=== PATIENT | female | born 1955 | race Caucasian/White ===

== ENCOUNTER 2018-03-22 11:42 | Emergency (ER) | payer MEDICAID ==
[2018-03-22] MEDS ORDERED: AMPICILLIN SOD/SULBACTAM 3 GM VIAL IV ONE (11:57)
--- NOTE | 2018-03-22 12:00 | ER Document Report ---
ED General - General Chief Complaint: Leg Pain Stated Complaint: BILATERAL LEG PAIN Time Seen by Provider: 03/22/18 11:52 Notes: 63-year-old female presents to the ER complaining of bilateral lower extremity redness. She has had a history of chronic cellulitis of the lower extremity she states she has had on and off for 2 years. She feels as if her legs are getting a little bit red and starting to have some weeping and drainage. She denies any chest pain denies shortness of breath she states when this usually happens she needs some antibiotics. The patient denies fever or chills. Complains of some burning pain in the leg she describes as mild which is worse with walking. She denies any calf pain no. Denies abdominal pain. Denies nausea vomiting diarrhea. TRAVEL OUTSIDE OF THE [place] IN LAST 30 DAYS: No - Related Data Allergies/Adverse Reactions: codeine [Codeine] Allergy (Verified 02/13/15 12:25) Past Medical History - Social History Smoking Status: Unknown if Ever Smoked Family History: Reviewed & Not Pertinent - Past Medical History Cardiac Medical History: Reports: Hx Congestive Heart Failure, Hx Coronary Artery Disease - hyperlipedemia, Hx Hypercholesterolemia, Hx Hypertension Denies: Hx Heart Attack Pulmonary Medical History: Reports: Hx Asthma, Hx COPD, Hx Pneumonia - 2006 Denies: Hx Bronchitis Neurological Medical History: Reports: Hx Cerebrovascular Accident - 2008 (mild and without residual) Musculoskeltal Medical History: Denies Hx Arthritis - Immunizations Hx Diphtheria, Pertussis, Tetanus Vaccination: No Review of Systems - Review of Systems Constitutional: denies: Chills, Fever Cardiovascular: Edema. denies: Orthopnea, Dyspnea Respiratory: denies: Cough, Short of breath Skin: Change in color -: Yes All other systems reviewed and negative Physical Exam - Vital signs Vitals: Temp Pulse Resp BP Pulse Ox 98.4 F 75 16 125/66 96 03/22/18 11:45 03/22/18 11:45 03/22/18 11:45 03/22/18 11:45 03/22/18 11:45 - Notes Notes: GENERAL_APPEARANCE: well_nourished, alert, cooperative, no_acute_distress, no_ obvious_discomfort. VITALS: reviewed, see vital signs table. HEAD: no_swelling\tenderness on the head. EYES: conjunctiva_clear. NOSE: no_nasal_discharge. MOUTH: (-)decreased moisture. THROAT: no_airway_obstruction. no_lymphadenopathy NECK: supple, no_neck_tenderness, (-)thyromegaly. BACK: no_back_tenderness. CHEST_WALL: no_chest_tenderness. LUNGS: no_wheezing, no_rales, no_rhonchi, (-)accessory muscle use, good air exchange bilateral. HEART: normal_rate, normal_rhythm, normal_S1, normal_S2, (-)S3, (-)S4, no_ murmur, no_rub. ABDOMEN: normal_BS, soft, no_abd_tenderness, (-)guarding, (-)rebound, no_ organomegaly, no_abd_masses. EXTREMITIES: 3+ pitting edema to the knee, there is redness and cellulitis to lower extremities there is some ulcerations small less than the size of a dime multiple on bilateral legs. There is no fluctuance noted. There are strong dorsalis pedis pulses. SKIN: warm, dry, good_color, no_rash. MENTAL_STATUS: speech_clear, oriented_X_3, normal_affect, responds_ appropriately to questions. Course - Re-evaluation Re-evalutation: 03/22/18 11:59 The patient presents with bilateral lower extremity cellulitis. Will check some generalized blood work and give a dose of Unasyn. The patient does not appear septic at this time will check some generalized blood. 03/22/18 14:11 Laboratory 03/22/18 03/22/18 12:26 12:26 WBC 8.3 RBC 4.85 Hgb 14.1 Hct 42.1 MCV 87 MCH 29.1 MCHC 33.5 RDW 15.0 H Plt Count 236 Seg Neutrophils % 73.9 Lymphocytes % 18.4 Monocytes % 5.8 Eosinophils % 1.3 Basophils % 0.6 Absolute Neutrophils 6.1 Absolute Lymphocytes 1.5 Absolute Monocytes 0.5 Absolute Eosinophils 0.1 Absolute Basophils 0.0 Sodium 147.0 H Potassium 4.2 Chloride 107 Carbon Dioxide 27 Anion Gap 13 BUN 19 Creatinine 1.49 H Est GFR ( Amer) 43 L Est GFR (Non-Af Amer) 35 L Glucose 95 Calcium 10.1 Patient has no signs of any leukocytosis or fever. Patient was given a dose of Unasyn here in the ER will be discharged home on Bactrim and Keflex. The patient follow-up with her family doctor. If she develops a fever or worsening redness she is to return to the ER. She verbalized understanding. - Vital Signs Vital signs: Temp Pulse Resp BP Pulse Ox 98.4 F 75 16 125/66 96 03/22/18 11:45 03/22/18 11:45 03/22/18 11:45 03/22/18 11:45 03/22/18 11:45 - Laboratory Result Diagrams: 03/22/18 12:26 03/22/18 12:26 Laboratory results interpreted by me: 03/22/18 03/22/18 12:26 12:26 RDW 15.0 H Sodium 147.0 H Creatinine 1.49 H Est GFR ( Amer) 43 L Est GFR (Non-Af Amer) 35 L Discharge - Discharge Clinical Impression: Cellulitis Qualifiers: Site of cellulitis: extremity Site of cellulitis of extremity: lower extremity Laterality: unspecified laterality Qualified Code(s): L03.119 - Cellulitis of unspecified part of limb Condition: Good Disposition: HOME, SELF-CARE Instructions: Cellulitis ([facility]) Additional Instructions: Please follow-up with your primary care doctor in 3-5 days. If you develop a fever 101 or above return to the ER. Prescriptions: Cephalexin [Cephalexin 500 MG Tablet] 500 mg PO QID #40 tablet Sulfamethoxazole/Trimethoprim [Bactrim Ds Tablet] 1 each PO BID #20 tablet
[2018-03-22 12:38] LABS: ABSOLUTE EOSINOPHILS # (AUTO) 0.1 10^3/uL (0.0-0.6); ABSOLUTE LYMPHOCYTES (AUTO) 1.5 10^3/uL (0.5-4.7); ABSOLUTE MONOCYTES (AUTO) 0.5 10^3/uL (0.1-1.4); ABSOLUTE NEUT (AUTO) 6.1 10^3/uL (1.7-8.2); BASOPHILS % (AUTO) 0.6 % (0-2); EOSINOPHILS % (AUTO) 1.3 % (0-6); HEMATOCRIT 42.1 % (36.0-47.0); HEMOGLOBIN 14.1 g/dL (12.0-15.5); LYMPHOCYTES % (AUTO) 18.4 % (13-45); MEAN CORPUSCULAR HEMOGLOBIN 29.1 pg (27.0-33.4); MEAN CORPUSCULAR HGB CONC 33.5 g/dL (32.0-36.0); MEAN CORPUSCULAR VOLUME 87 fl (80-97); MONOCYTES % (AUTO) 5.8 % (3-13); PLATELET COUNT 236 10^3/uL (150-450); RED BLOOD COUNT 4.85 10^6/uL (3.72-5.28); SEGMENTED NEUTROPHILS % (AUTO) 73.9 % (42-78); TOTAL CELLS COUNTED % (AUTO) 100 %; WHITE BLOOD COUNT 8.3 10^3/uL (4.0-10.5)
[2018-03-22 12:59] LABS: ANION GAP 13 (5-19); BLOOD UREA NITROGEN 19 mg/dL (7-20); CALCIUM 10.1 mg/dL (8.4-10.2); CARBON DIOXIDE 27 mmol/L (22-30); CHLORIDE 107 mmol/L (98-107); GLUCOSE 95 mg/dL (75-110); POTASSIUM 4.2 mmol/L (3.6-5.0)
[2018-03-22 15:17] VITALS: BP 130/82
== END 2018-03-22 15:17 | disposition home or self-care (01) ==
LOC: ER 11:42
DX: L03.116 Cellulitis of left lower limb (principal); L03.115 Cellulitis of right lower limb; I25.10 Atherosclerotic heart disease of native coronary artery without angina pectoris; I10 Essential (primary) hypertension; J44.9 Chronic obstructive pulmonary disease, unspecified; Z88.5 Allergy status to narcotic agent
CPT/HCPCS: 99283; 96365; 36415; 87040; 85025; 80048; J0295

== ENCOUNTER 2018-09-26 18:35 | Emergency (ER) | payer MEDICAID ==
[2018-09-26] MEDS ORDERED: IPRATROPIUM/ALBUTEROL 0.5-2.5 MG/3 ML AMPUL NEB ONE (19:42)
[2018-09-26] MEDS ORDERED: NORMAL SALINE 500 ML IV ONE (19:42)
[2018-09-26] MEDS ORDERED: MAGNESIUM SULFATE/D5W 1 GM/100 ML RTUPB IV ONE (19:42)
[2018-09-26] MEDS ORDERED: METHYLPREDNISOLONE INJ 125 MG/2 ML SDV IV ONE (19:42)
[2018-09-26 20:07] LABS: ABSOLUTE EOSINOPHILS # (AUTO) 0.2 10^3/uL (0.0-0.6); ABSOLUTE NEUT (AUTO) 10.5 10^3/uL (1.7-8.2); BASOPHILS % (AUTO) 0.3 % (0-2); EOSINOPHILS % (AUTO) 1.5 % (0-6); HEMATOCRIT 39.1 % (36.0-47.0); HEMOGLOBIN 12.9 g/dL (12.0-15.5); LYMPHOCYTES % (AUTO) 7.8 % (13-45); MEAN CORPUSCULAR HEMOGLOBIN 29.5 pg (27.0-33.4); MEAN CORPUSCULAR VOLUME 90 fl (80-97); MONOCYTES % (AUTO) 7.6 % (3-13); PLATELET COUNT 224 10^3/uL (150-450); RED BLOOD COUNT 4.37 10^6/uL (3.72-5.28); RED CELL DISTRIBUTION WIDTH 16.2 % (11.5-14.0); SEGMENTED NEUTROPHILS % (AUTO) 82.8 % (42-78); TOTAL CELLS COUNTED % (AUTO) 100 %; WHITE BLOOD COUNT 12.7 10^3/uL (4.0-10.5)
[2018-09-26 20:12] LABS: INTERNATIONAL RATION (INR) 0.94
--- NOTE | 2018-09-26 20:15 | RADIOLOGY REPORT (SQ) ---
EXAM DESCRIPTION: CHEST SINGLE VIEW COMPLETED DATE/TIME: 09/26/2018 7:58 pm REASON FOR STUDY: sob COMPARISON: None. EXAM PARAMETERS: NUMBER OF VIEWS: One view. TECHNIQUE: Single frontal radiographic view of the chest acquired. RADIATION DOSE: NA LIMITATIONS: None. FINDINGS: LUNGS AND PLEURA: No opacities, masses or pneumothorax. No pleural effusion. MEDIASTINUM AND HILAR STRUCTURES: There is a double density in the lower mediastinum. Cannot exclude hiatal hernia. HEART AND VASCULAR STRUCTURES: Heart normal in size. Normal vasculature. BONES: No acute findings. HARDWARE: None in the chest. OTHER: No other significant finding. IMPRESSION: Possible hiatal hernia. No acute pulmonary disease. TECHNICAL DOCUMENTATION: JOB ID: [id number] [employer]- All Rights Reserved Reading location - IP/workstation name: [email or web address]
[2018-09-26 20:18] LABS: VENOUS BLOOD BASE EXCESS -7.2 mmol/L; VENOUS BLOOD HCO3 19.1 mmol/L (20-32); VENOUS BLOOD PCO2 41.9 mmHg (35-63); VENOUS BLOOD PH 7.28 (7.30-7.42)
[2018-09-26 20:21] LABS: ALANINE AMINOTRANSFERASE 14 U/L (9-52); ALBUMIN 4.1 g/dL (3.5-5.0); ALKALINE PHOSPHATASE 86 U/L (38-126); ANION GAP 14 (5-19); ASPARTATE AMINO TRANSFERASE 17 U/L (14-36); BILIRUBIN,DIRECT 0.4 mg/dL (0.0-0.4); BILIRUBIN,TOTAL 0.7 mg/dL (0.2-1.3); BLOOD UREA NITROGEN 30 mg/dL (7-20); CALCIUM 9.9 mg/dL (8.4-10.2); CARBON DIOXIDE 21 mmol/L (22-30); CHLORIDE 107 mmol/L (98-107); GLUCOSE 124 mg/dL (75-110); POTASSIUM 3.5 mmol/L (3.6-5.0); SODIUM 142.1 mmol/L (137-145); TOTAL PROTEIN 7.3 g/dL (6.3-8.2)
[2018-09-26 21:48] LABS: APPEARANCE,URINE CLEAR; BILIRUBIN,URINE NEGATIVE (NEGATIVE); COLOR,URINE STRAW; GLUCOSE, URINE NEGATIVE (NEGATIVE); KETONES,URINE NEGATIVE (NEGATIVE); LEUKOCYTE ESTERASE,URINE NEGATIVE (NEGATIVE); NITRITE,URINE NEGATIVE (NEGATIVE); PROTEIN,URINE NEGATIVE (NEGATIVE); UROBILINOGEN,URINE NEGATIVE mg/dL (<2.0)
[2018-09-26] MEDS ORDERED: ALBUTEROL SULFATE HFA (90 MCG/PUFF) 8 GM MDI (1 MDI/ER DISP) IH ONE (23:19)
[2018-09-26] MEDS ORDERED: PREDNISONE 20 MG TABLET PO ONE (23:19)
[2018-09-26 23:26] VITALS: BP 143/76
--- NOTE | 2018-09-26 23:31 | ER Document Report ---
ED General - General Chief Complaint: Respiratory Distress Stated Complaint: DIFFICULTY BREATHING Time Seen by Provider: 09/26/18 19:18 TRAVEL OUTSIDE OF THE [place] IN LAST 30 DAYS: No - HPI Patient complains to provider of: Difficulty breathing Notes: Patient coming in for difficulty breathing. Patient states he has been compliant with her medications no recent antibiotics no recent steroids however acutely short of breath for the last 3 days worse today. Patient denies any current smoking the smell of cigarette smoke is abundant on the patient. Patient denies productive sputum although she does have a dry cough. Denies any recent vaccinations denies any sick contacts denies fevers chills nausea vomiting denies any chest pain abdominal pain. Patient otherwise is on oxygen upon my evaluation due to the patient off oxygen as that she states she is not on this at home. HPI process patient is able to speak in complete sentences without any signs of hypoxia. Patient did receive a breathing treatment in triage area and states she is feeling a little bit better at this time. - Related Data Allergies/Adverse Reactions: codeine [Codeine] Allergy (Verified 02/13/15 12:25) Past Medical History - Social History Smoking Status: Former Smoker Family History: Reviewed & Not Pertinent Patient has suicidal ideation: No Patient has homicidal ideation: No - Past Medical History Cardiac Medical History: Reports: Hx Congestive Heart Failure, Hx Coronary Artery Disease - hyperlipedemia, Hx Hypercholesterolemia, Hx Hypertension Denies: Hx Heart Attack Pulmonary Medical History: Reports: Hx Asthma, Hx COPD, Hx Pneumonia - 2006 Denies: Hx Bronchitis Neurological Medical History: Reports: Hx Cerebrovascular Accident - 2008 (mild and without residual) Renal/ Medical History: Denies: Hx Peritoneal Dialysis Musculoskeletal Medical History: Denies Hx Arthritis Past Surgical History: Reports: Hx Hysterectomy - Immunizations Hx Diphtheria, Pertussis, Tetanus Vaccination: No Review of Systems - Review of Systems Constitutional: No symptoms reported EENT: No symptoms reported Cardiovascular: No symptoms reported Respiratory: Short of breath Gastrointestinal: No symptoms reported Genitourinary: No symptoms reported Female Genitourinary: No symptoms reported Musculoskeletal: No symptoms reported Skin: No symptoms reported Hematologic/Lymphatic: No symptoms reported Neurological/Psychological: No symptoms reported -: Yes All other systems reviewed and negative Physical Exam - Vital signs Vitals: Resp Pulse Ox 30 H 100 09/26/18 18:44 09/26/18 18:44 Interpretation: Normal - General General appearance: Appears well, Alert - HEENT Head: Normocephalic, Atraumatic Eyes: Normal Pupils: PERRL - Respiratory Respiratory status: No respiratory distress Chest status: Nontender Breath sounds: Wheezing Chest palpation: Normal - Cardiovascular Rhythm: Regular Heart sounds: Normal auscultation Murmur: No - Abdominal Inspection: Normal Distension: No distension Bowel sounds: Normal Tenderness: Nontender Organomegaly: No organomegaly - Back Back: Normal, Nontender - Extremities General upper extremity: Normal inspection, Nontender, Normal color, Normal ROM , Normal temperature General lower extremity: Normal inspection, Nontender, Normal color, Normal ROM , Normal temperature, Normal weight bearing. No: Addison's sign - Neurological Neuro grossly intact: Yes Cognition: Normal Orientation: AAOx4 [place] Coma Scale Eye Opening: Spontaneous Kristina Coma Scale Verbal: Oriented Kristina Coma Scale Motor: Obeys Commands Kristina Coma Scale Total: 15 Speech: Normal Motor strength normal: LUE, RUE, LLE, RLE Sensory: Normal - Psychological Associated symptoms: Normal affect, Normal mood - Skin Skin Temperature: Warm Skin Moisture: Dry Skin Color: Normal Course - Re-evaluation Re-evalutation: 09/27/18 00:36 Patient was given albuterol treatment steroids and magnesium with great improvement of her symptoms. Patient stating that upon reevaluation she would like to be discharged home. Patient was ambulated around the ER without any signs of hypoxia. Reexamination patient's lung does show signs of. Patient was encouraged to continue to use her nebulizers and inhalers at home will start on steroids. Patient is follow-up with her PCP in the next 3-5 days. Patient is understanding will be discharged home. - Vital Signs Vital signs: Temp Pulse Resp BP Pulse Ox 98.0 F 21 H 143/76 H 95 09/26/18 18:50 09/26/18 23:01 09/26/18 23:01 09/26/18 23:01 - Laboratory Result Diagrams: 09/26/18 19:31 09/26/18 19:31 Laboratory results interpreted by me: 09/26/18 09/26/18 09/26/18 19:02 19:31 19:31 WBC 12.7 H RDW 16.2 H Seg Neutrophils % 82.8 H Lymphocytes % 7.8 L Absolute Neutrophils 10.5 H VBG pH VBG HCO3 Potassium 3.5 L Carbon Dioxide 21 L BUN 30 H Creatinine 2.37 H Est GFR ( Amer) 25 L Est GFR (Non-Af Amer) 21 L Glucose 124 H POC Glucose Magnesium 1.5 L Urine Blood SMALL H 09/26/18 09/26/18 19:31 20:03 WBC RDW Seg Neutrophils % Lymphocytes % Absolute Neutrophils VBG pH 7.28 L VBG HCO3 19.1 L Potassium Carbon Dioxide BUN Creatinine Est GFR ( Amer) Est GFR (Non-Af Amer) Glucose POC Glucose 111 H Magnesium Urine Blood Discharge - Discharge Clinical Impression: COPD with acute exacerbation Condition: Good Disposition: HOME, SELF-CARE Instructions: Chronic Obstructive Lung Disease ([facility]) Additional Instructions: Your laboratory studies today do not show any acute pathology. I recommend she follow-up with your primary care physician. Return to the ER symptoms worsen take medications as prescribed. Prescriptions: Prednisone [Deltasone] 60 mg PO DAILY #24 tablet Referrals: MAU TORRES MD [Primary Care Provider] - Follow up in 1 week
--- NOTE | 2018-09-27 07:27 | EKG REPORT ---
SEVERITY:- ABNORMAL ECG - SINUS TACHYCARDIA WITH IRREGULAR RATE 99-142 CONSIDER ANTEROSEPTAL INFARCT BORDERLINE T ABNORMALITIES, LATERAL LEADS : Confirmed by: David Jaramillo MD 27-Sep-2018 07:26:08
== END 2018-09-26 23:32 | disposition home or self-care (01) ==
LOC: ER 18:35
DX: J44.1 Chronic obstructive pulmonary disease with (acute) exacerbation (principal); R06.09 Other forms of dyspnea; Z87.891 Personal history of nicotine dependence; I25.10 Atherosclerotic heart disease of native coronary artery without angina pectoris; I10 Essential (primary) hypertension
CPT/HCPCS: 93005; 94640; 99285; 96361; 96374; 96375; 36415; 87040; 87086; 82962; 83735; 85025; 85610; 80053; 81001; 82803; 83605; 71045; 93010; J2930; J3475; J7512; J7040; J3490; J7620

== ENCOUNTER 2018-11-05 10:50 | Inpatient (IN) | payer MEDICAID ==
[2018-11-05 11:26] LABS: ABSOLUTE BASOPHILS # (AUTO) 0.1 10^3/uL (0.0-0.2); ABSOLUTE EOSINOPHILS # (AUTO) 0.1 10^3/uL (0.0-0.6); ABSOLUTE LYMPHOCYTES (AUTO) 1.2 10^3/uL (0.5-4.7); ABSOLUTE MONOCYTES (AUTO) 0.9 10^3/uL (0.1-1.4); ABSOLUTE NEUT (AUTO) 17.2 10^3/uL (1.7-8.2); BASOPHILS % (AUTO) 0.4 % (0-2); EOSINOPHILS % (AUTO) 0.3 % (0-6); HEMATOCRIT 47.7 % (36.0-47.0); LYMPHOCYTES % (AUTO) 6.4 % (13-45); MEAN CORPUSCULAR HEMOGLOBIN 28.5 pg (27.0-33.4); MEAN CORPUSCULAR HGB CONC 31.4 g/dL (32.0-36.0); MEAN CORPUSCULAR VOLUME 91 fl (80-97); MONOCYTES % (AUTO) 4.5 % (3-13); PLATELET COUNT 197 10^3/uL (150-450); RED BLOOD COUNT 5.25 10^6/uL (3.72-5.28); SEGMENTED NEUTROPHILS % (AUTO) 88.4 % (42-78); TOTAL CELLS COUNTED % (AUTO) 100 %; WHITE BLOOD COUNT 19.5 10^3/uL (4.0-10.5)
[2018-11-05 12:05] LABS: AMORPHOUS SEDIMENT,URINE TRACE /HPF; APPEARANCE,URINE CLOUDY; BILIRUBIN,URINE NEGATIVE (NEGATIVE); COLOR,URINE RED; GLUCOSE, URINE NEGATIVE (NEGATIVE); KETONES,URINE NEGATIVE (NEGATIVE); LEUKOCYTE ESTERASE,URINE MODERATE (NEGATIVE); NITRITE,URINE NEGATIVE (NEGATIVE); PROTEIN,URINE 100 mg/dL (NEGATIVE); URINE SPECIFIC GRAVITY 1.014; UROBILINOGEN,URINE NEGATIVE mg/dL (<2.0)
[2018-11-05 12:14] LABS: ALANINE AMINOTRANSFERASE 23 U/L (9-52); ALBUMIN 4.3 g/dL (3.5-5.0); ALKALINE PHOSPHATASE 85 U/L (38-126); ASPARTATE AMINO TRANSFERASE 16 U/L (14-36); BILIRUBIN,DIRECT 0.7 mg/dL (0.0-0.4); CALCIUM 9.5 mg/dL (8.4-10.2); GLUCOSE 114 mg/dL (75-110); POTASSIUM 4.4 mmol/L (3.6-5.0)
[2018-11-05 12:18] LABS: URINE AMPHETAMINES SCREEN NEGATIVE; URINE BARBITURATES SCREEN NEGATIVE; URINE BENZODIAZEPINES SCREEN NEGATIVE; URINE COCAINE SCREEN NEGATIVE; URINE MARIJUANA (THC) SCREEN NEGATIVE; URINE METHADONE SCREEN NEGATIVE; URINE PHENCYCLIDINE SCREEN NEGATIVE
[2018-11-05 12:19] LABS: CARBON DIOXIDE 12 mmol/L (22-30); CHLORIDE 120 mmol/L (98-107); SODIUM 152.4 mmol/L (137-145)
[2018-11-05 12:23] LABS: ALCOHOL < 10 mg/dL (NONE DETECTED); ANION GAP 20 (5-19); BLOOD UREA NITROGEN 141 mg/dL (7-20)
[2018-11-05 12:59] LABS: ARTERIAL BLOOD BASE EXCESS -19.3 mmol/L; ARTERIAL BLOOD FIO2 2 L; ARTERIAL BLOOD H2CO3 0.75 mmol/L (1.05-1.35); ARTERIAL BLOOD HCO3 8.2 mmol/L (20-24); ARTERIAL BLOOD O2 SATURATION 96.3 % (94-98); ARTERIAL BLOOD PCO2 24.9 mmHg (35-45); ARTERIAL BLOOD PO2 106.7 mmHg (80-100); ARTERIAL BLOOD TOTAL CO2 8.9 mmol/L (21-25)
[2018-11-05 13:01] LABS: ARTERIAL BLOOD PH 7.13 (7.35-7.45)
[2018-11-05] MEDS ORDERED: NORMAL SALINE 1000 ML 1,000 ML IV ONE ×2 (13:07→15:16)
--- NOTE | 2018-11-05 13:09 | ER Document Report ---
ED General - General Chief Complaint: Altered Mental Status Stated Complaint: ALTERED MENTAL STATUS Time Seen by Provider: 11/05/18 11:36 Notes: 63-year-old female to the emergency department for evaluation of altered mental status. Patient lives at home with her daughter. Poor fund of knowledge of her condition. Apparently has COPD. Has fallen several times recently. Daughter states that she does not want to get out of bed. More confusion recently. Has fallen several times. Complaining of pain in the hips and knees and head. Denies any chest pain at this time. TRAVEL OUTSIDE OF THE [place] IN LAST 30 DAYS: No - HPI Onset: Last week Onset/Duration: Gradual, Worse Quality of pain: Achy Severity: Moderate Pain Level: 3 Associated symptoms: Nausea, Slow to respond, Weakness - Related Data Allergies/Adverse Reactions: codeine [Codeine] Allergy (Verified 02/13/15 12:25) Past Medical History - General Information source: Patient, Relative, [facility] Records Cannot obtain history due to: Mentally challenged, Altered mental status - Social History Smoking Status: Unknown if Ever Smoked Frequency of alcohol use: None Drug Abuse: None Lives with: Family Family History: Reviewed & Not Pertinent Patient has suicidal ideation: No Patient has homicidal ideation: No - Past Medical History Cardiac Medical History: Reports: Hx Congestive Heart Failure, Hx Coronary Artery Disease - hyperlipedemia, Hx Hypercholesterolemia, Hx Hypertension Denies: Hx Heart Attack Pulmonary Medical History: Reports: Hx Asthma, Hx COPD, Hx Pneumonia - 2006 Denies: Hx Bronchitis Neurological Medical History: Reports: Hx Cerebrovascular Accident - 2008 (mild and without residual) Renal/ Medical History: Denies: Hx Peritoneal Dialysis Musculoskeletal Medical History: Denies Hx Arthritis Past Surgical History: Reports: Hx Hysterectomy - Immunizations Hx Diphtheria, Pertussis, Tetanus Vaccination: No Review of Systems - Review of Systems -: Yes ROS unobtainable due to patient's medical condition - Patient altered, Physical Exam - Vital signs Vitals: Pulse Ox 98 11/05/18 10:59 Interpretation: Normal - General General appearance: Lethargic - HEENT Head: Normocephalic, Atraumatic Eyes: Normal Pupils: PERRL Mucous membranes: Dry Pharynx: Normal Neck: Normal - Respiratory Respiratory status: No respiratory distress Chest status: Nontender Breath sounds: Normal Chest palpation: Normal - Cardiovascular Rhythm: Regular Heart sounds: Normal auscultation Murmur: No - Abdominal Inspection: Normal Distension: No distension Bowel sounds: Normal Tenderness: Nontender Organomegaly: No organomegaly - Back Back: Normal, Nontender - Extremities General upper extremity: Normal inspection, Nontender, Normal color, Normal ROM , Normal temperature General lower extremity: Normal inspection, Nontender, Normal color, Normal ROM , Normal temperature, Normal weight bearing. No: Addison's sign - Neurological Neuro grossly intact: Yes Cognition: Confused [place] Coma Scale Motor: Obeys Commands Speech: Normal Motor strength normal: LUE, RUE, LLE, RLE Sensory: Normal - Skin Skin Temperature: Warm Skin Moisture: Dry Skin Color: Normal Course - Re-evaluation Re-evalutation: 11/05/18 13:30 Laboratory 11/05/18 11/05/18 11/05/18 10:40 10:40 11:20 WBC 19.5 H RBC 5.25 Hgb 15.0 Hct 47.7 H MCV 91 MCH 28.5 MCHC 31.4 L RDW 18.0 H Plt Count 197 Seg Neutrophils % 88.4 H Lymphocytes % 6.4 L Monocytes % 4.5 Eosinophils % 0.3 Basophils % 0.4 Absolute Neutrophils 17.2 H Absolute Lymphocytes 1.2 Absolute Monocytes 0.9 Absolute Eosinophils 0.1 Absolute Basophils 0.1 Carbonic Acid HCO3/H2CO3 Ratio ABG pH ABG pCO2 ABG pO2 ABG HCO3 ABG Total CO2 ABG O2 Saturation ABG Base Excess FiO2 Sodium Cancelled 152.4 H Potassium Cancelled 4.4 Chloride Cancelled 120 H Carbon Dioxide Cancelled 12 L Anion Gap Cancelled 20 H BUN Cancelled 141 H Creatinine Cancelled 11.59 H Est GFR ( Amer) Cancelled 4 L Est GFR (Non-Af Amer) Cancelled 3 L Glucose Cancelled 114 H POC Glucose Lactic Acid Calcium Cancelled 9.5 Magnesium Cancelled 1.6 Total Bilirubin Cancelled 1.0 Direct Bilirubin Cancelled 0.7 H Neonat Total Bilirubin Cancelled Not Reportable Neonat Direct Bilirubin Cancelled Not Reportable Neonat Indirect Bili Cancelled Not Reportable AST Cancelled 16 ALT Cancelled 23 Alkaline Phosphatase Cancelled 85 Ammonia Total Protein Cancelled 7.0 Albumin Cancelled 4.3 Urine Color Urine Appearance Urine pH Ur Specific [place] Urine Protein Urine Glucose (UA) Urine Ketones Urine Blood Urine Nitrite Urine Bilirubin Urine Urobilinogen Ur Leukocyte Esterase Urine WBC (Auto) Urine RBC (Auto) Urine Bacteria (Auto) Squamous Epi Cells Auto Amorphous Sediment Auto Urine Ascorbic Acid Urine Opiates Screen Urine Methadone Screen Ur Barbiturates Screen Ur Phencyclidine Scrn Ur Amphetamines Screen U Benzodiazepines Scrn Urine Cocaine Screen U Marijuana (THC) Screen Serum Alcohol Cancelled < 10 11/05/18 11/05/18 11/05/18 11:20 11:20 11:20 WBC RBC Hgb Hct MCV MCH MCHC RDW Plt Count Seg Neutrophils % Lymphocytes % Monocytes % Eosinophils % Basophils % Absolute Neutrophils Absolute Lymphocytes Absolute Monocytes Absolute Eosinophils Absolute Basophils Carbonic Acid HCO3/H2CO3 Ratio ABG pH ABG pCO2 ABG pO2 ABG HCO3 ABG Total CO2 ABG O2 Saturation ABG Base Excess FiO2 Sodium Potassium Chloride Carbon Dioxide Anion Gap BUN Creatinine Est GFR ( Amer) Est GFR (Non-Af Amer) Glucose POC Glucose Lactic Acid 1.2 Calcium Magnesium Total Bilirubin Direct Bilirubin Neonat Total Bilirubin Neonat Direct Bilirubin Neonat Indirect Bili AST ALT Alkaline Phosphatase Ammonia Total Protein Albumin Urine Color RED Urine Appearance CLOUDY Urine pH 5.0 Ur Specific [place] 1.014 Urine Protein 100 H Urine Glucose (UA) NEGATIVE Urine Ketones NEGATIVE Urine Blood MODERATE H Urine Nitrite NEGATIVE Urine Bilirubin NEGATIVE Urine Urobilinogen NEGATIVE Ur Leukocyte Esterase MODERATE H Urine WBC (Auto) 41 Urine RBC (Auto) 4 Urine Bacteria (Auto) TRACE Squamous Epi Cells Auto 24 Amorphous Sediment Auto TRACE Urine Ascorbic Acid NEGATIVE Urine Opiates Screen NEGATIVE Urine Methadone Screen NEGATIVE Ur Barbiturates Screen NEGATIVE Ur Phencyclidine Scrn NEGATIVE Ur Amphetamines Screen NEGATIVE U Benzodiazepines Scrn NEGATIVE Urine Cocaine Screen NEGATIVE U Marijuana (THC) Screen NEGATIVE Serum Alcohol 11/05/18 11/05/18 11/05/18 11:45 12:26 12:26 WBC RBC Hgb Hct MCV MCH MCHC RDW Plt Count Seg Neutrophils % Lymphocytes % Monocytes % Eosinophils % Basophils % Absolute Neutrophils Absolute Lymphocytes Absolute Monocytes Absolute Eosinophils Absolute Basophils Carbonic Acid 0.75 L HCO3/H2CO3 Ratio 10:1 ABG pH 7.13 L* ABG pCO2 24.9 L ABG pO2 106.7 H ABG HCO3 8.2 L ABG Total CO2 8.9 L ABG O2 Saturation 96.3 ABG Base Excess -19.3 FiO2 2 L Sodium Potassium Chloride Carbon Dioxide Anion Gap BUN Creatinine Est GFR ( Amer) Est GFR (Non-Af Amer) Glucose POC Glucose 109 Lactic Acid Calcium Magnesium Total Bilirubin Direct Bilirubin Neonat Total Bilirubin Neonat Direct Bilirubin Neonat Indirect Bili AST ALT Alkaline Phosphatase Ammonia 13.4 Total Protein Albumin Urine Color Urine Appearance Urine pH Ur Specific [place] Urine Protein Urine Glucose (UA) Urine Ketones Urine Blood Urine Nitrite Urine Bilirubin Urine Urobilinogen Ur Leukocyte Esterase Urine WBC (Auto) Urine RBC (Auto) Urine Bacteria (Auto) Squamous Epi Cells Auto Amorphous Sediment Auto Urine Ascorbic Acid Urine Opiates Screen Urine Methadone Screen Ur Barbiturates Screen Ur Phencyclidine Scrn Ur Amphetamines Screen U Benzodiazepines Scrn Urine Cocaine Screen U Marijuana (THC) Screen Serum Alcohol 11/05/18 13:31 Patient with elevated WBC count with acute renal failure seen on basic labs. Giving IV fluids at this time. 11/05/18 15:[address] 11/05/18 12:02 IMPRESSION: Interval development of a low attenuation area at the right parietal lobe, probably representing an age indeterminate infarct. No acute intracranial hemorrhage. If there is clinical concern for acute ischemia, further evaluation with MRI can be obtained. EVIDENCE OF ACUTE STROKE: Age-indeterminate infarct at the right parietal lobe. Consulted with Dr. Meeks who is on-call for Dr. Andrade. He will admit the patient at this time for further workup. Patient with acute renal failure, altered mental status, metabolic acidosis and possible subacute stroke. - Vital Signs Vital signs: Temp Pulse Resp BP Pulse Ox 98 11/05/18 10:59 - Laboratory Result Diagrams: 11/05/18 10:40 11/05/18 11:20 Laboratory results interpreted by me: 11/05/18 11/05/18 11/05/18 10:40 11:20 11:20 WBC 19.5 H Hct 47.7 H MCHC 31.4 L RDW 18.0 H Seg Neutrophils % 88.4 H Lymphocytes % 6.4 L Absolute Neutrophils 17.2 H Carbonic Acid ABG pH ABG pCO2 ABG pO2 ABG HCO3 ABG Total CO2 Sodium 152.4 H Chloride 120 H Carbon Dioxide 12 L Anion Gap 20 H BUN 141 H Creatinine 11.59 H Est GFR ( Amer) 4 L Est GFR (Non-Af Amer) 3 L Glucose 114 H Direct Bilirubin 0.7 H Urine Protein 100 H Urine Blood MODERATE H Ur Leukocyte Esterase MODERATE H 11/05/18 12:26 WBC Hct MCHC RDW Seg Neutrophils % Lymphocytes % Absolute Neutrophils Carbonic Acid 0.75 L ABG pH 7.13 L* ABG pCO2 24.9 L ABG pO2 106.7 H ABG HCO3 8.2 L ABG Total CO2 8.9 L Sodium Chloride Carbon Dioxide Anion Gap BUN Creatinine Est GFR ( Amer) Est GFR (Non-Af Amer) Glucose Direct Bilirubin Urine Protein Urine Blood Ur Leukocyte Esterase - EKG Interpretation by Ia EKG shows normal: Sinus rhythm, [place], Intervals, QRS Complexes, ST-T Waves Critical Care Note - Critical Care Note Total time excluding time spent on procedures (mins): 45 Comments: Altered mental status, metabolic acidosis, acute renal failure, subacute stroke Discharge - Discharge Clinical Impression: Hypernatremia, Metabolic acidosis Acute renal failure (ARF) Qualifiers: Acute renal failure type: unspecified Qualified Code(s): N17.9 - Acute kidney failure, unspecified Stroke Qualifiers: CVA mechanism: unspecified Qualified Code(s): I63.9 - Cerebral infarction, unspecified Urinary tract infection Qualifiers: Urinary tract infection type: site unspecified Hematuria presence: without hematuria Qualified Code(s): N39.0 - Urinary tract infection, site not specified Condition: Fair Disposition: ADMITTED INPATIENT [facility] Referrals: MARY PAN PA [Primary Care Provider] - Follow up as needed
[2018-11-05] MEDS ORDERED: CEFTRIAXONE INJ 1000 MG VIAL IV ONE (13:31)
[2018-11-05 13:47] LABS: CREATINE KINASE MB 1.23 ng/mL (<4.55)
[2018-11-05 13:53] LABS: TROPONIN I < 0.012 ng/mL
--- NOTE | 2018-11-05 13:56 | RADIOLOGY REPORT (SQ) ---
EXAM DESCRIPTION: CT HEAD WITHOUT COMPLETED DATE/TIME: 11/05/2018 1:06 pm REASON FOR STUDY: altered mental status COMPARISON: CT head 04/28/2009. MRI head 05/01/2009. TECHNIQUE: Axial images acquired through the brain without intravenous contrast. Images reviewed wi th bone, brain and subdural windows. Images stored on PACS. All CT scanners at this facility use dose modulation, iterative reconstruction, and/or weight based d osing when appropriate to reduce radiation dose to as low as reasonably achievable (ALARA). [facility]: Dose Right [facility]: CareDose [facility]: Dose Right [facility]: Teradose 4D [facility]: Smart ADINCON RADIATION DOSE: CT Rad equipment meets quality standard of care and radiation dose reduction techniq ues were employed. CTDIvol: 53.2 - 55.2 mGy. DLP: 2128 mGy-cm. mGy. LIMITATIONS: There is motion artifact. FINDINGS: VENTRICLES: Normal size and contour. CEREBRUM: There is a area of low attenuation at the right parietal region, not present on the compari son study. Additional areas of low attenuation at the periventricular white matter, probably corresp onding to chronic microvascular ischemic changes. There is no evidence for acute intracranial hemorr sussy. No mass effect or midline shift. CEREBELLUM: No hemorrhage. No alteration of density. No evidence for acute infarction. EXTRAAXIAL SPACES: No fluid collections. ORBITS AND GLOBE: Symmetrical contour of the globes peer CALVARIUM: No depressed fracture. PARANASAL SINUSES: No air-fluid levels. SOFT TISSUES: No hematoma. IMPRESSION: Interval development of a low attenuation area at the right parietal lobe, probably repr esenting an age indeterminate infarct. No acute intracranial hemorrhage. If there is clinical jasbir rn for acute ischemia, further evaluation with MRI can be obtained. EVIDENCE OF ACUTE STROKE: Age-indeterminate infarct at the right parietal lobe. COMMENT: Quality ID # [id number]: Final reports with documentation of one or more dose reduction techniques (e.g., Automated exposure control, adjustment of the mA and/or kV according to patient size, use of iterative reconstruction technique) TECHNICAL DOCUMENTATION: JOB ID: [id number] [employer]- All Rights Reserved Reading location - IP/workstation name: [email or web address]
--- NOTE | 2018-11-05 14:03 | RADIOLOGY REPORT (SQ) ---
EXAM DESCRIPTION: KNEE BILATERAL 1-2 VIEWS; PELVIS AP; CHEST SINGLE VIEW COMPLETED DATE/TIME: 11/05/2018 1:48 pm REASON FOR STUDY: fall, pain; sob, altered COMPARISON: See below. FINDINGS: Single-view chest: 09/26/2018 comparison. Limiting external artifact. Clear lungs withou t acute abnormality. Single view pelvis: No priors. Hip DJD. No fracture or bone lesion. Lower lumbar spondylosis. Bilateral knees: Two views each. Mildly limiting body habitus. No fracture detected. No effusion. TECHNICAL DOCUMENTATION: JOB ID: [id number] Reading location - IP/workstation name: [email or web address] [email or web address]
--- NOTE | 2018-11-05 14:03 | RADIOLOGY REPORT (SQ) ---
EXAM DESCRIPTION: KNEE BILATERAL 1-2 VIEWS; PELVIS AP; CHEST SINGLE VIEW COMPLETED DATE/TIME: 11/05/2018 1:48 pm REASON FOR STUDY: fall, pain; sob, altered COMPARISON: See below. FINDINGS: Single-view chest: 09/26/2018 comparison. Limiting external artifact. Clear lungs withou t acute abnormality. Single view pelvis: No priors. Hip DJD. No fracture or bone lesion. Lower lumbar spondylosis. Bilateral knees: Two views each. Mildly limiting body habitus. No fracture detected. No effusion. TECHNICAL DOCUMENTATION: JOB ID: [id number] Reading location - IP/workstation name: [email or web address]
--- NOTE | 2018-11-05 14:03 | RADIOLOGY REPORT (SQ) ---
EXAM DESCRIPTION: KNEE BILATERAL 1-2 VIEWS; PELVIS AP; CHEST SINGLE VIEW COMPLETED DATE/TIME: 11/05/2018 1:48 pm REASON FOR STUDY: fall, pain; sob, altered COMPARISON: See below. FINDINGS: Single-view chest: 09/26/2018 comparison. Limiting external artifact. Clear lungs withou t acute abnormality. Single view pelvis: No priors. Hip DJD. No fracture or bone lesion. Lower lumbar spondylosis. Bilateral knees: Two views each. Mildly limiting body habitus. No fracture detected. No effusion. TECHNICAL DOCUMENTATION: JOB ID: [id number] Reading location - IP/workstation name: [email or web address]
--- NOTE | 2018-11-05 19:50 | PDOC H&P ---
History of Present Illness Admission Date/PCP: 11/05/18 16:10 ROLDAN NEVAREZ History of Present Illness: ELIN JIMÉNEZ is a 63 year old female of Dr Adam Pugh brought to the ED by EMS personnel due tp family reported change in mental status and not been her usual self. Daughter at bedside at the time of my visit reported that patient have been ill for about two weeks with poor appetite and P.O intake. There is reported nausea but no vomiting or abdominal pain. There is no diarrhea but daughter reported issue with constipation. There is no chest pain or difficulty with breathing. There has been recurrent falls at home. No focal weakness. No reported fever or chills. Patient did reported multiple joints aches and pain including knee and hip joints and her head. Her initial evaluation in the ED was remarkable severe acute kidney injury, metabolic acidosis and abnormal urinalysis suggestive of ongoing infection. Her morbidities include Hypertension, Congestive Heart Failure, Coronary Artery Disease, Hyperlipidemia, Asthma, COPD, Cerebrovascular Accident without significant residual deficit. In view of her presentation, clinical and laboratory findings, she was advised hospitalization for further evaluation and management. Past Medical History Cardiac Medical History: Reports: Congestive Heart Failure, Coronary Artery Disease - hyperlipedemia, Hyperlipidema, Hypertension Denies: Myocardial Infarction Pulmonary Medical History: Reports: Asthma, Chronic Obstructive Pulmonary Disease (COPD), Pneumonia - 2006 Denies: Bronchitis Musculoskeltal Medical History: Denies: Arthritis Hematology: Denies: Anemia Past Surgical History Past Surgical History: Reports: Hysterectomy Social History Lives with: Family Smoking Status: Former Smoker Number of Years Smokin Last Time Smoked: 11/22/2015 Frequency of Alcohol Use: None Hx Recreational Drug Use: No Drugs: None Hx Prescription Drug Abuse: No - Advance Directive Resuscitation Status: Full Code Family History Family History: Reviewed & Not Pertinent Parental Family History Reviewed: Yes Children Family History Reviewed: Yes Sibling(s) Family History Reviewed.: Yes Medication/Allergy Home Medications: Allopurinol 100 mg PO DAILY 11/23/13 Simvastatin 20 mg PO DAILY 11/23/13 Amlodipine Besylate [Norvasc 5 mg Tablet] 5 mg PO DAILY #30 tablet 05/06/15 Albuterol Sulfate [Proair HFA] 2 puff IH Q6HP PRN 12/22/15 Cetirizine HCl [Zyrtec 10 mg Tablet] 10 mg PO DAILY 11/05/18 Fluticasone/Salmeterol [Advair 500-50 Diskus 14 Dose/Diskus] 1 inh IH Q12 Furosemide [Lasix 20 mg Tablet] 20 mg PO QAM 11/05/18 Levothyroxine Sodium [Synthroid 0.15 mg Tablet] 0.15 mg PO Q6AM 11/05/18 Allergies/Adverse Reactions: cephalexin [From Keflex] Allergy (Verified 11/05/18 18:06) codeine [Codeine] Allergy (Verified 02/13/15 12:25) Review of Systems Constitutional: PRESENT: weakness. ABSENT: as per HPI, anorexia, chills, fatigue, fever(s), headache(s), night sweats, weight gain, weight loss, other Eyes: ABSENT: visual disturbances Ears: ABSENT: hearing changes Nose, Mouth, and Throat: ABSENT: as per HPI, headache(s), mouth pain, sore throat, vertigo, other Cardiovascular: ABSENT: chest pain, dyspnea on exertion, edema, orthropnea, palpitations Respiratory: ABSENT: cough, hemoptysis Gastrointestinal: PRESENT: constipation, nausea Genitourinary: ABSENT: dysuria, hematuria Integumentary: PRESENT: rash - in groin region Neurological: PRESENT: confusion, weakness - generalized with reported frequent falls at home. Daughter reported that patient ambulate at home without use of any assistive device. Psychiatric: ABSENT: anxiety, depression, homidical ideation, suicidal ideation Endocrine: ABSENT: cold intolerance, heat intolerance, polydipsia, polyuria Hematologic/Lymphatic: ABSENT: easy bleeding, easy bruising, lymphadenopathy Allergic/Immunologic: ABSENT: seasonal rhinorrhea Physical Exam Vital Signs: Temp Pulse Resp BP Pulse Ox 97.6 F 88 20 116/86 H 96 11/05/18 17:21 11/05/18 17:21 11/05/18 17:21 11/05/18 17:21 11/05/18 17:21 Intake & Output 11/04/18 11/05/18 11/06/18 06:59 06:59 06:59 Intake Total 1000 Balance 1000 Weight 96.1 kg General appearance: PRESENT: no acute distress, morbidly obese Head exam: PRESENT: atraumatic, normocephalic Eye exam: PRESENT: periorbital swelling - minimally with erythema from chronic riirtation and scratching Ear exam: PRESENT: normal external ear exam Mouth exam: PRESENT: dry mucosa Teeth exam: PRESENT: edentulous Throat exam: ABSENT: post pharyngeal erythema, tonsillar erythema, tonsillar exudate, tonsillogmegaly, other Neck exam: PRESENT: full ROM. ABSENT: carotid bruit, JVD, lymphadenopathy, thyromegaly Respiratory exam: PRESENT: clear to auscultation nirmal Cardiovascular exam: PRESENT: RRR. ABSENT: diastolic murmur, rubs, systolic murmur Vascular exam: PRESENT: normal capillary refill. ABSENT: pallor GI/Abdominal exam: PRESENT: normal bowel sounds, soft. ABSENT: distended, guarding, mass, organolmegaly, rebound, tenderness Rectal exam: PRESENT: deferred Gentrourinary exam: PRESENT: indwelling catheter Extremities exam: ABSENT: pedal edema Musculoskeletal exam: PRESENT: deformity - related to multiple joints involvememnt with arthritis Neurological exam: PRESENT: alert, awake, oriented to place, CN II-XII grossly intact. ABSENT: oriented to person - refer to her daughter as niece, oriented to time, oriented to situation Psychiatric exam: PRESENT: appropriate affect, normal mood. ABSENT: homicidal ideation, suicidal ideation Skin exam: PRESENT: dry, rash - yeast rash in skin fold aroun groin region and beneath breast tissue bilaterally, warm, other - multiuple resolving bruises on extremities Results Impressions: Head CT 11/05/18 12:02 IMPRESSION: Interval development of a low attenuation area at the right parietal lobe, probably representing an age indeterminate infarct. No acute intracranial hemorrhage. If there is clinical concern for acute ischemia, further evaluation with MRI can be obtained. EVIDENCE OF ACUTE STROKE: Age-indeterminate infarct at the right parietal lobe. Assessment & Plan - Diagnosis (1) Acute renal failure (ARF) Qualifiers: Acute renal failure type: unspecified Qualified Code(s): N17.9 - Acute kidney failure, unspecified Is this a current diagnosis for this admission?: Yes Plan: Patient will be maintain on IV fluid support. Monitor renal indices. Avoid nephrotoxic medications. Request nephrology consultation when available. Patient is currently making satisfactory amount of urine. (2) Hypernatremia Is this a current diagnosis for this admission?: Yes Plan: Maintain on IV fluid support. Calculated water deficit at 4.22 liters. (3) Metabolic acidosis Is this a current diagnosis for this admission?: Yes Plan: Related to her acute renal failure and possible ongoing acute infection. (4) Urinary tract infection Qualifiers: Urinary tract infection type: site unspecified Hematuria presence: without hematuria Qualified Code(s): N39.0 - Urinary tract infection, site not specified Is this a current diagnosis for this admission?: Yes Plan: Maintain on IV Rocephin coverage. Follow up on CBC indices, urine and blood culture findings. - Time Time Spent: 50 to 70 Minutes Medications reviewed and adjusted accordingly: Yes Anticipated discharge: Home with Homehealth, SNF Within: Other - Inpatient Certification Based on my medical assessment, after consideration of the patient's comorbidities, presenting symptoms, or acuity I expect that the services needed warrant INPATIENT care.: Yes I certify that my determination is in accordance with my understanding of Medicare's requirements for reasonable and necessary INPATIENT services [42 CFR 412.3e].: Yes Medical Necessity: Need Close Monitoring Due to Risk of Patient Decompensation, Need For IV Fluids, Need For Continuous Telemetry Monitoring, Risk of Complication if Not Cared For in Hospital Post 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
[2018-11-05] MEDS ORDERED: ALBUTEROL SULFATE HFA (90 MCG/PUFF) 8 GM MDI (1 MDI/ER DISP) IH PRN (19:56)
[2018-11-05] MEDS ORDERED: ACETAMINOPHEN 325 MG TABLET PO PRN (20:01)
[2018-11-05] MEDS ORDERED: NORMAL SALINE 1000 ML 2,000 ML IV ONE (20:10)
--- NOTE | 2018-11-05 22:04 | RADIOLOGY REPORT (SQ) ---
EXAM DESCRIPTION: US RETROPERITONEUM COMPLETED DATE/TME: 11/05/2018 00:00 CLINICAL HISTORY: 63 years Female ARF COMPARISON: 06/09/2016. The images are not available for download exam is compared to the report. TECHNIQUE: Transabdominal grayscale imaging performed to evaluate the kidneys and urinary bladder. FINDINGS: The right kidney appears atrophic measuring 8 cm. No hydronephrosis is noted. There is an exophytic cyst measuring 1 cm. Left kidney measures 9.6 cm. No hydronephrosis or mass. The bladder is not identified. IMPRESSION: Right renal atrophy No evidence of hydronephrosis Study is limited by body habitus
[2018-11-05] MEDS ORDERED: FLUTICASONE/SALMETEROL DISKUS 500-50 MCG/DOSE IH ONE (22:53)
[2018-11-05] MEDS: FLUTICASONE/SALMETEROL DISKUS 500-50 MCG/DOSE IH SCH (23:02)
[2018-11-05] MEDS: HEPARIN SOD (PORCINE) 5,000 UNIT/ML 1 ML SYRINGE SUBCUT SCH (23:02)
[2018-11-05] MEDS: NORMAL SALINE 1000 ML 1,000 ML IV PRN (23:02)
[2018-11-06] MEDS: LEVOTHYROXINE SODIUM 0.15 MG TABLET PO SCH (05:44)
[2018-11-06] MEDS: LANSOPRAZOLE 30 MG TAB.RAP.DR PO SCH (05:44)
[2018-11-06 07:09] LABS: ABSOLUTE BASOPHILS # (AUTO) 0.1 10^3/uL (0.0-0.2); ABSOLUTE EOSINOPHILS # (AUTO) 0.4 10^3/uL (0.0-0.6); ABSOLUTE LYMPHOCYTES (AUTO) 1.2 10^3/uL (0.5-4.7); ABSOLUTE MONOCYTES (AUTO) 0.6 10^3/uL (0.1-1.4); ABSOLUTE NEUT (AUTO) 13.5 10^3/uL (1.7-8.2); BASOPHILS % (AUTO) 0.4 % (0-2); EOSINOPHILS % (AUTO) 2.4 % (0-6); LYMPHOCYTES % (AUTO) 7.8 % (13-45); MEAN CORPUSCULAR HEMOGLOBIN 28.5 pg (27.0-33.4); MEAN CORPUSCULAR HGB CONC 31.9 g/dL (32.0-36.0); MEAN CORPUSCULAR VOLUME 89 fl (80-97); MONOCYTES % (AUTO) 3.6 % (3-13); PLATELET COUNT 140 10^3/uL (150-450); RED BLOOD COUNT 4.26 10^6/uL (3.72-5.28); RED CELL DISTRIBUTION WIDTH 16.9 % (11.5-14.0); SEGMENTED NEUTROPHILS % (AUTO) 85.8 % (42-78); TOTAL CELLS COUNTED % (AUTO) 100 %; WHITE BLOOD COUNT 15.7 10^3/uL (4.0-10.5)
[2018-11-06 07:12] LABS: HEMOGLOBIN 12.1 g/dL (12.0-15.5)
[2018-11-06 07:16] LABS: ALANINE AMINOTRANSFERASE 20 U/L (9-52); ALKALINE PHOSPHATASE 68 U/L (38-126); ANION GAP 14 (5-19); ASPARTATE AMINO TRANSFERASE 24 U/L (14-36); BILIRUBIN,DIRECT 0.6 mg/dL (0.0-0.4); BILIRUBIN,TOTAL 0.8 mg/dL (0.2-1.3); CALCIUM 7.8 mg/dL (8.4-10.2); CHLORIDE 126 mmol/L (98-107); GLUCOSE 80 mg/dL (75-110); PHOSPHORUS 7.6 mg/dL (2.5-4.5); SODIUM 149.1 mmol/L (137-145); TOTAL PROTEIN 5.8 g/dL (6.3-8.2)
[2018-11-06 07:42] LABS: BLOOD UREA NITROGEN 118 mg/dL (7-20)
[2018-11-06 07:44] LABS: CARBON DIOXIDE 9 mmol/L (22-30)
[2018-11-06] MEDS: NORMAL SALINE 1000 ML 1,000 ML IV PRN (08:38)
[2018-11-06] MEDS ORDERED: ALBUTEROL SULFATE HFA (90 MCG/PUFF) 200 PUFF/8.5 GM MDI IH PRN (09:13)
[2018-11-06] MEDS: AMLODIPINE BESYLATE 5 MG TABLET PO SCH (09:23)
[2018-11-06] MEDS: HEPARIN SOD (PORCINE) 5,000 UNIT/ML 1 ML SYRINGE SUBCUT SCH ×2 (09:23→22:53)
[2018-11-06] MEDS ORDERED: CEFTRIAXONE 1 GM/D5W RTU 1 GM/50 ML RTUPB IV SCH (10:00)
[2018-11-06] MEDS: FLUTICASONE/SALMETEROL DISKUS 500-50 MCG/DOSE IH SCH ×2 (10:58→22:53)
[2018-11-06] MEDS: CEFTRIAXONE SODIUM 1,000 MG in DEXTROSE 5%-WATER 50 ML IV SCH (11:01)
[2018-11-06 11:20] LABS: ARTERIAL BLOOD BASE EXCESS -21.4 mmol/L; ARTERIAL BLOOD H2CO3 0.67 mmol/L (1.05-1.35); ARTERIAL BLOOD HCO3 6.7 mmol/L (20-24); ARTERIAL BLOOD O2 SATURATION 94.9 % (94-98); ARTERIAL BLOOD PCO2 22.4 mmHg (35-45); ARTERIAL BLOOD PO2 97.5 mmHg (80-100); ARTERIAL BLOOD TOTAL CO2 7.4 mmol/L (21-25)
[2018-11-06 11:26] LABS: ARTERIAL BLOOD FIO2 21%
[2018-11-06 11:27] LABS: ARTERIAL BLOOD PH 7.09 (7.35-7.45)
[2018-11-06] MEDS ORDERED: DEXTROSE 5%-WATER 1000 ML 1,000 ML with SODIUM BICARBONATE 50 MEQ IV PRN ×2 (11:55)
[2018-11-06] MEDS: SODIUM BICARBONATE 650 MG TABLET PO SCH ×3 (12:41→23:54)
--- NOTE | 2018-11-06 13:32 | PDOC PROGRESS REPORT ---
Subjective Progress Note for:: 11/06/18 Subjective:: Patient denied any chest pain. 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 She remain somewhat sluggish in her responses but appropriate in orientation to place. No fever or chills. No nausea or vomiting. P.O intake remain fair. Reason For Visit: ALTERED MENTAL STATUS Physical Exam Vital Signs: Temp Pulse Resp BP Pulse Ox 98.2 F 81 16 111/72 99 11/06/18 07:32 11/06/18 07:32 11/06/18 07:32 11/06/18 07:32 11/06/18 07:32 Intake & Output 11/05/18 11/06/18 11/07/18 06:59 06:59 06:59 Intake Total 3000 1403 Output Total 475 Balance 2525 1403 Weight 98.4 kg General appearance: PRESENT: no acute distress, morbidly obese Head exam: PRESENT: atraumatic, normocephalic Eye exam: PRESENT: conjunctiva pink, EOMI, PERRLA. ABSENT: scleral icterus Ear exam: PRESENT: normal external ear exam Mouth exam: PRESENT: moist - fairly Teeth exam: PRESENT: edentulous Respiratory exam: PRESENT: clear to auscultation nirmal, decreased breath sounds - at lung bases Cardiovascular exam: PRESENT: RRR, +S1, +S2. ABSENT: diastolic murmur, rubs, systolic murmur Vascular exam: ABSENT: pallor GI/Abdominal exam: PRESENT: normal bowel sounds, soft. ABSENT: distended, guarding, mass, organolmegaly, rebound, tenderness Extremities exam: ABSENT: pedal edema Neurological exam: PRESENT: alert, awake, oriented to place, oriented to time, CN II-XII grossly intact. ABSENT: motor sensory deficit Psychiatric exam: PRESENT: appropriate affect, normal mood. ABSENT: homicidal ideation, suicidal ideation Skin exam: PRESENT: dry, warm Results Laboratory Results: 11/06/18 06:25 11/06/18 06:25 11/06/18 11/06/18 11/06/18 06:25 06:25 09:30 WBC 15.7 H RBC 4.26 Hgb 12.1 D Hct 38.0 MCV 89 MCH 28.5 MCHC 31.9 L RDW 16.9 H Plt Count 140 L Seg Neutrophils % 85.8 H Lymphocytes % 7.8 L Monocytes % 3.6 Eosinophils % 2.4 Basophils % 0.4 Absolute Neutrophils 13.5 H Absolute Lymphocytes 1.2 Absolute Monocytes 0.6 Absolute Eosinophils 0.4 Absolute Basophils 0.1 Carbonic Acid 0.67 L HCO3/H2CO3 Ratio 10:1 ABG pH 7.09 L* ABG pCO2 22.4 L ABG pO2 97.5 ABG HCO3 6.7 L ABG O2 Saturation 94.9 ABG Base Excess -21.4 FiO2 21% Sodium 149.1 H Potassium 4.0 Chloride 126 H Carbon Dioxide 9 L* Anion Gap 14 BUN 118 H D Creatinine 9.75 H Est GFR ( Amer) 5 L Est GFR (Non-Af Amer) 4 L Glucose 80 Calcium 7.8 L Phosphorus 7.6 H Magnesium 1.3 L Total Bilirubin 0.8 AST 24 ALT 20 Alkaline Phosphatase 68 Total Protein 5.8 L Albumin 3.0 L Impressions: Renal Ultrasound 11/05/18 00:00 IMPRESSION: Right renal atrophy No evidence of hydronephrosis Study is limited by body habitus Head CT 11/05/18 12:02 IMPRESSION: Interval development of a low attenuation area at the right parietal lobe, probably representing an age indeterminate infarct. No acute intracranial hemorrhage. If there is clinical concern for acute ischemia, further evaluation with MRI can be obtained. EVIDENCE OF ACUTE STROKE: Age-indeterminate infarct at the right parietal lobe. Assessment & Plan - Diagnosis (1) Acute on chronic renal failure Qualifiers: Acute renal failure type: unspecified Chronic kidney disease stage: stage 5 , not on chronic dialysis Qualified Code(s): N17.9 - Acute kidney failure, unspecified; N18.5 - Chronic kidney disease, stage 5; N18.5 - Chronic kidney disease, stage 5; N18.5 - Chronic kidney disease, stage 5; N18.5 - Chronic kidney disease, stage 5 Is this a current diagnosis for this admission?: Yes Plan: Patient will be maintain on IV fluid support. Avoid nephrotoxic medications. Patient continue to make satisfactory amount of urine. Request nephrology consultation with Dr. Starr in AM. (2) Metabolic acidosis Is this a current diagnosis for this admission?: Yes Plan: In view of her compensatory status her metabolic acidosis seems chronic in nature. We will start on IV D5W with 1 ample of sodium bicarbonate and start on oral bicarbonate 650mg p.o q6 hours. (3) Hypernatremia Is this a current diagnosis for this admission?: Yes Plan: Improving with IV fluid support. (4) Hyperphosphatemia Is this a current diagnosis for this admission?: Yes Plan: Probably due to her renal failure. Start on PhosLo 667mg po tid with meal. Maintain on Pre-Renal diet. (5) Urinary tract infection Qualifiers: Urinary tract infection type: site unspecified Hematuria presence: without hematuria Qualified Code(s): N39.0 - Urinary tract infection, site not specified Is this a current diagnosis for this admission?: Yes Plan: Maintain on IV Rocephin coverage. Follow up on culture findings. - Time Time Spent with patient: 25-34 minutes Medications reviewed and adjusted accordingly: Yes Anticipated discharge: Home with Homehealth, SNF Within: Other - Inpatient Certification Based on my medical assessment, after consideration of the patient's comorbidities, presenting symptoms, or acuity I expect that the services needed warrant INPATIENT care.: Yes I certify that my determination is in accordance with my understanding of Medicare's requirements for reasonable and necessary INPATIENT services [42 CFR 412.3e].: Yes Medical Necessity: Need Close Monitoring Due to Risk of Patient Decompensation, Need For IV Fluids, Need For Continuous Telemetry Monitoring, Need for IV Antibiotics, Risk of Complication if Not Cared For in Hospital Post Hospital 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
[2018-11-06] MEDS ORDERED: MAGNESIUM SULFATE/D5W 1 GM/100 ML RTUPB IV ONE ×2 (14:30→22:20)
[2018-11-06] MEDS: CALCIUM ACETATE 667 MG CAPSULE PO SCH (16:50)
[2018-11-06] MEDS: NYSTATIN TOPICAL POWDER 15 GM TP SCH (17:08)
[2018-11-06 18:37] LABS: ANION GAP 13 (5-19); BLOOD UREA NITROGEN 111 mg/dL (7-20); CALCIUM 7.1 mg/dL (8.4-10.2); CHLORIDE 123 mmol/L (98-107); GLUCOSE 116 mg/dL (75-110); POTASSIUM 3.9 mmol/L (3.6-5.0); SODIUM 143.6 mmol/L (137-145)
[2018-11-06 18:45] LABS: CARBON DIOXIDE 8 mmol/L (22-30)
[2018-11-06] MEDS ORDERED: SODIUM BICARBONATE 8.4% INJ 50 MEQ/50 ML DISP.SYRIN ONE (18:58)
[2018-11-06] MEDS ORDERED: SODIUM BICARBONATE 8.4% INJ 50 MEQ/50 ML DISP.SYRIN IV ONE (19:15)
[2018-11-06 21:19] LABS: ANION GAP 12 (5-19); BLOOD UREA NITROGEN 108 mg/dL (7-20); CARBON DIOXIDE 12 mmol/L (22-30); CHLORIDE 121 mmol/L (98-107); GLUCOSE 100 mg/dL (75-110); POTASSIUM 3.2 mmol/L (3.6-5.0)
[2018-11-06 21:31] LABS: CALCIUM 6.9 mg/dL (8.4-10.2)
[2018-11-06] MEDS ORDERED: CALCIUM GLUCONATE 1000 MG/10 ML INJ IV ONE (22:00)
[2018-11-06] MEDS ORDERED: POTASSIUM CHLORIDE 20 MEQ/15 ML UDCUP PO ONE (22:00)
[2018-11-06] MEDS ORDERED: MAGNESIUM SULFATE INJ 8 MEQ/2 ML IV ONE (22:15)
[2018-11-06] MEDS: WATER IV PRN ×2 (22:57)
[2018-11-06] MEDS: SODIUM BICARBONATE IV PRN ×2 (22:57)
[2018-11-06] MEDS: DEXTROSE 5% IV PRN ×2 (22:57)
--- NOTE | 2018-11-07 00:42 | EKG REPORT ---
SEVERITY:- ABNORMAL ECG - LEFT AXIS DEVIATION SINUS RHYTHM : Confirmed by: Marlyn Au MD 07-Nov-2018 00:40:52
[2018-11-07] MEDS: WATER IV PRN ×6 (04:25→23:58)
[2018-11-07] MEDS: DEXTROSE 5% IV PRN ×6 (04:25→23:58)
[2018-11-07] MEDS: SODIUM BICARBONATE IV PRN ×6 (04:25→23:58)
[2018-11-07 04:46] LABS: ABSOLUTE EOSINOPHILS # (AUTO) 0.3 10^3/uL (0.0-0.6); ABSOLUTE LYMPHOCYTES (AUTO) 0.6 10^3/uL (0.5-4.7); ABSOLUTE MONOCYTES (AUTO) 0.4 10^3/uL (0.1-1.4); ABSOLUTE NEUT (AUTO) 7.6 10^3/uL (1.7-8.2); BASOPHILS % (AUTO) 0.2 % (0-2); EOSINOPHILS % (AUTO) 3.7 % (0-6); HEMATOCRIT 31.3 % (36.0-47.0); HEMOGLOBIN 10.5 g/dL (12.0-15.5); LYMPHOCYTES % (AUTO) 6.4 % (13-45); MEAN CORPUSCULAR HEMOGLOBIN 28.9 pg (27.0-33.4); MEAN CORPUSCULAR HGB CONC 33.5 g/dL (32.0-36.0); MEAN CORPUSCULAR VOLUME 86 fl (80-97); MONOCYTES % (AUTO) 4.5 % (3-13); PLATELET COUNT 120 10^3/uL (150-450); RED BLOOD COUNT 3.62 10^6/uL (3.72-5.28); RED CELL DISTRIBUTION WIDTH 16.7 % (11.5-14.0); SEGMENTED NEUTROPHILS % (AUTO) 85.2 % (42-78); TOTAL CELLS COUNTED % (AUTO) 100 %
[2018-11-07 05:02] LABS: ALANINE AMINOTRANSFERASE 24 U/L (9-52); ALBUMIN 2.5 g/dL (3.5-5.0); ALKALINE PHOSPHATASE 61 U/L (38-126); ANION GAP 14 (5-19); ASPARTATE AMINO TRANSFERASE 12 U/L (14-36); BILIRUBIN,DIRECT 0.4 mg/dL (0.0-0.4); BILIRUBIN,TOTAL 0.5 mg/dL (0.2-1.3); BLOOD UREA NITROGEN 104 mg/dL (7-20); CALCIUM 7.3 mg/dL (8.4-10.2); CARBON DIOXIDE 11 mmol/L (22-30); CHLORIDE 120 mmol/L (98-107); GLUCOSE 85 mg/dL (75-110); POTASSIUM 3.4 mmol/L (3.6-5.0); SODIUM 145.2 mmol/L (137-145); TOTAL PROTEIN 4.8 g/dL (6.3-8.2)
[2018-11-07] MEDS: LEVOTHYROXINE SODIUM 0.15 MG TABLET PO SCH (05:38)
[2018-11-07] MEDS: SODIUM BICARBONATE 650 MG TABLET PO SCH ×2 (05:38→18:29)
[2018-11-07] MEDS: LANSOPRAZOLE 30 MG TAB.RAP.DR PO SCH (05:38)
[2018-11-07] MEDS: CEFTRIAXONE SODIUM 1,000 MG in DEXTROSE 5%-WATER 50 ML IV SCH (09:16)
[2018-11-07] MEDS: HEPARIN SOD (PORCINE) 5,000 UNIT/ML 1 ML SYRINGE SUBCUT SCH ×2 (09:18→23:21)
[2018-11-07] MEDS: AMLODIPINE BESYLATE 5 MG TABLET PO SCH (09:18)
[2018-11-07] MEDS: NYSTATIN TOPICAL POWDER 15 GM TP SCH (09:25)
[2018-11-07] MEDS: FLUTICASONE/SALMETEROL DISKUS 500-50 MCG/DOSE IH SCH ×2 (09:25→23:21)
[2018-11-07] MEDS ORDERED: NORMAL SALINE 1000 ML 1,000 ML IV PRN (11:08)
--- NOTE | 2018-11-07 11:17 | PDOC CONSULTATION ---
Consultation Consult Date: 11/07/18 Consult reason:: LIZ History of Present Illness Admission Date/PCP: 11/05/18 16:10 ROLDAN NEVAREZ History of Present Illness: ELIN JIMÉNEZ is a 63 year old female of Dr Andrade was brought to the ED by EMS personnel due to change in mental status and not being her usual self. Daughter is at bedside and mentions that the patient have been ill for about two weeks with poor appetite and P.O intake. There is reported nausea but no vomiting or abdominal pain. There is no diarrhea but daughter reported issue with constipation. There is no chest pain or difficulty with breathing. There has been recurrent falls at home. No focal weakness. No reported fever or chills. No apparent history of any head trauma. Her initial evaluation in the ED was remarkable for severe acute kidney injury with a creatinine of 11+, metabolic acidosis and abnormal urinalysis suggestive of UTI. Her morbidities include Hypertension, Congestive Heart Failure, Coronary Artery Disease, Hyperlipidemia, COPD, Cerebrovascular Accident without significant residual deficit. Patient feels that she is better somewhat compared to when she came in. She is aware of her surroundings and her daughter who is at the bedside. Appetite is still poor with no history of nausea vomiting. Labs and medications were reviewed which shows improved creatinine now down to 8+.I happen to see her once in March of this year when she was referred for CKD with a creatinine 1.5 in the background of hypertension and right renal atrophy.She never did any labs and never came back for any follow-up. Past Medical History Cardiac Medical History: Reports: Coronary Artery Disease - hyperlipedemia, Hyperlipidemia, Hypertension-primary Denies: Myocardial Infarction Pulmonary Medical History: Reports: Chronic Obstructive Pulmonary Disease (COPD) , Pneumonia - 2006 Denies: Bronchitis Neurological Medical History: Reports: Ischemic CVA Renal/ Medical History: Reports: Chronic Kidney Disease Stage III Musculoskeltal Medical History: Denies: Arthritis Past Surgical History Past Surgical History: Reports: Hysterectomy Social History Lives with: Family Smoking Status: Former Smoker Number of Years Smokin Last Time Smoked: 11/22/2015 Frequency of Alcohol Use: None Hx Recreational Drug Use: No Drugs: None Hx Prescription Drug Abuse: No - Advance Directive Resuscitation Status: Full Code Family History Parental Family History Reviewed: Yes - Negative for ESRD Children Family History Reviewed: Yes Sibling(s) Family History Reviewed.: Yes - His sister on dialysis apparently and she is aware of dialysis procedure and issues Medication/Allergy Home Medications: Allopurinol 100 mg PO DAILY 11/23/13 Simvastatin 20 mg PO DAILY 11/23/13 Amlodipine Besylate [Norvasc 5 mg Tablet] 5 mg PO DAILY #30 tablet 05/06/15 Albuterol Sulfate [Proair HFA] 2 puff IH Q6HP PRN 12/22/15 Cetirizine HCl [Zyrtec 10 mg Tablet] 10 mg PO DAILY 11/05/18 Fluticasone/Salmeterol [Advair 500-50 Diskus 14 Dose/Diskus] 1 inh IH Q12 Furosemide [Lasix 20 mg Tablet] 20 mg PO QAM 11/05/18 Levothyroxine Sodium [Synthroid 0.15 mg Tablet] 0.15 mg PO Q6AM 11/05/18 Allergies/Adverse Reactions: cephalexin [From Keflex] Allergy (Verified 11/05/18 18:06) codeine [Codeine] Allergy (Verified 02/13/15 12:25) Review of Systems Constitutional: PRESENT: anorexia, fatigue, weakness. ABSENT: chills, fever(s) , headache(s), weight loss Nose, Mouth, and Throat: ABSENT: mouth pain, sore throat Cardiovascular: ABSENT: chest pain, dyspnea on exertion, edema Respiratory: ABSENT: cough, dyspnea, hemoptysis Gastrointestinal: PRESENT: bloating, constipation. ABSENT: abdominal pain, coffee ground emesis, diarrhea, hematemesis, hematochezia, nausea, vomiting Integumentary: ABSENT: erythema, lesions, pruritus, rash Neurological: PRESENT: frequent falls. ABSENT: abnormal movements, abnormal speech, confusion, convulsions, dizziness, focal weakness, vertigo Psychiatric: PRESENT: anxiety Endocrine: ABSENT: cold intolerance Hematologic/Lymphatic: ABSENT: easy bleeding, easy bruising Physical Exam Vital Signs: Temp Pulse Resp BP Pulse Ox 97.7 F 71 20 104/45 L 99 11/07/18 07:23 11/07/18 07:23 11/07/18 07:23 11/07/18 07:23 11/07/18 07:23 Intake & Output 11/06/18 11/07/18 11/08/18 06:59 06:59 06:59 Intake Total 3000 3664 Output Total 475 1300 Balance 2525 2364 Weight 98.4 kg 102.3 kg General appearance: PRESENT: no acute distress, disheveled, obese Eye exam: PRESENT: EOMI. ABSENT: conjunctiva pale, nystagmus Mouth exam: PRESENT: moist, neck supple Neck exam: ABSENT: lymphadenopathy, meningismus, tenderness, thyromegaly, tracheal deviation Respiratory exam: PRESENT: clear to auscultation nirmal. ABSENT: crackles, rhonchi Cardiovascular exam: PRESENT: +S1, +S2 GI/Abdominal exam: PRESENT: normal bowel sounds, soft. ABSENT: organomegaly, tenderness Neurological exam: PRESENT: alert, awake, oriented to person, oriented to place , oriented to time, oriented to situation Psychiatric exam: PRESENT: appropriate affect Skin exam: ABSENT: cyanosis, erythema, rash Results Laboratory Results: 11/07/18 04:36 11/07/18 04:36 11/06/18 11/06/18 11/06/18 09:30 18:10 20:56 WBC RBC Hgb Hct MCV MCH MCHC RDW Plt Count Seg Neutrophils % Lymphocytes % Monocytes % Eosinophils % Basophils % Absolute Neutrophils Absolute Lymphocytes Absolute Monocytes Absolute Eosinophils Absolute Basophils Carbonic Acid 0.67 L HCO3/H2CO3 Ratio 10:1 ABG pH 7.09 L* ABG pCO2 22.4 L ABG pO2 97.5 ABG HCO3 6.7 L ABG O2 Saturation 94.9 ABG Base Excess -21.4 FiO2 21% Sodium 143.6 145.0 Potassium 3.9 3.2 L Chloride 123 H 121 H Carbon Dioxide 8 L* 12 L Anion Gap 13 12 BUN 111 H 108 H Creatinine 9.18 H 9.06 H Est GFR ( Amer) 5 L 5 L Est GFR (Non-Af Amer) 4 L 4 L Glucose 116 H 100 Calcium 7.1 L 6.9 L* Magnesium 1.4 L Total Bilirubin AST ALT Alkaline Phosphatase Total Protein Albumin 11/07/18 11/07/18 11/07/18 04:36 04:36 04:36 WBC 9.0 RBC 3.62 L Hgb 10.5 L Hct 31.3 L MCV 86 MCH 28.9 MCHC 33.5 RDW 16.7 H Plt Count 120 L Seg Neutrophils % 85.2 H Lymphocytes % 6.4 L Monocytes % 4.5 Eosinophils % 3.7 Basophils % 0.2 Absolute Neutrophils 7.6 Absolute Lymphocytes 0.6 Absolute Monocytes 0.4 Absolute Eosinophils 0.3 Absolute Basophils 0.0 Carbonic Acid HCO3/H2CO3 Ratio ABG pH ABG pCO2 ABG pO2 ABG HCO3 ABG O2 Saturation ABG Base Excess FiO2 Sodium 145.2 H Potassium 3.4 L Chloride 120 H Carbon Dioxide 11 L Anion Gap 14 BUN 104 H Creatinine 8.73 H Est GFR ( Amer) 6 L Est GFR (Non-Af Amer) 5 L Glucose 85 Calcium 7.3 L Magnesium 1.5 L Total Bilirubin 0.5 AST 12 L ALT 24 Alkaline Phosphatase 61 Total Protein 4.8 L Albumin 2.5 L Impressions: Renal Ultrasound 11/05/18 00:00 IMPRESSION: Right renal atrophy No evidence of hydronephrosis Study is limited by body habitus Head CT 11/05/18 12:02 IMPRESSION: Interval development of a low attenuation area at the right parietal lobe, probably representing an age indeterminate infarct. No acute intracranial hemorrhage. If there is clinical concern for acute ischemia, further evaluation with MRI can be obtained. EVIDENCE OF ACUTE STROKE: Age-indeterminate infarct at the right parietal lobe. Assessment & Plan - Diagnosis (1) Acute renal failure (ARF) Qualifiers: Acute renal failure type: unspecified Qualified Code(s): N17.9 - Acute kidney failure, unspecified Is this a current diagnosis for this admission?: Yes Plan: Presented with a creatinine of 11+ and now down to 8+. Nonoliguric. No features indicative of uremia, congestive heart failure however has severe metabolic acidosis and hypokalemia and hypomagnesemia. Will adjust electrolytes to correct these abnormal labs and also increase her sodium bicarbonate. No acute indications for renal replacements: however it is quite a distinct possibility given her background of right renal atrophy. Discussed at length the procedure of hemodialysis and its complications including infections hypertension and rare cases of cardiac arrest to the patient and to the daughter willing to proceed if the need arose.Clinically on the dry side. Start gentle hydration. (2) Hypernatremia Is this a current diagnosis for this admission?: Yes Plan: Improving from her 150+ to current 145. Monitor fluids. (3) Metabolic acidosis Is this a current diagnosis for this admission?: Yes Plan: Adjust bicarbonate replacements. I do not see this as a sole indication for initiation of dialysis at the moment. (4) Urinary tract infection Qualifiers: Urinary tract infection type: site unspecified Hematuria presence: without hematuria Qualified Code(s): N39.0 - Urinary tract infection, site not specified Is this a current diagnosis for this admission?: Yes Plan: Patient was begun on IV antibiotics but did not see any selina evidences to indicate she has UTI. So we will advocate stoppage of IV Rocephin. (5) Renal osteodystrophy Plan: Get a PTH and see if she needs to be initiated on vitamin D3. Meanwhile continue anti-phosphorus medications. (6) Hypokalemia Plan: Will adjust potassium replacements and monitor. (7) Hypomagnesemia Plan: Will adjust magnesium replacements and monitor.
[2018-11-07] MEDS: CALCIUM ACETATE 667 MG CAPSULE PO SCH ×3 (11:28→16:51)
--- NOTE | 2018-11-07 12:53 | PDOC PROGRESS REPORT ---
Subjective Progress Note for:: 11/07/18 Subjective:: Patient was admitting in the weekends for the altered mental status and found to be acute renal failure on chronic kidney disease with the baseline creatinine is around 1.5 Patient is currently doing better more alert awake patient's daughter is in the bedside Patient is denied any abdominal pain no nausea no Patient is a very noncompliance Reason For Visit: ALTERED MENTAL STATUS Physical Exam Vital Signs: Temp Pulse Resp BP Pulse Ox 97.6 F 77 20 118/56 L 100 11/07/18 11:14 11/07/18 11:14 11/07/18 11:14 11/07/18 11:14 11/07/18 11:14 Intake & Output 11/06/18 11/07/18 11/08/18 06:59 06:59 06:59 Intake Total 3000 3664 600 Output Total 475 1300 Balance 2525 2364 600 Weight 98.4 kg 102.3 kg General appearance: PRESENT: no acute distress, well-developed, well-nourished Head exam: PRESENT: atraumatic, normocephalic Eye exam: PRESENT: conjunctiva pink, EOMI, PERRLA. ABSENT: scleral icterus Ear exam: PRESENT: normal external ear exam Mouth exam: PRESENT: moist, tongue midline Neck exam: PRESENT: full ROM. ABSENT: carotid bruit, JVD, lymphadenopathy, thyromegaly Respiratory exam: PRESENT: clear to auscultation nirmal Cardiovascular exam: PRESENT: RRR. ABSENT: diastolic murmur, rubs, systolic murmur Pulses: PRESENT: normal dorsalis pedis pul, +2 pedal pulses bilateral Vascular exam: PRESENT: normal capillary refill GI/Abdominal exam: PRESENT: normal bowel sounds, soft. ABSENT: distended, guarding, mass, organolmegaly, rebound, tenderness Rectal exam: PRESENT: deferred Neurological exam: PRESENT: alert, awake, oriented to person, oriented to place. ABSENT: motor sensory deficit Psychiatric exam: PRESENT: appropriate affect, normal mood. ABSENT: homicidal ideation, suicidal ideation Skin exam: PRESENT: dry, intact, warm. ABSENT: cyanosis, rash Results Laboratory Results: 11/07/18 04:36 11/07/18 04:36 11/06/18 11/06/18 11/07/18 18:10 20:56 04:36 WBC 9.0 RBC 3.62 L Hgb 10.5 L Hct 31.3 L MCV 86 MCH 28.9 MCHC 33.5 RDW 16.7 H Plt Count 120 L Seg Neutrophils % 85.2 H Lymphocytes % 6.4 L Monocytes % 4.5 Eosinophils % 3.7 Basophils % 0.2 Absolute Neutrophils 7.6 Absolute Lymphocytes 0.6 Absolute Monocytes 0.4 Absolute Eosinophils 0.3 Absolute Basophils 0.0 Sodium 143.6 145.0 Potassium 3.9 3.2 L Chloride 123 H 121 H Carbon Dioxide 8 L* 12 L Anion Gap 13 12 BUN 111 H 108 H Creatinine 9.18 H 9.06 H Est GFR ( Amer) 5 L 5 L Est GFR (Non-Af Amer) 4 L 4 L Glucose 116 H 100 Calcium 7.1 L 6.9 L* Magnesium 1.4 L Total Bilirubin AST ALT Alkaline Phosphatase Total Protein Albumin 11/07/18 11/07/18 04:36 04:36 WBC RBC Hgb Hct MCV MCH MCHC RDW Plt Count Seg Neutrophils % Lymphocytes % Monocytes % Eosinophils % Basophils % Absolute Neutrophils Absolute Lymphocytes Absolute Monocytes Absolute Eosinophils Absolute Basophils Sodium 145.2 H Potassium 3.4 L Chloride 120 H Carbon Dioxide 11 L Anion Gap 14 BUN 104 H Creatinine 8.73 H Est GFR ( Amer) 6 L Est GFR (Non-Af Amer) 5 L Glucose 85 Calcium 7.3 L Magnesium 1.5 L Total Bilirubin 0.5 AST 12 L ALT 24 Alkaline Phosphatase 61 Total Protein 4.8 L Albumin 2.5 L Impressions: Renal Ultrasound 11/05/18 00:00 IMPRESSION: Right renal atrophy No evidence of hydronephrosis Study is limited by body habitus Head CT 11/05/18 12:02 IMPRESSION: Interval development of a low attenuation area at the right parietal lobe, probably representing an age indeterminate infarct. No acute intracranial hemorrhage. If there is clinical concern for acute ischemia, further evaluation with MRI can be obtained. EVIDENCE OF ACUTE STROKE: Age-indeterminate infarct at the right parietal lobe. Assessment & Plan - Diagnosis (1) Acute renal failure (ARF) Qualifiers: Acute renal failure type: unspecified Qualified Code(s): N17.9 - Acute kidney failure, unspecified Is this a current diagnosis for this admission?: Yes Plan: Patients probably need a hemodialysis will consult with Dr. Gomez as per discussed with him (2) Hypernatremia Is this a current diagnosis for this admission?: Yes Plan: Continues to IV fluid patient's primary end up with the dialysis (3) Hypokalemia Is this a current diagnosis for this admission?: Yes Plan: Replace the potassiums (4) Hypomagnesemia Is this a current diagnosis for this admission?: Yes Plan: Replace the magnesium's (5) Metabolic acidosis Is this a current diagnosis for this admission?: Yes Plan: Continues on sodium bicarb (6) Urinary tract infection Qualifiers: Urinary tract infection type: site unspecified Hematuria presence: without hematuria Qualified Code(s): N39.0 - Urinary tract infection, site not specified Is this a current diagnosis for this admission?: Yes Plan: Continues to IV antibiotic (7) COPD with acute exacerbation Is this a current diagnosis for this admission?: Yes Plan: Continues to nebulizer treatments - Time Time Spent with patient: 25-34 minutes Medications reviewed and adjusted accordingly: Yes Anticipated discharge: Home Within: Other - Inpatient Certification Based on my medical assessment, after consideration of the patient's comorbidities, presenting symptoms, or acuity I expect that the services needed warrant INPATIENT care.: Yes I certify that my determination is in accordance with my understanding of Medicare's requirements for reasonable and necessary INPATIENT services [42 CFR 412.3e].: Yes Medical Necessity: Need Close Monitoring Due to Risk of Patient Decompensation, Need For IV Fluids, Need for IV Antibiotics Post Hospital Care: D/C [employer] Consultant Documentation - Plan Summary Plan Summary: Discussed with the daughter on the bedside and the patient regarding the patient 's current conditions Discussed with the nephrology Patient is a very noncompliance with follow-up We will continue to monitor the patient's
[2018-11-07] MEDS ORDERED: LORAZEPAM INJ 2 MG/1 ML VIAL IV ONE ×2 (16:15→18:45)
--- NOTE | 2018-11-07 19:09 | RADIOLOGY REPORT (SQ) ---
EXAM DESCRIPTION: CAROTID DOPPLER COMPLETED DATE/TIME: 11/07/2018 6:59 pm REASON FOR STUDY: stoke COMPARISON: None. TECHNIQUE: Grayscale ultrasound, Doppler velocity and spectra, and color Doppler images acquired of the extra-cranial carotid and vertebral arteries. Images stored on PACS. LIMITATIONS: None. FINDINGS: RIGHT CAROTID CCA Velocities: Within normal limits. ICA Velocities Peak systolic 0.73 m/s. End diastolic 0.22 m/s. Proximal ICA/CCA peak systolic ratio 1.1. Spectra normal. No significant plaque. LEFT CAROTID CCA Velocities: Within normal limits. ICA Velocities Peak systolic 1.12 m/s. End diastolic 0.39 m/s. Proximal ICA/CCA peak systolic ratio 1.3. Spectra normal. No significant plaque. VERTEBRAL ARTERIES: Antegrade flow. Normal waveforms. SUBCLAVIAN ARTERIES: No finding. OTHER: No other significant finding. IMPRESSION: NO HEMODYNAMICALLY SIGNIFICANT STENOSIS. COMMENT: Quality ID #[id number]: Velocity criteria are extrapolated from the diameter data as defined by t he Society of Radiologists in Ultrasound Consensus Conference. Radiology 2003: 229; 340-346. TECHNICAL DOCUMENTATION: JOB ID: [id number] [employer]- All Rights Reserved Reading location - IP/workstation name: [email or web address]
--- NOTE | 2018-11-07 19:50 | RADIOLOGY REPORT (SQ) ---
EXAM DESCRIPTION: MRI HEAD WITHOUT COMPLETED DATE/TIME: 11/07/2018 7:35 pm REASON FOR STUDY: cva COMPARISON: April 2009 TECHNIQUE: Multiplanar imaging includes non-contrasted T1, T2, FLAIR, and diffusion with ADC map seq uences. Images stored on PACS. LIMITATIONS: Study was terminated prior to acquisition of all the routine imaging sequences due to t he patient's condition. Study is also limited due to motion artifact. FINDINGS: ANATOMY: No anomalies. Normal vascular flow voids. Pituitary fossa normal. CSF SPACES: Normal in size and contour. No hemorrhage. CEREBRUM: Sulci and gyri normal in size and contour. No evidence of hemorrhage, mass, or extraaxial fluid collection. POSTERIOR FOSSA: No signal alteration. No hemorrhage. No edema, masses or mass effect. Internal samara tory canals, cerebello-pontine angles, mastoids normal. DIFFUSION IMAGING: There are patchy and confluent areas of abnormal signal intensity in the left mid and posterior temporal lobe and adjacent left parietal lobe consistent with areas of recent infarctio n. ORBITS: No masses. Globes normal. PARANASAL SINUSES: No fluid levels. Mucosa normal. OTHER: No other significant finding. IMPRESSION: Limited study as noted above. There are patchy and confluent areas of abnormal signal i ntensity in the left mid and posterior temporal lobe and adjacent left parietal lobe on the diffusion weighted sequence consistent with areas of recent infarction. Other findings as noted above. EVIDENCE OF ACUTE STROKE: NO. TECHNICAL DOCUMENTATION: JOB ID: [id number] [employer]- All Rights Reserved Reading location - IP/workstation name: [email or web address]
[2018-11-07] MEDS ORDERED: POTASSIUM CHLORIDE 10 MEQ CAPSULE.ER PO SCH (22:00)
[2018-11-07] MEDS ORDERED: POTASSIUM CHLORIDE 20 MEQ/15 ML UDCUP PO ONE (23:15)
[2018-11-07] MEDS: SIMVASTATIN 10 MG TABLET PO SCH (23:21)
[2018-11-07] MEDS: ASPIRIN 81 MG TABLET, CHEWABLE PO SCH (23:21)
[2018-11-08] MEDS: NYSTATIN TOPICAL POWDER 15 GM TP SCH ×2 (00:18→12:13)
[2018-11-08 05:21] LABS: ABSOLUTE RETICS # 0.033 10^6/uL (0.028-0.122); HEMATOCRIT 30.2 % (36.0-47.0); HEMOGLOBIN 10.2 g/dL (12.0-15.5); MEAN CORPUSCULAR HGB CONC 33.7 g/dL (32.0-36.0); MEAN CORPUSCULAR VOLUME 86 fl (80-97); PLATELET COUNT 119 10^3/uL (150-450); RED CELL DISTRIBUTION WIDTH 16.7 % (11.5-14.0); RETICULOCYTE COUNT (AUTO) 0.94 % (0.66-2.85); WHITE BLOOD COUNT 9.1 10^3/uL (4.0-10.5)
[2018-11-08 05:35] LABS: INTERNATIONAL RATION (INR) 1.17; PARTIAL THROMBOPLASTIN TIME 31.9 SEC (23.5-35.8); PROTHROMBIN TIME 15.5 SEC (11.4-15.4)
[2018-11-08] MEDS: LEVOTHYROXINE SODIUM 0.15 MG TABLET PO SCH (05:38)
[2018-11-08] MEDS: LANSOPRAZOLE 30 MG TAB.RAP.DR PO SCH (05:38)
[2018-11-08 05:51] LABS: ANION GAP 12 (5-19); BLOOD UREA NITROGEN 94 mg/dL (7-20); CALCIUM 7.2 mg/dL (8.4-10.2); CARBON DIOXIDE 16 mmol/L (22-30); CHLORIDE 114 mmol/L (98-107); GLUCOSE 87 mg/dL (75-110); POTASSIUM 3.2 mmol/L (3.6-5.0)
[2018-11-08] MEDS: WATER IV PRN ×4 (08:43→15:17)
[2018-11-08] MEDS: SODIUM BICARBONATE IV PRN ×4 (08:43→15:17)
[2018-11-08] MEDS: DEXTROSE 5% IV PRN ×4 (08:43→15:17)
[2018-11-08] MEDS: CALCIUM ACETATE 667 MG CAPSULE PO SCH ×3 (08:43→17:01)
[2018-11-08] MEDS ORDERED: POTASSIUM CHLORIDE 20 MEQ/15 ML UDCUP PO ONE (09:00)
[2018-11-08] MEDS ORDERED: (PENDING PHARMACY ID) (Simvastatin [Simvastatin] 20 MG) PO SCH (10:00)
[2018-11-08] MEDS: SODIUM BICARBONATE 650 MG TABLET PO SCH ×3 (12:11→17:01)
[2018-11-08] MEDS: CEFTRIAXONE SODIUM 1,000 MG in DEXTROSE 5%-WATER 50 ML IV SCH (12:11)
[2018-11-08] MEDS: HEPARIN SOD (PORCINE) 5,000 UNIT/ML 1 ML SYRINGE SUBCUT SCH ×2 (12:12→22:42)
[2018-11-08] MEDS: FLUTICASONE/SALMETEROL DISKUS 500-50 MCG/DOSE IH SCH ×2 (12:12→22:41)
[2018-11-08] MEDS: POTASSIUM CHLORIDE 20 MEQ/15 ML UDCUP PO SCH ×2 (12:13→22:41)
--- NOTE | 2018-11-08 12:48 | PDOC PROGRESS REPORT ---
Subjective Progress Note for:: 11/08/18 Subjective:: Patient is currently doing fair Patient is denied any chest pain denied any shortness of the breath Patient seen by Dr. Gomez continues to monitor the kidney functions Patient MRI of the head suggest the patient have a recent stroke Patient to carotid Doppler was all stable Patient seen by the speech therapy Reason For Visit: ALTERED MENTAL STATUS Physical Exam Vital Signs: Temp Pulse Resp BP Pulse Ox 98.4 F 80 18 108/59 L 96 11/08/18 03:36 11/08/18 03:36 11/08/18 03:36 11/08/18 03:36 11/08/18 03:36 Intake & Output 11/07/18 11/08/18 11/09/18 06:59 06:59 06:59 Intake Total 3664 2492 Output Total 1300 1675 Balance 2364 817 Weight 102.3 kg 102.4 kg General appearance: PRESENT: no acute distress, well-developed, well-nourished Head exam: PRESENT: atraumatic, normocephalic Eye exam: PRESENT: conjunctiva pink, EOMI, PERRLA. ABSENT: scleral icterus Ear exam: PRESENT: normal external ear exam Mouth exam: PRESENT: moist, tongue midline Neck exam: PRESENT: full ROM. ABSENT: carotid bruit, JVD, lymphadenopathy, thyromegaly Respiratory exam: PRESENT: clear to auscultation nirmal Cardiovascular exam: PRESENT: RRR. ABSENT: diastolic murmur, rubs, systolic murmur Pulses: PRESENT: normal dorsalis pedis pul, +2 pedal pulses bilateral Vascular exam: PRESENT: normal capillary refill GI/Abdominal exam: PRESENT: normal bowel sounds, soft. ABSENT: distended, guarding, mass, organolmegaly, rebound, tenderness Rectal exam: PRESENT: deferred Extremities exam: ABSENT: pedal edema Neurological exam: PRESENT: alert, awake, oriented to person, oriented to place , oriented to time, oriented to situation, CN II-XII grossly intact. ABSENT: motor sensory deficit Psychiatric exam: PRESENT: appropriate affect, normal mood. ABSENT: homicidal ideation, suicidal ideation Skin exam: PRESENT: dry, intact, warm. ABSENT: cyanosis, rash Results Laboratory Results: 11/08/18 04:54 11/08/18 04:54 11/08/18 11/08/18 11/08/18 04:54 04:54 04:54 WBC 9.1 RBC 3.50 L Hgb 10.2 L Hct 30.2 L MCV 86 MCH 29.0 MCHC 33.7 RDW 16.7 H Plt Count 119 L Retic Count (auto) 0.94 Absolute Retic 0.033 Sodium 142.0 Potassium 3.2 L Chloride 114 H Carbon Dioxide 16 L Anion Gap 12 BUN 94 H Creatinine 8.12 H Est GFR ( Amer) 6 L Est GFR (Non-Af Amer) 5 L Glucose 87 Calcium 7.2 L Magnesium 1.3 L Iron 46.0 TIBC 168 L % Saturation 27 Ferritin 171.00 Vitamin B12 224.0 L Folate 5.50 PTH Intact 656.6 H Impressions: Renal Ultrasound 11/05/18 00:00 IMPRESSION: Right renal atrophy No evidence of hydronephrosis Study is limited by body habitus Head CT 11/05/18 12:02 IMPRESSION: Interval development of a low attenuation area at the right parietal lobe, probably representing an age indeterminate infarct. No acute intracranial hemorrhage. If there is clinical concern for acute ischemia, further evaluation with MRI can be obtained. EVIDENCE OF ACUTE STROKE: Age-indeterminate infarct at the right parietal lobe. Carotid Doppler Study 11/07/18 00:00 IMPRESSION: NO HEMODYNAMICALLY SIGNIFICANT STENOSIS. Head MRI 11/07/18 00:00 IMPRESSION: Limited study as noted above. There are patchy and confluent areas of abnormal signal intensity in the left mid and posterior temporal lobe and adjacent left parietal lobe on the diffusion weighted sequence consistent with areas of recent infarction. Other findings as noted above. EVIDENCE OF ACUTE STROKE: NO. Assessment & Plan - Diagnosis (1) Acute renal failure (ARF) Qualifiers: Acute renal failure type: unspecified Qualified Code(s): N17.9 - Acute kidney failure, unspecified Is this a current diagnosis for this admission?: Yes Plan: f/u with the nephrology replace the potassiums (2) Hypernatremia Is this a current diagnosis for this admission?: Yes Plan: Continues to IV fluid patient's primary end up with the dialysis (3) Hypokalemia Is this a current diagnosis for this admission?: Yes Plan: Replace the potassiums (4) Hypomagnesemia Is this a current diagnosis for this admission?: Yes (5) Metabolic acidosis Is this a current diagnosis for this admission?: Yes Plan: Continues on sodium bicarb (6) Urinary tract infection Qualifiers: Urinary tract infection type: site unspecified Hematuria presence: without hematuria Qualified Code(s): N39.0 - Urinary tract infection, site not specified Is this a current diagnosis for this admission?: Yes (7) COPD with acute exacerbation Is this a current diagnosis for this admission?: Yes Plan: Continues to nebulizer treatments (8) Stroke Qualifiers: CVA mechanism: unspecified Qualified Code(s): I63.9 - Cerebral infarction, unspecified Is this a current diagnosis for this admission?: Yes Plan: Continues to aspirin and start atorvastatin Continues to PT OT and speech therapy - Time Time Spent with patient: 15-24 minutes Medications reviewed and adjusted accordingly: Yes Anticipated discharge: Other Within: Other - Inpatient Certification Based on my medical assessment, after consideration of the patient's comorbidities, presenting symptoms, or acuity I expect that the services needed warrant INPATIENT care.: Yes I certify that my determination is in accordance with my understanding of Medicare's requirements for reasonable and necessary INPATIENT services [42 CFR 412.3e].: Yes - Plan Summary Plan Summary: Discussed with the patient and the daughter regarding the patient's all the test reports and the follow-up plan on the bedside
--- NOTE | 2018-11-08 19:48 | PDOC PROGRESS REPORT ---
Subjective Progress Note for:: 11/08/18 Subjective:: Patient was seen sitting up in her bed at the time. She was saying that she was starting to feel much better. Her appetite was increasing and her nausea was decreasing. She denied any other s/s of uremia. She also denied chest pain, SOB, v/d/c. Reason For Visit: ALTERED MENTAL STATUS Physical Exam Vital Signs: Temp Pulse Resp BP Pulse Ox 98.5 F 83 20 111/47 L 100 11/08/18 16:00 11/08/18 16:00 11/08/18 16:00 11/08/18 16:00 11/08/18 16:00 Intake & Output 11/07/18 11/08/18 11/09/18 06:59 06:59 06:59 Intake Total 3664 2492 1440 Output Total 1300 1675 1976 Balance 2364 817 -536 Weight 102.3 kg 102.4 kg General appearance: PRESENT: no acute distress, disheveled, well-developed Mouth exam: PRESENT: dry mucosa, neck supple Neck exam: ABSENT: JVD, tracheal deviation Respiratory exam: PRESENT: clear to auscultation nirmal. ABSENT: crackles, rales, rhonchi, wheezes Cardiovascular exam: PRESENT: +S1, +S2 GI/Abdominal exam: PRESENT: normal bowel sounds, soft. ABSENT: organomegaly, tenderness Extremities exam: ABSENT: tenderness, +1 edema, +2 edema Musculoskeletal exam: PRESENT: normal inspection. ABSENT: tenderness Neurological exam: PRESENT: alert, awake, oriented to person, oriented to place, oriented to time, oriented to situation Psychiatric exam: PRESENT: appropriate affect, normal mood Skin exam: PRESENT: dry, intact, warm. ABSENT: cyanosis Results Laboratory Results: 11/08/18 04:54 11/08/18 14:27 11/08/18 11/08/18 11/08/18 04:54 04:54 04:54 WBC 9.1 RBC 3.50 L Hgb 10.2 L Hct 30.2 L MCV 86 MCH 29.0 MCHC 33.7 RDW 16.7 H Plt Count 119 L Retic Count (auto) 0.94 Absolute Retic 0.033 Sodium 142.0 Potassium 3.2 L Chloride 114 H Carbon Dioxide 16 L Anion Gap 12 BUN 94 H Creatinine 8.12 H Est GFR ( Amer) 6 L Est GFR (Non-Af Amer) 5 L Glucose 87 Calcium 7.2 L Magnesium 1.3 L Iron 46.0 TIBC 168 L % Saturation 27 Ferritin 171.00 Vitamin B12 224.0 L Folate 5.50 PTH Intact 656.6 H 11/08/18 14:27 WBC RBC Hgb Hct MCV MCH MCHC RDW Plt Count Retic Count (auto) Absolute Retic Sodium Potassium 3.9 Chloride Carbon Dioxide Anion Gap BUN Creatinine Est GFR ( Amer) Est GFR (Non-Af Amer) Glucose Calcium Magnesium Iron TIBC % Saturation Ferritin Vitamin B12 Folate PTH Intact Impressions: Renal Ultrasound 11/05/18 00:00 IMPRESSION: Right renal atrophy No evidence of hydronephrosis Study is limited by body habitus Head CT 11/05/18 12:02 IMPRESSION: Interval development of a low attenuation area at the right parietal lobe, probably representing an age indeterminate infarct. No acute intracranial hemorrhage. If there is clinical concern for acute ischemia, further evaluation with MRI can be obtained. EVIDENCE OF ACUTE STROKE: Age-indeterminate infarct at the right parietal lobe. Carotid Doppler Study 11/07/18 00:00 IMPRESSION: NO HEMODYNAMICALLY SIGNIFICANT STENOSIS. Head MRI 11/07/18 00:00 IMPRESSION: Limited study as noted above. There are patchy and confluent areas of abnormal signal intensity in the left mid and posterior temporal lobe and adjacent left parietal lobe on the diffusion weighted sequence consistent with areas of recent infarction. Other findings as noted above. EVIDENCE OF ACUTE STROKE: NO. Assessment & Plan - Diagnosis (1) Acute renal failure (ARF) Qualifiers: Acute renal failure type: unspecified Qualified Code(s): N17.9 - Acute kid naveen failure, unspecified Is this a current diagnosis for this admission?: Yes Plan: nonoliguric, looks to be entering the diuresis phase. At this time I will look to increase the D5W to 125mL to keep up with urine production. Will also look to monitor the potassium closely. 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 (2) Hypernatremia Is this a current diagnosis for this admission?: Yes Plan: increasing D5W to 125mL/h, currently improving (3) Hypokalemia Is this a current diagnosis for this admission?: Yes Plan: she was given k-riders and PO potassium supplements. Will reassess later today. (4) Metabolic acidosis Is this a current diagnosis for this admission?: Yes Plan: improving, continue on bicarb drip (5) Hypomagnesemia Is this a current diagnosis for this admission?: Yes Plan: giving 2 grams of IV mag today. Will retest tomorrow morning. (6) CHF (congestive heart failure) Plan: currently stable (7) Anemia Plan: b12 looked to be low. Will look to start her on a B12 tablet. (8) Renal osteodystrophy Plan: PTH was in the 600s. Will look to start her on 0.25mcg of calcitriol qd
--- NOTE | 2018-11-08 19:54 | XCELERA REPORT ---
[address] [address] Transthoracic Echocardiogram Report Name: ELIN JIMÉNEZ Age: 63 yrs Gender: Female : 1955 Patient Status: Inpatient Patient Location: [address] [place], [place] [id number] Study Date: 11/07/2018 05:29 PM Height: 59 in Weight: 225 lb BSA: 1.9 m2 Procedure: A two-dimensional transthoracic echocardiogram with color flow Doppler was performed. Study Quality: Poor. The study was technically adequate with some images being suboptimal in quality. Images were not obtained from all of the standard acoustic windows due to the limited scope of the study. Reason For Study: chf/stroke History: CVA. CHF. Ordering Physician: MAU TORRES Performed By: Sultana Dunaway Interpretation Summary The left ventricle is grossly normal size. There is normal left ventricular wall thickness. No True apical 2 chamber views obtained.Hence cannot comment on the apical anterior , the basal anterior, the basal inferior and apical inferior castillo.The mid anterior , the mid inferior and the rest of the LV castillo contract normally. .Normal LVEF is normal and is greater than 60% in the limited views. Doppler measurements suggest normal left ventricular diastolic function There is no thrombus. The right ventricle is not well visualized secondary to technical limitations Right atrium not well visualized secondary to technical limitations The left atrial size is normal. There is no evidence of mitral valve prolapse. There is no vegetation seen on the mitral valve. There is no mitral valve stenosis. There is a trace to mild amount of mitral regurgitation There is no aortic valve stenosis There is no LVOT obstruction. No aortic regurgitation is present. There is no aortic valvular vegetation. There is no tricuspid stenosis. Poor interogation of Tricuspid valve.Cnnot assess TR or RVP. The pulmonic valve is not well visualized. The aortic root is not well visualized. There is no pericardial effusion. MMode/2D Measurements & Calculations RVDd: 2.3 cm LVIDd: 4.0 cm FS: 31.9 % Ao root diam: 2.3 cm IVSd: 1.0 cm LVIDs: 2.7 cm EDV(Teich): 70.7 ml Ao root area: 4.3 cm2 LVPWd: 0.92 cm ESV(Teich): 27.9 ml LA dimension: 3.1 cm EF(Teich): 60.6 % Doppler Measurements & Calculations MV E max lance: MV P1/2t max lance: Ao V2 max: LV V1 max P.9 cm/sec 107.2 cm/sec 150.7 cm/sec 4.2 mmHg MV A max lance: MV P1/2t: 64.5 msec Ao max P.1 mmHgLV V1 max: 105.1 cm/sec MVA(P1/2t): 3.4 cm2 102.2 cm/sec MV E/A: 0.78 MV dec slope: 486.6 cm/sec2 MV dec time: 0.30 sec TV V2 max: PA V2 max: MV P1/2t-pr_phl: 122.2 cm/sec 124.9 cm/sec 64.5 msec TV max P.0 mmHgPA max P.2 mmHg Left Ventricle The left ventricle is grossly normal size. There is normal left ventricular wall thickness. No True apical 2 chamber views obtained.Hence cannot comment on the apical anterior , the basal anterior, the basal inferior and apical inferior castillo.The mid anterior , the mid inferior and the rest of the LV castillo contract normally. .Normal LVEF is normal and is greater than 60% in the limited views. Doppler measurements suggest normal left ventricular diastolic function. There is no thrombus. Right Ventricle The right ventricle is not well visualized secondary to technical limitations. Atria Right atrium not well visualized secondary to technical limitations. The left atrial size is normal. Mitral Valve There is no evidence of mitral valve prolapse. There is no vegetation seen on the mitral valve. There is no mitral valve stenosis. There is a trace to mild amount of mitral regurgitation. Aortic Valve There is no aortic valvular vegetation. There is no aortic valve stenosis. There is no LVOT obstruction. No aortic regurgitation is present. Tricuspid Valve There is no tricuspid stenosis. Poor interogation of Tricuspid valve.Cnnot assess TR or RVP. Pulmonic Valve The pulmonic valve is not well visualized. Great Vessels The aortic root is not well visualized. Effusions There is no pericardial effusion. : MAU TORRES > Marlyn Au
[2018-11-08] MEDS: MAGNESIUM SULFATE/D5W 1 GM/100 ML RTUPB IV SCH (22:40)
[2018-11-08] MEDS: ASPIRIN 81 MG TABLET, CHEWABLE PO SCH (22:41)
[2018-11-08] MEDS: SIMVASTATIN 10 MG TABLET PO SCH (22:42)
[2018-11-09] MEDS: MAGNESIUM SULFATE/D5W 1 GM/100 ML RTUPB IV SCH (00:10)
[2018-11-09] MEDS: NYSTATIN TOPICAL POWDER 15 GM TP SCH ×3 (01:02→18:31)
[2018-11-09] MEDS: DEXTROSE 5% IV PRN ×6 (02:26→16:41)
[2018-11-09] MEDS: SODIUM BICARBONATE IV PRN ×6 (02:26→16:41)
[2018-11-09] MEDS: WATER IV PRN ×6 (02:26→16:41)
[2018-11-09 06:44] LABS: ABSOLUTE EOSINOPHILS # (AUTO) 0.5 10^3/uL (0.0-0.6); ABSOLUTE LYMPHOCYTES (AUTO) 0.9 10^3/uL (0.5-4.7); ABSOLUTE MONOCYTES (AUTO) 0.7 10^3/uL (0.1-1.4); ABSOLUTE NEUT (AUTO) 7.1 10^3/uL (1.7-8.2); BASOPHILS % (AUTO) 0.2 % (0-2); EOSINOPHILS % (AUTO) 5.5 % (0-6); HEMATOCRIT 32.3 % (36.0-47.0); HEMOGLOBIN 10.8 g/dL (12.0-15.5); LYMPHOCYTES % (AUTO) 10.1 % (13-45); MEAN CORPUSCULAR HGB CONC 33.5 g/dL (32.0-36.0); MEAN CORPUSCULAR VOLUME 86 fl (80-97); MONOCYTES % (AUTO) 7.7 % (3-13); PLATELET COUNT 117 10^3/uL (150-450); RED BLOOD COUNT 3.74 10^6/uL (3.72-5.28); RED CELL DISTRIBUTION WIDTH 16.6 % (11.5-14.0); SEGMENTED NEUTROPHILS % (AUTO) 76.5 % (42-78); TOTAL CELLS COUNTED % (AUTO) 100 %; WHITE BLOOD COUNT 9.3 10^3/uL (4.0-10.5)
[2018-11-09] MEDS: LEVOTHYROXINE SODIUM 0.15 MG TABLET PO SCH (06:53)
[2018-11-09] MEDS: LANSOPRAZOLE 30 MG TAB.RAP.DR PO SCH (06:54)
[2018-11-09 07:06] LABS: ANION GAP 12 (5-19); BLOOD UREA NITROGEN 83 mg/dL (7-20); CALCIUM 7.3 mg/dL (8.4-10.2); CARBON DIOXIDE 19 mmol/L (22-30); CHLORIDE 107 mmol/L (98-107); GLUCOSE 90 mg/dL (75-110); POTASSIUM 3.5 mmol/L (3.6-5.0); SODIUM 138.2 mmol/L (137-145)
--- NOTE | 2018-11-09 09:19 | PDOC PROGRESS REPORT ---
Subjective Progress Note for:: 11/09/18 Subjective:: Patient is currently doing well Patient's kidney function is all improving The patient's urine output is a 2800 Patients participated in physical therapy yesterday With denied any chest pain denied any shortness of the breath No headache Reason For Visit: ALTERED MENTAL STATUS Physical Exam Vital Signs: Temp Pulse Resp BP Pulse Ox 98.5 F 75 16 102/50 L 100 11/09/18 03:37 11/09/18 07:00 11/09/18 03:37 11/09/18 03:37 11/09/18 03:37 Intake & Output 11/08/18 11/09/18 11/10/18 06:59 06:59 06:59 Intake Total 2492 2708 Output Total 1675 9501 Balance 817 -143 Weight 102.4 kg 102.2 kg General appearance: PRESENT: no acute distress, well-developed, well-nourished Head exam: PRESENT: atraumatic, normocephalic Eye exam: PRESENT: conjunctiva pink, EOMI, PERRLA. ABSENT: scleral icterus Ear exam: PRESENT: normal external ear exam Mouth exam: PRESENT: moist, tongue midline Neck exam: PRESENT: full ROM. ABSENT: carotid bruit, JVD, lymphadenopathy, thyromegaly Respiratory exam: PRESENT: clear to auscultation nirmal Cardiovascular exam: PRESENT: RRR. ABSENT: diastolic murmur, rubs, systolic murmur Pulses: PRESENT: normal dorsalis pedis pul, +2 pedal pulses bilateral Vascular exam: PRESENT: normal capillary refill GI/Abdominal exam: PRESENT: normal bowel sounds, soft. ABSENT: distended, guarding, mass, organolmegaly, rebound, tenderness Rectal exam: PRESENT: deferred Extremities exam: ABSENT: pedal edema Musculoskeletal exam: PRESENT: ambulatory Neurological exam: PRESENT: alert, awake, oriented to person, oriented to place, oriented to time, oriented to situation, CN II-XII grossly intact. ABSENT: motor sensory deficit Psychiatric exam: PRESENT: appropriate affect, normal mood. ABSENT: homicidal ideation, suicidal ideation Skin exam: PRESENT: dry, intact, warm. ABSENT: cyanosis, rash Results Laboratory Results: 11/09/18 04:42 11/09/18 04:42 11/08/18 11/09/18 11/09/18 14:27 04:42 04:42 WBC 9.3 RBC 3.74 Hgb 10.8 L Hct 32.3 L MCV 86 MCH 29.0 MCHC 33.5 RDW 16.6 H Plt Count 117 L Seg Neutrophils % 76.5 Lymphocytes % 10.1 L Monocytes % 7.7 Eosinophils % 5.5 Basophils % 0.2 Absolute Neutrophils 7.1 Absolute Lymphocytes 0.9 Absolute Monocytes 0.7 Absolute Eosinophils 0.5 Absolute Basophils 0.0 Sodium 138.2 Potassium 3.9 3.5 L Chloride 107 Carbon Dioxide 19 L Anion Gap 12 BUN 83 H Creatinine 7.71 H Est GFR ( Amer) 6 L Est GFR (Non-Af Amer) 5 L Glucose 90 Calcium 7.3 L Magnesium 1.8 11/05/18 11/05/18 11:20 11:20 Creatine Kinase 32 CK-MB (CK-2) 1.23 Troponin I < 0.012 Impressions: Renal Ultrasound 11/05/18 00:00 IMPRESSION: Right renal atrophy No evidence of hydronephrosis Study is limited by body habitus Head CT 11/05/18 12:02 IMPRESSION: Interval development of a low attenuation area at the right parietal lobe, probably representing an age indeterminate infarct. No acute intracranial hemorrhage. If there is clinical concern for acute ischemia, further evaluation with MRI can be obtained. EVIDENCE OF ACUTE STROKE: Age-indeterminate infarct at the right parietal lobe. Carotid Doppler Study 11/07/18 00:00 IMPRESSION: NO HEMODYNAMICALLY SIGNIFICANT STENOSIS. Head MRI 11/07/18 00:00 IMPRESSION: Limited study as noted above. There are patchy and confluent areas of abnormal signal intensity in the left mid and posterior temporal lobe and adjacent left parietal lobe on the diffusion weighted sequence consistent with areas of recent infarction. Other findings as noted above. EVIDENCE OF ACUTE STROKE: NO. Assessment & Plan - Diagnosis (1) Acute renal failure (ARF) Qualifiers: Acute renal failure type: unspecified Qualified Code(s): N17.9 - Acute kidney failure, unspecified Is this a current diagnosis for this admission?: Yes Plan: f/u with the nephrology replace the potassiums (2) Hypernatremia Is this a current diagnosis for this admission?: Yes Plan: Continues to IV fluid patient's primary end up with the dialysis (3) Hypokalemia Is this a current diagnosis for this admission?: Yes Plan: Replace the potassiums (4) Hypomagnesemia Is this a current diagnosis for this admission?: Yes Plan: Replace the magnesium's (5) Metabolic acidosis Is this a current diagnosis for this admission?: Yes Plan: Continues on sodium bicarb (6) Urinary tract infection Qualifiers: Urinary tract infection type: site unspecified Hematuria presence: without hematuria Qualified Code(s): N39.0 - Urinary tract infection, site not specified Is this a current diagnosis for this admission?: Yes Plan: Continues to IV antibiotic (7) COPD with acute exacerbation Is this a current diagnosis for this admission?: Yes Plan: Continues to nebulizer treatments (8) Stroke Qualifiers: CVA mechanism: unspecified Qualified Code(s): I63.9 - Cerebral infarction, unspecified Is this a current diagnosis for this admission?: Yes Plan: Continues to aspirin and start atorvastatin Continues to PT OT and speech therapy - Time Time Spent with patient: 15-24 minutes Medications reviewed and adjusted accordingly: Yes Anticipated discharge: Home Within: Other - Plan Summary Plan Summary: Discussed with the daughter regarding the patient's current condition and the bedside discussed with the nursing staff encourage more physical therapy
[2018-11-09] MEDS: FLUTICASONE/SALMETEROL DISKUS 500-50 MCG/DOSE IH SCH ×2 (09:49→22:51)
[2018-11-09] MEDS: CALCIUM ACETATE 667 MG CAPSULE PO SCH ×3 (09:49→18:30)
[2018-11-09] MEDS: POTASSIUM CHLORIDE 20 MEQ/15 ML UDCUP PO SCH ×2 (09:49→22:51)
[2018-11-09] MEDS: CYANOCOBALAMIN (VITAMIN B-12) 1,000 MCG TABLET PO SCH (09:49)
[2018-11-09] MEDS: SODIUM BICARBONATE 650 MG TABLET PO SCH ×3 (09:50→18:30)
[2018-11-09] MEDS: MAGNESIUM OXIDE 400 MG TABLET PO SCH ×2 (09:50→18:30)
[2018-11-09] MEDS: HEPARIN SOD (PORCINE) 5,000 UNIT/ML 1 ML SYRINGE SUBCUT SCH ×2 (09:51→22:52)
[2018-11-09] MEDS: CEFTRIAXONE SODIUM 1,000 MG in DEXTROSE 5%-WATER 50 ML IV SCH (09:52)
[2018-11-09] MEDS: CALCITRIOL 0.25 MCG CAPSULE PO SCH (10:06)
--- NOTE | 2018-11-09 16:42 | PDOC PROGRESS REPORT ---
Subjective Progress Note for:: 11/09/18 Reason For Visit: Patient seen today in the hospital. Her daughter is at the bedside. Patient definitely is improved compared to when I saw her the other day. She is more active and talking and more alert. Her appetite still is poor according to the daughter. She denies any history of chest pain or shortness of breath. Labs and medications were reviewed with the patient and the daughter which shows improving renal functions. Physical Exam Vital Signs: Temp Pulse Resp BP Pulse Ox 98.1 F 77 18 94/51 L 100 11/09/18 12:00 11/09/18 12:00 11/09/18 12:00 11/09/18 12:00 11/09/18 12:00 Intake & Output 11/08/18 11/09/18 11/10/18 06:59 06:59 06:59 Intake Total 2492 3258 50 Output Total 1675 2851 Balance 817 407 50 Weight 102.4 kg 102.2 kg General appearance: PRESENT: no acute distress Respiratory exam: PRESENT: clear to auscultation nirmal, decreased breath sounds. ABSENT: crackles Cardiovascular exam: PRESENT: +S1, +S2 GI/Abdominal exam: PRESENT: normal bowel sounds, soft. ABSENT: organomegaly, tenderness Neurological exam: PRESENT: alert, awake, oriented to person, oriented to place Psychiatric exam: PRESENT: anxious Skin exam: PRESENT: erythema - Right lower extremity with no selina evidence to indicate cellulitis. Looks more like stasis changes.. ABSENT: cyanosis Results Laboratory Results: 11/09/18 04:42 11/09/18 04:42 11/09/18 11/09/18 04:42 04:42 WBC 9.3 RBC 3.74 Hgb 10.8 L Hct 32.3 L MCV 86 MCH 29.0 MCHC 33.5 RDW 16.6 H Plt Count 117 L Seg Neutrophils % 76.5 Lymphocytes % 10.1 L Monocytes % 7.7 Eosinophils % 5.5 Basophils % 0.2 Absolute Neutrophils 7.1 Absolute Lymphocytes 0.9 Absolute Monocytes 0.7 Absolute Eosinophils 0.5 Absolute Basophils 0.0 Sodium 138.2 Potassium 3.5 L Chloride 107 Carbon Dioxide 19 L Anion Gap 12 BUN 83 H Creatinine 7.71 H Est GFR ( Amer) 6 L Est GFR (Non-Af Amer) 5 L Glucose 90 Calcium 7.3 L Magnesium 1.8 11/05/18 11/05/18 11:20 11:20 Creatine Kinase 32 CK-MB (CK-2) 1.23 Troponin I < 0.012 Impressions: Renal Ultrasound 11/05/18 00:00 IMPRESSION: Right renal atrophy No evidence of hydronephrosis Study is limited by body habitus Head CT 11/05/18 12:02 IMPRESSION: Interval development of a low attenuation area at the right parietal lobe, probably representing an age indeterminate infarct. No acute intracranial hemorrhage. If there is clinical concern for acute ischemia, further evaluation with MRI can be obtained. EVIDENCE OF ACUTE STROKE: Age-indeterminate infarct at the right parietal lobe. Carotid Doppler Study 11/07/18 00:00 IMPRESSION: NO HEMODYNAMICALLY SIGNIFICANT STENOSIS. Head MRI 11/07/18 00:00 IMPRESSION: Limited study as noted above. There are patchy and confluent areas of abnormal signal intensity in the left mid and posterior temporal lobe and adjacent left parietal lobe on the diffusion weighted sequence consistent with areas of recent infarction. Other findings as noted above. EVIDENCE OF ACUTE STROKE: NO. Assessment & Plan - Diagnosis (1) Acute renal failure (ARF) Qualifiers: Acute renal failure type: unspecified Qualified Code(s): N17.9 - Acute kidney failure, unspecified Is this a current diagnosis for this admission?: Yes Plan: Nonoliguric and slowly improving. Continue present lines of management. Gentle hydration to continue. (2) Hypernatremia Is this a current diagnosis for this admission?: Yes Plan: Resolved. Monitor. (3) Metabolic acidosis Is this a current diagnosis for this admission?: Yes Plan: Improving. Continue present management. DC IV bicarb replacements in the morning. (4) Urinary tract infection Qualifiers: Urinary tract infection type: site unspecified Hematuria presence: without hematuria Qualified Code(s): N39.0 - Urinary tract infection, site not specified Is this a current diagnosis for this admission?: Yes (5) Renal osteodystrophy Plan: Continue present treatments. Monitor. (6) Hypokalemia Is this a current diagnosis for this admission?: Yes Plan: Continue on replacements. Monitor. (7) Hypomagnesemia Is this a current diagnosis for this admission?: Yes Plan: Continue on replacements. Monitor. (8) Hypotension Plan: Start low-dose of Midodrin. Check cortisol. Monitor.Reviewed echocardiogram.
[2018-11-09] MEDS: MIDODRINE HCL 5 MG TABLET PO SCH (18:37)
[2018-11-09] MEDS: ASPIRIN 81 MG TABLET, CHEWABLE PO SCH (22:51)
[2018-11-09] MEDS: SIMVASTATIN 10 MG TABLET PO SCH (22:51)
[2018-11-10 05:55] LABS: ANION GAP 14 (5-19); BLOOD UREA NITROGEN 74 mg/dL (7-20); CALCIUM 8.5 mg/dL (8.4-10.2); CARBON DIOXIDE 19 mmol/L (22-30); CHLORIDE 104 mmol/L (98-107); GLUCOSE 80 mg/dL (75-110); POTASSIUM 4.2 mmol/L (3.6-5.0); SODIUM 136.9 mmol/L (137-145)
[2018-11-10] MEDS: LEVOTHYROXINE SODIUM 0.15 MG TABLET PO SCH (06:03)
[2018-11-10] MEDS: LANSOPRAZOLE 30 MG TAB.RAP.DR PO SCH (06:03)
[2018-11-10] MEDS: CALCIUM ACETATE 667 MG CAPSULE PO SCH ×3 (08:08→17:27)
[2018-11-10] MEDS: SODIUM BICARBONATE 650 MG TABLET PO SCH ×3 (08:08→15:05)
--- NOTE | 2018-11-10 10:06 | PDOC PROGRESS REPORT ---
Subjective Progress Note for:: 11/10/18 Reason For Visit: Patient was seen in the hospital today. Her daughter is by her bedside. Patient is continuing to feel better. She denies any history of chest pain, shortness of breath, fever or chills.Appetite is still not the best. No history of any nausea vomiting. Edema is slowly improving. Labs and medications were reviewed with the patient and her daughter. Physical Exam Vital Signs: Temp Pulse Resp BP Pulse Ox 98.0 F 74 20 94/39 L 100 11/10/18 07:08 11/10/18 07:08 11/10/18 07:08 11/10/18 07:08 11/10/18 07:08 Intake & Output 11/09/18 11/10/18 11/11/18 06:59 06:59 06:59 Intake Total 3258 1090 Output Total 2851 1925 Balance 407 -835 Weight 102.2 kg 102.6 kg General appearance: PRESENT: no acute distress Respiratory exam: PRESENT: clear to auscultation nirmal, decreased breath sounds. ABSENT: crackles Cardiovascular exam: PRESENT: +S1, +S2 GI/Abdominal exam: PRESENT: normal bowel sounds, soft. ABSENT: organomegaly, tenderness Extremities exam: PRESENT: +1 edema Neurological exam: PRESENT: awake, oriented to person, oriented to place Psychiatric exam: PRESENT: anxious Skin exam: PRESENT: erythema - Venous stasis of lower extremity especially over the right leg.. ABSENT: cyanosis, rash Results Laboratory Results: 11/09/18 04:42 11/10/18 04:45 11/10/18 04:45 Sodium 136.9 L Potassium 4.2 Chloride 104 Carbon Dioxide 19 L Anion Gap 14 BUN 74 H Creatinine 7.06 H Est GFR ( Amer) 7 L Est GFR (Non-Af Amer) 6 L Glucose 80 Calcium 8.5 11/05/18 11/05/18 11:20 11:20 Creatine Kinase 32 CK-MB (CK-2) 1.23 Troponin I < 0.012 Impressions: Renal Ultrasound 11/05/18 00:00 IMPRESSION: Right renal atrophy No evidence of hydronephrosis Study is limited by body habitus Head CT 11/05/18 12:02 IMPRESSION: Interval development of a low attenuation area at the right parietal lobe, probably representing an age indeterminate infarct. No acute intracranial hemorrhage. If there is clinical concern for acute ischemia, further evaluation with MRI can be obtained. EVIDENCE OF ACUTE STROKE: Age-indeterminate infarct at the right parietal lobe. Carotid Doppler Study 11/07/18 00:00 IMPRESSION: NO HEMODYNAMICALLY SIGNIFICANT STENOSIS. Head MRI 11/07/18 00:00 IMPRESSION: Limited study as noted above. There are patchy and confluent areas of abnormal signal intensity in the left mid and posterior temporal lobe and adjacent left parietal lobe on the diffusion weighted sequence consistent with a reas of recent infarction. Other findings as noted above. EVIDENCE OF ACUTE STROKE: NO. Assessment & Plan - Diagnosis (1) Acute renal failure (ARF) Qualifiers: Acute renal failure type: unspecified Qualified Code(s): N17.9 - Acute kidney failure, unspecified Is this a current diagnosis for this admission?: Yes Plan: Nonoliguric and slowly improving. Continue present lines of management. Gentle hydration to continue. (2) Hypernatremia Is this a current diagnosis for this admission?: Yes Plan: Resolved. Monitor. (3) Metabolic acidosis Is this a current diagnosis for this admission?: Yes Plan: Improving. Continue present management. (4) Urinary tract infection Qualifiers: Urinary tract infection type: site unspecified Hematuria presence: without hematuria Qualified Code(s): N39.0 - Urinary tract infection, site not specified Is this a current diagnosis for this admission?: Yes (5) Renal osteodystrophy Plan: Continue present treatments. Monitor. (6) Hypokalemia Is this a current diagnosis for this admission?: Yes Plan: Continue on replacements. Monitor. (7) Hypomagnesemia Is this a current diagnosis for this admission?: Yes Plan: Continue on replacements. Monitor. (8) Hypotension Plan: On low-dose of Midodrin. Monitor.
[2018-11-10] MEDS: CEFTRIAXONE SODIUM 1,000 MG in DEXTROSE 5%-WATER 50 ML IV SCH (11:35)
[2018-11-10] MEDS: POTASSIUM CHLORIDE 20 MEQ/15 ML UDCUP PO SCH ×2 (11:36→22:03)
[2018-11-10] MEDS: CALCITRIOL 0.25 MCG CAPSULE PO SCH (11:36)
[2018-11-10] MEDS: MAGNESIUM OXIDE 400 MG TABLET PO SCH ×2 (11:36→17:27)
[2018-11-10] MEDS: MIDODRINE HCL 5 MG TABLET PO SCH ×3 (11:36→17:27)
[2018-11-10] MEDS: CYANOCOBALAMIN (VITAMIN B-12) 1,000 MCG TABLET PO SCH (11:37)
[2018-11-10] MEDS: NYSTATIN TOPICAL POWDER 15 GM TP SCH ×2 (11:37→17:28)
[2018-11-10] MEDS: HEPARIN SOD (PORCINE) 5,000 UNIT/ML 1 ML SYRINGE SUBCUT SCH ×2 (11:38→22:03)
[2018-11-10] MEDS: FLUTICASONE/SALMETEROL DISKUS 500-50 MCG/DOSE IH SCH ×2 (11:52→22:03)
--- NOTE | 2018-11-10 13:17 | PDOC PROGRESS REPORT ---
Subjective Progress Note for:: 11/10/18 Subjective:: Patient is currently doing well Patient is denied any chest pain denied any shortness of the breath Some mild redness in the right lower extremity which patient is a chronic issue with the cellulitis Any chest pain to than any shortness of the breath Reason For Visit: ALTERED MENTAL STATUS Physical Exam Vital Signs: Temp Pulse Resp BP Pulse Ox 98.0 F 75 16 92/44 L 98 11/10/18 07:08 11/10/18 11:35 11/10/18 11:35 11/10/18 11:35 11/10/18 11:35 Intake & Output 11/09/18 11/10/18 11/11/18 06:59 06:59 06:59 Intake Total 3258 1090 300 Output Total 2851 1925 500 Balance 407 -835 -200 Weight 102.2 kg 102.6 kg General appearance: PRESENT: no acute distress, well-developed, well-nourished Head exam: PRESENT: atraumatic, normocephalic Eye exam: PRESENT: conjunctiva pink, EOMI, PERRLA. ABSENT: scleral icterus Ear exam: PRESENT: normal external ear exam Mouth exam: PRESENT: moist, tongue midline Neck exam: PRESENT: full ROM. ABSENT: carotid bruit, JVD, lymphadenopathy, thyromegaly Respiratory exam: PRESENT: clear to auscultation nirmal Cardiovascular exam: PRESENT: RRR. ABSENT: diastolic murmur, rubs, systolic murmur Pulses: PRESENT: normal dorsalis pedis pul, +2 pedal pulses bilateral Vascular exam: PRESENT: normal capillary refill GI/Abdominal exam: PRESENT: normal bowel sounds, soft. ABSENT: distended, guarding, mass, organolmegaly, rebound, tenderness Rectal exam: PRESENT: deferred Neurological exam: PRESENT: alert, awake, oriented to person, oriented to place, oriented to time, oriented to situation, CN II-XII grossly intact. ABSENT: motor sensory deficit Psychiatric exam: PRESENT: appropriate affect, normal mood. ABSENT: homicidal ideation, suicidal ideation Skin exam: PRESENT: dry, intact, warm. ABSENT: cyanosis, rash Results Laboratory Results: 11/09/18 04:42 11/10/18 04:45 11/10/18 04:45 Sodium 136.9 L Potassium 4.2 Chloride 104 Carbon Dioxide 19 L Anion Gap 14 BUN 74 H Creatinine 7.06 H Est GFR ( Amer) 7 L Est GFR (Non-Af Amer) 6 L Glucose 80 Calcium 8.5 11/05/18 11/05/18 11:20 11:20 Creatine Kinase 32 CK-MB (CK-2) 1.23 Troponin I < 0.012 Impressions: Renal Ultrasound 11/05/18 00:00 IMPRESSION: Right renal atrophy No evidence of hydronephrosis Study is limited by body habitus Head CT 11/05/18 12:02 IMPRESSION: Interval development of a low attenuation area at the right parietal lobe, probably representing an age indeterminate infarct. No acute intracranial hemorrhage. If there is clinical concern for acute ischemia, further evaluation with MRI can be obtained. EVIDENCE OF ACUTE STROKE: Age-indeterminate infarct at the right parietal lobe. Carotid Doppler Study 11/07/18 00:00 IMPRESSION: NO HEMODYNAMICALLY SIGNIFICANT STENOSIS. Head MRI 11/07/18 00:00 IMPRESSION: Limited study as noted above. There are patchy and confluent areas of abnormal signal intensity in the left mid and posterior temporal lobe and adjacent left parietal lobe on the diffusion weighted sequence consistent with areas of recent infarction. Other findings as noted above. EVIDENCE OF ACUTE STROKE: NO. Assessment & Plan - Diagnosis (1) Acute renal failure (ARF) Qualifiers: Acute renal failure type: unspecified Qualified Code(s): N17.9 - Acute kidney failure, unspecified Is this a current diagnosis for this admission?: Yes Plan: f/u with the nephrology replace the potassiums (2) Hypernatremia Is this a current diagnosis for this admission?: Yes Plan: Continues to IV fluid patient's primary end up with the dialysis (3) Hypokalemia Is this a current diagnosis for this admission?: Yes Plan: Replace the potassiums (4) Hypomagnesemia Is this a current diagnosis for this admission?: Yes Plan: Replace the magnesium's (5) Metabolic acidosis Is this a current diagnosis for this admission?: Yes Plan: Continues on sodium bicarb (6) Urinary tract infection Qualifiers: Urinary tract infection type: site unspecified Hematuria presence: without hematuria Qualified Code(s): N39.0 - Urinary tract infection, site not specifi ed Is this a current diagnosis for this admission?: Yes Plan: Continues to IV antibiotic (7) COPD with acute exacerbation Is this a current diagnosis for this admission?: Yes Plan: Continues to nebulizer treatments (8) Stroke Qualifiers: CVA mechanism: unspecified Qualified Code(s): I63.9 - Cerebral infarction, unspecified Is this a current diagnosis for this admission?: Yes Plan: Continues to aspirin and start atorvastatin Continues to PT OT and speech therapy (9) Cellulitis of right leg Is this a current diagnosis for this admission?: Yes Plan: Elevate leg continues to IV antibiotic - Time Time Spent with patient: 15-24 minutes Medications reviewed and adjusted accordingly: Yes Anticipated discharge: Other Within: Other - Plan Summary Plan Summary: This with the daughter regarding the patient's current conditions continues to physical therapy
[2018-11-10] MEDS ORDERED: ACETAMINOPHEN 325 MG TABLET PO PRN (13:46)
[2018-11-10] MEDS: ASPIRIN 81 MG TABLET, CHEWABLE PO SCH (22:03)
[2018-11-10] MEDS: SIMVASTATIN 10 MG TABLET PO SCH (22:03)
[2018-11-11 05:20] LABS: ANION GAP 13 (5-19); BLOOD UREA NITROGEN 63 mg/dL (7-20); CALCIUM 8.3 mg/dL (8.4-10.2); CARBON DIOXIDE 19 mmol/L (22-30); CHLORIDE 102 mmol/L (98-107); GLUCOSE 99 mg/dL (75-110); POTASSIUM 3.9 mmol/L (3.6-5.0); SODIUM 134.4 mmol/L (137-145)
[2018-11-11] MEDS: LEVOTHYROXINE SODIUM 0.15 MG TABLET PO SCH (06:06)
[2018-11-11] MEDS: LANSOPRAZOLE 30 MG TAB.RAP.DR PO SCH (06:07)
[2018-11-11] MEDS: CEFTRIAXONE SODIUM 1,000 MG in DEXTROSE 5%-WATER 50 ML IV SCH (09:21)
[2018-11-11] MEDS: POTASSIUM CHLORIDE 20 MEQ/15 ML UDCUP PO SCH ×2 (09:23→21:26)
[2018-11-11] MEDS: CALCITRIOL 0.25 MCG CAPSULE PO SCH (09:23)
[2018-11-11] MEDS: CALCIUM ACETATE 667 MG CAPSULE PO SCH ×3 (09:24→17:50)
[2018-11-11] MEDS: SODIUM BICARBONATE 650 MG TABLET PO SCH ×3 (09:24→17:50)
[2018-11-11] MEDS: MAGNESIUM OXIDE 400 MG TABLET PO SCH ×2 (09:25→17:50)
[2018-11-11] MEDS: CYANOCOBALAMIN (VITAMIN B-12) 1,000 MCG TABLET PO SCH (09:25)
[2018-11-11] MEDS: MIDODRINE HCL 5 MG TABLET PO SCH ×3 (09:26→17:50)
[2018-11-11] MEDS: HEPARIN SOD (PORCINE) 5,000 UNIT/ML 1 ML SYRINGE SUBCUT SCH ×2 (09:27→21:24)
[2018-11-11] MEDS: FLUTICASONE/SALMETEROL DISKUS 500-50 MCG/DOSE IH SCH ×2 (09:27→21:27)
[2018-11-11] MEDS: NYSTATIN TOPICAL POWDER 15 GM TP SCH ×2 (09:38→17:51)
--- NOTE | 2018-11-11 16:52 | PDOC PROGRESS REPORT ---
Subjective Progress Note for:: 11/11/18 Reason For Visit: Patient is seen today. She is continuing to feel better. She denies any history of chest pain or shortness of breath. No history of any fever chills or Reiger's. Labs and medications were reviewed. Blood pressure still on the low side. However renal functions are improving. Physical Exam Vital Signs: Temp Pulse Resp BP Pulse Ox 97.5 F 78 17 91/59 L 97 11/11/18 16:03 11/11/18 16:03 11/11/18 16:03 11/11/18 16:03 11/11/18 16:03 Intake & Output 11/10/18 11/11/18 11/12/18 06:59 06:59 06:59 Intake Total 1090 300 591 Output Total 1925 2925 750 Balance -835 -7205 -159 Weight 102.6 kg 103.9 kg General appearance: PRESENT: no acute distress Respiratory exam: PRESENT: clear to auscultation nirmal, decreased breath sounds. ABSENT: crackles Cardiovascular exam: PRESENT: +S1, +S2 GI/Abdominal exam: PRESENT: normal bowel sounds, soft. ABSENT: organomegaly, tenderness Extremities exam: PRESENT: +1 edema Neurological exam: PRESENT: alert, awake, oriented to person, oriented to place Skin exam: PRESENT: erythema - Has got a wound on her right leg now. We will get cultures on that. Results Laboratory Results: 11/09/18 04:42 11/11/18 04:17 11/11/18 04:17 Sodium 134.4 L Potassium 3.9 Chloride 102 Carbon Dioxide 19 L Anion Gap 13 BUN 63 H Creatinine 6.63 H Est GFR ( Amer) 8 L Est GFR (Non-Af Amer) 6 L Glucose 99 Calcium 8.3 L 11/05/18 18:14 Blood Blood Culture - Final NO GROWTH IN 5 DAYS 11/05/18 11:20 Blood Blood Culture - Final NO GROWTH IN 5 DAYS 11/05/18 11/05/18 11:20 11:20 Creatine Kinase 32 CK-MB (CK-2) 1.23 Troponin I < 0.012 Impressions: Renal Ultrasound 11/05/18 00:00 IMPRESSION: Right renal atrophy No evidence of hydronephrosis Study is limited by body habitus Head CT 11/05/18 12:02 IMPRESSION: Interval development of a low attenuation area at the right parietal lobe, probably representing an age indeterminate infarct. No acute intracranial hemorrhage. If there is clinical concern for acute ischemia, further evaluation with MRI can be obtained. EVIDENCE OF ACUTE STROKE: Age-indeterminate infarct at the right parietal lobe. Carotid Doppler Study 11/07/18 00:00 IMPRESSION: NO HEMODYNAMICALLY SIGNIFICANT STENOSIS. Head MRI 11/07/18 00:00 IMPRESSION: Limited study as noted above. There are patchy and confluent areas of abnormal signal intensity in the left mid and posterior temporal lobe and adjacent left parietal lobe on the diffusion weighted sequence consistent with areas of recent infarction. Other findings as noted above. EVIDENCE OF ACUTE STROKE: NO. Assessment & Plan - Diagnosis (1) Acute renal failure (ARF) Qualifiers: Acute renal failure type: unspecified Qualified Code(s): N17.9 - Acute kidney failure, unspecified Is this a current diagnosis for this admission?: Yes Plan: Nonoliguric and slowly improving. Continue present lines of management. Gentle hydration to continue. (2) Hypernatremia Is this a current diagnosis for this admission?: Yes (3) Metabolic acidosis Is this a current diagnosis for this admission?: Yes Plan: Improving. Continue present management. (4) Urinary tract infection Qualifiers: Urinary tract infection type: site unspecified Hematuria presence: without hematuria Qualified Code(s): N39.0 - Urinary tract infection, site not specified Is this a current diagnosis for this admission?: Yes (5) Renal osteodystrophy Plan: Continue present treatments. Monitor. (6) Hypokalemia Is this a current diagnosis for this admission?: Yes Plan: Continue on replacements. Monitor. (7) Hypomagnesemia Is this a current diagnosis for this admission?: Yes Plan: Continue on replacements. Monitor. (8) Hypotension Plan: Will increase Midodrin to 5 mg tid. Meanwhile get roberson cultures including wound culture and and modify antibiotic regimen. Monitor. (9) Cellulitis Qualifiers: Site of cellulitis: extremity Site of cellulitis of extremity: lower extremity Laterality: unspecified laterality Qualified Code(s): L03.119 - Cellulitis of unspecified part of limb Plan: With the leg ulcer now on the right side. Get wound cultures. Discussed with nurse. Modify antibiotics after C&S.
[2018-11-11 18:14] LABS: APPEARANCE,URINE CLEAR; BILIRUBIN,URINE NEGATIVE (NEGATIVE); COLOR,URINE STRAW; GLUCOSE, URINE NEGATIVE (NEGATIVE); KETONES,URINE NEGATIVE (NEGATIVE); LEUKOCYTE ESTERASE,URINE SMALL (NEGATIVE); NITRITE,URINE NEGATIVE (NEGATIVE); PROTEIN,URINE 30 mg/dL (NEGATIVE); URINE SPECIFIC GRAVITY 1.005; UROBILINOGEN,URINE NEGATIVE mg/dL (<2.0)
[2018-11-11] MEDS: SIMVASTATIN 10 MG TABLET PO SCH (21:26)
[2018-11-11] MEDS: ASPIRIN 81 MG TABLET, CHEWABLE PO SCH (21:26)
[2018-11-12] MEDS: LANSOPRAZOLE 30 MG TAB.RAP.DR PO SCH (05:27)
[2018-11-12] MEDS: LEVOTHYROXINE SODIUM 0.15 MG TABLET PO SCH (05:27)
[2018-11-12 05:55] LABS: ANION GAP 12 (5-19); BLOOD UREA NITROGEN 57 mg/dL (7-20); CALCIUM 8.7 mg/dL (8.4-10.2); CARBON DIOXIDE 21 mmol/L (22-30); CHLORIDE 104 mmol/L (98-107); GLUCOSE 75 mg/dL (75-110); POTASSIUM 4.5 mmol/L (3.6-5.0); SODIUM 137.1 mmol/L (137-145)
[2018-11-12] MEDS: CALCIUM ACETATE 667 MG CAPSULE PO SCH ×3 (08:23→16:12)
[2018-11-12] MEDS: SODIUM BICARBONATE 650 MG TABLET PO SCH ×3 (08:23→16:12)
[2018-11-12] MEDS: HEPARIN SOD (PORCINE) 5,000 UNIT/ML 1 ML SYRINGE SUBCUT SCH (09:06)
[2018-11-12] MEDS: POTASSIUM CHLORIDE 20 MEQ/15 ML UDCUP PO SCH (09:14)
[2018-11-12] MEDS: MIDODRINE HCL 5 MG TABLET PO SCH ×3 (09:14→17:03)
[2018-11-12] MEDS: CYANOCOBALAMIN (VITAMIN B-12) 1,000 MCG TABLET PO SCH (09:14)
[2018-11-12] MEDS: FLUTICASONE/SALMETEROL DISKUS 500-50 MCG/DOSE IH SCH (09:14)
[2018-11-12] MEDS: CALCITRIOL 0.25 MCG CAPSULE PO SCH (09:14)
[2018-11-12] MEDS: MAGNESIUM OXIDE 400 MG TABLET PO SCH ×2 (09:14→17:03)
[2018-11-12] MEDS: NYSTATIN TOPICAL POWDER 15 GM TP SCH ×2 (09:15→17:06)
[2018-11-12] MEDS: ACETAMINOPHEN 325 MG TABLET PO PRN (16:10)
--- NOTE | 2018-11-12 20:26 | PDOC PROGRESS REPORT ---
Subjective Progress Note for:: 11/12/18 Subjective:: Patient was seen by the bedside, she was admitted for the management of acute kidney injury, cellulitis, UTI, she has a Heath catheter for strict monitoring of urinary output Reason For Visit: ALTERED MENTAL STATUS Physical Exam Vital Signs: Temp Pulse Resp BP Pulse Ox 97.8 F 77 18 103/52 L 99 11/12/18 15:19 11/12/18 19:00 11/12/18 15:19 11/12/18 15:19 11/12/18 15:19 Intake & Output 11/11/18 11/12/18 11/13/18 06:59 06:59 06:59 Intake Total 300 996 470 Output Total 2925 2100 525 Balance -2625 -1104 -55 Weight 103.9 kg 105 kg General appearance: PRESENT: no acute distress Eye exam: PRESENT: PERRLA Respiratory exam: PRESENT: clear to auscultation nirmal Cardiovascular exam: PRESENT: +S1, +S2 GI/Abdominal exam: PRESENT: soft Neurological exam: PRESENT: alert Results Laboratory Results: 11/09/18 04:42 11/12/18 04:18 11/12/18 04:18 Sodium 137.1 Potassium 4.5 Chloride 104 Carbon Dioxide 21 L Anion Gap 12 BUN 57 H Creatinine 6.26 H Est GFR ( Amer) 8 L Est GFR (Non-Af Amer) 7 L Glucose 75 Calcium 8.7 11/05/18 11/05/18 11:20 11:20 Creatine Kinase 32 CK-MB (CK-2) 1.23 Troponin I < 0.012 Impressions: Renal Ultrasound 11/05/18 00:00 IMPRESSION: Right renal atrophy No evidence of hydronephrosis Study is limited by body habitus Head CT 11/05/18 12:02 IMPRESSION: Interval development of a low attenuation area at the right parietal lobe, probably representing an age indeterminate infarct. No acute intracranial hemorrhage. If there is clinical concern for acute ischemia, fur ther evaluation with MRI can be obtained. EVIDENCE OF ACUTE STROKE: Age-indeterminate infarct at the right parietal lobe. Carotid Doppler Study 11/07/18 00:00 IMPRESSION: NO HEMODYNAMICALLY SIGNIFICANT STENOSIS. Head MRI 11/07/18 00:00 IMPRESSION: Limited study as noted above. There are patchy and confluent areas of abnormal signal intensity in the left mid and posterior temporal lobe and adjacent left parietal lobe on the diffusion weighted sequence consistent with areas of recent infarction. Other findings as noted above. EVIDENCE OF ACUTE STROKE: NO. Assessment & Plan - Diagnosis (1) Acute on chronic renal failure Qualifiers: Acute renal failure type: unspecified Chronic kidney disease stage: stage 5, not on chronic dialysis Qualified Code(s): N17.9 - Acute kidney failure, unspecified; N18.5 - Chronic kidney disease, stage 5; N18.5 - Chronic kidney disease, stage 5; N18.5 - Chronic kidney disease, stage 5; N18.5 - Chronic kidney disease, stage 5 Is this a current diagnosis for this admission?: Yes (2) Cellulitis Qualifiers: Site of cellulitis: extremity Site of cellulitis of extremity: lower extremity Laterality: unspecified laterality Qualified Code(s): L03.119 - Cellulitis of unspecified part of limb Is this a current diagnosis for this admission?: Yes (3) Hypernatremia Is this a current diagnosis for this admission?: Yes (4) Urinary tract infection Qualifiers: Urinary tract infection type: site unspecified Hematuria presence: without hematuria Qualified Code(s): N39.0 - Urinary tract infection, site not specified Is this a current diagnosis for this admission?: Yes (5) Hyperphosphatemia Is this a current diagnosis for this admission?: Yes (6) Renal osteodystrophy Is this a current diagnosis for this admission?: Yes - Plan Summary Plan Summary: Continue present treatment
[2018-11-13] MEDS: POTASSIUM CHLORIDE 20 MEQ/15 ML UDCUP PO SCH ×3 (01:06→21:29)
[2018-11-13] MEDS: SIMVASTATIN 10 MG TABLET PO SCH ×2 (01:09→21:27)
[2018-11-13] MEDS: ASPIRIN 81 MG TABLET, CHEWABLE PO SCH ×2 (01:09→21:27)
[2018-11-13] MEDS: FLUTICASONE/SALMETEROL DISKUS 500-50 MCG/DOSE IH SCH ×3 (01:09→21:28)
[2018-11-13] MEDS: HEPARIN SOD (PORCINE) 5,000 UNIT/ML 1 ML SYRINGE SUBCUT SCH ×3 (01:12→21:28)
[2018-11-13] MEDS: LEVOTHYROXINE SODIUM 0.15 MG TABLET PO SCH (05:30)
[2018-11-13] MEDS: LANSOPRAZOLE 30 MG TAB.RAP.DR PO SCH (05:30)
[2018-11-13 05:46] LABS: ANION GAP 10 (5-19); BLOOD UREA NITROGEN 52 mg/dL (7-20); CARBON DIOXIDE 23 mmol/L (22-30); CHLORIDE 103 mmol/L (98-107); GLUCOSE 71 mg/dL (75-110); POTASSIUM 5.1 mmol/L (3.6-5.0); SODIUM 136.4 mmol/L (137-145)
[2018-11-13] MEDS: CALCIUM ACETATE 667 MG CAPSULE PO SCH ×3 (08:26→17:15)
[2018-11-13] MEDS: SODIUM BICARBONATE 650 MG TABLET PO SCH ×3 (08:26→17:15)
[2018-11-13] MEDS: CALCITRIOL 0.25 MCG CAPSULE PO SCH (10:18)
[2018-11-13] MEDS: CYANOCOBALAMIN (VITAMIN B-12) 1,000 MCG TABLET PO SCH (10:18)
[2018-11-13] MEDS: MIDODRINE HCL 5 MG TABLET PO SCH ×3 (10:18→17:15)
[2018-11-13] MEDS: MAGNESIUM OXIDE 400 MG TABLET PO SCH ×2 (10:18→17:15)
[2018-11-13] MEDS: NYSTATIN TOPICAL POWDER 15 GM TP SCH (10:19)
--- NOTE | 2018-11-13 15:57 | PDOC PROGRESS REPORT ---
Subjective Progress Note for:: 11/13/18 Subjective:: Patient seen by the bedside, she has CKD stage V Reason For Visit: ALTERED MENTAL STATUS Physical Exam Vital Signs: Temp Pulse Resp BP Pulse Ox 98.4 F 74 18 110/52 L 97 11/13/18 11:29 11/13/18 14:00 11/13/18 11:29 11/13/18 11:29 11/13/18 11:29 Intake & Output 11/12/18 11/13/18 11/14/18 06:59 06:59 06:59 Intake Total 996 1120 573 Output Total 2100 1225 450 Balance -1104 -105 123 Weight 105 kg 104.7 kg General appearance: PRESENT: no acute distress Eye exam: PRESENT: PERRLA Respiratory exam: PRESENT: clear to auscultation nirmal Cardiovascular exam: PRESENT: +S1, +S2 Neurological exam: PRESENT: alert Results Laboratory Results: 11/09/18 04:42 11/13/18 04:38 11/13/18 04:38 Sodium 136.4 L Potassium 5.1 H Chloride 103 Carbon Dioxide 23 Anion Gap 10 BUN 52 H Creatinine 6.64 H Est GFR ( Amer) 8 L Est GFR (Non-Af Amer) 6 L Glucose 71 L Calcium 9.0 11/11/18 17:40 Catheterized Urine Urine Culture - Final NO GROWTH 2 DAYS 11/05/18 11/05/18 11:20 11:20 Creatine Kinase 32 CK-MB (CK-2) 1.23 Troponin I < 0.012 Impressions: Renal Ultrasound 11/05/18 00:00 IMPRESSION: Right renal atrophy No evidence of hydronephrosis Study is limited by body habitus Head CT 11/05/18 12:02 IMPRESSION: Interval development of a low attenuation area at the right parietal lobe, probably representing an age indeterminate infarct. No acute intracranial hemorrhage. If there is clinical concern for acute ischemia, further evaluation with MRI can be obtained. EVIDENCE OF ACUTE STROKE: Age-indeterminate infarct at the right parietal lobe. Carotid Doppler Study 11/07/18 00:00 IMPRESSION: NO HEMODYNAMICALLY SIGNIFICANT STENOSIS. Head MRI 11/07/18 00:00 IMPRESSION: Limited study as noted above. There are patchy and confluent areas of abnormal signal intensity in the left mid and posterior temporal lobe and adjacent left parietal lobe on the diffusion weighted sequence consistent with areas of recent infarction. Other findings as noted above. EVIDENCE OF ACUTE STROKE: NO. Assessment & Plan - Diagnosis (1) Acute on chronic renal failure Qualifiers: Acute renal failure type: unspecified Chronic kidney disease stage: stage 5, not on chronic dialysis Qualified Code(s): N17.9 - Acute kidney failure, unspecified; N18.5 - Chronic kidney disease, stage 5; N18.5 - Chronic kidney d isease, stage 5; N18.5 - Chronic kidney disease, stage 5; N18.5 - Chronic kidney disease, stage 5 Is this a current diagnosis for this admission?: Yes (2) Cellulitis Qualifiers: Site of cellulitis: extremity Site of cellulitis of extremity: lower extremity Laterality: unspecified laterality Qualified Code(s): L03.119 - Cellulitis of unspecified part of limb Is this a current diagnosis for this admission?: Yes (3) Hypernatremia Is this a current diagnosis for this admission?: Yes (4) Urinary tract infection Qualifiers: Urinary tract infection type: site unspecified Hematuria presence: without hematuria Qualified Code(s): N39.0 - Urinary tract infection, site not speci fied Is this a current diagnosis for this admission?: Yes (5) Hyperphosphatemia Is this a current diagnosis for this admission?: Yes (6) Renal osteodystrophy Is this a current diagnosis for this admission?: Yes
[2018-11-14] MEDS: LEVOTHYROXINE SODIUM 0.15 MG TABLET PO SCH (05:34)
[2018-11-14] MEDS: LANSOPRAZOLE 30 MG TAB.RAP.DR PO SCH (05:34)
[2018-11-14] MEDS: CALCIUM ACETATE 667 MG CAPSULE PO SCH ×3 (08:42→17:22)
[2018-11-14] MEDS: SODIUM BICARBONATE 650 MG TABLET PO SCH ×3 (08:42→17:22)
[2018-11-14] MEDS: MIDODRINE HCL 5 MG TABLET PO SCH ×3 (10:01→17:21)
[2018-11-14] MEDS: MAGNESIUM OXIDE 400 MG TABLET PO SCH ×2 (10:01→17:22)
[2018-11-14] MEDS: CYANOCOBALAMIN (VITAMIN B-12) 1,000 MCG TABLET PO SCH (10:01)
[2018-11-14] MEDS: CALCITRIOL 0.25 MCG CAPSULE PO SCH (10:01)
[2018-11-14] MEDS: FLUTICASONE/SALMETEROL DISKUS 500-50 MCG/DOSE IH SCH ×2 (10:02→21:25)
[2018-11-14] MEDS: HEPARIN SOD (PORCINE) 5,000 UNIT/ML 1 ML SYRINGE SUBCUT SCH ×2 (10:02→21:25)
--- NOTE | 2018-11-14 10:13 | PDOC PROGRESS REPORT ---
Subjective Progress Note for:: 11/14/18 Reason For Visit: Patient seen in the hospital today. She is feeling some better but still not good enough like she was back at home. Appetite is still about the same. Denies any history of chest pain, fever or chills. Legs are still swollen. Discussed with treating nurse who also admits that the fact that the redness is no better still not getting a whole lot better faster. Labs and medications were reviewed which showed some slight deterioration of renal functions.Review of her microbiology shows she is growing Enterococcus faecalis. Physical Exam Vital Signs: Temp Pulse Resp BP Pulse Ox 98.4 F 75 18 124/55 L 97 11/14/18 07:31 11/14/18 07:31 11/14/18 07:31 11/14/18 07:31 11/14/18 07:31 Intake & Output 11/13/18 11/14/18 11/15/18 06:59 06:59 06:59 Intake Total 1120 1078 Output Total 1225 1700 Balance -105 -622 Weight 104.7 kg 105.2 kg General appearance: PRESENT: no acute distress Respiratory exam: PRESENT: clear to auscultation nirmal, decreased breath sounds. ABSENT: crackles Cardiovascular exam: PRESENT: +S1, +S2 GI/Abdominal exam: PRESENT: normal bowel sounds, soft. ABSENT: organomegaly, tenderness Extremities exam: PRESENT: +1 edema - With erythema over both legs of possible persistent cellulitis. Neurological exam: PRESENT: alert, awake, oriented to person, oriented to place Psychiatric exam: PRESENT: appropriate affect Skin exam: PRESENT: erythema - Lower extremities. ABSENT: rash Results Laboratory Results: 11/09/18 04:42 11/13/18 04:38 11/11/18 09:35 Leg - Right Cellulitis Gram Stain - Final 11/11/18 09:35 Leg - Right Cellulitis Wound Culture - Final Enterococcus Faecalis(Group D) Skin Alisha 11/11/18 17:40 Catheterized Urine Urine Culture - Final NO GROWTH 2 DAYS 11/05/18 11/05/18 11:20 11:20 Creatine Kinase 32 CK-MB (CK-2) 1.23 Troponin I < 0.012 Impressions: Renal Ultrasound 11/05/18 00:00 IMPRESSION: Right renal atrophy No evidence of hydronephrosis Study is limited by body habitus Head CT 11/05/18 12:02 IMPRESSION: Interval development of a low attenuation area at the right parietal lobe, probably representing an age indeterminate infarct. No acute intracranial hemorrhage. If there is clinical concern for acute ischemia, further evaluation with MRI can be obtained. EVIDENCE OF ACUTE STROKE: Age-indeterminate infarct at the right parietal lobe. Carotid Doppler Study 11/07/18 00:00 IMPRESSION: NO HEMODYNAMICALLY SIGNIFICANT STENOSIS. Head MRI 11/07/18 00:00 IMPRESSION: Limited study as noted above. There are patchy and confluent areas of abnormal signal intensity in the left mid and posterior temporal lobe and adjacent left parietal lobe on the diffusion weighted sequence consistent with areas of recent infarction. Other findings as noted above. EVIDENCE OF ACUTE STROKE: NO. Assessment & Plan - Diagnosis (1) Acute renal failure (ARF) Qualifiers: Acute renal failure type: unspecified Qualified Code(s): N17.9 - Acute kidney failure, unspecified Is this a current diagnosis for this admission?: Yes Plan: Nonoliguric and slowly improving. Continue present lines of management. Gentle hydration to continue.I am going to treat her cellulitis more vigorously and see if that will help her regain some of her renal functions. If otherwise, if her renal functions are the same or continues to deteriorate and one has to consider starting on renal replacements unfortunately. Hopefully it will still be an AK I than ESRD. (2) Hypernatremia Is this a current diagnosis for this admission?: Yes Plan: Resolved. Monitor. (3) Metabolic acidosis Is this a current diagnosis for this admission?: Yes Plan: Improving. Continue present management. (4) Urinary tract infection Qualifiers: Urinary tract infection type: site unspecified Hematuria presence: without hematuria Qualified Code(s): N39.0 - Urinary tract infection, site not specified Is this a current diagnosis for this admission?: Yes (5) Renal osteodystrophy Is this a current diagnosis for this admission?: Yes Plan: Continue present treatments. Monitor. (6) Hypokalemia Is this a current diagnosis for this admission?: Yes Plan: Continue on replacements. Monitor. (7) Hypomagnesemia Is this a current diagnosis for this admission?: Yes Plan: Continue on replacements. Monitor. (8) Hypotension Plan: Continue on the present dose of Midodrin which seems to be more stabilizing her blood pressure at the moment. Monitor. (9) Cellulitis Qualifiers: Site of cellulitis: extremity Site of cellulitis of extremity: lower extremity Laterality: unspecified laterality Qualified Code(s): L03.119 - Cellulitis of unspecified part of limb Is this a current diagnosis for this admission?: Yes Plan: Will start on vancomycin and titrate her dose accordingly. We will see how she responds to this now. Monitor.
[2018-11-14] MEDS ORDERED: VANCOMYCIN HCL 750 MG in DEXTROSE 5%-WATER 250 ML IV ONE (10:30)
--- NOTE | 2018-11-14 16:48 | PDOC PROGRESS REPORT ---
Subjective Progress Note for:: 11/14/18 Subjective:: Patient seen by the bedside, she was seen today by nephrology Reason For Visit: ALTERED MENTAL STATUS Physical Exam Vital Signs: Temp Pulse Resp BP Pulse Ox 98.6 F 79 18 121/53 L 98 11/14/18 11:27 11/14/18 14:00 11/14/18 11:27 11/14/18 11:27 11/14/18 11:27 Intake & Output 11/13/18 11/14/18 11/15/18 06:59 06:59 06:59 Intake Total 1120 1078 1224 Output Total 1225 1700 400 Balance -105 -622 824 Weight 104.7 kg 105.2 kg General appearance: PRESENT: no acute distress Eye exam: PRESENT: PERRLA Respiratory exam: PRESENT: clear to auscultation nirmal Cardiovascular exam: PRESENT: +S1, +S2 GI/Abdominal exam: PRESENT: soft Neurological exam: PRESENT: alert Results Laboratory Results: 11/09/18 04:42 11/13/18 04:38 11/11/18 09:35 Leg - Right Cellulitis Gram Stain - Final 11/11/18 09:35 Leg - Right Cellulitis Wound Culture - Final Enterococcus Faecalis(Group D) Skin Alisha 11/11/18 17:40 Catheterized Urine Urine Culture - Final NO GROWTH 2 DAYS 11/05/18 11/05/18 11:20 11:20 Creatine Kinase 32 CK-MB (CK-2) 1.23 Troponin I < 0.012 Impressions: Renal Ultrasound 11/05/18 00:00 IMPRESSION: Right renal atrophy No evidence of hydronephrosis Study is limited by body habitus Head CT 11/05/18 12:02 IMPRESSION: Interval development of a low attenuation area at the right parietal lobe, probably representing an age indeterminate infarct. No acute intracranial hemorrhage. If there is clinical concern for acute ischemia, further evaluation with MRI can be obtained. EVIDENCE OF ACUTE STROKE: Age-indeterminate infarct at the right parietal lobe. Carotid Doppler Study 11/07/18 00:00 IMPRESSION: NO HEMODYNAMICALLY SIGNIFICANT STENOSIS. Head MRI 11/07/18 00:00 IMPRESSION: Limited study as noted above. There are patchy and confluent areas of abnormal signal intensity in the left mid and posterior temporal lobe and adjacent left parietal lobe on the diffusion weighted sequence consistent with areas of recent infarction. Other findings as noted above. EVIDENCE OF ACUTE STROKE: NO. Assessment & Plan - Diagnosis (1) Acute on chronic renal failure Qualifiers: Acute renal failure type: unspecified Chronic kidney disease stage: stage 5, not on chronic dialysis Qualified Code(s): N17.9 - Acute kidney failure, unspecified; N18.5 - Chronic kidney disease, stage 5; N18.5 - Chronic kidney disease, stage 5; N18.5 - Chronic kidney disease, stage 5; N18.5 - Chronic kidney disease, stage 5 Is this a current diagnosis for this admission?: Yes (2) Cellulitis Qualifiers: Site of cellulitis: extremity Site of cellulitis of extremity: lower extremity Laterality: unspecified laterality Qualified Code(s): L03.119 - Cellulitis of unspecified part of limb Is this a current diagnosis for this admission?: Yes (3) Hypernatremia Is this a current diagnosis for this admission?: Yes (4) Urinary tract infection Qualifiers: Urinary tract infection type: site unspecified Hematuria presence: without hematuria Qualified Code(s): N39.0 - Urinary tract infection, site not specified Is this a current diagnosis for this admission?: Yes (5) Hyperphosphatemia Is this a current diagnosis for this admission?: Yes (6) Renal osteodystrophy Is this a current diagnosis for this admission?: Yes
[2018-11-14] MEDS: ASPIRIN 81 MG TABLET, CHEWABLE PO SCH (21:25)
[2018-11-14] MEDS: SIMVASTATIN 10 MG TABLET PO SCH (21:25)
[2018-11-15 05:36] LABS: HEMATOCRIT 28.9 % (36.0-47.0); HEMOGLOBIN 9.6 g/dL (12.0-15.5); MEAN CORPUSCULAR HEMOGLOBIN 29.2 pg (27.0-33.4); MEAN CORPUSCULAR HGB CONC 33.3 g/dL (32.0-36.0); MEAN CORPUSCULAR VOLUME 88 fl (80-97); PLATELET COUNT 277 10^3/uL (150-450); RED BLOOD COUNT 3.29 10^6/uL (3.72-5.28); RED CELL DISTRIBUTION WIDTH 16.6 % (11.5-14.0); WHITE BLOOD COUNT 5.3 10^3/uL (4.0-10.5)
[2018-11-15] MEDS: LEVOTHYROXINE SODIUM 0.15 MG TABLET PO SCH (05:43)
[2018-11-15] MEDS: LANSOPRAZOLE 30 MG TAB.RAP.DR PO SCH (05:43)
[2018-11-15 05:57] LABS: ANION GAP 10 (5-19); BLOOD UREA NITROGEN 45 mg/dL (7-20); CALCIUM 8.8 mg/dL (8.4-10.2); CARBON DIOXIDE 24 mmol/L (22-30); CHLORIDE 99 mmol/L (98-107); GLUCOSE 77 mg/dL (75-110); POTASSIUM 4.4 mmol/L (3.6-5.0); SODIUM 132.5 mmol/L (137-145)
[2018-11-15] MEDS: CALCIUM ACETATE 667 MG CAPSULE PO SCH ×3 (08:29→17:13)
[2018-11-15] MEDS: SODIUM BICARBONATE 650 MG TABLET PO SCH ×3 (08:29→17:13)
[2018-11-15] MEDS: HEPARIN SOD (PORCINE) 5,000 UNIT/ML 1 ML SYRINGE SUBCUT SCH ×2 (09:31→21:36)
[2018-11-15] MEDS: FLUTICASONE/SALMETEROL DISKUS 500-50 MCG/DOSE IH SCH ×2 (09:34→21:36)
[2018-11-15] MEDS: MIDODRINE HCL 5 MG TABLET PO SCH ×3 (09:35→17:13)
[2018-11-15] MEDS: MAGNESIUM OXIDE 400 MG TABLET PO SCH ×2 (09:35→17:13)
[2018-11-15] MEDS: CALCITRIOL 0.25 MCG CAPSULE PO SCH (09:35)
[2018-11-15] MEDS: CYANOCOBALAMIN (VITAMIN B-12) 1,000 MCG TABLET PO SCH (09:36)
--- NOTE | 2018-11-15 13:46 | PDOC PROGRESS REPORT ---
Subjective Progress Note for:: 11/15/18 Subjective:: Patient seen by the bedside she has CKD stage V, no immediate need for hemodialysis Reason For Visit: ALTERED MENTAL STATUS Physical Exam Vital Signs: Temp Pulse Resp BP Pulse Ox 98.5 F 68 18 124/52 L 100 11/15/18 11:44 11/15/18 11:44 11/15/18 11:44 11/15/18 11:44 11/15/18 11:44 Intake & Output 11/14/18 11/15/18 11/16/18 06:59 06:59 06:59 Intake Total 1078 2116 Output Total 1700 2000 Balance -622 116 Weight 105.2 kg 105.4 kg General appearance: PRESENT: no acute distress Eye exam: PRESENT: PERRLA Respiratory exam: PRESENT: clear to auscultation nirmal Cardiovascular exam: PRESENT: +S1, +S2 GI/Abdominal exam: PRESENT: soft Neurological exam: PRESENT: alert Results Laboratory Results: 11/15/18 04:46 11/15/18 04:46 11/15/18 11/15/18 04:46 04:46 WBC 5.3 RBC 3.29 L Hgb 9.6 L Hct 28.9 L MCV 88 MCH 29.2 MCHC 33.3 RDW 16.6 H Plt Count 277 Sodium 132.5 L Potassium 4.4 Chloride 99 Carbon Dioxide 24 Anion Gap 10 BUN 45 H Creatinine 6.14 H Est GFR ( Amer) 8 L Est GFR (Non-Af Amer) 7 L Glucose 77 Calcium 8.8 11/11/18 09:35 Leg - Right Cellulitis Gram Stain - Final 11/11/18 09:35 Leg - Right Cellulitis Wound Culture - Final Enterococcus Faecalis(Group D) Skin Alisha 11/05/18 11/05/18 11:20 11:20 Creatine Kinase 32 CK-MB (CK-2) 1.23 Troponin I < 0.012 Impressions: Renal Ultrasound 11/05/18 00:00 IMPRESSION: Right renal atrophy No evidence of hydronephrosis Study is limited by body habitus Head CT 11/05/18 12:02 IMPRESSION: Interval development of a low attenuation area at the right parietal lobe, probably representing an age indeterminate infarct. No acute intracranial hemorrhage. If there is clinical concern for acute ischemia, further evaluation with MRI can be obtained. EVIDENCE OF ACUTE STROKE: Age-indeterminate infarct at the right parietal lobe. Carotid Doppler Study 11/07/18 00:00 IMPRESSION: NO HEMODYNAMICALLY SIGNIFICANT STENOSIS. Head MRI 11/07/18 00:00 IMPRESSION: Limited study as noted above. There are patchy and confluent areas of abnormal signal intensity in the left mid and posterior temporal lobe and adjacent left parietal lobe on the diffusion weighted sequence consistent with areas of recent infarction. Other findings as noted above. EVIDENCE OF ACUTE STROKE: NO. Assessment & Plan - Diagnosis (1) Acute on chronic renal failure Qualifiers: Acute renal failure type: unspecified Chronic kidney disease stage: stage 5, not on chronic dialysis Qualified Code(s): N17.9 - Acute kidney failure, unspecified; N18.5 - Chronic kidney disease, stage 5; N18.5 - Chronic kidney disease, stage 5; N18.5 - Chronic kidney disease, stage 5; N18.5 - Chronic kidney disease, stage 5 Is this a current diagnosis for this admission?: Yes (2) Cellulitis Qualifiers: Site of cellulitis: extremity Site of cellulitis of extremity: lower extremity Laterality: unspecified laterality Qualified Code(s): L03.119 - Cellulitis of unspecified part of limb Is this a current diagnosis for this admission?: Yes (3) Hypernatremia Is this a current diagnosis for this admission?: Yes (4) Urinary tract infection Qualifiers: Urinary tract infection type: site unspecified Hematuria presence: without hematuria Qualified Code(s): N39.0 - Urinary tract infection, site not specified Is this a current diagnosis for this admission?: Yes (5) Hyperphosphatemia Is this a current diagnosis for this admission?: Yes (6) Renal osteodystrophy Is this a current diagnosis for this admission?: Yes
--- NOTE | 2018-11-15 17:17 | PDOC PROGRESS REPORT ---
Subjective Progress Note for:: 11/15/18 Reason For Visit: Seen today in the hospital. She is looking and feeling better than when I saw her the other day. She says appetite is improving. Her pain and swelling in the legs are also improving. Have begun on vancomycin. No history of any fever or chills. Labs and medications were reviewed with the patient. Physical Exam Vital Signs: Temp Pulse Resp BP Pulse Ox 98.2 F 83 18 99/53 L 100 11/15/18 16:00 11/15/18 16:00 11/15/18 16:00 11/15/18 16:00 11/15/18 16:00 Intake & Output 11/14/18 11/15/18 11/16/18 06:59 06:59 06:59 Intake Total 1078 2116 Output Total 1700 2000 Balance -622 116 Weight 105.2 kg 105.4 kg General appearance: PRESENT: no acute distress Respiratory exam: PRESENT: clear to auscultation nirmal, decreased breath sounds. ABSENT: crackles Cardiovascular exam: PRESENT: +S1, +S2 GI/Abdominal exam: PRESENT: normal bowel sounds, soft. ABSENT: organomegaly, tenderness Extremities exam: PRESENT: +1 edema Neurological exam: PRESENT: alert, awake, oriented to person, oriented to place Skin exam: PRESENT: erythema - Of the lower extremities seems markedly improved today and then when I saw her yesterday and the day before. Continue on vancomycin Results Laboratory Results: 11/15/18 04:46 11/15/18 04:46 11/15/18 11/15/18 04:46 04:46 WBC 5.3 RBC 3.29 L Hgb 9.6 L Hct 28.9 L MCV 88 MCH 29.2 MCHC 33.3 RDW 16.6 H Plt Count 277 Sodium 132.5 L Potassium 4.4 Chloride 99 Carbon Dioxide 24 Anion Gap 10 BUN 45 H Creatinine 6.14 H Est GFR ( Amer) 8 L Est GFR (Non-Af Amer) 7 L Glucose 77 Calcium 8.8 11/05/18 11/05/18 11:20 11:20 Creatine Kinase 32 CK-MB (CK-2) 1.23 Troponin I < 0.012 Impressions: Renal Ultrasound 11/05/18 00:00 IMPRESSION: Right renal atrophy No evidence of hydronephrosis Study is limited by body habitus Head CT 12/15/18 12:02 IMPRESSION: Interval development of a low attenuation area at the right parietal lobe, probably representing an age indeterminate infarct. No acute intracranial hemorrhage. If there is clinical concern for acute ischemia, further evaluation with MRI can be obtained. EVIDENCE OF ACUTE STROKE: Age-indeterminate infarct at the right parietal lobe. Carotid Doppler Study 11/07/18 00:00 IMPRESSION: NO HEMODYNAMICALLY SIGNIFICANT STENOSIS. Head MRI 11/07/18 00:00 IMPRESSION: Limited study as noted above. There are patchy and confluent areas of abnormal signal intensity in the left mid and posterior temporal lobe and adjacent left parietal lobe on the diffusion weighted sequence consistent with areas of recent infarction. Other findings as noted above. EVIDENCE OF ACUTE STROKE: NO. Assessment & Plan - Diagnosis (1) Acute renal failure (ARF) Qualifiers: Acute renal failure type: unspecified Qualified Code(s): N17.9 - Acute kidney failure, unspecified Is this a current diagnosis for this admission?: Yes Plan: Nonoliguric and slowly improved.Hopefully vigorously treating a cellulitis with vancomycin might help her renal functions get better.However if she remained static at the current levels one might have to consider seriously starting on renal replacements prior to her discharge. (2) Hypernatremia Is this a current diagnosis for this admission?: Yes (3) Metabolic acidosis Is this a current diagnosis for this admission?: Yes Plan: Resolved. We will go and DC the the bicarbonate replacements. (4) Urinary tract infection Qualifiers: Urinary tract infection type: site unspecified Hematuria presence: without hematuria Qualified Code(s): N39.0 - Urinary tract infection, site not specified Is this a current diagnosis for this admission?: Yes (5) Renal osteodystrophy Is this a current diagnosis for this admission?: Yes Plan: Continue current treatments. Will check labs to see if she needs to be on the binders. (6) Hypokalemia Is this a current diagnosis for this admission?: Yes Plan: Currently resolved. Off replacements. Monitor. (7) Hypomagnesemia Is this a current diagnosis for this admission?: Yes Plan: We will check labs and monitor. (8) Hypotension Plan: Continue on the present dose of Midodrin which seems to be more stabilizing her blood pressure at the moment. Monitor. (9) Cellulitis Qualifiers: Site of cellulitis: extremity Site of cellulitis of extremity: lower extremity Laterality: unspecified laterality Qualified Code(s): L03.119 - Cellulitis of unspecified part of limb Is this a current diagnosis for this admission?: Yes Plan: She is growing enterococcus and I switched her to vancomycin and her legs today looks her whole lot better than when I saw her a couple of days ago. Monitor.
[2018-11-15] MEDS: SIMVASTATIN 10 MG TABLET PO SCH (21:36)
[2018-11-15] MEDS: ASPIRIN 81 MG TABLET, CHEWABLE PO SCH (21:36)
[2018-11-16] MEDS: LEVOTHYROXINE SODIUM 0.15 MG TABLET PO SCH (05:52)
[2018-11-16] MEDS: LANSOPRAZOLE 30 MG TAB.RAP.DR PO SCH (05:52)
[2018-11-16 06:33] LABS: ANION GAP 9 (5-19); BLOOD UREA NITROGEN 48 mg/dL (7-20); CALCIUM 8.7 mg/dL (8.4-10.2); CARBON DIOXIDE 26 mmol/L (22-30); CHLORIDE 102 mmol/L (98-107); GLUCOSE 82 mg/dL (75-110); PHOSPHORUS 5.7 mg/dL (2.5-4.5); POTASSIUM 4.1 mmol/L (3.6-5.0); SODIUM 136.8 mmol/L (137-145)
[2018-11-16] MEDS: CALCIUM ACETATE 667 MG CAPSULE PO SCH ×3 (09:35→20:11)
[2018-11-16] MEDS: CYANOCOBALAMIN (VITAMIN B-12) 1,000 MCG TABLET PO SCH (09:35)
[2018-11-16] MEDS: MIDODRINE HCL 5 MG TABLET PO SCH ×3 (09:35→20:11)
[2018-11-16] MEDS: FLUTICASONE/SALMETEROL DISKUS 500-50 MCG/DOSE IH SCH ×2 (09:37→21:33)
[2018-11-16] MEDS: MAGNESIUM OXIDE 400 MG TABLET PO SCH ×2 (09:37→20:11)
[2018-11-16] MEDS: HEPARIN SOD (PORCINE) 5,000 UNIT/ML 1 ML SYRINGE SUBCUT SCH ×2 (09:38→21:34)
[2018-11-16] MEDS: CALCITRIOL 0.25 MCG CAPSULE PO SCH (09:45)
[2018-11-16] MEDS ORDERED: VANCOMYCIN HCL 1,000 MG in DEXTROSE 5%-WATER 250 ML IV ONE (11:00)
[2018-11-16 13:49] LABS: CREATININE 6.72 mg/dL (0.52-1.25)
[2018-11-16 14:07] LABS: URINE CREATININE 36.9 mg/dL (15-278)
--- NOTE | 2018-11-16 14:56 | PDOC PROGRESS REPORT ---
Subjective Progress Note for:: 11/16/18 Subjective:: Patient was seen by the bedside no new complaints Reason For Visit: ALTERED MENTAL STATUS Physical Exam Vital Signs: Temp Pulse Resp BP Pulse Ox 98.6 F 96 19 118/56 L 98 11/16/18 11:44 11/16/18 13:55 11/16/18 11:44 11/16/18 11:44 11/16/18 11:44 Intake & Output 11/15/18 11/16/18 11/17/18 06:59 06:59 06:59 Intake Total 2116 1460 592 Output Total 1999 1600 500 Balance 116 -140 92 Weight 105.4 kg 104.4 kg General appearance: PRESENT: no acute distress Eye exam: PRESENT: PERRLA Respiratory exam: PRESENT: clear to auscultation nirmal Cardiovascular exam: PRESENT: +S1, +S2 GI/Abdominal exam: PRESENT: soft Neurological exam: PRESENT: alert Results Laboratory Results: 11/15/18 04:46 11/16/18 13:30 11/16/18 11/16/18 05:49 13:30 Sodium 136.8 L Potassium 4.1 Chloride 102 Carbon Dioxide 26 Anion Gap 9 BUN 48 H Creatinine 6.72 H 6.72 H Est GFR ( Amer) 7 L Est GFR (Non-Af Amer) 6 L Glucose 82 Calcium 8.7 Phosphorus 5.7 H Magnesium 2.1 Ur 24 Hour Volume 1850 11/11/18 09:17 Blood Blood Culture - Final NO GROWTH IN 5 DAYS 11/11/18 09:06 Blood Blood Culture - Final NO GROWTH IN 5 DAYS 11/05/18 11/05/18 11:20 11:20 Creatine Kinase 32 CK-MB (CK-2) 1.23 Troponin I < 0.012 Impressions: Renal Ultrasound 11/05/18 00:00 IMPRESSION: Right renal atrophy No evidence of hydronephrosis Study is limited by body habitus Head CT 11/05/18 12:02 IMPRESSION: Interval development of a low attenuation area at the right parietal lobe, probably representing an age indeterminate infarct. No acute intracranial hemorrhage. If there is clinical concern for acute ischemia, further evaluation with MRI can be obtained. EVIDENCE OF ACUTE STROKE: Age-indeterminate infarct at the right parietal lobe. Carotid Doppler Study 11/07/18 00:00 IMPRESSION: NO HEMODYNAMICALLY SIGNIFICANT STENOSIS. Head MRI 11/07/18 00:00 IMPRESSION: Limited study as noted above. There are patchy and confluent areas of abnormal signal intensity in the left mid and posterior temporal lobe and adjacent left parietal lobe on the diffusion weighted sequence consistent with areas of recent infarction. Other findings as noted above. EVIDENCE OF ACUTE STROKE: NO. Assessment & Plan - Diagnosis (1) Acute on chronic renal failure Qualifiers: Acute renal failure type: unspecified Chronic kidney disease stage: stage 5, not on chronic dialysis Qualified Code(s): N17.9 - Acute kidney failure, unspecified; N18.5 - Chronic kidney disease, stage 5; N18.5 - Chronic kidney disease, stage 5; N18.5 - Chronic kidney disease, stage 5; N18.5 - Chronic kidney disease, stage 5 Is this a current diagnosis for this admission?: Yes (2) Cellulitis Qualifiers: Site of cellulitis: extremity Site of cellulitis of extremity: lower extremity Laterality: unspecified laterality Qualified Code(s): L03.119 - Cellulitis of unspecified part of limb Is this a current diagnosis for this admission?: Yes (3) Hypernatremia Is this a current diagnosis for this admission?: Yes (4) Urinary tract infection Qualifiers: Urinary tract infection type: site unspecified Hematuria presence: without hematuria Qualified Code(s): N39.0 - Urinary tract infection, site not specified Is this a current diagnosis for this admission?: Yes (5) Hyperphosphatemia Is this a current diagnosis for this admission?: Yes (6) Renal osteodystrophy Is this a current diagnosis for this admission?: Yes
[2018-11-16] MEDS: ASPIRIN 81 MG TABLET, CHEWABLE PO SCH (21:34)
[2018-11-16] MEDS: SIMVASTATIN 10 MG TABLET PO SCH (21:34)
[2018-11-17 05:28] LABS: ANION GAP 10 (5-19); BLOOD UREA NITROGEN 47 mg/dL (7-20); CALCIUM 8.8 mg/dL (8.4-10.2); CARBON DIOXIDE 24 mmol/L (22-30); CHLORIDE 104 mmol/L (98-107); GLUCOSE 79 mg/dL (75-110); POTASSIUM 4.1 mmol/L (3.6-5.0); SODIUM 137.9 mmol/L (137-145)
[2018-11-17] MEDS: LANSOPRAZOLE 30 MG TAB.RAP.DR PO SCH (06:01)
[2018-11-17] MEDS: LEVOTHYROXINE SODIUM 0.15 MG TABLET PO SCH (06:01)
[2018-11-17] MEDS: CALCIUM ACETATE 667 MG CAPSULE PO SCH ×3 (09:27→17:41)
[2018-11-17] MEDS: CYANOCOBALAMIN (VITAMIN B-12) 1,000 MCG TABLET PO SCH (09:30)
[2018-11-17] MEDS: MIDODRINE HCL 5 MG TABLET PO SCH ×3 (09:31→17:41)
[2018-11-17] MEDS: FLUTICASONE/SALMETEROL DISKUS 500-50 MCG/DOSE IH SCH ×2 (09:32→22:17)
[2018-11-17] MEDS: MAGNESIUM OXIDE 400 MG TABLET PO SCH ×2 (09:32→17:42)
[2018-11-17] MEDS: HEPARIN SOD (PORCINE) 5,000 UNIT/ML 1 ML SYRINGE SUBCUT SCH ×2 (09:32→22:17)
[2018-11-17] MEDS: CALCITRIOL 0.25 MCG CAPSULE PO SCH (09:35)
--- NOTE | 2018-11-17 11:28 | PDOC PROGRESS REPORT ---
Subjective Progress Note for:: 11/17/18 Reason For Visit: Patient was seen in the hospital today. She is sitting in the recliner. Denies any history of shortness of breath as long as she is not moving around.Denies any history of chest pain, fever chills or rigors. Appetite is fair. Labs and medications were reviewed with the patient. Creatinine clearance came back at 7 cc/min. Physical Exam Vital Signs: Temp Pulse Resp BP Pulse Ox 98.3 F 85 16 125/65 100 11/17/18 08:30 11/17/18 08:30 11/17/18 08:30 11/17/18 08:30 11/17/18 08:30 Intake & Output 11/16/18 11/17/18 11/18/18 06:59 06:59 06:59 Intake Total 1460 1079 Output Total 1600 1200 Balance -140 -121 Weight 104.4 kg 104.7 kg General appearance: PRESENT: no acute distress Respiratory exam: PRESENT: clear to auscultation nirmal, crackles, decreased breath sounds Cardiovascular exam: PRESENT: +S1, +S2 GI/Abdominal exam: PRESENT: normal bowel sounds, soft. ABSENT: organomegaly, tenderness Extremities exam: PRESENT: +1 edema Neurological exam: PRESENT: alert, awake, oriented to person, oriented to place Psychiatric exam: PRESENT: appropriate affect Skin exam: PRESENT: erythema - Improving in her legs.. ABSENT: cyanosis, mottled Results Laboratory Results: 11/15/18 04:46 11/17/18 04:23 11/16/18 11/17/18 13:30 04:23 Sodium 137.9 Potassium 4.1 Chloride 104 Carbon Dioxide 24 Anion Gap 10 BUN 47 H Creatinine 6.72 H 6.81 H Est GFR ( Amer) 7 L Est GFR (Non-Af Amer) 6 L Glucose 79 Calcium 8.8 Ur 24 Hour Volume 1850 11/11/18 09:17 Blood Blood Culture - Final NO GROWTH IN 5 DAYS 11/11/18 09:06 Blood Blood Culture - Final NO GROWTH IN 5 DAYS 11/05/18 11/05/18 11:20 11:20 Creatine Kinase 32 CK-MB (CK-2) 1.23 Troponin I < 0.012 Impressions: Renal Ultrasound 11/05/18 00:00 IMPRESSION: Right renal atrophy No evidence of hydronephrosis Study is limited by body habitus Head CT 11/05/18 12:02 IMPRESSION: Interval development of a low attenuation area at the right parietal lobe, probably representing an age indeterminate infarct. No acute intracranial hemorrhage. If there is clinical concern for acute ischemia, further evaluation with MRI can be obtained. EVIDENCE OF ACUTE STROKE: Age-indeterminate infarct at the right parietal lobe. Carotid Doppler Study 11/07/18 00:00 IMPRESSION: NO HEMODYNAMICALLY SIGNIFICANT STENOSIS. Head MRI 11/07/18 00:00 IMPRESSION: Limited study as noted above. There are patchy and confluent areas of abnormal signal intensity in the left mid and posterior temporal lobe and adjacent left parietal lobe on the diffusion weighted sequence consistent with areas of recent infarction. Other findings as noted above. EVIDENCE OF ACUTE STROKE: NO. Assessment & Plan - Diagnosis (1) Acute renal failure (ARF) Qualifiers: Acute renal failure type: unspecified Qualified Code(s): N17.9 - Acute kidney failure, unspecified Is this a current diagnosis for this admission?: Yes Plan: Nonoliguric at the moment. Renal numbers mainly creatinine came down from 11 to between 6.5 and 7 which is where she is stuck now. Creatinine clearance came back at 7 cc/min. Overall I believe she has reached the end of improvement with a single kidney. I believe she needs to be started on hemodialysis otherwise she is going to be coming back with further issues. Discussed this at length with the patient was willing to proceed. Her daughter who was not at the bedside needs to be talked to as well. Once she is also on board and I will talk with the surgeons to have a catheter placed on her tomorrow morning and then he can have a dialyzed tomorrow afternoon and then discharged home. (2) Hypernatremia Is this a current diagnosis for this admission?: Yes Plan: Resolved. Monitor. (3) Metabolic acidosis Is this a current diagnosis for this admission?: Yes Plan: Resolved. (4) Urinary tract infection Qualifiers: Urinary tract infection type: site unspecified Hematuria presence: without hematuria Qualified Code(s): N39.0 - Urinary tract infection, site not speci fied Is this a current diagnosis for this admission?: Yes Plan: Resolved. (5) Renal osteodystrophy Is this a current diagnosis for this admission?: Yes Plan: Continue current treatments. . (6) Hypokalemia Is this a current diagnosis for this admission?: Yes Plan: Currently resolved. Off replacements. Monitor. (7) Hypomagnesemia Is this a current diagnosis for this admission?: Yes Plan: We will check labs and monitor. (8) Hypotension Plan: Continue on the present dose of Midodrin which seems to be more stabilizing her blood pressure at the moment. Monitor. (9) Cellulitis Qualifiers: Site of cellulitis: extremity Site of cellulitis of extremity: lower extremity Laterality: unspecified laterality Qualified Code(s): L03.119 - Cellulitis of unspecified part of limb Is this a current diagnosis for this admission?: Yes Plan: Positive enterococcus. She has done well on IV vancomycin. Monitor. (10) Chronic kidney disease, stage 3 Plan: In the face of hypertension and right renal atrophy. Obviously at the moment she has reached ESRD status and will plan to initiate hemodialysis. I explained to her the procedures of placement of an IJ catheter including risk of infection and bleeding. We also discussed the procedure of hemodialysis including the risks of hypertension, infection and rare causes of cardiac arrest. Patient willing to proceed. I will also discuss this with her daughter. If agreeable then we will discuss with the surgeon for placement of an IJ catheter in the morning to initiate dialysis tomorrow.
[2018-11-17] MEDS ORDERED: TUBERCULIN,PURIF.PROT.DERIV. 5 TU/0.1 ML TEST 1 ML VIAL ID ONE (16:00)
--- NOTE | 2018-11-17 16:53 | PDOC PROGRESS REPORT ---
Subjective Progress Note for:: 11/17/18 Subjective:: pt Is currently doing fair She is denied any chest pain denied any shortness of the breath And is scheduled for hemodialysis per nephrology Patient also receiving the vancomycin Reason For Visit: ALTERED MENTAL STATUS Physical Exam Vital Signs: Temp Pulse Resp BP Pulse Ox 98.3 F 87 16 125/65 100 11/17/18 08:30 11/17/18 14:00 11/17/18 08:30 11/17/18 08:30 11/17/18 08:30 Intake & Output 11/16/18 11/17/18 11/18/18 06:59 06:59 06:59 Intake Total 1460 1079 Output Total 1600 1200 Balance -140 -121 Weight 104.4 kg 104.7 kg General appearance: PRESENT: no acute distress, well-developed, well-nourished Head exam: PRESENT: atraumatic, normocephalic Eye exam: PRESENT: conjunctiva pink, EOMI, PERRLA. ABSENT: scleral icterus Ear exam: PRESENT: normal external ear exam Mouth exam: PRESENT: moist, tongue midline Neck exam: PRESENT: full ROM. ABSENT: carotid bruit, JVD, lymphadenopathy, thyromegaly Respiratory exam: PRESENT: clear to auscultation nirmal Cardiovascular exam: PRESENT: RRR. ABSENT: diastolic murmur, rubs, systolic murmur Pulses: PRESENT: normal dorsalis pedis pul, +2 pedal pulses bilateral Vascular exam: PRESENT: normal capillary refill GI/Abdominal exam: PRESENT: normal bowel sounds, soft. ABSENT: distended, guarding, mass, organolmegaly, rebound, tenderness Rectal exam: PRESENT: deferred Extremities exam: PRESENT: pedal edema Musculoskeletal exam: PRESENT: ambulatory Neurological exam: PRESENT: alert, awake, oriented to person, oriented to place, oriented to time, oriented to situation, CN II-XII grossly intact. ABSENT: mot or sensory deficit Psychiatric exam: PRESENT: appropriate affect, normal mood. ABSENT: homicidal ideation, suicidal ideation Skin exam: PRESENT: dry, intact, warm. ABSENT: cyanosis, rash Results Laboratory Results: 11/15/18 04:46 11/17/18 04:23 11/17/18 04:23 Sodium 137.9 Potassium 4.1 Chloride 104 Carbon Dioxide 24 Anion Gap 10 BUN 47 H Creatinine 6.81 H Est GFR ( Amer) 7 L Est GFR (Non-Af Amer) 6 L Glucose 79 Calcium 8.8 11/05/18 11/05/18 11:20 11:20 Creatine Kinase 32 CK-MB (CK-2) 1.23 Troponin I < 0.012 Impressions: Renal Ultrasound 11/05/18 00:00 IMPRESSION: Right renal atrophy No evidence of hydronephrosis Study is limited by body habitus Head CT 11/05/18 12:02 IMPRESSION: Interval development of a low attenuation area at the right parietal lobe, probably representing an age indeterminate infarct. No acute intracranial hemorrhage. If there is clinical concern for acute ischemia, further evaluation with MRI can be obtained. EVIDENCE OF ACUTE STROKE: Age-indeterminate infarct at the right parietal lobe. Carotid Doppler Study 11/07/18 00:00 IMPRESSION: NO HEMODYNAMICALLY SIGNIFICANT STENOSIS. Head MRI 11/07/18 00:00 IMPRESSION: Limited study as noted above. There are patchy and confluent areas of abnormal signal intensity in the left mid and posterior temporal lobe and adjacent left parietal lobe on the diffusion weighted sequence consistent with areas of recent infarction. Other findings as noted above. EVIDENCE OF ACUTE STROKE: NO. Assessment & Plan - Diagnosis (1) Acute renal failure (ARF) Qualifiers: Acute renal failure type: unspecified Qualified Code(s): N17.9 - Acute kidney failure, unspecified Is this a current diagnosis for this admission?: Yes Plan: Scheduled for the dialysis catheter and then scheduled for dialysis tomorrow (2) Hypernatremia Is this a current diagnosis for this admission?: Yes Plan: Continues to IV fluid patient's primary end up with the dialysis (3) Hypokalemia Is this a current diagnosis for this admission?: Yes Plan: Replace the potassiums (4) Hypomagnesemia Is this a current diagnosis for this admission?: Yes (5) Metabolic acidosis Is this a current diagnosis for this admission?: Yes Plan: Resolved (6) Urinary tract infection Qualifiers: Urinary tract infection type: site unspecified Hematuria presence: without hematuria Qualified Code(s): N39.0 - Urinary tract infection, site not specif ied Is this a current diagnosis for this admission?: Yes (7) COPD with acute exacerbation Is this a current diagnosis for this admission?: Yes (8) Stroke Qualifiers: CVA mechanism: unspecified Qualified Code(s): I63.9 - Cerebral infarction, unspecified Is this a current diagnosis for this admission?: Yes Plan: Continues to aspirin and start atorvastatin Continues to PT OT and speech therapy (9) Cellulitis of right leg Is this a current diagnosis for this admission?: Yes Plan: Continues IV antibiotic - Time Time Spent with patient: 15-24 minutes Medications reviewed and adjusted accordingly: Yes Anticipated discharge: Other Within: Other - Plan Summary Plan Summary: Scheduled for the hemodialysis tomorrow
[2018-11-17] MEDS: ASPIRIN 81 MG TABLET, CHEWABLE PO SCH (22:17)
[2018-11-17] MEDS: SIMVASTATIN 10 MG TABLET PO SCH (22:17)
[2018-11-18 05:13] LABS: ANION GAP 11 (5-19); BLOOD UREA NITROGEN 46 mg/dL (7-20); CALCIUM 8.8 mg/dL (8.4-10.2); CARBON DIOXIDE 22 mmol/L (22-30); CHLORIDE 103 mmol/L (98-107); GLUCOSE 90 mg/dL (75-110); POTASSIUM 4.1 mmol/L (3.6-5.0); SODIUM 136.2 mmol/L (137-145)
[2018-11-18] MEDS: LEVOTHYROXINE SODIUM 0.15 MG TABLET PO SCH (05:55)
[2018-11-18] MEDS: LANSOPRAZOLE 30 MG TAB.RAP.DR PO SCH (05:56)
--- NOTE | 2018-11-18 07:53 | Operative Report ---
Operative Report DATE OF SURGERY: 11/18/18 PREOPERATIVE DIAGNOSIS: Acute renal failure. POSTOPERATIVE DIAGNOSIS: Acute renal failure. OPERATION: 1. Ultrasound evaluation of the right femoral vein. 2. Insertion of temporary hemodialysis catheter via real-time ultrasound-guided access in the right femoral vein. SURGEON: KOREY DAWSON GRID INSPECTOR: None. ANESTHESIA: Local TISSUE REMOVED OR ALTERED: Not applicable. COMPLICATIONS: None. ESTIMATED BLOOD LOSS: 5 mL. INTRAOPERATIVE FINDINGS: Of a substantial right femoral vein about 2 cm in diameter. Satisfactory access. Satisfactory placement. Easy egress of blood and ingress of saline through all 3 ports. PROCEDURE: After obtaining informed consent, the patient was positioned supine at bedside. The[ left groin] and adjacent areas were prepared with chlorhexidine and draped out with sterile linen. After the universal timeout the procedure commenced. A steriley sheathed ultrasound probe was used to evaluate the right femoral vein]. Local anesthesia was infiltrated adjacent to the probe. Access into the right femoral was accomplished using a micropuncture needle followed, by micropuncture wire and then with a micropuncture catheter. This was followed by introduction of a 0.035 guidewire, the skin opening was enlarged slightly, serially larger dilators were now placed followed by introduction of a triaysis catheter. All of these transitions were smooth. Each lumen was aspirated of blood and irrigated with heparinized solution. The catheter was now sutured to the skin using 3-0 nylon. A Bio A patch was now applied, followed by sterile dressings. Caps were placed on the end of the each of the lumens. The procedure concluded. Copies dictated operative report to Dr. Korey Daniels MD.
--- NOTE | 2018-11-18 09:09 | RADIOLOGY REPORT (SQ) ---
EXAM DESCRIPTION: NON-TUNNEL CV CATH COMPLETED DATE/TIME: 11/18/2018 8:32 am REASON FOR STUDY: T82.858A COMPARISON: None. TECHNIQUE: Single ultrasound image obtained for vascular guidance performed by Dr. Daniels. LIMITATIONS: None. FINDINGS: None. IMPRESSION: Ultrasound vascular guidance. TECHNICAL DOCUMENTATION: JOB ID: [id number] [employer]- All Rights Reserved Reading location - IP/workstation name: [facility]
[2018-11-18] MEDS: CALCIUM ACETATE 667 MG CAPSULE PO SCH ×3 (09:50→17:37)
[2018-11-18] MEDS: VANCOMYCIN HCL 1,000 MG in DEXTROSE 5%-WATER 250 ML IV SCH (09:52)
--- NOTE | 2018-11-18 11:07 | PDOC PROGRESS REPORT ---
Subjective Progress Note for:: 11/18/18 Reason For Visit: Patient seen this morning. She is status post right temporary femoral dialysis catheter placed by Dr. Daniels successfully. She has no complaints. She denies any such chest pain or shortness of breath as long as she is not exerting. Fairly good appetite without any nausea vomiting. Labs and medications were reviewed with the patient. She is due for dialysis this afternoon.She was again seen on dialysis. She is undergoing dialysis without any issues. Vital signs are stable. Plan to remove it in 1-1.5 L. Orders were reviewed with the treating dialysis nurse. She will be getting a PermCath on Wednesday and we can remove the temporary femoral catheter and then discharge her home after dialysis in the hospital. Physical Exam Vital Signs: Temp Pulse Resp BP Pulse Ox 98.1 F 79 20 115/55 L 99 11/18/18 03:04 11/18/18 07:00 11/18/18 03:04 11/18/18 03:04 11/18/18 03:04 Intake & Output 11/17/18 11/18/18 11/19/18 06:59 06:59 06:59 Intake Total 1079 651 Output Total 1200 1575 Balance -121 -924 Weight 104.7 kg General appearance: PRESENT: no acute distress Respiratory exam: PRESENT: clear to auscultation nirmal, crackles, decreased breath sounds Cardiovascular exam: PRESENT: +S1, +S2 GI/Abdominal exam: PRESENT: normal bowel sounds, soft. ABSENT: organomegaly, tenderness Extremities exam: PRESENT: +1 edema Neurological exam: PRESENT: alert, awake, oriented to person, oriented to place Psychiatric exam: PRESENT: appropriate affect Skin exam: PRESENT: erythema - Markedly improved on her legs on current antibiotics. ABSENT: cyanosis, mottled Results Laboratory Results: 11/15/18 04:46 11/18/18 04:10 11/18/18 04:10 Sodium 136.2 L Potassium 4.1 Chloride 103 Carbon Dioxide 22 Anion Gap 11 BUN 46 H Creatinine 6.63 H Est GFR ( Amer) 8 L Est GFR (Non-Af Amer) 6 L Glucose 90 Calcium 8.8 11/05/18 11/05/18 11:20 11:20 Creatine Kinase 32 CK-MB (CK-2) 1.23 Troponin I < 0.012 Impressions: Renal Ultrasound 11/05/18 00:00 IMPRESSION: Right renal atrophy No evidence of hydronephrosis Study is limited by body habitus Head CT 11/05/18 12:02 IMPRESSION: Interval development of a low attenuation area at the right parietal lobe, probably representing an age indeterminate infarct. No acute intracranial hemorrhage. If there is clinical concern for acute ischemia, further evaluation with MRI can be obtained. EVIDENCE OF ACUTE STROKE: Age-indeterminate infarct at the right parietal lobe. Carotid Doppler Study 11/07/18 00:00 IMPRESSION: NO HEMODYNAMICALLY SIGNIFICANT STENOSIS. Head MRI 11/07/18 00:00 IMPRESSION: Limited study as noted above. There are patchy and confluent areas of abnormal signal intensity in the left mid and posterior temporal lobe and adjacent left parietal lobe on the diffusion weighted sequence consistent with areas of recent infarction. Other findings as noted above. EVIDENCE OF ACUTE STROKE: NO. Interventional Vascular Procedure 11/18/18 00:00 IMPRESSION: Ultrasound vascular guidance. Assessment & Plan - Diagnosis (1) Acute renal failure (ARF) Qualifiers: Acute renal failure type: unspecified Qualified Code(s): N17.9 - Acute kidney failure, unspecified Is this a current diagnosis for this admission?: Yes Plan: Nonoliguric at the moment. However she has got fluid overload and congestive heart failure. Therefore plans been made to initiate hemodialysis. Procedure and complications explained to both patient and her power of estate planning attorney Ms. Ochoa. She has had temporary dialysis catheter in place now.Will be seeing on dialysis this afternoon.She was seen on dialysis which she is undergoing safely. Is being supervised to ensure safe and smooth procedure. Vital signs are stable. Plan to remove 1-1.5 L. Orders reviewed with the treating dialysis nurse. (2) Hypernatremia Is this a current diagnosis for this admission?: Yes (3) Metabolic acidosis Is this a current diagnosis for this admission?: Yes Plan: Improving and should respond better to dialysis. (4) Urinary tract infection Qualifiers: Urinary tract infection type: site unspecified Hematuria presence: without hematuria Qualified Code(s): N39.0 - Urinary tract infection, site not specified Is this a current diagnosis for this admission?: Yes Plan: Resolved. (5) Renal osteodystrophy Is this a current diagnosis for this admission?: Yes Plan: Continue current treatments. . (6) Hypokalemia Is this a current diagnosis for this admission?: Yes Plan: Currently resolved. Off replacements. Monitor. (7) Hypomagnesemia Is this a current diagnosis for this admission?: Yes (8) Hypotension Plan: Continue on the present dose of Midodrin which seems to be more stabilizing her blood pressure at the moment. Monitor. (9) Cellulitis Qualifiers: Site of cellulitis: extremity Site of cellulitis of extremity: lower extremity Laterality: unspecified laterality Qualified Code(s): L03.119 - Cellulitis of unspecified part of limb Is this a current diagnosis for this admission?: Yes Plan: Positive enterococcus. She has done well on IV vancomycin. Monitor. (10) Chronic kidney disease, stage 3 Plan: In the face of hypertension and right renal atrophy. Obviously at the moment she has reached ESRD status and will plan to initiate hemodialysis. Status post temporary right femoral dialysis catheter placement for dialysis this afternoon. Convert catheter to a right IJ PermCath on Wednesday as per Dr. Daniels.
[2018-11-18] MEDS: MIDODRINE HCL 5 MG TABLET PO SCH ×3 (13:09→17:40)
[2018-11-18] MEDS: MAGNESIUM OXIDE 400 MG TABLET PO SCH ×2 (13:10→17:41)
[2018-11-18] MEDS: HEPARIN SOD (PORCINE) 5,000 UNIT/ML 1 ML SYRINGE SUBCUT SCH ×2 (13:10→21:42)
[2018-11-18] MEDS: CALCITRIOL 0.25 MCG CAPSULE PO SCH (13:11)
[2018-11-18] MEDS: CYANOCOBALAMIN (VITAMIN B-12) 1,000 MCG TABLET PO SCH (13:11)
[2018-11-18] MEDS: FLUTICASONE/SALMETEROL DISKUS 500-50 MCG/DOSE IH SCH ×2 (14:43→21:41)
--- NOTE | 2018-11-18 17:11 | PDOC PROGRESS REPORT ---
Subjective Progress Note for:: 11/18/18 Subjective:: Patient is currently put on a femoral catheter for the dialysis Patient scheduled for dialysis today Patient's denied any chest pain denied any shortness of the breath Denied any other symptoms Reason For Visit: ALTERED MENTAL STATUS Physical Exam Vital Signs: Temp Pulse Resp BP Pulse Ox 98.1 F 80 20 115/55 L 99 11/18/18 03:04 11/18/18 14:00 11/18/18 03:04 11/18/18 03:04 11/18/18 03:04 Intake & Output 11/17/18 11/18/18 11/19/18 06:59 06:59 06:59 Intake Total 1079 651 250 Output Total 1200 1575 Balance -121 -924 250 Weight 104.7 kg General appearance: PRESENT: no acute distress, well-developed, well-nourished Head exam: PRESENT: atraumatic, normocephalic Eye exam: PRESENT: conjunctiva pink, EOMI, PERRLA. ABSENT: scleral icterus Ear exam: PRESENT: normal external ear exam Mouth exam: PRESENT: moist, tongue midline Neck exam: PRESENT: full ROM. ABSENT: carotid bruit, JVD, lymphadenopathy, thyromegaly Respiratory exam: PRESENT: clear to auscultation nirmal Cardiovascular exam: PRESENT: RRR. ABSENT: diastolic murmur, rubs, systolic murmur Pulses: PRESENT: normal dorsalis pedis pul, +2 pedal pulses bilateral Vascular exam: PRESENT: normal capillary refill GI/Abdominal exam: PRESENT: normal bowel sounds, soft. ABSENT: distended, guarding, mass, organolmegaly, rebound, tenderness Rectal exam: PRESENT: deferred Extremities exam: PRESENT: pedal edema Neurological exam: PRESENT: alert, awake, oriented to person, oriented to place, oriented to time, oriented to situation, CN II-XII grossly intact. ABSENT: motor sensory deficit Psychiatric exam: PRESENT: appropriate affect, normal mood. ABSENT: homicidal ideation, suicidal ideation Skin exam: PRESENT: dry, intact, warm. ABSENT: cyanosis, rash Results Laboratory Results: 11/15/18 04:46 11/18/18 04:10 11/18/18 04:10 Sodium 136.2 L Potassium 4.1 Chloride 103 Carbon Dioxide 22 Anion Gap 11 BUN 46 H Creatinine 6.63 H Est GFR ( Amer) 8 L Est GFR (Non-Af Amer) 6 L Glucose 90 Calcium 8.8 11/05/18 11/05/18 11:20 11:20 Creatine Kinase 32 CK-MB (CK-2) 1.23 Troponin I < 0.012 Impressions: Renal Ultrasound 11/05/18 00:00 IMPRESSION: Right renal atrophy No evidence of hydronephrosis Study is limited by body habitus Head CT 11/05/18 12:02 IMPRESSION: Interval development of a low attenuation area at the right parietal lobe, probably representing an age indeterminate infarct. No acute intracranial hemorrhage. If there is clinical concern for acute ischemia, further evaluation with MRI can be obtained. EVIDENCE OF ACUTE STROKE: Age-indeterminate infarct at the right parietal lobe. Carotid Doppler Study 11/07/18 00:00 IMPRESSION: NO HEMODYNAMICALLY SIGNIFICANT STENOSIS. Head MRI 11/07/18 00:00 IMPRESSION: Limited study as noted above. There are patchy and confluent areas of abnormal signal intensity in the left mid and posterior temporal lobe and adjacent left parietal lobe on the diffusion weighted sequence consistent with areas of recent infarction. Other findings as noted above. EVIDENCE OF ACUTE STROKE: NO. Interventional Vascular Procedure 11/18/18 00:00 IMPRESSION: Ultrasound vascular guidance. Assessment & Plan - Diagnosis (1) Acute renal failure (ARF) Qualifiers: Acute renal failure type: unspecified Qualified Code(s): N17.9 - Acute kidney failure, unspecified Is this a current diagnosis for this admission?: Yes Plan: Scheduled for the dialysis catheter and then scheduled for dialysis tomorrow (2) Hypernatremia Is this a current diagnosis for this admission?: Yes Plan: Continues to IV fluid patient's primary end up with the dialysis (3) Hypokalemia Is this a current diagnosis for this admission?: Yes Plan: Replace the potassiums (4) Hypomagnesemia Is this a current diagnosis for this admission?: Yes Plan: Replace the magnesium's (5) Metabolic acidosis Is this a current diagnosis for this admission?: Yes Plan: Resolved (6) Urinary tract infection Qualifiers: Urinary tract infection type: site unspecified Hematuria presence: without hematuria Qualified Code(s): N39.0 - Urinary tract infection, site not specified Is this a current diagnosis for this admission?: Yes Plan: Continues to IV antibiotic (7) COPD with acute exacerbation Is this a current diagnosis for this admission?: Yes Plan: Continues to nebulizer treatments (8) Stroke Qualifiers: CVA mechanism: unspecified Qualified Code(s): I63.9 - Cerebral infarction, unspecified Is this a current diagnosis for this admission?: Yes Plan: Continues to aspirin and start atorvastatin Continues to PT OT and speech therapy (9) Cellulitis of right leg Is this a current diagnosis for this admission?: Yes Plan: Continues IV antibiotic - Time Time Spent with patient: 15-24 minutes Medications reviewed and adjusted accordingly: Yes Anticipated discharge: Other Within: Other - Plan Summary Plan Summary: cont curr med
[2018-11-18] MEDS: ACETAMINOPHEN 325 MG TABLET PO PRN (17:42)
[2018-11-18] MEDS: SIMVASTATIN 10 MG TABLET PO SCH (21:40)
[2018-11-18] MEDS: ASPIRIN 81 MG TABLET, CHEWABLE PO SCH (21:40)
[2018-11-19] MEDS: LEVOTHYROXINE SODIUM 0.15 MG TABLET PO SCH (05:14)
[2018-11-19] MEDS: LANSOPRAZOLE 30 MG TAB.RAP.DR PO SCH (05:14)
[2018-11-19 07:35] LABS: ANION GAP 10 (5-19); BLOOD UREA NITROGEN 28 mg/dL (7-20); CALCIUM 9.4 mg/dL (8.4-10.2); CARBON DIOXIDE 26 mmol/L (22-30); CHLORIDE 101 mmol/L (98-107); GLUCOSE 84 mg/dL (75-110); SODIUM 137.3 mmol/L (137-145)
[2018-11-19 07:40] LABS: HEPATITS B SURFACE ANTIGEN Negative (Negative)
[2018-11-19] MEDS: CYANOCOBALAMIN (VITAMIN B-12) 1,000 MCG TABLET PO SCH (09:33)
[2018-11-19] MEDS: CALCITRIOL 0.25 MCG CAPSULE PO SCH (09:33)
[2018-11-19] MEDS: FLUTICASONE/SALMETEROL DISKUS 500-50 MCG/DOSE IH SCH ×2 (09:33→22:28)
[2018-11-19] MEDS: MIDODRINE HCL 5 MG TABLET PO SCH ×3 (09:33→17:29)
[2018-11-19] MEDS: CALCIUM ACETATE 667 MG CAPSULE PO SCH ×3 (09:33→17:28)
[2018-11-19] MEDS: MAGNESIUM OXIDE 400 MG TABLET PO SCH ×2 (09:34→17:29)
[2018-11-19] MEDS: HEPARIN SOD (PORCINE) 5,000 UNIT/ML 1 ML SYRINGE SUBCUT SCH ×2 (09:34→22:28)
--- NOTE | 2018-11-19 12:09 | PDOC PROGRESS REPORT ---
Subjective Progress Note for:: 11/19/18 Subjective:: Patient's underwent further dialysis yesterday Patient is currently denied any chest pain to than any shortness of the breath Patient is feeling much better Patient scheduled for the dialysis catheter on a Wednesday Discussed with the patient's nephrology Reason For Visit: ALTERED MENTAL STATUS Physical Exam Vital Signs: Temp Pulse Resp BP Pulse Ox 98.0 F 83 20 114/56 L 91 L 11/19/18 07:16 11/19/18 07:16 11/19/18 07:16 11/19/18 07:16 11/19/18 07:16 Intake & Output 11/18/18 11/19/18 11/20/18 06:59 06:59 06:59 Intake Total 651 901 Output Total 1575 2275 Balance -924 -1374 Weight 103.5 kg General appearance: PRESENT: no acute distress, well-developed, well-nourished Head exam: PRESENT: atraumatic, normocephalic Eye exam: PRESENT: conjunctiva pink, EOMI, PERRLA. ABSENT: scleral icterus Ear exam: PRESENT: normal external ear exam Mouth exam: PRESENT: moist, tongue midline Neck exam: PRESENT: full ROM. ABSENT: carotid bruit, JVD, lymphadenopathy, thyromegaly Respiratory exam: PRESENT: clear to auscultation nirmal Cardiovascular exam: PRESENT: RRR. ABSENT: diastolic murmur, rubs, systolic murmur Pulses: PRESENT: normal dorsalis pedis pul, +2 pedal pulses bilateral Vascular exam: PRESENT: normal capillary refill GI/Abdominal exam: PRESENT: normal bowel sounds, soft. ABSENT: distended, guarding, mass, organolmegaly, rebound, tenderness Rectal exam: PRESENT: deferred Extremities exam: PRESENT: pedal edema Neurological exam: PRESENT: alert, awake, oriented to person, oriented to place, oriented to time, oriented to situation, CN II-XII grossly intact. ABSENT: mot or sensory deficit Psychiatric exam: PRESENT: appropriate affect, normal mood. ABSENT: homicidal ideation, suicidal ideation Skin exam: PRESENT: dry, intact, warm. ABSENT: cyanosis, rash Results Laboratory Results: 11/15/18 04:46 11/19/18 06:35 11/19/18 06:35 Sodium 137.3 Potassium 4.0 Chloride 101 Carbon Dioxide 26 Anion Gap 10 BUN 28 H Creatinine 4.74 H Est GFR ( Amer) 11 L Est GFR (Non-Af Amer) 9 L Glucose 84 Calcium 9.4 11/05/18 11/05/18 11:20 11:20 Creatine Kinase 32 CK-MB (CK-2) 1.23 Troponin I < 0.012 Impressions: Renal Ultrasound 11/05/18 00:00 IMPRESSION: Right renal atrophy No evidence of hydronephrosis Study is limited by body habitus Head CT 11/05/18 12:02 IMPRESSION: Interval development of a low attenuation area at the right parietal lobe, probably representing an age indeterminate infarct. No acute intracranial hemorrhage. If there is clinical concern for acute ischemia, further evaluation with MRI can be obtained. EVIDENCE OF ACUTE STROKE: Age-indeterminate infarct at the right parietal lobe. Carotid Doppler Study 11/07/18 00:00 IMPRESSION: NO HEMODYNAMICALLY SIGNIFICANT STENOSIS. Head MRI 11/07/18 00:00 IMPRESSION: Limited study as noted above. There are patchy and confluent areas of abnormal signal intensity in the left mid and posterior temporal lobe and adjacent left parietal lobe on the diffusion weighted sequence consistent with areas of recent infarction. Other findings as noted above. EVIDENCE OF ACUTE STROKE: NO. Interventional Vascular Procedure 11/18/18 00:00 IMPRESSION: Ultrasound vascular guidance. Assessment & Plan - Diagnosis (1) Acute renal failure (ARF) Qualifiers: Acute renal failure type: unspecified Qualified Code(s): N17.9 - Acute kidney failure, unspecified Is this a current diagnosis for this admission?: Yes Plan: Currently on hemodialysis (2) Hypernatremia Is this a current diagnosis for this admission?: Yes Plan: Continues to IV fluid patient's primary end up with the dialysis (3) Hypokalemia Is this a current diagnosis for this admission?: Yes Plan: Replace the potassiums (4) Hypomagnesemia Is this a current diagnosis for this admission?: Yes Plan: Replace the magnesium's (5) Metabolic acidosis Is this a current diagnosis for this admission?: Yes Plan: Resolved (6) Urinary tract infection Qualifiers: Urinary tract infection type: site unspecified Hematuria presence: without hematuria Qualified Code(s): N39.0 - Urinary tract infection, site not specified Is this a current diagnosis for this admission?: Yes (7) COPD with acute exacerbation Is this a current diagnosis for this admission?: Yes Plan: Continues to nebulizer treatments (8) Stroke Qualifiers: CVA mechanism: unspecified Qualified Code(s): I63.9 - Cerebral infarction, unspecified Is this a current diagnosis for this admission?: Yes Plan: Continues to aspirin and start atorvastatin Continues to PT OT and speech therapy (9) Cellulitis of right leg Is this a current diagnosis for this admission?: Yes Plan: on IV vancomycin - Time Time Spent with patient: 15-24 minutes Medications reviewed and adjusted accordingly: Yes Anticipated discharge: Home Within: Other - Plan Summary Plan Summary: Plan to get the dialysis catheter on Wednesday and hopefully discharge after that
[2018-11-19 18:36] LABS: HEPATITIS C QUANTITATION HCV Not Detected IU/mL (.)
[2018-11-19] MEDS: SIMVASTATIN 10 MG TABLET PO SCH (22:28)
[2018-11-19] MEDS: ASPIRIN 81 MG TABLET, CHEWABLE PO SCH (22:28)
[2018-11-20] MEDS: LEVOTHYROXINE SODIUM 0.15 MG TABLET PO SCH (05:43)
[2018-11-20] MEDS: LANSOPRAZOLE 30 MG TAB.RAP.DR PO SCH (05:43)
[2018-11-20 06:11] LABS: HEPATITIS B CORE AB TOT Negative (Negative); HEPATITIS B SURFACE AB QUANT <3.1 mIU/mL (Immunity>9)
[2018-11-20] MEDS: HEPARIN SOD (PORCINE) 5,000 UNIT/ML 1 ML SYRINGE SUBCUT SCH ×2 (09:31→21:07)
[2018-11-20] MEDS: CYANOCOBALAMIN (VITAMIN B-12) 1,000 MCG TABLET PO SCH (09:32)
[2018-11-20] MEDS: MIDODRINE HCL 5 MG TABLET PO SCH ×3 (09:32→17:52)
[2018-11-20] MEDS: MAGNESIUM OXIDE 400 MG TABLET PO SCH ×2 (09:32→17:52)
[2018-11-20] MEDS: FLUTICASONE/SALMETEROL DISKUS 500-50 MCG/DOSE IH SCH ×2 (09:32→21:07)
[2018-11-20] MEDS: CALCIUM ACETATE 667 MG CAPSULE PO SCH ×3 (09:32→17:52)
[2018-11-20] MEDS: VANCOMYCIN HCL 1,000 MG in DEXTROSE 5%-WATER 250 ML IV SCH (09:33)
[2018-11-20] MEDS: CALCITRIOL 0.25 MCG CAPSULE PO SCH (09:36)
--- NOTE | 2018-11-20 11:11 | PDOC PROGRESS REPORT ---
Subjective Progress Note for:: 11/20/18 Subjective:: Patient's underwent further dialysis yesterday Patient is currently denied any chest pain to than any shortness of the breath Patient is feeling much better Patient scheduled for the dialysis catheter on a Wednesday Discussed with the patient's nephrology Reason For Visit: ALTERED MENTAL STATUS Physical Exam Vital Signs: Temp Pulse Resp BP Pulse Ox 98.1 F 87 16 103/52 L 100 11/20/18 07:46 11/20/18 07:46 11/20/18 07:46 11/20/18 07:46 11/20/18 07:46 Intake & Output 11/19/18 11/20/18 11/21/18 06:59 06:59 06:59 Intake Total 901 1110 Output Total 2275 800 Balance -1374 310 Weight 103.5 kg 105.7 kg General appearance: PRESENT: no acute distress, well-developed, well-nourished Head exam: PRESENT: atraumatic, normocephalic Eye exam: PRESENT: conjunctiva pink, EOMI, PERRLA. ABSENT: scleral icterus Ear exam: PRESENT: normal external ear exam Mouth exam: PRESENT: moist, tongue midline Neck exam: PRESENT: full ROM. ABSENT: carotid bruit, JVD, lymphadenopathy, thyromegaly Respiratory exam: PRESENT: clear to auscultation nirmal Cardiovascular exam: PRESENT: RRR. ABSENT: diastolic murmur, rubs, systolic murmur Pulses: PRESENT: normal dorsalis pedis pul, +2 pedal pulses bilateral Vascular exam: PRESENT: normal capillary refill GI/Abdominal exam: PRESENT: normal bowel sounds, soft. ABSENT: distended, guarding, mass, organolmegaly, rebound, tenderness Rectal exam: PRESENT: deferred Extremities exam: PRESENT: pedal edema Neurological exam: PRESENT: alert, awake, oriented to person, oriented to place, oriented to time, oriented to situation, CN II-XII grossly intact. ABSENT: motor sensory deficit Psychiatric exam: PRESENT: appropriate affect, normal mood. ABSENT: homicidal ideation, suicidal ideation Skin exam: PRESENT: dry, intact, warm. ABSENT: cyanosis, rash Results Laboratory Results: 11/15/18 04:46 11/19/18 06:35 11/05/18 11/05/18 11:20 11:20 Creatine Kinase 32 CK-MB (CK-2) 1.23 Troponin I < 0.012 Impressions: Renal Ultrasound 11/05/18 00:00 IMPRESSION: Right renal atrophy No evidence of hydronephrosis Study is limited by body habitus Head CT 11/05/18 12:02 IMPRESSION: Interval development of a low attenuation area at the right parietal lobe, probably representing an age indeterminate infarct. No acute intracranial hemorrhage. If there is clinical concern for acute ischemia, further evaluation with MRI can be obtained. EVIDENCE OF ACUTE STROKE: Age-indeterminate infarct at the right parietal lobe. Carotid Doppler Study 11/07/18 00:00 IMPRESSION: NO HEMODYNAMICALLY SIGNIFICANT STENOSIS. Head MRI 11/07/18 00:00 IMPRESSION: Limited study as noted above. There are patchy and confluent areas of abnormal signal intensity in the left mid and posterior temporal lobe and adjacent left parietal lobe on the diffusion weighted sequence consistent with areas of recent infarction. Other findings as noted above. EVIDENCE OF ACUTE STROKE: NO. Interventional Vascular Procedure 11/18/18 00:00 IMPRESSION: Ultrasound vascular guidance. Assessment & Plan - Diagnosis (1) Acute renal failure (ARF) Qualifiers: Acute renal failure type: unspecified Qualified Code(s): N17.9 - Acute kidney failure, unspecified Is this a current diagnosis for this admission?: Yes Plan: Currently on hemodialysis (2) Hypernatremia Is this a current diagnosis for this admission?: Yes Plan: Continues to IV fluid patient's primary end up with the dialysis (3) Hypokalemia Is this a current diagnosis for this admission?: Yes Plan: Replace the potassiums (4) Hypomagnesemia Is this a current diagnosis for this admission?: Yes Plan: Replace the magnesium's (5) Metabolic acidosis Is this a current diagnosis for this admission?: Yes Plan: Resolved (6) Urinary tract infection Qualifiers: Urinary tract infection type: site unspecified Hematuria presence: without hematuria Qualified Code(s): N39.0 - Urinary tract infection, site not specified Is this a current diagnosis for this admission?: Yes (7) COPD with acute exacerbation Is this a current diagnosis for this admission?: Yes Plan: Continues to nebulizer treatments (8) Stroke Qualifiers: CVA mechanism: unspecified Qualified Code(s): I63.9 - Cerebral infarction, unspecified Is this a current diagnosis for this admission?: Yes Plan: Continues to aspirin and start atorvastatin Continues to PT OT and speech therapy (9) Cellulitis of right leg Is this a current diagnosis for this admission?: Yes Plan: on IV vancomycin - Time Time Spent with patient: 15-24 minutes Medications reviewed and adjusted accordingly: Yes Anticipated discharge: Home Within: Other - Plan Summary Plan Summary: Continues to current medication
[2018-11-20] MEDS: SIMVASTATIN 10 MG TABLET PO SCH (21:07)
[2018-11-20] MEDS: ASPIRIN 81 MG TABLET, CHEWABLE PO SCH (21:07)
[2018-11-21 06:04] LABS: HEMATOCRIT 27.7 % (36.0-47.0); MEAN CORPUSCULAR HEMOGLOBIN 28.9 pg (27.0-33.4); MEAN CORPUSCULAR HGB CONC 32.5 g/dL (32.0-36.0); MEAN CORPUSCULAR VOLUME 89 fl (80-97); PLATELET COUNT 197 10^3/uL (150-450); RED BLOOD COUNT 3.12 10^6/uL (3.72-5.28); RED CELL DISTRIBUTION WIDTH 16.1 % (11.5-14.0); WHITE BLOOD COUNT 5.7 10^3/uL (4.0-10.5)
[2018-11-21] MEDS: LEVOTHYROXINE SODIUM 0.15 MG TABLET PO SCH (06:08)
[2018-11-21] MEDS: LANSOPRAZOLE 30 MG TAB.RAP.DR PO SCH (06:10)
[2018-11-21 06:37] LABS: ANION GAP 12 (5-19); BLOOD UREA NITROGEN 39 mg/dL (7-20); CARBON DIOXIDE 26 mmol/L (22-30); CHLORIDE 96 mmol/L (98-107); GLUCOSE 87 mg/dL (75-110); SODIUM 134.1 mmol/L (137-145)
[2018-11-21] MEDS ORDERED: OXYCODONE-ACETAMINOPHEN 5-325 MG TABLET PO PRN (06:40)
[2018-11-21] MEDS ORDERED: DIAZEPAM 5 MG TABLET PO PRN (06:40)
[2018-11-21] MEDS: CALCIUM ACETATE 667 MG CAPSULE PO SCH ×3 (09:47→17:23)
[2018-11-21] MEDS: HEPARIN SOD (PORCINE) 5,000 UNIT/ML 1 ML SYRINGE SUBCUT SCH ×2 (10:24→22:05)
[2018-11-21] MEDS: CYANOCOBALAMIN (VITAMIN B-12) 1,000 MCG TABLET PO SCH (10:24)
[2018-11-21] MEDS: CALCITRIOL 0.25 MCG CAPSULE PO SCH (10:24)
[2018-11-21] MEDS: MAGNESIUM OXIDE 400 MG TABLET PO SCH ×2 (10:24→17:23)
[2018-11-21] MEDS: FLUTICASONE/SALMETEROL DISKUS 500-50 MCG/DOSE IH SCH ×2 (10:27→22:03)
[2018-11-21] MEDS ORDERED: MIDAZOLAM 2 MG/2 ML INJ ONE (10:59)
[2018-11-21] MEDS ORDERED: HEPARIN SOD (PORCINE) 5,000 UNIT/ML 1 ML SYRINGE ONE (10:59)
[2018-11-21] MEDS ORDERED: FENTANYL CITRATE INJ/PF 100 MCG/2 ML AMPUL ONE (10:59)
[2018-11-21] MEDS ORDERED: LIDOCAINE 0.5% INJ-PF (5 MG/ML) 50 ML SDV ONE (10:59)
[2018-11-21] MEDS ORDERED: BACITRACIN INJ 50,000 UNIT VIAL ONE (11:08)
--- NOTE | 2018-11-21 11:14 | PDOC PROGRESS REPORT ---
Subjective Progress Note for:: 11/21/18 Subjective:: Patient's underwent further dialysis yesterday Patient is currently denied any chest pain to than any shortness of the breath Patient is feeling much better Patient scheduled for the dialysis catheter on a Wednesday Discussed with the patient's nephrology Reason For Visit: ALTERED MENTAL STATUS Physical Exam Vital Signs: Temp Pulse Resp BP Pulse Ox 98.0 F 78 20 130/66 H 97 11/21/18 07:19 11/21/18 07:19 11/21/18 07:19 11/21/18 07:19 11/21/18 07:19 Intake & Output 11/20/18 11/21/18 11/22/18 06:59 06:59 06:59 Intake Total 1110 1420 Output Total 800 1050 Balance 310 370 Weight 105.7 kg 105.7 kg General appearance: PRESENT: no acute distress, well-developed, well-nourished Head exam: PRESENT: atraumatic, normocephalic Eye exam: PRESENT: conjunctiva pink, EOMI, PERRLA. ABSENT: scleral icterus Ear exam: PRESENT: normal external ear exam Mouth exam: PRESENT: moist, tongue midline Neck exam: PRESENT: full ROM. ABSENT: carotid bruit, JVD, lymphadenopathy, thyromegaly Cardiovascular exam: PRESENT: RRR. ABSENT: diastolic murmur, rubs, systolic murmur Vascular exam: PRESENT: normal capillary refill GI/Abdominal exam: PRESENT: normal bowel sounds, soft. ABSENT: distended, guarding, mass, organolmegaly, rebound, tenderness Rectal exam: PRESENT: deferred Extremities exam: PRESENT: pedal edema Neurological exam: PRESENT: alert, awake, oriented to person, oriented to place, oriented to time, oriented to situation, CN II-XII grossly intact. ABSENT: motor sensory deficit Psychiatric exam: PRESENT: appropriate affect, normal mood. ABSENT: homicidal ideation, suicidal ideation Skin exam: PRESENT: dry, intact, warm. ABSENT: cyanosis, rash Results Laboratory Results: 11/21/18 05:14 11/21/18 05:14 11/21/18 11/21/18 05:14 05:14 WBC 5.7 RBC 3.12 L Hgb 9.0 L Hct 27.7 L MCV 89 MCH 28.9 MCHC 32.5 RDW 16.1 H Plt Count 197 Sodium 134.1 L Potassium 4.0 Chloride 96 L Carbon Dioxide 26 Anion Gap 12 BUN 39 H Creatinine 6.35 H Est GFR ( Amer) 8 L Est GFR (Non-Af Amer) 7 L Glucose 87 Calcium 9.0 11/05/18 11/05/18 11:20 11:20 Creatine Kinase 32 CK-MB (CK-2) 1.23 Troponin I < 0.012 Impressions: Renal Ultrasound 11/05/18 00:00 IMPRESSION: Right renal atrophy No evidence of hydronephrosis Study is limited by body habitus Head CT 11/05/18 12:02 IMPRESSION: Interval development of a low attenuation area at the right parietal lobe, probably representing an age indeterminate infarct. No acute intracranial hemorrhage. If there is clinical concern for acute ischemia, further evaluation with MRI can be obtained. EVIDENCE OF ACUTE STROKE: Age-indeterminate infarct at the right parietal lobe. Carotid Doppler Study 11/07/18 00:00 IMPRESSION: NO HEMODYNAMICALLY SIGNIFICANT STENOSIS. Head MRI 11/07/18 00:00 IMPRESSION: Limited study as noted above. There are patchy and confluent areas of abnormal signal intensity in the left mid and posterior temporal lobe and ad jacent left parietal lobe on the diffusion weighted sequence consistent with areas of recent infarction. Other findings as noted above. EVIDENCE OF ACUTE STROKE: NO. Interventional Vascular Procedure 11/18/18 00:00 IMPRESSION: Ultrasound vascular guidance. Assessment & Plan - Diagnosis (1) Acute renal failure (ARF) Qualifiers: Acute renal failure type: unspecified Qualified Code(s): N17.9 - Acute kidney failure, unspecified Is this a current diagnosis for this admission?: Yes Plan: Currently on hemodialysis (2) Hypernatremia Is this a current diagnosis for this admission?: Yes Plan: Continues to IV fluid patient's primary end up with the dialysis (3) Hypokalemia Is this a current diagnosis for this admission?: Yes Plan: Replace the potassiums (4) Hypomagnesemia Is this a current diagnosis for this admission?: Yes Plan: Replace the magnesium's (5) Metabolic acidosis Is this a current diagnosis for this admission?: Yes Plan: Resolved (6) Urinary tract infection Qualifiers: Urinary tract infection type: site unspecified Hematuria presence: without hematuria Qualified Code(s): N39.0 - Urinary tract infection, site not specified Is this a current diagnosis for this admission?: Yes Plan: Continues to IV antibiotic (7) COPD with acute exacerbation Is this a current diagnosis for this admission?: Yes Plan: Continues to nebulizer treatments (8) Stroke Qualifiers: CVA mechanism: unspecified Qualified Code(s): I63.9 - Cerebral infarction, unspecified Is this a current diagnosis for this admission?: Yes Plan: Continues to aspirin and start atorvastatin Continues to PT OT and speech therapy (9) Cellulitis of right leg Is this a current diagnosis for this admission?: Yes - Time Time Spent with patient: 15-24 minutes Medications reviewed and adjusted accordingly: Yes Anticipated discharge: Home, Home with Homehealth Within: within 24 hours - Plan Summary Plan Summary: Patient is going for the dialysis catheter today and then dialyzed and hopefully discharge tomorrow
[2018-11-21] MEDS: MIDODRINE HCL 5 MG TABLET PO SCH ×3 (11:40→17:23)
--- NOTE | 2018-11-21 18:29 | PDOC PROGRESS REPORT ---
Subjective Progress Note for:: 11/21/18 Subjective:: I am seeing the patient during dialysis tonight. He said she is feeling fine and has good appetite. She denies any shortness of breath, nausea or vomiting. Unfortunately her PermCath was not placed today and is planned to be placed on Wednesday. So we are dialyzing her tonight via her right femoral temporary dialysis catheter. Currently she is tolerating dialysis well without any much problems. She is hemodynamically stable. Reason For Visit: ALTERED MENTAL STATUS Physical Exam Vital Signs: Temp Pulse Resp BP Pulse Ox 98.5 F 85 20 133/83 H 95 11/21/18 15:24 11/21/18 15:24 11/21/18 15:24 11/21/18 15:24 11/21/18 15:24 Intake & Output 11/20/18 11/21/18 11/22/18 06:59 06:59 06:59 Intake Total 1110 1420 0 Output Total 800 1050 500 Balance 310 370 -500 Weight 105.7 kg 105.7 kg Vitals during dialysis: Blood pressure 161/68, heart rate of 63, blood flow rate of 300 mL/min, dialysate flow rate of 600 mL/min. Exam: General appearance: PRESENT: no acute distress, cooperative, well-developed, wel l-nourished Head exam: PRESENT: atraumatic, normocephalic Eye exam: PRESENT: conjunctiva pale, PERRLA. ABSENT: scleral icterus Neck exam: ABSENT: JVD Respiratory exam: PRESENT: Diminished breath sounds. ABSENT: crackles, rales, rhonchi, unlabored, wheezes Cardiovascular exam: PRESENT: Regular rate rhythm -+S1, +S2. ABSENT: diastolic murmur, systolic murmur GI/Abdominal exam: PRESENT: normal bowel sounds, soft. Obese ABSENT: guarding, mass, tenderness Extremities exam: Right lower extremity cellulitis with erythema and increased swelling, baseline chronic lymphedema including left lower extremity. Neurological exam: PRESENT: alert, awake, oriented to person, place and time. Skin exam: PRESENT: dry, warm, Cardiovascular exam: PRESENT: +S1, +S2 GI/Abdominal exam: PRESENT: normal bowel sounds, soft. ABSENT: organomegaly, tenderness Results Laboratory Results: 11/21/18 05:14 11/21/18 05:14 11/21/18 11/21/18 05:14 05:14 WBC 5.7 RBC 3.12 L Hgb 9.0 L Hct 27.7 L MCV 89 MCH 28.9 MCHC 32.5 RDW 16.1 H Plt Count 197 Sodium 134.1 L Potassium 4.0 Chloride 96 L Carbon Dioxide 26 Anion Gap 12 BUN 39 H Creatinine 6.35 H Est GFR ( Amer) 8 L Est GFR (Non-Af Amer) 7 L Glucose 87 Calcium 9.0 11/05/18 11/05/18 11:20 11:20 Creatine Kinase 32 CK-MB (CK-2) 1.23 Troponin I < 0.012 Impressions: Renal Ultrasound 11/05/18 00:00 IMPRESSION: Right renal atrophy No evidence of hydronephrosis Study is limited by body habitus Head CT 11/05/18 12:02 IMPRESSION: Interval development of a low attenuation area at the right parietal lobe, probably representing an age indeterminate infarct. No acute intracranial hemorrhage. If there is clinical concern for acute ischemia, further evaluation with MRI can be obtained. EVIDENCE OF ACUTE STROKE: Age-indeterminate infarct at the right parietal lobe. Carotid Doppler Study 11/07/18 00:00 IMPRESSION: NO HEMODYNAMICALLY SIGNIFICANT STENOSIS. Head MRI 11/07/18 00:00 IMPRESSION: Limited study as noted above. There are patchy and confluent areas of abnormal signal intensity in the left mid and posterior temporal lobe and adjacent left parietal lobe on the diffusion weighted sequence consistent with areas of recent infarction. Other findings as noted above. EVIDENCE OF ACUTE STROKE: NO. Interventional Vascular Procedure 11/18/18 00:00 IMPRESSION: Ultrasound vascular guidance. Assessment & Plan - Diagnosis (1) End stage renal disease on dialysis Is this a current diagnosis for this admission?: Yes Plan: Patient initially presented with acute on chronic kidney injury and subsequently determined that the patient is now with end-stage renal disease requiring chronic hemodialysis treatment with persistent fluid overload and congestive heart failure. We will do dialysis today for 2.5 hours, using the patient's right femoral temporary trialysis catheter, with 3 potassium bath, blood flow rate of 300 mL per minute, dialysate flow rate of 600 mL per minute, ultrafiltration only 1 L as tolerated since she is still making urine, no heparin and Procrit with 20,000 units during dialysis intravenously. Patient will be monitored throughout dialysis treatment and adjust treatment accordingly. Discussed with our dialysis nurse. PermCath is allegedly scheduled on Wednesday. Hopefully patient can be discharged home after PermCath placement and dialysis on Wednesday at [facility]. (2) Anemia in chronic kidney disease (CKD) Is this a current diagnosis for this admission?: Yes Plan: We will give Procrit during dialysis treatment today and as needed. (3) Hyponatremia Is this a current diagnosis for this admission?: Yes Plan: Possibly due to hypervolemic state with lower extremity edema. (4) Secondary hyperparathyroidism (of renal origin) Is this a current diagnosis for this admission?: Yes Plan: On Rocaltrol. (5) Hyperphosphatemia Is this a current diagnosis for this admission?: Yes Plan: On calcium acetate. (6) Cellulitis of right leg Is this a current diagnosis for this admission?: Yes Plan: On IV antibiotics. (7) Urinary tract infection Qualifiers: Urinary tract infection type: site unspecified Hematuria presence: without hematuria Qualified Code(s): N39.0 - Urinary tract infection, site not specified Is this a current diagnosis for this admission?: Yes - Time Time with patient: 15-25 minutes
[2018-11-21] MEDS ORDERED: EPOETIN ALFA INJ 20000 UNIT/1 ML VIAL (RENAL) IV ONE (19:00)
[2018-11-21] MEDS: ASPIRIN 81 MG TABLET, CHEWABLE PO SCH (21:50)
[2018-11-21] MEDS: SIMVASTATIN 10 MG TABLET PO SCH (21:50)
[2018-11-22] MEDS: LEVOTHYROXINE SODIUM 0.15 MG TABLET PO SCH (05:27)
[2018-11-22] MEDS: LANSOPRAZOLE 30 MG TAB.RAP.DR PO SCH (05:27)
[2018-11-22] MEDS: CALCIUM ACETATE 667 MG CAPSULE PO SCH ×3 (10:07→17:36)
[2018-11-22] MEDS: CYANOCOBALAMIN (VITAMIN B-12) 1,000 MCG TABLET PO SCH (10:07)
[2018-11-22] MEDS: MIDODRINE HCL 5 MG TABLET PO SCH ×3 (10:08→17:36)
[2018-11-22] MEDS: MAGNESIUM OXIDE 400 MG TABLET PO SCH ×2 (10:11→17:35)
[2018-11-22] MEDS: HEPARIN SOD (PORCINE) 5,000 UNIT/ML 1 ML SYRINGE SUBCUT SCH ×2 (10:11→21:27)
[2018-11-22] MEDS: FLUTICASONE/SALMETEROL DISKUS 500-50 MCG/DOSE IH SCH ×2 (10:11→21:27)
[2018-11-22] MEDS: CALCITRIOL 0.25 MCG CAPSULE PO SCH (10:19)
[2018-11-22] MEDS: VANCOMYCIN HCL 1,000 MG in DEXTROSE 5%-WATER 250 ML IV SCH (10:20)
--- NOTE | 2018-11-22 11:32 | PDOC PROGRESS REPORT ---
Subjective Progress Note for:: 11/22/18 Subjective:: Patient's underwent further dialysis yesterday Patient is currently denied any chest pain to than any shortness of the breath Patient is feeling much better Patient scheduled for the dialysis catheter on a Wednesday Discussed with the patient's nephrology Reason For Visit: ALTERED MENTAL STATUS Physical Exam Vital Signs: Temp Pulse Resp BP Pulse Ox 98.5 F 77 24 H 125/56 L 93 11/22/18 07:46 11/22/18 07:46 11/22/18 07:46 11/22/18 07:46 11/22/18 07:46 Intake & Output 11/21/18 11/22/18 11/23/18 06:59 06:59 06:59 Intake Total 1420 360 Output Total 1050 2000 Balance 370 -1641 Weight 105.7 kg 107.8 kg General appearance: PRESENT: no acute distress, well-developed, well-nourished Head exam: PRESENT: atraumatic, normocephalic Eye exam: PRESENT: conjunctiva pink, EOMI, PERRLA. ABSENT: scleral icterus Ear exam: PRESENT: normal external ear exam Mouth exam: PRESENT: moist, tongue midline Neck exam: PRESENT: full ROM. ABSENT: carotid bruit, JVD, lymphadenopathy, thyromegaly Cardiovascular exam: PRESENT: RRR. ABSENT: diastolic murmur, rubs, systolic m urmur Pulses: PRESENT: normal dorsalis pedis pul, +2 pedal pulses bilateral Vascular exam: PRESENT: normal capillary refill GI/Abdominal exam: PRESENT: normal bowel sounds, soft. ABSENT: distended, guarding, mass, organolmegaly, rebound, tenderness Rectal exam: PRESENT: deferred Extremities exam: PRESENT: pedal edema Musculoskeletal exam: PRESENT: ambulatory Neurological exam: PRESENT: alert, awake, oriented to person, oriented to place, oriented to time, oriented to situation, CN II-XII grossly intact. ABSENT: motor sensory deficit Psychiatric exam: PRESENT: appropriate affect, normal mood. ABSENT: homicidal ideation, suicidal ideation Skin exam: PRESENT: dry, intact, warm. ABSENT: cyanosis, rash Results Laboratory Results: 11/21/18 05:14 11/21/18 05:14 11/05/18 11/05/18 11:20 11:20 Creatine Kinase 32 CK-MB (CK-2) 1.23 Troponin I < 0.012 Impressions: Renal Ultrasound 11/05/18 00:00 IMPRESSION: Right renal atrophy No evidence of hydronephrosis Study is limited by body habitus Head CT 11/05/18 12:02 IMPRESSION: Interval development of a low attenuation area at the right parietal lobe, probably representing an age indeterminate infarct. No acute intracranial hemorrhage. If there is clinical concern for acute ischemia, further evaluation with MRI can be obtained. EVIDENCE OF ACUTE STROKE: Age-indeterminate infarct at the right parietal lobe. Carotid Doppler Study 11/07/18 00:00 IMPRESSION: NO HEMODYNAMICALLY SIGNIFICANT STENOSIS. Head MRI 11/07/18 00:00 IMPRESSION: Limited study as noted above. There are patchy and confluent areas of abnormal signal intensity in the left mid and posterior temporal lobe and adjacent left parietal lobe on the diffusion weighted sequence consistent with areas of recent infarction. Other findings as noted above. EVIDENCE OF ACUTE STROKE: NO. Interventional Vascular Procedure 11/18/18 00:00 IMPRESSION: Ultrasound vascular guidance. Assessment & Plan - Diagnosis (1) Acute renal failure (ARF) Qualifiers: Acute renal failure type: unspecified Qualified Code(s): N17.9 - Acute kid naveen failure, unspecified Is this a current diagnosis for this admission?: Yes Plan: Currently on hemodialysis (2) Hypernatremia Is this a current diagnosis for this admission?: Yes Plan: Continues to IV fluid patient's primary end up with the dialysis (3) Hypokalemia Is this a current diagnosis for this admission?: Yes Plan: Replace the potassiums (4) Hypomagnesemia Is this a current diagnosis for this admission?: Yes Plan: Replace the magnesium's (5) Metabolic acidosis Is this a current diagnosis for this admission?: Yes Plan: Resolved (6) Urinary tract infection Qualifiers: Urinary tract infection type: site unspecified Hematuria presence: without hematuria Qualified Code(s): N39.0 - Urinary tract infection, site not specified Is this a current diagnosis for this admission?: Yes Plan: Continues to IV antibiotic (7) COPD with acute exacerbation Is this a current diagnosis for this admission?: Yes Plan: Continues to nebulizer treatments (8) Stroke Qualifiers: CVA mechanism: unspecified Qualified Code(s): I63.9 - Cerebral infarction, unspecified Is this a current diagnosis for this admission?: Yes (9) Cellulitis of right leg Is this a current diagnosis for this admission?: Yes Plan: on IV vancomycin - Time Time Spent with patient: 15-24 minutes Anticipated discharge: Home Within: within 24 hours - Plan Summary Plan Summary: And is going for the dialysis catheter tomorrow and hopefully discharge after that
[2018-11-22] MEDS: SIMVASTATIN 10 MG TABLET PO SCH (21:27)
[2018-11-22] MEDS: ASPIRIN 81 MG TABLET, CHEWABLE PO SCH (21:27)
[2018-11-23] MEDS ORDERED: EPOETIN ALFA INJ 20000 UNIT/1 ML VIAL (RENAL) IV PRN (05:00)
[2018-11-23] MEDS ORDERED: NORMAL SALINE 1000 ML 1,000 ML IV PRN (05:00)
[2018-11-23] MEDS: LEVOTHYROXINE SODIUM 0.15 MG TABLET PO SCH (05:37)
[2018-11-23] MEDS: LANSOPRAZOLE 30 MG TAB.RAP.DR PO SCH (05:37)
[2018-11-23 06:10] LABS: HEMATOCRIT 26.9 % (36.0-47.0); HEMOGLOBIN 8.9 g/dL (12.0-15.5); MEAN CORPUSCULAR HEMOGLOBIN 28.9 pg (27.0-33.4); MEAN CORPUSCULAR HGB CONC 32.9 g/dL (32.0-36.0); MEAN CORPUSCULAR VOLUME 88 fl (80-97); PLATELET COUNT 166 10^3/uL (150-450); RED BLOOD COUNT 3.06 10^6/uL (3.72-5.28); RED CELL DISTRIBUTION WIDTH 15.8 % (11.5-14.0); WHITE BLOOD COUNT 4.9 10^3/uL (4.0-10.5)
[2018-11-23 06:23] LABS: ANION GAP 10 (5-19); BLOOD UREA NITROGEN 32 mg/dL (7-20); CARBON DIOXIDE 25 mmol/L (22-30); CHLORIDE 98 mmol/L (98-107); GLUCOSE 91 mg/dL (75-110); POTASSIUM 4.2 mmol/L (3.6-5.0); SODIUM 132.9 mmol/L (137-145)
[2018-11-23 06:39] LABS: ABSOLUTE MONOCYTES # (MANUAL) 0.4 10^3/uL (0.1-1.4); ABSOLUTE NEUTROPHILS# (MANUAL) 3.1 10^3/uL (1.7-8.2); BAND NEUTROPHILS % (MANUAL) 1 % (3-5); BASOPHILS % (MANUAL) 0 % (0-2); EOSINOPHILS % (MANUAL) 8 % (0-6); LYMPHOCYTES % (MANUAL) 20 % (13-45); MONOCYTES % (MANUAL) 9 % (3-13); SEGMENTED NEUTROPHILS % (MAN) 62 % (42-78); TOTAL CELLS COUNTED 100
[2018-11-23 06:40] LABS: ANISOCYTOSIS 1+; PLATELET COMMENT ADEQUATE; TOXIC GRANULATION SLIGHT
[2018-11-23] MEDS: CALCIUM ACETATE 667 MG CAPSULE PO SCH ×3 (08:24→17:54)
[2018-11-23] MEDS: HEPARIN SOD (PORCINE) 5,000 UNIT/ML 1 ML SYRINGE SUBCUT SCH ×2 (09:11→21:21)
[2018-11-23] MEDS: CALCITRIOL 0.25 MCG CAPSULE PO SCH (09:12)
[2018-11-23] MEDS: MAGNESIUM OXIDE 400 MG TABLET PO SCH ×2 (09:12→17:54)
[2018-11-23] MEDS: CYANOCOBALAMIN (VITAMIN B-12) 1,000 MCG TABLET PO SCH (09:12)
[2018-11-23] MEDS ORDERED: MIDAZOLAM 2 MG/2 ML INJ ONE (09:24)
[2018-11-23] MEDS ORDERED: LIDOCAINE 0.5% INJ-PF (5 MG/ML) 50 ML SDV ONE (09:24)
[2018-11-23] MEDS ORDERED: FENTANYL CITRATE INJ/PF 100 MCG/2 ML AMPUL ONE (09:24)
[2018-11-23] MEDS ORDERED: BACITRACIN INJ 50,000 UNIT VIAL ONE (09:25)
[2018-11-23] MEDS: MIDODRINE HCL 5 MG TABLET PO SCH ×3 (09:41→17:54)
[2018-11-23] MEDS: FLUTICASONE/SALMETEROL DISKUS 500-50 MCG/DOSE IH SCH ×2 (10:28→21:21)
--- NOTE | 2018-11-23 12:12 | Operative Report ---
Operative Report DATE OF SURGERY: 11/18/18 PREOPERATIVE DIAGNOSIS: Acute renal failure. POSTOPERATIVE DIAGNOSIS: Acute renal failure. OPERATION: 1. Ultrasound evaluation of the right internal jugular vein. 2. Insertion of perm catheter via real-time ultrasound-guided access in the right internal jugular vein. 3. Angiogram and interpretation. SURGEON: KOREY DAWSON ASSOCIATE MANAGER AFFILIATE MARKETING: None. ANESTHESIA: Moderate Sedation TISSUE REMOVED OR ALTERED: Not applicable. COMPLICATIONS: None. ESTIMATED BLOOD LOSS: 5 mL. INTRAOPERATIVE FINDINGS: Of a substantial right internal jugular vein about 1.2 cm in diameter. Satisfactory access. 3 tries taken however as the pain is really unusually mobile with respiration. Satisfactory placement. Easy egress of blood and ingress of saline through all ports. The tip of the catheter appears to be in the right atrial pool. Smooth flow of contrast through the right atrium, ventricle noted. PROCEDURE: After obtaining informed consent, the patient was taken to the [Trimmer Machine] and positioned supine. The [right neck] and chest were prepared with chlorhexidine and draped out with sterile linen. After the " universal timeout", in which it was verified that the patient continued to receive antibiotic, the procedure commenced. A steriley sheathed ultrasound probe was used to evaluate the [right internal jugular] vein. Local anesthesia was infiltrated adjacent to the probe. Access into the [right internal jugular] vein was obtained using a micropuncture needle, followed by micropuncture wire and then a micropuncture catheter. This was followed by introduction of a 0.035 guidewire the tip of which was placed down into the inferior vena cava . A 23 cm long Perm catheter] was now positioned over the chest and an exit site marked and locally anesthetized ,the catheter was placed between the 2 incisions. Proximally, the catheter was now positioned using a peel-away sheath, after dilation. Easy ingress of heparinized solution and egress of blood obtained through both ports. A completion angiogram was done by injecting contrast. The findings were as dictated. The neck incision was now closed using interrupted 3-0 PDS to the subcutaneous tissues, the catheter was anchored at the exit site using 3-0 PDS. A Biopatch device was now placed adjacent to the catheter. Dressings were applied and the procedure concluded. Exposure time: [0. 5 minutes]. Exposure: 11.97 [place]. Contrast amount: [5 mL] of [id number] low osmolality. Copies of the dictated operative report for Dr. Korey Daniels MD.concluded. Copies of the dictated operative report for Dr. Korey Daniels MD.
--- NOTE | 2018-11-23 15:42 | RADIOLOGY REPORT (SQ) ---
EXAM DESCRIPTION: TUNNELED CENTRAL LINE COMPLETED DATE/TIME: 11/23/2018 3:08 pm REASON FOR STUDY: T82.858A COMPARISON: None. FLUOROSCOPY TIME: 0.5 minutes 24 images saved to PACS. TECHNIQUE: Intra-operative images acquired during surgical procedure to evaluate progress. NUMBER OF IMAGES: 24 LIMITATIONS: None. FINDINGS: Selected images from central line placement performed by Dr. Daniels. IMPRESSION: IMAGE(S) OBTAINED DURING PROCEDURE. COMMENT: Quality ID [id number]: Final reports for procedures using fluoroscopy that document radiation exp osure indices, or exposure time and number of fluorographic images (if radiation exposure indices are not available) Please consult full operative report of the attending physician for description of the procedure. TECHNICAL DOCUMENTATION: JOB ID: [id number] [employer]- All Rights Reserved Reading location - IP/workstation name: [email or web address]
--- NOTE | 2018-11-23 16:36 | PDOC PROGRESS REPORT ---
Subjective Progress Note for:: 11/23/18 Subjective:: Patient's underwent further dialysis yesterday Patient is currently denied any chest pain to than any shortness of the breath Patient is feeling much better Patient scheduled for the dialysis catheter on a Wednesday Discussed with the patient's nephrology Reason For Visit: T82.858A Physical Exam Vital Signs: Temp Pulse Resp BP Pulse Ox 97.6 F 81 20 111/56 L 94 11/23/18 12:32 11/23/18 13:59 11/23/18 12:32 11/23/18 12:32 11/23/18 12:32 Intake & Output 11/22/18 11/23/18 11/24/18 06:59 06:59 06:59 Intake Total 360 1310 Output Total 2000 2350 Balance -1641 -1040 Weight 107.8 kg 108.6 kg General appearance: PRESENT: no acute distress, well-developed, well-nourished Head exam: PRESENT: atraumatic, normocephalic Eye exam: PRESENT: conjunctiva pink, EOMI, PERRLA. ABSENT: scleral icterus Ear exam: PRESENT: normal external ear exam Mouth exam: PRESENT: moist, tongue midline Neck exam: PRESENT: full ROM. ABSENT: carotid bruit, JVD, lymphadenopathy, thyromegaly Cardiovascular exam: PRESENT: RRR. ABSENT: diastolic murmur, rubs, systolic murmur Pulses: PRESENT: normal dorsalis pedis pul, +2 pedal pulses bilateral Vascular exam: PRESENT: normal capillary refill GI/Abdominal exam: PRESENT: normal bowel sounds, soft. ABSENT: distended, guarding, mass, organolmegaly, rebound, tenderness Rectal exam: PRESENT: deferred Musculoskeletal exam: PRESENT: ambulatory Neurological exam: PRESENT: alert, awake, oriented to person, oriented to place, oriented to time, oriented to situation, CN II-XII grossly intact. ABSENT: motor sensory deficit Psychiatric exam: PRESENT: appropriate affect, normal mood. ABSENT: homicidal ideation, suicidal ideation Skin exam: PRESENT: dry, intact, warm. ABSENT: cyanosis, rash Results Laboratory Results: 11/23/18 05:29 11/23/18 05:29 11/23/18 11/23/18 05:29 05:29 WBC 4.9 RBC 3.06 L Hgb 8.9 L Hct 26.9 L MCV 88 MCH 28.9 MCHC 32.9 RDW 15.8 H Plt Count 166 Seg Neutrophils % Not Reportable Lymphocytes % Not Reportable Monocytes % Not Reportable Eosinophils % Not Reportable Basophils % Not Reportable Absolute Neutrophils Not Reportable Absolute Lymphocytes Not Reportable Absolute Monocytes Not Reportable Absolute Eosinophils Not Reportable Absolute Basophils Not Reportable Sodium 132.9 L Potassium 4.2 Chloride 98 Carbon Dioxide 25 Anion Gap 10 BUN 32 H Creatinine 5.90 H Est GFR ( Amer) 9 L Est GFR (Non-Af Amer) 7 L Glucose 91 Calcium 9.0 11/05/18 11/05/18 11:20 11:20 Creatine Kinase 32 CK-MB (CK-2) 1.23 Troponin I < 0.012 Impressions: Renal Ultrasound 11/05/18 00:00 IMPRESSION: Right renal atrophy No evidence of hydronephrosis Study is limited by body habitus Head CT 11/05/18 12:02 IMPRESSION: Interval development of a low attenuation area at the right parietal lobe, probably representing an age indeterminate infarct. No acute intracranial hemorrhage. If there is clinical concern for acute ischemia, further evaluation with MRI can be obtained. EVIDENCE OF ACUTE STROKE: Age-indeterminate infarct at the right parietal lobe. Carotid Doppler Study 11/07/18 00:00 IMPRESSION: NO HEMODYNAMICALLY SIGNIFICANT STENOSIS. Head MRI 11/07/18 00:00 IMPRESSION: Limited study as noted above. There are patchy and confluent areas of abnormal signal intensity in the left mid and posterior temporal lobe and adjacent left parietal lobe on the diffusion weighted sequence consistent with areas of recent infarction. Other findings as noted above. EVIDENCE OF ACUTE STROKE: NO. Interventional Vascular Procedure 11/18/18 00:00 IMPRESSION: Ultrasound vascular guidance. Central Venous Line 11/23/18 00:00 IMPRESSION: IMAGE(S) OBTAINED DURING PROCEDURE. Assessment & Plan - Diagnosis (1) Acute renal failure (ARF) Qualifiers: Qualified Code(s): N17.9 - Acute kidney failure, unspecified Is this a current diagnosis for this admission?: Yes Plan: Currently on hemodialysis (2) Hypernatremia Is this a current diagnosis for this admission?: Yes Plan: Continues to IV fluid patient's primary end up with the dialysis (3) Hypokalemia Is this a current diagnosis for this admission?: Yes Plan: Replace the potassiums (4) Hypomagnesemia Is this a current diagnosis for this admission?: Yes (5) Metabolic acidosis Is this a current diagnosis for this admission?: Yes (6) Urinary tract infection Qualifiers: Qualified Code(s): N39.0 - Urinary tract infection, site not specified Is this a current diagnosis for this admission?: Yes (7) COPD with acute exacerbation Is this a current diagnosis for this admission?: Yes (8) Stroke Qualifiers: Qualified Code(s): I63.9 - Cerebral infarction, unspecified Is this a current diagnosis for this admission?: Yes Plan: Continues to aspirin and start atorvastatin Continues to PT OT and speech therapy (9) Cellulitis of right leg Is this a current diagnosis for this admission?: Yes - Time Time Spent with patient: 15-24 minutes Medications reviewed and adjusted accordingly: Yes Anticipated discharge: Home Within: Other - Plan Summary Plan Summary: cont curr med
--- NOTE | 2018-11-23 16:39 | PDOC PROGRESS REPORT ---
Subjective Progress Note for:: 11/23/18 Subjective:: I am seeing the patient on dialysis this afternoon. She underwent right IJ PermCath placement care of Dr. Daniels this morning and it was uneventful. She was still a little bit somnolent when she came in due to anesthesia. Currently tolerating dialysis without any problems. Patient said that she has not really seen her daughter and her son for the last couple of days until now. She has been accepted in [facility] is a dialysis patient and supposedly scheduled to have treatment there on Wednesday if he can arrange transportation to and from dialysis and if her son or daughter will take her home. Reason For Visit: T82.858A Physical Exam Vital Signs: Temp Pulse Resp BP Pulse Ox 97.6 F 81 20 111/56 L 94 11/23/18 12:32 11/23/18 13:59 11/23/18 12:32 11/23/18 12:32 11/23/18 12:32 Intake & Output 11/22/18 11/23/18 11/24/18 06:59 06:59 06:59 Intake Total 360 1310 Output Total 2000 2350 Balance -1641 -1040 Weight 107.8 kg 108.6 kg Vitals during dialysis: Blood pressure 122/65, heart rate of 88, blood flow rate of 250 mL/min and dialysate flow rate of 500 ml/minute. Exam: General appearance: PRESENT: no acute distress, cooperative, well-developed, well-nourished Head exam: PRESENT: atraumatic, normocephalic Eye exam: PRESENT: conjunctiva pale, PERRLA. ABSENT: scleral icterus Neck exam: ABSENT: JVD Respiratory exam: PRESENT: Diminished breath sounds. ABSENT: crackles, rales, rhonchi, unlabored, wheezes Cardiovascular exam: PRESENT: Regular rate rhythm -+S1, +S2. ABSENT: diastolic murmur, systolic murmur GI/Abdominal exam: PRESENT: normal bowel sounds, soft. ABSENT: guarding, mass, tenderness Extremities exam: Grade 2 bilateral lower extremity pitting edema; right leg more swollen with erythema compared to the left due to cellulitis Neurological exam: PRESENT: alert, awake, oriented to person, place and time. Skin exam: PRESENT: dry, warm, Cardiovascular exam: PRESENT: +S1, +S2 GI/Abdominal exam: PRESENT: normal bowel sounds, soft. ABSENT: organomegaly, tenderness Results Laboratory Results: 11/23/18 05:29 11/23/18 05:29 11/23/18 11/23/18 05:29 05:29 WBC 4.9 RBC 3.06 L Hgb 8.9 L Hct 26.9 L MCV 88 MCH 28.9 MCHC 32.9 RDW 15.8 H Plt Count 166 Seg Neutrophils % Not Reportable Lymphocytes % Not Reportable Monocytes % Not Reportable Eosinophils % Not Reportable Basophils % Not Reportable Absolute Neutrophils Not Reportable Absolute Lymphocytes Not Reportable Absolute Monocytes Not Reportable Absolute Eosinophils Not Reportable Absolute Basophils Not Reportable Sodium 132.9 L Potassium 4.2 Chloride 98 Carbon Dioxide 25 Anion Gap 10 BUN 32 H Creatinine 5.90 H Est GFR ( Amer) 9 L Est GFR (Non-Af Amer) 7 L Glucose 91 Calcium 9.0 11/05/18 11/05/18 11:20 11:20 Creatine Kinase 32 CK-MB (CK-2) 1.23 Troponin I < 0.012 Impressions: Renal Ultrasound 11/05/18 00:00 IMPRESSION: Right renal atrophy No evidence of hydronephrosis Study is limited by body habitus Head CT 11/05/18 12:02 IMPRESSION: Interval development of a low attenuation area at the right parietal lobe, probably representing an age indeterminate infarct. No acute intracranial hemorrhage. If there is clinical concern for acute ischemia, further evaluation with MRI can be obtained. EVIDENCE OF ACUTE STROKE: Age-indeterminate infarct at the right parietal lobe. Carotid Doppler Study 11/07/18 00:00 IMPRESSION: NO HEMODYNAMICALLY SIGNIFICANT STENOSIS. Head MRI 11/07/18 00:00 IMPRESSION: Limited study as noted above. There are patchy and confluent areas of abnormal signal intensity in the left mid and posterior temporal lobe and adjacent left parietal lobe on the diffusion weighted sequence consistent with areas of recent infarction. Other findings as noted above. EVIDENCE OF ACUTE STROKE: NO. Interventional Vascular Procedure 11/18/18 00:00 IMPRESSION: Ultrasound vascular guidance. Central Venous Line 11/23/18 00:00 IMPRESSION: IMAGE(S) OBTAINED DURING PROCEDURE. Assessment & Plan - Diagnosis (1) End stage renal disease on dialysis Is this a current diagnosis for this admission?: Yes Plan: We will do dialysis today for 2.5 hours, using the patient's right IJ PermCath, with 2 potassium bath, blood flow rate of 250 mL per minute, dialysate flow rate of 500 mL per minute, ultrafiltration 1 L as tolerated, no heparin and Procrit with 20,000 units during dialysis intravenously. Patient will be monitored throughout dialysis treatment today. Patient has been accepted by [facility] in first treatment supposed to be scheduled on Wednesday. Patient needs to be at [facility] at around 1030-10:45AM to sign paperwork so on Wednesday. This is of course if transportation can be arranged to and from dialysis to her home and have her son and daughter can take her home without any issues because so far they have not really come and visit and talk to the patient at this point. (2) Anemia in chronic kidney disease (CKD) Is this a current diagnosis for this admission?: Yes Plan: We will give Procrit during dialysis treatment today and as needed. (3) Hyponatremia Is this a current diagnosis for this admission?: Yes Plan: Possibly due to hypervolemic state with lower extremity edema. (4) Secondary hyperparathyroidism (of renal origin) Is this a current diagnosis for this admission?: Yes Plan: On Rocaltrol. This will be switched to IV Hectorol when she goes to [facility]. (5) Hyperphosphatemia Is this a current diagnosis for this admission?: Yes Plan: On calcium acetate. (6) Cellulitis of right leg Is this a current diagnosis for this admission?: Yes Plan: On IV antibiotics. (7) Urinary tract infection Qualifiers: Urinary tract infection type: site unspecified Hematuria presence: without hematuria Qualified Code(s): N39.0 - Urinary tract infection, site not specified Is this a current diagnosis for this admission?: Yes - Time Time with patient: 15-25 minutes
[2018-11-23] MEDS: ACETAMINOPHEN 325 MG TABLET PO PRN (20:14)
[2018-11-23] MEDS: ASPIRIN 81 MG TABLET, CHEWABLE PO SCH (21:21)
[2018-11-23] MEDS: SIMVASTATIN 10 MG TABLET PO SCH (21:21)
[2018-11-24] MEDS: LEVOTHYROXINE SODIUM 0.15 MG TABLET PO SCH (05:08)
[2018-11-24] MEDS: LANSOPRAZOLE 30 MG TAB.RAP.DR PO SCH (05:08)
[2018-11-24] MEDS: CALCIUM ACETATE 667 MG CAPSULE PO SCH (08:31)
[2018-11-24] MEDS: MAGNESIUM OXIDE 400 MG TABLET PO SCH (09:26)
[2018-11-24] MEDS: CYANOCOBALAMIN (VITAMIN B-12) 1,000 MCG TABLET PO SCH (09:26)
[2018-11-24] MEDS: MIDODRINE HCL 5 MG TABLET PO SCH (09:27)
[2018-11-24] MEDS: VANCOMYCIN HCL 1,000 MG in DEXTROSE 5%-WATER 250 ML IV SCH (09:27)
[2018-11-24] MEDS: HEPARIN SOD (PORCINE) 5,000 UNIT/ML 1 ML SYRINGE SUBCUT SCH (09:27)
[2018-11-24] MEDS: FLUTICASONE/SALMETEROL DISKUS 500-50 MCG/DOSE IH SCH (09:27)
[2018-11-24] MEDS: CALCITRIOL 0.25 MCG CAPSULE PO SCH (09:31)
[2018-11-24 11:50] VITALS: BP 111/56
--- NOTE | 2018-11-24 17:22 | PDOC DISCHARGE SUMMARY ---
General - Admit/Disc Date/PCP Admission Date/Primary Care Provider: 11/05/18 16:10 ROLDAN NEVAREZ Discharge Date: 11/24/18 - Discharge Diagnosis (1) Acute renal failure (ARF) Is this a current diagnosis for this admission?: Yes Summary: The patient on hemodialysis (2) Hypernatremia Is this a current diagnosis for this admission?: Yes Summary: All resolved (3) Hypokalemia Is this a current diagnosis for this admission?: Yes Summary: Currently all resolved (4) Hypomagnesemia Is this a current diagnosis for this admission?: Yes Summary: Continues to p.o. magnesium (5) Metabolic acidosis Is this a current diagnosis for this admission?: Yes Summary: Currently all resolved (6) Urinary tract infection Is this a current diagnosis for this admission?: Yes (7) COPD with acute exacerbation Is this a current diagnosis for this admission?: Yes Summary: Currently all stable (8) Stroke Is this a current diagnosis for this admission?: Yes Summary: Continues to aspirin and statin (9) Cellulitis of right leg Is this a current diagnosis for this admission?: Yes Summary: Currently all resolved patients received the vancomycin's dose - Additional Information Resuscitation Status: Full Code Prescriptions: Aspirin [Aspirin 81 mg Chewable Tablet] 81 mg PO QHS #30 tab.chew Calcium Acetate [Phoslo 667 mg Capsule] 667 mg PO MEALS #60 capsule Magnesium Oxide [Mag-Ox 400 mg Tablet] 800 mg PO BID #60 tablet Midodrine HCl [Proamatine 5 mg Tablet] 5 mg PO TID #90 tablet Home Medications: Allopurinol 100 mg PO DAILY 11/23/13 Simvastatin 20 mg PO DAILY 11/23/13 Amlodipine Besylate [Norvasc 5 mg Tablet] 5 mg PO DAILY #30 tablet 05/06/15 Albuterol Sulfate [Proair HFA] 2 puff IH Q6HP PRN 12/22/15 Cetirizine HCl [Zyrtec 10 mg Tablet] 10 mg PO DAILY 11/05/18 Fluticasone/Salmeterol [Advair 500-50 Diskus 14 Dose/Diskus] 1 inh IH Q12 11/05/18 Levothyroxine Sodium [Synthroid 0.15 mg Tablet] 0.15 mg PO Q6AM 11/05/18 Aspirin [Aspirin 81 mg Chewable Tablet] 81 mg PO QHS #30 tab.chew 11/23/18 Calcium Acetate [Phoslo 667 mg Capsule] 667 mg PO MEALS #60 capsule 11/23/18 Magnesium Oxide [Mag-Ox 400 mg Tablet] 800 mg PO BID #60 tablet 11/23/18 Midodrine HCl [Proamatine 5 mg Tablet] 5 mg PO TID #90 tablet 11/23/18 History of Present Illness History of Present Illness: ELIN JIMÉNEZ is a 63 year old female This is a 63-year-old female admitting in the hospital for altered mental status and patient's diagnosed with acute renal failure and acute cerebrovascular accident Hospital Course Hospital Course: Is a 63-year-old female admitting in the hospital for altered mental status and patients find with acute renal failure and patients started on IV fluid Patient also had MRI of the head was done was acute cerebrovascular accident and patient was put on stroke protocol Patient was started on aspirin and statin Patient seen by the nephrology and patient underwent for the hemodialysis after failure to the IV fluid therapy Patient also have a right leg ongoing cellulitis which treated with the IV vancomycin Patient is otherwise doing well Patient's denied any chest pain denied any shortness of the breath Patient's p.o. intake is good Patient's walk in the [facility] with physical therapy Patient also underwent further dialysis catheter placement by Dr. Patti Jordan Patients at this point discharge home with the home health and physical therapy Discussed with the patient's daughter regarding the patient's current conditions Physical Exam Vital Signs: Temp Pulse Resp BP Pulse Ox 97.6 F 81 20 111/56 L 94 11/23/18 12:32 11/23/18 12:32 11/23/18 12:32 11/23/18 12:32 11/23/18 12:32 Intake & Output 11/22/18 11/23/18 11/24/18 06:59 06:59 06:59 Intake Total 360 1310 Output Total 2000 2350 Balance -1641 -1040 Weight 107.8 kg 108.6 kg General appearance: PRESENT: no acute distress, well-developed, well-nourished Head exam: PRESENT: atraumatic, normocephalic Eye exam: PRESENT: conjunctiva pink, EOMI, PERRLA. ABSENT: scleral icterus Ear exam: PRESENT: normal external ear exam Mouth exam: PRESENT: moist, tongue midline Neck exam: PRESENT: full ROM. ABSENT: carotid bruit, JVD, lymphadenopathy, thyromegaly Respiratory exam: PRESENT: clear to auscultation nirmal Cardiovascular exam: PRESENT: RRR. ABSENT: diastolic murmur, rubs, systolic murmur Vascular exam: PRESENT: normal capillary refill GI/Abdominal exam: PRESENT: normal bowel sounds, soft. ABSENT: distended, guarding, mass, organolmegaly, rebound, tenderness Rectal exam: PRESENT: deferred Extremities exam: ABSENT: pedal edema Musculoskeletal exam: PRESENT: ambulatory Neurological exam: PRESENT: alert, awake, oriented to person, oriented to place, oriented to time, oriented to situation, CN II-XII grossly intact. ABSENT: motor sensory deficit Psychiatric exam: PRESENT: appropriate affect, normal mood. ABSENT: homicidal ideation, suicidal ideation Skin exam: PRESENT: dry, intact, warm. ABSENT: cyanosis, rash Results Laboratory Results: 11/23/18 05:29 11/23/18 05:29 11/23/18 11/23/18 05:29 05:29 WBC 4.9 RBC 3.06 L Hgb 8.9 L Hct 26.9 L MCV 88 MCH 28.9 MCHC 32.9 RDW 15.8 H Plt Count 166 Seg Neutrophils % Not Reportable Lymphocytes % Not Reportable Monocytes % Not Reportable Eosinophils % Not Reportable Basophils % Not Reportable Absolute Neutrophils Not Reportable Absolute Lymphocytes Not Reportable Absolute Monocytes Not Reportable Absolute Eosinophils Not Reportable Absolute Basophils Not Reportable Sodium 132.9 L Potassium 4.2 Chloride 98 Carbon Dioxide 25 Anion Gap 10 BUN 32 H Creatinine 5.90 H Est GFR ( Amer) 9 L Est GFR (Non-Af Amer) 7 L Glucose 91 Calcium 9.0 11/05/18 11/05/18 11:20 11:20 Creatine Kinase 32 CK-MB (CK-2) 1.23 Troponin I < 0.012 Impressions: Renal Ultrasound 11/05/18 00:00 IMPRESSION: Right renal atrophy No evidence of hydronephrosis Study is limited by body habitus Head CT 11/05/18 12:02 IMPRESSION: Interval development of a low attenuation area at the right parietal lobe, probably representing an age indeterminate infarct. No acute intracranial hemorrhage. If there is clinical concern for acute ischemia, further evaluation with MRI can be obtained. EVIDENCE OF ACUTE STROKE: Age-indeterminate infarct at the right parietal lobe. Carotid Doppler Study 11/07/18 00:00 IMPRESSION: NO HEMODYNAMICALLY SIGNIFICANT STENOSIS. Head MRI 11/07/18 00:00 IMPRESSION: Limited study as noted above. There are patchy and confluent areas of abnormal signal intensity in the left mid and posterior temporal lobe and adjacent left parietal lobe on the diffusion weighted sequence consistent with areas of recent infarction. Other findings as noted above. EVIDENCE OF ACUTE STROKE: NO. Interventional Vascular Procedure 11/18/18 00:00 IMPRESSION: Ultrasound vascular guidance. Qualifiers - * PATIENT BEING DISCHARGED WITH ANY OF THE FOLLOWING DIAGNOSIS: Stroke Stroke Pt being discharged on Anti-thrombolytic therapy?: Yes Stroke Pt being discharged on Anti-coagulation therapy?: No Reason(s) for not prescribing Anti-coagulation therapy:: Not indicated Stroke Pt being discharged on Statins?: Yes Plan Time Spent: Greater than 30 Minutes - Is discharged home with the home health and physical therapy follow the hemodialysis as per schedule for nephrology follow in office in 1 week
== END 2018-11-24 12:10 | disposition home health service (06) | DRG 682 ==
LOC: ER 10:50 → EH 16:10 → 3N 17:09
PROVIDERS: ADMIT Internal Medicine Geriatric Medicine; ATTEND Family Medicine
PROC: 5A1D70Z Performance of Urinary Filtration, Intermittent, Less than 6 Hours Per Day (ICD-10-PCS; principal; 2018-11-18)
PROC: 06HY33Z Insertion of Infusion Device into Lower Vein, Percutaneous Approach (ICD-10-PCS; 2018-11-18)
PROC: 06H033Z Insertion of Infusion Device into Inferior Vena Cava, Percutaneous Approach (ICD-10-PCS; 2018-11-18)
PROC: B549ZZA Ultrasonography of Inferior Vena Cava, Guidance (ICD-10-PCS; 2018-11-18)
PROC: B5131ZZ Fluoroscopy of Right Jugular Veins using Low Osmolar Contrast (ICD-10-PCS; 2018-11-18)
DX: N17.9 Acute kidney failure, unspecified (principal); I63.9 Cerebral infarction, unspecified; E87.2 Acidosis; E87.0 Hyperosmolality and hypernatremia; N39.0 Urinary tract infection, site not specified; J44.1 Chronic obstructive pulmonary disease with (acute) exacerbation; L03.115 Cellulitis of right lower limb; I13.0 Hypertensive heart and chronic kidney disease with heart failure and stage 1 through stage 4 chronic kidney disease, or unspecified chronic kidney disease; E11.22 Type 2 diabetes mellitus with diabetic chronic kidney disease; N18.3 Chronic kidney disease, stage 3 (moderate); D63.1 Anemia in chronic kidney disease; I50.9 Heart failure, unspecified; E83.42 Hypomagnesemia; E87.6 Hypokalemia; N25.0 Renal osteodystrophy; N25.81 Secondary hyperparathyroidism of renal origin; I25.10 Atherosclerotic heart disease of native coronary artery without angina pectoris; E78.5 Hyperlipidemia, unspecified; E83.39 Other disorders of phosphorus metabolism; Z91.19 Patient's noncompliance with other medical treatment and regimen
CPT/HCPCS: 36415; 36556; 36558; 36600; 70450; 70551; 71045; 72170; 76770; 76937; 77001; 80048; 80053; 80202; 80307; 81001; 82140; 82533; 82550; 82553; 82575; 82607; 82728; 82746; 82803; 82962; 83540; 83550; 83605; 83735; 83970; 84100; 84132; 84484; 85025; 85027; 85045; 85610; 85730; 86317; 86704; 87040; 87070; 87077; 87086; 87186; 87205; 87340; 87522; 93005; 93010; 93306; 93880; 96365; 99291; C1713; C1752; C1769; J0610; J0696; J1644; J2060; J2250; J3010; J3370; J3475; J3490; J7030; J7060; Q4081

== ENCOUNTER 2019-03-27 10:00 | Day surgery (SDC) | payer MEDICARE, MEDICAID ==
[~2019-03-27 10:00] MED LIST: DIAZEPAM 5 MG TABLET PO PRN; OXYCODONE-ACETAMINOPHEN 5-325 MG TABLET PO PRN
[2019-03-27] MEDS ORDERED: OXYCODONE-ACETAMINOPHEN 5-325 MG TABLET ONE (10:30)
[2019-03-27] MEDS ORDERED: DIAZEPAM 5 MG TABLET ONE (10:31)
[2019-03-27 10:39] LABS: HEMATOCRIT 29.9 % (36.0-47.0); HEMOGLOBIN 9.9 g/dL (12.0-15.5); MEAN CORPUSCULAR HEMOGLOBIN 30.4 pg (27.0-33.4); MEAN CORPUSCULAR VOLUME 92 fl (80-97); PLATELET COUNT 178 10^3/uL (150-450); RED BLOOD COUNT 3.25 10^6/uL (3.72-5.28); WHITE BLOOD COUNT 7.1 10^3/uL (4.0-10.5)
[2019-03-27 11:00] LABS: BLOOD UREA NITROGEN 66 mg/dL (7-20); CALCIUM 9.7 mg/dL (8.4-10.2); CARBON DIOXIDE 13 mmol/L (22-30); CHLORIDE 107 mmol/L (98-107); GLUCOSE 77 mg/dL (75-110); POTASSIUM 4.8 mmol/L (3.6-5.0)
[2019-03-27 11:05] LABS: SODIUM 140.7 mmol/L (137-145)
[2019-03-27 11:06] LABS: ANION GAP 21 (5-19)
[2019-03-27] MEDS ORDERED: MIDAZOLAM 2 MG/2 ML INJ ONE (12:30)
[2019-03-27] MEDS ORDERED: FENTANYL CITRATE INJ/PF 100 MCG/2 ML AMPUL ONE (12:30)
[2019-03-27] MEDS ORDERED: CEFAZOLIN INJ 1 GM VIAL ONE (12:30)
[2019-03-27] MEDS ORDERED: LIDOCAINE 0.5% INJ-PF (5 MG/ML) 50 ML SDV ONE (12:30)
[2019-03-27] MEDS ORDERED: BACITRACIN INJ 50,000 UNIT VIAL ONE (12:30)
--- NOTE | 2019-03-27 13:47 | Discharge Summary ---
Discharge Summary (SDC) - Discharge Final Diagnosis: End-stage renal disease on hemodialysis Date of Surgery: 03/27/19 Discharge Date: 03/27/19 Condition: Poor Forms: Sedation D/C Instructions, Discharge POC-Surgical Service Referrals: KOREY GODINEZ MD [ACTIVE STAFF] - 04/06/19 8:00 am Discharge Diet: Other (Comments) - Renal. Respiratory Treatments at Home: Deep Breathing/Coughing Discharge Activity: Activity As Tolerated Report the Following to Your Physician Immediately: Shortness of Breath, Unusual Bleeding
--- NOTE | 2019-03-27 13:49 | Operative Report ---
Operative Report DATE OF SURGERY: 03/27/19 PREOPERATIVE DIAGNOSIS: End-stage renal disease on hemodialysis POSTOPERATIVE DIAGNOSIS: End-stage renal disease on hemodialysis OPERATION: 1. Ultrasound-guided needle access into the right internal jugular vein. 2. PermCath insertion via real-time access in the right internal jugular vein. 3. Angiogram and interpretation. SURGEON: KOREY DAWSON PEARL DIGGER: None. ANESTHESIA: Moderate Sedation TISSUE REMOVED OR ALTERED: Not applicable. COMPLICATIONS: None. ESTIMATED BLOOD LOSS: 5 mL. INTRAOPERATIVE FINDINGS: Of a satisfactory right internal jugular vein, scar is noted. Satisfactory position of PermCath with the tip well down in the right atrial pool. Smooth flow flow of contrast through the right atrium, ventricle and pulmonary outflow tract. Easy egress of blood and ingress of heparinized. PROCEDURE: After obtaining informed consent, the patient was taken to the [[facility]] and positioned supine. The [right neck] and chest were prepared with chlorhexidine and draped out with sterile linen. After the " universal timeout", in which it was verified that the patient continued to receive antibiotic, the procedure commenced. A steriley sheathed ultrasound probe was used to evaluate the [right internal jugular] vein. Local anesthesia was infiltrated adjacent to the probe. Access into the [right internal jugular] vein was obtained using a micropuncture needle, followed by micropuncture wire and then a micropuncture catheter. This was followed by introduction of a 0.035 guidewire the tip of which was placed down into the inferior vena cava . A 23 cm long permacatheter was now positioned over the chest and an exit site marked and locally anesthetized ,the catheter was placed between the 2 incisions. Proximally, the catheter was now positioned using a peel-away sheath, after dilation. Easy ingress of heparinized solution and egress of blood obtained through both ports. A completion angiogram was done by injecting contrast. The findings were as dictated. The neck incision was now closed using interrupted 3-0 PDS to the subcutaneous tissues, the catheter was anchored at the exit site using 3-0 PDS. A Biopatch device was now placed adjacent to the catheter. Dressings were applied and the procedure concluded. Exposure time: [0.2 minutes]. Exposure: [0.53 cGy] per centimeters squared. Contrast amount: [5 mL] of [id number] low osmolality. Copies of the dictated operative report for Dr. Korey Daniels MD.concluded. Copies of the dictated operative report for Dr. Korey Daniels MD.
[2019-03-27 15:13] VITALS: BP 128/68
--- NOTE | 2019-03-27 15:49 | RADIOLOGY REPORT (SQ) ---
EXAM DESCRIPTION: TUNNELED CENTRAL LINE COMPLETED DATE/TIME: 03/27/2019 1:57 pm REASON FOR STUDY: NEED FOR VASCULAR ACCESS Z45.2 ENCOUNTER FOR ADJUSTMENT AND MANAGEMENT OF VAD COMPARISON: None. FLUOROSCOPY TIME: 0.1 minute 15 images saved to PACS. TECHNIQUE: Intra-operative images acquired during surgical procedure to evaluate progress. NUMBER OF IMAGES: 15 LIMITATIONS: None. FINDINGS: Images from right side central line placement. IMPRESSION: IMAGE(S) OBTAINED DURING PROCEDURE. COMMENT: Quality ID [id number]: Final reports for procedures using fluoroscopy that document radiation exp osure indices, or exposure time and number of fluorographic images (if radiation exposure indices are not available) Please consult full operative report of the attending physician for description of the procedure. TECHNICAL DOCUMENTATION: JOB ID: [id number] [employer]- All Rights Reserved Reading location - IP/workstation name: [email or web address]
== END 2019-03-27 15:05 | disposition home or self-care (01) ==
LOC: CCL 10:00
PROVIDERS: ATTEND Surgery
DX: Z45.2 Encounter for adjustment and management of vascular access device (principal); N18.6 End stage renal disease; Z99.2 Dependence on renal dialysis
CPT/HCPCS: 36415; 85027; 80048; 36558; 76937; 77001; C1713; C1752; Q9967; J2250; J3490 ×2; J0690; A9270 ×2; J3010; J1644

== ENCOUNTER 2020-04-25 16:29 | Inpatient (IN) | payer MEDICARE, MEDICAID ==
[2020-04-25 17:22] LABS: ABSOLUTE EOSINOPHILS # (AUTO) 0.1 10^3/uL (0.0-0.6); ABSOLUTE LYMPHOCYTES (AUTO) 0.9 10^3/uL (0.5-4.7); ABSOLUTE MONOCYTES (AUTO) 0.6 10^3/uL (0.1-1.4); ABSOLUTE NEUT (AUTO) 6.6 10^3/uL (1.7-8.2); BASOPHILS % (AUTO) 0.4 % (0-2); EOSINOPHILS % (AUTO) 1.2 % (0-6); HEMATOCRIT 23.9 % (36.0-47.0); LYMPHOCYTES % (AUTO) 10.7 % (13-45); MEAN CORPUSCULAR HEMOGLOBIN 31.7 pg (27.0-33.4); MEAN CORPUSCULAR HGB CONC 33.5 g/dL (32.0-36.0); MEAN CORPUSCULAR VOLUME 95 fl (80-97); MONOCYTES % (AUTO) 6.7 % (3-13); PLATELET COUNT 140 10^3/uL (150-450); RED BLOOD COUNT 2.52 10^6/uL (3.72-5.28); RED CELL DISTRIBUTION WIDTH 14.9 % (11.5-14.0); TOTAL CELLS COUNTED % (AUTO) 100 %; WHITE BLOOD COUNT 8.2 10^3/uL (4.0-10.5)
[2020-04-25 17:39] LABS: ALKALINE PHOSPHATASE 68 U/L (38-126); ANION GAP 11 (5-19); ASPARTATE AMINO TRANSFERASE 12 U/L (14-36); BILIRUBIN,TOTAL 0.3 mg/dL (0.2-1.3); BLOOD UREA NITROGEN 23 mg/dL (7-20); CARBON DIOXIDE 20 mmol/L (22-30); CHLORIDE 104 mmol/L (98-107); CREATINE KINASE 29 U/L (30-135); GLUCOSE 184 mg/dL (75-110)
[2020-04-25 17:41] LABS: POTASSIUM 2.8 mmol/L (3.6-5.0)
[2020-04-25 17:51] LABS: CREATINE KINASE MB 0.82 ng/mL (<4.55)
[2020-04-25 17:54] LABS: TROPONIN I < 0.012 ng/mL
[2020-04-25] MEDS ORDERED: ACETAMINOPHEN 325 MG TABLET PO ONE (18:26)
[2020-04-25] MEDS ORDERED: POTASSIUM CHLORIDE 10 MEQ TABLET.ER PO ONE (19:11)
--- NOTE | 2020-04-25 19:44 | RADIOLOGY REPORT (SQ) ---
EXAM DESCRIPTION: CT HEAD WITHOUT IMAGES COMPLETED DATE/TIME: 04/25/2020 7:34 pm REASON FOR STUDY: AMS COMPARISON: None. TECHNIQUE: Axial images acquired through the brain without intravenous contrast. Images reviewed wi th bone, brain and subdural windows. 11/05/2018 Images stored on PACS. All CT scanners at this facility use dose modulation, iterative reconstruction, and/or weight based d osing when appropriate to reduce radiation dose to as low as reasonably achievable (ALARA). [facility]: Dose Right [facility]: CareDose [facility]: Dose Right [facility]: Teradose 4D [facility]: [employer] RADIATION DOSE: CT Rad equipment meets quality standard of care and radiation dose reduction techniq ues were employed. CTDIvol: 53.2 mGy. DLP: 1017 mGy-cm. mGy. LIMITATIONS: None. FINDINGS: VENTRICLES: Normal size and contour. CEREBRUM: There is a small osteoma or densely calcified meningioma in the left frontal region. This is stable. No hemorrhage. No midline shift there is a small area of encephalomalacia in the right p arietal lobe. This is stable. No evidence for acute infarction. Normal neville/white matter differenti ation. No areas of low density in the white matter. CEREBELLUM: No masses. No hemorrhage. No alteration of density. No evidence for acute infarction. EXTRAAXIAL SPACES: No fluid collections. No masses. ORBITS AND GLOBE: No intra- or extraconal masses. Normal contour of globe without masses. CALVARIUM: No fracture. PARANASAL SINUSES: No fluid or mucosal thickening. SOFT TISSUES: No mass or hematoma. OTHER: No other significant finding. 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 Findings as described. N o acute findings. EVIDENCE OF ACUTE STROKE: NO. COMMENT: Quality ID # [id number]: Final reports with documentation of one or more dose reduction techniques (e.g., Automated exposure control, adjustment of the mA and/or kV according to patient size, use of iterative reconstruction technique) TECHNICAL DOCUMENTATION: JOB ID: [id number] 2010 [employer]- All Rights Reserved Reading location - IP/workstation name: [email or web address]
--- NOTE | 2020-04-25 19:46 | RADIOLOGY REPORT (SQ) ---
EXAM DESCRIPTION: CHEST SINGLE VIEW IMAGES COMPLETED DATE/TIME: 04/25/2020 7:35 pm REASON FOR STUDY: AMS COMPARISON: 11/05/2018 EXAM PARAMETERS: NUMBER OF VIEWS: One view. TECHNIQUE: Single frontal radiographic view of the chest acquired. RADIATION DOSE: NA LIMITATIONS: None. FINDINGS: LUNGS AND PLEURA: No opacities, masses or pneumothorax. No pleural effusion. MEDIASTINUM AND HILAR STRUCTURES: No masses. Contour normal. HEART AND VASCULAR STRUCTURES: Heart normal in size. Normal vasculature. BONES: No acute findings. HARDWARE: Dual-lumen catheter in the right internal jugular vein. OTHER: No other significant finding. IMPRESSION: NO ACUTE RADIOGRAPHIC FINDING IN THE CHEST. TECHNICAL DOCUMENTATION: JOB ID: [id number] 2010 [employer]- All Rights Reserved Reading location - IP/workstation name: [email or web address]
--- NOTE | 2020-04-25 20:16 | ER Document Report ---
Entered by RAHUL TENORIO SCRIBE 04/25/20 1838 Acting as scribe for:MARY JASMINE DO ED General - General Mode of Arrival: Ambulatory Information source: Patient TRAVEL OUTSIDE OF THE [place] IN LAST 30 DAYS: No <MARY JASMINE - Last Filed: 04/25/20 20:16> <GIL PHILLIPS IV - Last Filed: 04/25/20 23:06> - General Chief Complaint: Near Syncope Stated Complaint: DIZZINESS Time Seen by Provider: 04/25/20 18:18 Notes: This 65 year old female patient presents to the emergency department today with complaints of "feeling very tired and having problems with her eyes". Patient states that she "took a lot of inhalers today" but is not really able to further describe this other than mentioning that her asthma has been worse "for a while". Patient states that she is very tired today which is normal after dialysis. Patient denies fevers. (MARY JASMINE) - Related Data Allergies/Adverse Reactions: cephalexin [From Keflex] Allergy (Verified 11/05/18 18:06) codeine [Codeine] Allergy (Verified 02/13/15 12:25) Past Medical History - General Information source: Patient - Social History Smoking Status: Former Smoker Cigarette use (# per day): No Chew tobacco use (# tins/day): No Frequency of alcohol use: None Drug Abuse: None Lives with: Family Family History: Reviewed & Not Pertinent Patient has homicidal ideation: No - Past Medical History Cardiac Medical History: Reports: Hx Congestive Heart Failure, Hx Coronary Artery Disease - hyperlipedemia, Hx Hypercholesterolemia, Hx Hypertension Pulmonary Medical History: Reports: Hx COPD, Hx Pneumonia - 2006 Neurological Medical History: Reports: Hx Cerebrovascular Accident Past Surgical History: Reports: Hx Hysterectomy - Immunizations Hx Diphtheria, Pertussis, Tetanus Vaccination: No <MARY JASMINE - Last Filed: 04/25/20 20:16> Review of Systems - Review of Systems Constitutional: No symptoms reported EENT: See HPI, Blurred vision Cardiovascular: No symptoms reported Respiratory: No symptoms reported Gastrointestinal: No symptoms reported Genitourinary: No symptoms reported Female Genitourinary: No symptoms reported Musculoskeletal: No symptoms reported Skin: No symptoms reported Hematologic/Lymphatic: No symptoms reported Neurological/Psychological: No symptoms reported -: Yes All other systems reviewed and negative <MARY JASMINE - Last Filed: 04/25/20 20:16> Physical Exam - Vital signs Interpretation: Hypotensive - General General appearance: Lethargic In distress: Mild - Respiratory Respiratory status: No respiratory distress Chest status: Nontender Breath sounds: Normal - Cardiovascular Rhythm: Regular - Abdominal Inspection: Normal Tenderness: Nontender - Back Back: Normal - Extremities General upper extremity: Normal inspection, Normal ROM General lower extremity: Normal inspection, Normal ROM - Neurological Cognition: Confused Orientation: Disoriented to time. No: Disoriented to person, Disoriented to place [place] Coma Scale Eye Opening: To Voice Kristina Coma Scale Verbal: Confused [place] Coma Scale Motor: Obeys Commands [place] Coma Scale Total: 13 - Psychological Associated symptoms: Confused - Skin Skin Temperature: Warm Skin Moisture: Dry Skin Color: Pale <MARY JASMINE - Last Filed: 04/25/20 20:16> - Vital signs Vitals: Temp 97.4 F 04/25/20 16:39 Course - Laboratory Result Diagrams: 04/25/20 17:10 04/25/20 17:10 - Diagnostic Test Radiology reviewed: Reports reviewed <MARY JASMINE - Last Filed: 04/25/20 20:16> - Laboratory Result Diagrams: 04/25/20 17:10 04/25/20 17:10 - Consults dr. whitley Time consulted: 21:23 - agreed to admit pt, requested dr. chua be notified dr. chua Time consulted: 21:31 - dr. chua made aware dr. sha whitley Time consulted: 22:59 - dr whitley called stating pt had mra done + for left middle cerebral artery occlusion. he asked the pt be transferred to [facility]. pt has already left ED and is in room 315. <GIL PHILLIPS IV - Last Filed: 04/25/20 23:06> - Re-evaluation Re-evalutation: 04/25/20 19:00 Patient is a 65-year-old female who comes in with dizziness after dialysis. Patient was hypotensive and was given fluids on arrival. Potassium is noted to be 2.8. Patient is very tired. She knows who she is and where she is but is not sure about the day, date, month, or year. Patient states that she is just tired because of dialysis and would like to go home. I have contacted her primary care doctor, Dr. Whitley. I have expressed my concerns about sending the patient home this evening. Recommend CT head and ABG. 20:00 CT head with no acute findings. ABG and urinalysis pending. Care be transitioned to the oncoming provider, Dr. Phillips. (MARY JASMINE) - Vital Signs Vital signs: Temp Pulse Resp BP Pulse Ox 98.4 F 19 99/55 L 95 04/25/20 20:26 04/25/20 21:01 04/25/20 21:00 04/25/20 21:01 - Laboratory Laboratory results interpreted by me: 04/25/20 04/25/20 04/25/20 17:10 17:10 20:22 RBC 2.52 L Hgb 8.0 L Hct 23.9 L RDW 14.9 H Plt Count 140 L Lymph % (Auto) 10.7 L Seg Neutrophils % 81.0 H Sodium 135.2 L Potassium 2.8 L* Carbon Dioxide 20 L BUN 23 H Creatinine 3.21 H Est GFR ( Amer) 17 L Est GFR (MDRD) Non-Af 14 L Glucose 184 H Calcium 8.0 L AST 12 L Creatine Kinase 29 L Total Protein 5.0 L Albumin 3.0 L Urine Protein 30 H Urine Blood SMALL H Ur Leukocyte Esterase LARGE H - Consults dr. whitley Reason for consultation: 04/25/20 21:23 ams, hypokalemia (GIL PHILLIPS IV) dr. chua Reason for consultation: 04/25/20 21:31 dialysis pt being admitted (GIL PHILLIPS IV) dr. sha whitley Reason for consultation: 04/25/20 22:59 abnormal mra (GIL PHILLIPS IV) Discharge <MARY JASMINE - Last Filed: 04/25/20 20:16> - Discharge Admitting Provider: [facility] Unit Admitted: IMCU <GIL PHILLIPS IV - Last Filed: 04/25/20 23:06> - Discharge Clinical Impression: Altered mental status Qualifiers: Altered mental status type: unspecified Qualified Code(s): R41.82 - Altered mental status, unspecified Condition: Stable Disposition: ADMITTED INPATIENT I personally performed the services described in the documentation, reviewed and edited the documentation which was dictated to the scribe in my presence, and it accurately records my words and actions.
[2020-04-25 20:56] LABS: AMORPHOUS SEDIMENT,URINE TRACE /HPF; APPEARANCE,URINE SLIGHTLY-CLOUDY; BILIRUBIN,URINE NEGATIVE (NEGATIVE); COLOR,URINE YELLOW; GLUCOSE, URINE NEGATIVE (NEGATIVE); KETONES,URINE NEGATIVE (NEGATIVE); LEUKOCYTE ESTERASE,URINE LARGE (NEGATIVE); NITRITE,URINE NEGATIVE (NEGATIVE); PROTEIN,URINE 30 mg/dL (NEGATIVE); URINE SPECIFIC GRAVITY 1.006; UROBILINOGEN,URINE NEGATIVE mg/dL (<2.0)
[2020-04-25 21:03] LABS: ARTERIAL BLOOD BASE EXCESS -1.3 mmol/L; ARTERIAL BLOOD H2CO3 1.07 mmol/L (1.05-1.35); ARTERIAL BLOOD HCO3 22.9 mmol/L (20-24); ARTERIAL BLOOD O2 SATURATION 96.2 % (94-98); ARTERIAL BLOOD PCO2 35.5 mmHg (35-45); ARTERIAL BLOOD PH 7.43 (7.35-7.45); ARTERIAL BLOOD PO2 80.6 mmHg (80-100)
[2020-04-25 21:04] LABS: ARTERIAL BLOOD FIO2 ROOM AIR
[2020-04-25] MEDS ORDERED: IPRATROPIUM/ALBUTEROL 0.5-2.5 MG/3 ML AMPUL NEB PRN (21:33)
--- NOTE | 2020-04-25 22:44 | RADIOLOGY REPORT (SQ) ---
EXAM CLINICAL INDICATION: ans. Visual disturbances. Speech disturbance. Weakness. End-stage renal disease, hemodialysis dependent. Technique: 3-D [id number] MRA was obtained of the [place] as per standard protocol without the administration of gadolinium. 3-D angiographic reconstructions. COMPARISON: None. CORRELATION: None. FINDINGS: Brain is dictated separately. The intracranial internal carotid arteries are patent, bilaterally. Middle cerebral arteries demonstrate occlusion of the left middle cerebral artery, proximal M2 segment.. Anterior cerebral arteries are patent bilaterally. Posterior cerebral arteries are patent bilaterally. Anterior communicating artery is patent. Posterior communicating arteries are patent bilaterally. Vertebrobasilar system is right vertebral dominant. Left vertebral artery is not convincingly seen.. IMPRESSION: Occlusion of the left middle cerebral artery proximal M2 segment.
--- NOTE | 2020-04-25 23:44 | PDOC TRANSFER SUMMARY ---
General Admission Date/PCP: 04/25/20 21:37 MAU TORRES MD Admission Date: 04/25/20 Transfer Date: 04/25/20 Accepting Facility: [facility] Resuscitation Status: Full Code - Transfer Diagnosis (1) Occlusion of left middle cerebral artery Is this a current diagnosis for this admission?: Yes (2) Altered mental status Is this a current diagnosis for this admission?: Yes (3) Anemia in chronic kidney disease (CKD) Is this a current diagnosis for this admission?: Yes (4) End stage renal disease on dialysis Is this a current diagnosis for this admission?: Yes (5) Hypokalemia Is this a current diagnosis for this admission?: Yes (6) Stroke Is this a current diagnosis for this admission?: Yes - Transfer Medications Home Medications: Allopurinol 100 mg PO DAILY 11/23/13 Simvastatin 20 mg PO DAILY 11/23/13 Albuterol Sulfate [Proair HFA] 2 puff IH Q6HP PRN 12/22/15 Cetirizine HCl [Zyrtec 10 mg Tablet] 10 mg PO DAILY 11/05/18 Fluticasone/Salmeterol [Advair 500-50 Diskus 14 Dose/Diskus] 1 inh IH Q12 11/05/18 Levothyroxine Sodium [Synthroid 0.15 mg Tablet] 0.15 mg PO Q6AM 11/05/18 Transfer Medications: Current Medications Acetaminophen (Tylenol 325 Mg Tablet) 650 mg PO Q4HP PRN PRN Reason: FOR PAIN OR TEMP Stop: 05/25/20 21:32 Albuterol/Ipratropium (Duoneb 3 Ml Ampul) 3 ml NEB RTQ6HP PRN PRN Reason: SHORTNESS OF BREATH Stop: 05/25/20 21:32 Heparin Sodium (Porcine) (Heparin Inj 5,000 Units/Ml 1 Ml Vial) 5,000 unit SUBCUT Q8 JACQUELIN Stop: 05/25/20 21:59 - Allergies Allergies/Adverse Reactions: cephalexin [From Keflex] Allergy (Verified 11/05/18 18:06) codeine [Codeine] Allergy (Verified 02/13/15 12:25) Hospital Course Hospital Course: This is a 65-year-old female with history of hypertension end-stage renal disease on hemodialysis hyperlipidemia went to the dialysis today around 11:00 and the patient finished the dialysis after 3 hours getting more confused compla ining of dizziness and headache and patient is brought to the emergency department In the emergency department patient is alert awake little confused patient had a head CT was done was negative Patient's all blood work is stable except potassium was low The ER physicians call me around 8:00 at nights to admit the patient's in the hospital for the altered mental status Order the MRI and MRA of the head which patient only finished the MRI of the head which shows the left middle cerebral artery occlusion Patient is alert awake oriented patient's move all extremities without any problems Patient's only complaint of a headache and dizziness No chest pain no short of breath Patient support on the stroke protocol Discussed with the neurology at [place] Discussed with the patient Physical Exam Vital Signs: Temp Pulse Resp BP Pulse Ox 97.6 F 77 16 97/64 L 99 04/25/20 23:08 04/25/20 23:08 04/25/20 23:08 04/25/20 23:08 04/25/20 23:08 Intake & Output 04/24/20 04/25/20 04/26/20 06:59 06:59 06:59 Weight 86.3 kg General appearance: PRESENT: no acute distress, well-developed, well-nourished Head exam: PRESENT: atraumatic, normocephalic Eye exam: PRESENT: conjunctiva pink, EOMI, PERRLA. ABSENT: scleral icterus Ear exam: PRESENT: normal external ear exam Mouth exam: PRESENT: moist, tongue midline Neck exam: ABSENT: carotid bruit, JVD, lymphadenopathy, thyromegaly Respiratory exam: PRESENT: clear to auscultation nirmal. ABSENT: rales, rhonchi, wheezes Cardiovascular exam: PRESENT: RRR. ABSENT: diastolic murmur, rubs, systolic murmur Pulses: PRESENT: normal dorsalis pedis pul Vascular exam: PRESENT: normal capillary refill GI/Abdominal exam: PRESENT: normal bowel sounds, soft. ABSENT: distended, guarding, mass, organolmegaly, rebound, tenderness Rectal exam: PRESENT: deferred Extremities exam: PRESENT: full ROM. ABSENT: calf tenderness, clubbing, pedal edema Neurological exam: PRESENT: alert, awake, oriented to person, oriented to place, oriented to situation, CN II-XII grossly intact. ABSENT: motor sensory deficit Psychiatric exam: PRESENT: appropriate affect, normal mood. ABSENT: homicidal ideation, suicidal ideation Skin exam: PRESENT: dry, intact, warm. ABSENT: cyanosis, rash Results Laboratory Results: 04/25/20 17:10 04/25/20 17:10 04/25/20 04/25/20 04/25/20 17:10 17:10 20:22 WBC 8.2 RBC 2.52 L Hgb 8.0 L Hct 23.9 L MCV 95 MCH 31.7 MCHC 33.5 RDW 14.9 H Plt Count 140 L Seg Neutrophils % 81.0 H Carbonic Acid HCO3/H2CO3 Ratio ABG pH ABG pCO2 ABG pO2 ABG HCO3 ABG O2 Saturation ABG Base Excess FiO2 Sodium 135.2 L Potassium 2.8 L* Chloride 104 Carbon Dioxide 20 L Anion Gap 11 BUN 23 H Creatinine 3.21 H Est GFR ( Amer) 17 L Glucose 184 H Lactic Acid 0.8 Calcium 8.0 L Total Bilirubin 0.3 AST 12 L Alkaline Phosphatase 68 Total Protein 5.0 L Albumin 3.0 L Urine Color Urine Appearance Urine pH Ur Specific [place] Urine Protein Urine Glucose (UA) Urine Ketones Urine Blood Urine Nitrite Ur Leukocyte Esterase Urine WBC (Auto) Urine RBC (Auto) 04/25/20 04/25/20 20:22 20:51 WBC RBC Hgb Hct MCV MCH MCHC RDW Plt Count Seg Neutrophils % Carbonic Acid 1.07 HCO3/H2CO3 Ratio 21:1 ABG pH 7.43 ABG pCO2 35.5 ABG pO2 80.6 ABG HCO3 22.9 ABG O2 Saturation 96.2 ABG Base Excess -1.3 FiO2 ROOM AIR Sodium Potassium Chloride Carbon Dioxide Anion Gap BUN Creatinine Est GFR ( Amer) Glucose Lactic Acid Calcium Total Bilirubin AST Alkaline Phosphatase Total Protein Albumin Urine Color YELLOW Urine Appearance SLIGHTLY-CLOUDY Urine pH 6.0 Ur Specific [place] 1.006 Urine Protein 30 H Urine Glucose (UA) NEGATIVE Urine Ketones NEGATIVE Urine Blood SMALL H Urine Nitrite NEGATIVE Ur Leukocyte Esterase LARGE H Urine WBC (Auto) 37 Urine RBC (Auto) 17 04/25/20 04/25/20 17:10 17:10 Creatine Kinase 29 L CK-MB (CK-2) 0.82 Troponin I < 0.012 Impressions: Brain MRI with MRA 04/25/20 00:00 IMPRESSION: Occlusion of the left middle cerebral artery proximal M2 segment. Chest X-Ray 04/25/20 00:00 IMPRESSION: NO ACUTE RADIOGRAPHIC FINDING IN THE CHEST. Head CT 04/25/20 18:44 IMPRESSION: Microvascular ischemia with an old right parietal infarction. Findings as described. No acute findings. EVIDENCE OF ACUTE STROKE: NO. Plan Time Spent: Greater than 30 Minutes - With the history of the left middle cerebral artery occlusion with a history of the previous stroke with end-stage renal disease transported the patient is to the tertiary center for further evaluations
--- NOTE | 2020-04-25 23:50 | PDOC H&P ---
History of Present Illness Admission Date/PCP: 04/25/20 21:37 MAU TORRES MD Patient complains of: Confusions altered mental status History of Present Illness: ELIN JIMÉNEZ is a 65 year old female Is a 65-year-old female with a history of end-stage renal disease on hemodialysis history of hypertension history of the previous stroke history of the hyperlipidemia went to the dialysis around 11:00 today and finished the dialysis after 3 hours around 4:00 patient getting more confused brought to the emergency department In the ER patient have initial work-up including the blood work and also CT of the head chest x-ray all negative Patient's otherwise denied any other symptoms except little confusions per ER physician initially Patient's at this point also complained of some dizziness and slight headache but no weakness no chest pain no short of breath ER physicians call me around 8:00 to admit the patient's order the MRI and MRA of the head MRa of the head so the left MCA occlusion patient unfortunately not able to finish the MRI of the head When I saw the patient on the floor patient is alert awake oriented only complaining of a headache and dizziness Past Medical History Cardiac Medical History: Reports: Congestive Heart Failure, Coronary Artery Disease - hyperlipedemia, Hyperlipidema, Hypertension Denies: Myocardial Infarction Pulmonary Medical History: Reports: Chronic Obstructive Pulmonary Disease (COPD), Pneumonia - 2006 Denies: Asthma, Bronchitis Neurological Medical History: Reports: Ischemic CVA Denies: Seizures Musculoskeltal Medical History: Denies: Arthritis Hematology: Denies: Anemia Past Surgical History Past Surgical History: Reports: Hysterectomy Social History Information Source: Patient Lives with: Family Smoking Status: Former Smoker Electronic Cigarette use?: No Frequency of Alcohol Use: None Hx Recreational Drug Use: No Drugs: None Hx Prescription Drug Abuse: No - Advance Directive Resuscitation Status: Full Code Family History Family History: Reviewed & Not Pertinent Parental Family History Reviewed: Yes Children Family History Reviewed: Yes Sibling(s) Family History Reviewed.: Yes Medication/Allergy Home Medications: Allopurinol 100 mg PO DAILY 11/23/13 Simvastatin 20 mg PO DAILY 11/23/13 Amlodipine Besylate [Norvasc 5 mg Tablet] 5 mg PO DAILY #30 tablet 05/06/15 Albuterol Sulfate [Proair HFA] 2 puff IH Q6HP PRN 12/22/15 Cetirizine HCl [Zyrtec 10 mg Tablet] 10 mg PO DAILY 11/05/18 Fluticasone/Salmeterol [Advair 500-50 Diskus 14 Dose/Diskus] 1 inh IH Q12 11/05/18 Levothyroxine Sodium [Synthroid 0.15 mg Tablet] 0.15 mg PO Q6AM 11/05/18 Calcium Acetate [Phoslo 667 mg Capsule] 667 mg PO MEALS #60 capsule 11/23/18 Magnesium Oxide [Mag-Ox 400 mg Tablet] 800 mg PO BID #60 tablet 11/23/18 Midodrine HCl [Proamatine 5 mg Tablet] 5 mg PO TID #90 tablet 11/23/18 Allergies/Adverse Reactions: cephalexin [From Keflex] Allergy (Verified 11/05/18 18:06) codeine [Codeine] Allergy (Verified 02/13/15 12:25) Review of Systems Constitutional: ABSENT: chills, fever(s), headache(s), weight gain, weight loss Eyes: ABSENT: visual disturbances Ears: ABSENT: hearing changes Cardiovascular: ABSENT: chest pain, dyspnea on exertion, edema, orthropnea, palpitations Respiratory: ABSENT: cough, hemoptysis Gastrointestinal: ABSENT: abdominal pain, constipation, diarrhea, hematemesis, hematochezia, nausea, vomiting Genitourinary: ABSENT: dysuria, hematuria Musculoskeletal: ABSENT: joint swelling Integumentary: ABSENT: rash, wounds Neurological: PRESENT: dizziness. ABSENT: abnormal gait, abnormal speech, confusion, focal weakness, syncope Psychiatric: ABSENT: anxiety, depression, homidical ideation, suicidal ideation Endocrine: ABSENT: cold intolerance, heat intolerance, menstrual abnormalities, polydipsia, polyuria Hematologic/Lymphatic: ABSENT: easy bleeding, easy bruising, lymphadenopathy Physical Exam Vital Signs: Temp Pulse Resp BP Pulse Ox 97.6 F 77 16 97/64 L 99 04/25/20 23:08 04/25/20 23:08 04/25/20 23:08 04/25/20 23:08 04/25/20 23:08 Intake & Output 04/24/20 04/25/20 04/26/20 06:59 06:59 06:59 Weight 86.3 kg General appearance: PRESENT: no acute distress, well-developed, well-nourished Head exam: PRESENT: atraumatic, normocephalic Eye exam: PRESENT: conjunctiva pink, EOMI, PERRLA. ABSENT: scleral icterus Ear exam: PRESENT: normal external ear exam Mouth exam: PRESENT: moist, tongue midline Neck exam: PRESENT: full ROM. ABSENT: carotid bruit, JVD, lymphadenopathy, thyromegaly Respiratory exam: PRESENT: clear to auscultation nirmal Cardiovascular exam: PRESENT: RRR. ABSENT: diastolic murmur, rubs, systolic murmur Pulses: PRESENT: normal dorsalis pedis pul, +2 pedal pulses bilateral Vascular exam: PRESENT: normal capillary refill GI/Abdominal exam: PRESENT: normal bowel sounds, soft. ABSENT: distended, guarding, mass, organolmegaly, rebound, tenderness Rectal exam: PRESENT: deferred Neurological exam: PRESENT: alert, awake, oriented to person, oriented to place, oriented to time, oriented to situation, CN II-XII grossly intact. ABSENT: motor sensory deficit Psychiatric exam: PRESENT: appropriate affect, normal mood. ABSENT: homicidal ideation, suicidal ideation Skin exam: PRESENT: dry, intact, warm. ABSENT: cyanosis, rash Results Laboratory Results: 04/25/20 17:10 04/25/20 17:10 04/25/20 04/25/20 04/25/20 17:10 17:10 20:22 WBC 8.2 RBC 2.52 L Hgb 8.0 L Hct 23.9 L MCV 95 MCH 31.7 MCHC 33.5 RDW 14.9 H Plt Count 140 L Seg Neutrophils % 81.0 H Carbonic Acid HCO3/H2CO3 Ratio ABG pH ABG pCO2 ABG pO2 ABG HCO3 ABG O2 Saturation ABG Base Excess FiO2 Sodium 135.2 L Potassium 2.8 L* Chloride 104 Carbon Dioxide 20 L Anion Gap 11 BUN 23 H Creatinine 3.21 H Est GFR ( Amer) 17 L Glucose 184 H Lactic Acid 0.8 Calcium 8.0 L Total Bilirubin 0.3 AST 12 L Alkaline Phosphatase 68 Total Protein 5.0 L Albumin 3.0 L Urine Color Urine Appearance Urine pH Ur Specific [place] Urine Protein Urine Glucose (UA) Urine Ketones Urine Blood Urine Nitrite Ur Leukocyte Esterase Urine WBC (Auto) Urine RBC (Auto) 04/25/20 04/25/20 20:22 20:51 WBC RBC Hgb Hct MCV MCH MCHC RDW Plt Count Seg Neutrophils % Carbonic Acid 1.07 HCO3/H2CO3 Ratio 21:1 ABG pH 7.43 ABG pCO2 35.5 ABG pO2 80.6 ABG HCO3 22.9 ABG O2 Saturation 96.2 ABG Base Excess -1.3 FiO2 ROOM AIR Sodium Potassium Chloride Carbon Dioxide Anion Gap BUN Creatinine Est GFR ( Amer) Glucose Lactic Acid Calcium Total Bilirubin AST Alkaline Phosphatase Total Protein Albumin Urine Color YELLOW Urine Appearance SLIGHTLY-CLOUDY Urine pH 6.0 Ur Specific [place] 1.006 Urine Protein 30 H Urine Glucose (UA) NEGATIVE Urine Ketones NEGATIVE Urine Blood SMALL H Urine Nitrite NEGATIVE Ur Leukocyte Esterase LARGE H Urine WBC (Auto) 37 Urine RBC (Auto) 17 04/25/20 04/25/20 17:10 17:10 Creatine Kinase 29 L CK-MB (CK-2) 0.82 Troponin I < 0.012 Impressions: Brain MRI with MRA 04/25/20 00:00 IMPRESSION: Occlusion of the left middle cerebral artery proximal M2 segment. Chest X-Ray 04/25/20 00:00 IMPRESSION: NO ACUTE RADIOGRAPHIC FINDING IN THE CHEST. Head CT 04/25/20 18:44 IMPRESSION: Microvascular ischemia with an old right parietal infarction. Findings as described. No acute findings. EVIDENCE OF ACUTE STROKE: NO. Assessment & Plan - Diagnosis (1) Occlusion of left middle cerebral artery Is this a current diagnosis for this admission?: Yes Plan: We will call the tertiary [facility] discussed with the neuro service waiting for the reply Continues on the stroke protocol aspirin statin (2) Altered mental status Qualifiers: Altered mental status type: unspecified Qualified Code(s): R41.82 - Altered mental status, unspecified Is this a current diagnosis for this admission?: Yes Plan: Most likely due to the possible stroke will continue on the stroke protocol (3) Anemia in chronic kidney disease (CKD) Is this a current diagnosis for this admission?: Yes Plan: Follow-up with the nephrology (4) End stage renal disease on dialysis Is this a current diagnosis for this admission?: Yes Plan: on hemodialysis (5) Hypokalemia Is this a current diagnosis for this admission?: Yes Plan: Replace the potassiums (6) Stroke Qualifiers: CVA mechanism: unspecified Qualified Code(s): I63.9 - Cerebral infarction, unspecified Is this a current diagnosis for this admission?: Yes Plan: Patient's MRI of the head is still pending Will wait for the neuro service at [facility] - Time Time Spent: 50 to 70 Minutes Critical Time spent with patient: 35 or more minutes Medications reviewed and adjusted accordingly: Yes Anticipated discharge: Home Within: Other - Inpatient Certification Based on my medical assessment, after consideration of the patient's comorbidities, presenting symptoms, or acuity I expect that the services needed warrant INPATIENT care.: Yes I certify that my determination is in accordance with my understanding of Medicare's requirements for reasonable and necessary INPATIENT services [42 CFR 412.3e].: Yes Medical Necessity: Significant Comorbidiites Make Outpatient Treatment Too Risky, Need Close Monitoring Due to Risk of Patient Decompensation, Need for Nebulizer Therapy and Monitoring of Response, Need for Neurological Checks Post Hospital Care: D/C Environmental Safety Specialist Documentation - Plan Summary Plan Summary: Admit the patient in IMCU already discussed the neuro at [facility] waiting for the reply send all MRI pictures patient's current NIH scale is 4
[2020-04-26] MEDS ORDERED: ASPIRIN 325 MG TABLET PO SCH (00:15)
[2020-04-26] MEDS ORDERED: ASPIRIN 81 MG TABLET, CHEWABLE PO ONE (00:45)
[2020-04-26] MEDS: HEPARIN SOD (PORCINE) 5,000 UNIT/ML 1 ML VIAL SUBCUT SCH ×4 (00:47→21:56)
[2020-04-26 05:15] LABS: ABSOLUTE EOSINOPHILS # (AUTO) 0.1 10^3/uL (0.0-0.6); ABSOLUTE LYMPHOCYTES (AUTO) 1.4 10^3/uL (0.5-4.7); ABSOLUTE MONOCYTES (AUTO) 0.6 10^3/uL (0.1-1.4); ABSOLUTE NEUT (AUTO) 5.5 10^3/uL (1.7-8.2); BASOPHILS % (AUTO) 0.2 % (0-2); EOSINOPHILS % (AUTO) 1.3 % (0-6); HEMATOCRIT 23.8 % (36.0-47.0); HEMOGLOBIN 8.1 g/dL (12.0-15.5); LYMPHOCYTES % (AUTO) 18.3 % (13-45); MEAN CORPUSCULAR HEMOGLOBIN 32.1 pg (27.0-33.4); MEAN CORPUSCULAR HGB CONC 34.2 g/dL (32.0-36.0); MEAN CORPUSCULAR VOLUME 94 fl (80-97); MONOCYTES % (AUTO) 8.2 % (3-13); PLATELET COUNT 145 10^3/uL (150-450); RED BLOOD COUNT 2.53 10^6/uL (3.72-5.28); RED CELL DISTRIBUTION WIDTH 15.4 % (11.5-14.0); TOTAL CELLS COUNTED % (AUTO) 100 %; WHITE BLOOD COUNT 7.7 10^3/uL (4.0-10.5)
[2020-04-26 05:39] LABS: ANION GAP 7 (5-19); BLOOD UREA NITROGEN 34 mg/dL (7-20); CALCIUM 8.4 mg/dL (8.4-10.2); CARBON DIOXIDE 23 mmol/L (22-30); CHLORIDE 108 mmol/L (98-107); CHOLESTEROL 104.06 mg/dL (0-200); GLUCOSE 100 mg/dL (75-110); TRIGLYCERIDES 72 mg/dL (<150)
[2020-04-26 05:49] LABS: DIRECT LDL 59 mg/dL (<100)
[2020-04-26 07:08] LABS: POTASSIUM 3.8 mmol/L (3.6-5.0)
[2020-04-26 08:43] LABS: ABSOLUTE RETICS # 0.052 10^6/uL (0.028-0.122); RETICULOCYTE COUNT (AUTO) 2.01 % (0.66-2.85)
[2020-04-26 09:00] LABS: IRON(TIBC) 83.6 ug/dL (37-170)
[2020-04-26] MEDS ORDERED: LORAZEPAM INJ 2 MG/1 ML VIAL IV ONE (09:30)
[2020-04-26] MEDS: CLOPIDOGREL BISULFATE 75 MG TABLET PO SCH (09:31)
[2020-04-26] MEDS: ASPIRIN 81 MG TABLET, CHEWABLE PO SCH (09:31)
[2020-04-26] MEDS ORDERED: (PENDING PHARMACY ID) (Albuterol Sulfate 2 PUFF) IH PRN (09:59)
[2020-04-26] MEDS ORDERED: ALBUTEROL SULFATE HFA (90 MCG/PUFF) 200 PUFF/8.5 GM MDI IH PRN (10:04)
[2020-04-26 10:15] LABS: FOLATE 5.09 ng/mL (>2.76)
[2020-04-26] MEDS: ALLOPURINOL 100 MG TABLET PO SCH (10:51)
[2020-04-26] MEDS: MIDODRINE HCL 5 MG TABLET PO SCH ×3 (10:51→17:02)
[2020-04-26] MEDS: CETIRIZINE 10 MG TABLET PO SCH (10:51)
[2020-04-26] MEDS ORDERED: EPOETIN ALFA-EPBX 10,000 UNIT/ML VIAL (RENAL) SUBCUT SCH (12:00)
--- NOTE | 2020-04-26 12:05 | PDOC PROGRESS REPORT ---
Subjective Progress Note for:: 04/26/20 Subjective:: Patient is currently doing fair except complaining some mild headache As per discussed with the neurology [facility] yesterday suggest no need to transfer the patient's most likely occlusion is considered old and follow outpatient and suggest to continues to aspirin Plavix and statin Patient's denied any chest pain no short of breath no weakness Patient is scheduled for the MRI of the head today Reason For Visit: ALTERED MENTAL STATUS Physical Exam Vital Signs: Temp Pulse Resp BP Pulse Ox 98.1 F 66 18 93/69 L 100 04/26/20 10:47 04/26/20 10:47 04/26/20 10:47 04/26/20 10:47 04/26/20 10:47 Intake & Output 04/25/20 04/26/20 04/27/20 06:59 06:59 06:59 Intake Total 360 970 Balance 360 970 Weight 91.9 kg General appearance: PRESENT: no acute distress, well-developed, well-nourished Head exam: PRESENT: atraumatic, normocephalic Eye exam: PRESENT: conjunctiva pink, EOMI, PERRLA. ABSENT: scleral icterus Ear exam: PRESENT: normal external ear exam Mouth exam: PRESENT: moist, tongue midline Neck exam: PRESENT: full ROM. ABSENT: carotid bruit, JVD, lymphadenopathy, thyromegaly Respiratory exam: PRESENT: clear to auscultation nirmal Cardiovascular exam: PRESENT: RRR. ABSENT: diastolic murmur, rubs, systolic murmur Pulses: PRESENT: normal dorsalis pedis pul, +2 pedal pulses bilateral Vascular exam: PRESENT: normal capillary refill GI/Abdominal exam: PRESENT: normal bowel sounds, soft. ABSENT: distended, guarding, mass, organolmegaly, rebound, tenderness Rectal exam: PRESENT: deferred Neurological exam: PRESENT: alert, awake, oriented to person, oriented to place, oriented to time, oriented to situation, CN II-XII grossly intact. ABSENT: motor sensory deficit Psychiatric exam: PRESENT: appropriate affect, normal mood. ABSENT: homicidal ideation, suicidal ideation Skin exam: PRESENT: dry, intact, warm. ABSENT: cyanosis, rash Results Laboratory Results: 04/26/20 04:55 04/26/20 04:55 04/25/20 04/25/20 04/25/20 17:10 17:10 20:22 WBC 8.2 RBC 2.52 L Hgb 8.0 L Hct 23.9 L MCV 95 MCH 31.7 MCHC 33.5 RDW 14.9 H Plt Count 140 L Seg Neutrophils % 81.0 H Retic Count (auto) Carbonic Acid HCO3/H2CO3 Ratio ABG pH ABG pCO2 ABG pO2 ABG HCO3 ABG O2 Saturation ABG Base Excess FiO2 Sodium 135.2 L Potassium 2.8 L* Chloride 104 Carbon Dioxide 20 L Anion Gap 11 BUN 23 H Creatinine 3.21 H Est GFR ( Amer) 17 L Glucose 184 H Lactic Acid 0.8 Calcium 8.0 L Phosphorus Iron TIBC % Saturation Transferrin Ferritin Total Bilirubin 0.3 AST 12 L Alkaline Phosphatase 68 Total Protein 5.0 L Albumin 3.0 L Triglycerides Cholesterol LDL Cholesterol Direct VLDL Cholesterol HDL Cholesterol Vitamin B12 Folate PTH Intact Urine Color Urine Appearance Urine pH Ur Specific [place] Urine Protein Urine Glucose (UA) Urine Ketones Urine Blood Urine Nitrite Ur Leukocyte Esterase Urine WBC (Auto) Urine RBC (Auto) 04/25/20 04/25/20 04/26/20 20:22 20:51 04:55 WBC 7.7 RBC 2.53 L Hgb 8.1 L Hct 23.8 L MCV 94 MCH 32.1 MCHC 34.2 RDW 15.4 H Plt Count 145 L Seg Neutrophils % 72.0 Retic Count (auto) Carbonic Acid 1.07 HCO3/H2CO3 Ratio 21:1 ABG pH 7.43 ABG pCO2 35.5 ABG pO2 80.6 ABG HCO3 22.9 ABG O2 Saturation 96.2 ABG Base Excess -1.3 FiO2 ROOM AIR Sodium Potassium Chloride Carbon Dioxide Anion Gap BUN Creatinine Est GFR ( Amer) Glucose Lactic Acid Calcium Phosphorus Iron TIBC % Saturation Transferrin Ferritin Total Bilirubin AST Alkaline Phosphatase Total Protein Albumin Triglycerides Cholesterol LDL Cholesterol Direct VLDL Cholesterol HDL Cholesterol Vitamin B12 Folate PTH Intact Urine Color YELLOW Urine Appearance SLIGHTLY-CLOUDY Urine pH 6.0 Ur Specific [place] 1.006 Urine Protein 30 H Urine Glucose (UA) NEGATIVE Urine Ketones NEGATIVE Urine Blood SMALL H Urine Nitrite NEGATIVE Ur Leukocyte Esterase LARGE H Urine WBC (Auto) 37 Urine RBC (Auto) 17 04/26/20 04/26/20 04/26/20 04:55 04:55 04:55 WBC RBC Hgb Hct MCV MCH MCHC RDW Plt Count Seg Neutrophils % Retic Count (auto) 2.01 Carbonic Acid HCO3/H2CO3 Ratio ABG pH ABG pCO2 ABG pO2 ABG HCO3 ABG O2 Saturation ABG Base Excess FiO2 Sodium 138.4 Potassium 3.8 D Chloride 108 H Carbon Dioxide 23 Anion Gap 7 BUN 34 H Creatinine 4.33 H Est GFR ( Amer) 12 L Glucose 100 Lactic Acid Calcium 8.4 Phosphorus Iron 83.6 TIBC 191 L % Saturation 44 Transferrin Ferritin 439.00 H Total Bilirubin AST Alkaline Phosphatase Total Protein Albumin Triglycerides 72 Cholesterol 104.06 LDL Cholesterol Direct 59 VLDL Cholesterol 14.0 HDL Cholesterol 36 L Vitamin B12 266.0 Folate 5.09 PTH Intact Urine Color Urine Appearance Urine pH Ur Specific [place] Urine Protein Urine Glucose (UA) Urine Ketones Urine Blood Urine Nitrite Ur Leukocyte Esterase Urine WBC (Auto) Urine RBC (Auto) 04/26/20 04/26/20 04/26/20 04:55 11:15 11:15 WBC RBC Hgb Hct MCV MCH MCHC RDW Plt Count Seg Neutrophils % Retic Count (auto) Carbonic Acid HCO3/H2CO3 Ratio ABG pH ABG pCO2 ABG pO2 ABG HCO3 ABG O2 Saturation ABG Base Excess FiO2 Sodium Potassium Chloride Carbon Dioxide Anion Gap BUN Creatinine Est GFR ( Amer) Glucose Lactic Acid Calcium Phosphorus 2.7 Iron TIBC % Saturation Transferrin 124.42 L Ferritin Total Bilirubin AST Alkaline Phosphatase Total Protein Albumin Triglycerides Cholesterol LDL Cholesterol Direct VLDL Cholesterol HDL Cholesterol Vitamin B12 Folate PTH Intact 518.5 H Urine Color Urine Appearance Urine pH Ur Specific [place] Urine Protein Urine Glucose (UA) Urine Ketones Urine Blood Urine Nitrite Ur Leukocyte Esterase Urine WBC (Auto) Urine RBC (Auto) 04/25/20 04/25/20 17:10 17:10 Creatine Kinase 29 L CK-MB (CK-2) 0.82 Troponin I < 0.012 Impressions: Brain MRI with MRA 04/25/20 00:00 IMPRESSION: Occlusion of the left middle cerebral artery proximal M2 segment. Chest X-Ray 04/25/20 00:00 IMPRESSION: NO ACUTE RADIOGRAPHIC FINDING IN THE CHEST. Head CT 04/25/20 18:44 IMPRESSION: Microvascular ischemia with an old right parietal infarction. Findings as described. No acute findings. EVIDENCE OF ACUTE STROKE: NO. Assessment & Plan - Diagnosis (1) Occlusion of left middle cerebral artery Is this a current diagnosis for this admission?: Yes Plan: As per the neurologist continues aspirin Plavix and statin No need for any acute interventions right now (2) Altered mental status Qualifiers: Altered mental status type: unspecified Qualified Code(s): R41.82 - Altered mental status, unspecified Is this a current diagnosis for this admission?: Yes Plan: Most likely due to the above conditions with a stroke currently all improving (3) Anemia in chronic kidney disease (CKD) Is this a current diagnosis for this admission?: Yes Plan: Patient's primary need a Procrit injections will get the iron studies follow-up with the nephrology (4) End stage renal disease on dialysis Is this a current diagnosis for this admission?: Yes Plan: Follow-up with the nephrology (5) Hypokalemia Is this a current diagnosis for this admission?: Yes Plan: Currently all resolved (6) Stroke Qualifiers: CVA mechanism: unspecified Qualified Code(s): I63.9 - Cerebral infarction, unspecified Is this a current diagnosis for this admission?: Yes Plan: Continues to aspirin Plavix and a statin and a stroke protocol we will get the MRI of the head echocardiogram and carotid Doppler Discussed with the neurologist suggest to follow outpatient - Time Time Spent with patient: 25-34 minutes Level of Care: IMCU Medications reviewed and adjusted accordingly: Yes Anticipated discharge: Home with Homehealth Within: within 24 hours - Plan Summary Plan Summary: If the patient all work-up is negative remained stable hopefully discharge in next 24 hours follow outpatients neurology
--- NOTE | 2020-04-26 12:32 | EKG REPORT ---
SEVERITY:- ABNORMAL ECG - SINUS RHYTHM LEFT ANTERIOR FASCICULAR BLOCK BORDERLINE R WAVE PROGRESSION, ANTERIOR LEADS NONSPECIFIC T ABNORMALITIES, LATERAL LEADS : Confirmed by: Wu Valdez 26-Apr-2020 12:32:30
--- NOTE | 2020-04-26 12:33 | EKG REPORT ---
SEVERITY:- ABNORMAL ECG - SINUS RHYTHM R AND L ARM REVERSAL, REPEAT EKG ABNRM R PROG, CONSIDER ASMI OR LEAD PLACEMENT NONSPECIFIC T ABNORMALITIES, LATERAL LEADS : Confirmed by: Wu Valdez 26-Apr-2020 12:33:34
--- NOTE | 2020-04-26 12:48 | RADIOLOGY REPORT (SQ) ---
EXAM DESCRIPTION: MRI HEAD WITHOUT IMAGES COMPLETED DATE/TIME: 04/26/2020 11:58 am REASON FOR STUDY: ans COMPARISON: MRA head from 1 day previously. 2018 MRI brain. TECHNIQUE: Multiplanar imaging includes non-contrasted T1, T2, FLAIR, and diffusion with ADC map seq uences. Images stored on PACS. LIMITATIONS: Some sequences are moderately limited by motion. FINDINGS: ANATOMY: No anomalies. Normal vascular flow voids. Pituitary fossa normal. CSF SPACES: Mild prominence, age related parenchymal atrophy. CEREBRUM: FLAIR sequences show moderate bilateral white matter changes consistent with small vessel v asculopathy. Old right frontal and right parietal areas of focal encephalomalacia consistent with ol d infarcts. POSTERIOR FOSSA: Bilateral mastoid effusions. DIFFUSION IMAGING: Negative for acute or sub-acute infarction. ORBITS: No masses. Globes normal. PARANASAL SINUSES: No fluid levels. Mucosa normal. OTHER: No other significant finding. IMPRESSION: 1. Chronic changes in the brain. Small vessel disease and old infarcts. 2. No acute CVA appreciated. EVIDENCE OF ACUTE STROKE: NO. TECHNICAL DOCUMENTATION: JOB ID: [id number] 2010 [employer]- All Rights Reserved Reading location - IP/workstation name: [email or web address]
[2020-04-26] MEDS: FLUTICASONE NASAL SPRAY 50 MCG/SPRY 120 SPRAY/16 GM NASL SCH (13:17)
--- NOTE | 2020-04-26 15:54 | PDOC CONSULTATION ---
Consultation Consult Date: 04/26/20 Provider Consulted: YOVANI FRY Consult reason:: ESRD History of Present Illness Admission Date/PCP: 04/25/20 21:37 MAU ANDRADE MD History of Present Illness: ELIN JIMÉNEZ is a 65 year old female known to me with history of end-stage renal disease on maintenance hemodialysis, coronary artery disease, history of congestive heart failure, hyperlipidemia, hypertension, COPD and previous CVA who presented last night to the emergency room because of altered mental status. Upon presentation the patient was hypotensive with blood pressure as low as 92/ 61. She was reportedly confused. Initial work-up showed a head CT showing microvascular ischemia and an old parietal infarct. A chest x-ray was negative for any acute cardiopulmonary changes. A brain MRI was started but was not completed with a brain MRA showing occlusion of the left MCA artery. There was an attempt to transfer the patient due to this MRA findings but she is just not deemed to be qualified for transfer. Patient also presented with hypokalemia with potassium of 2.8 postdialysis yesterday. I advised the emergency room provider to replace the potassium in the emergency room. This morning when I saw the patient she related that yesterday after dialysis while at home she felt dizzy and fell on her buttocks. She was then brought to the emergency room. She appears to be at normal baseline mental status to me this morning. The only complaint she has is some headache. She is supposed to do and complete the brain MRI today ordered by Dr. Andrade. She admits that yeste rday she might be a little slightly disoriented but today she is fine. She denies any problem with swallowing no problem with speech. She denies any localized weakness. She denies any nausea, vomiting, diarrhea, cough, abdominal pain, fever no recent travel. In terms of dialysis patient was dialyzed yesterday for 3 hours short of for prescribed treatment of 3 and half hours. There was no ultrafiltration but was obtained as the patient came in under her dry weight. She has been very noncompliant with her dialysis treatment. Note that prior to her dialysis yesterday her last dialysis was on March 23 and in February she only had 2 treatments on February 21 and March 19. Patient states that she is still makes urine. I was trying to make her do a 24-hour urine creatinine clearance for the last few months to determine if she can come off dialysis since she seems to be surviving without her regular scheduled dialysis treatment but unfortunately the patient has not been able to do it. This morning she appears to be fine and does not appear to be short of breath. Again she appears to be at her baseline mental and clinical condition based on what I have known her for. Past Medical History Cardiac Medical History: Reports: CHF-Diastolic, CHF-Systolic, Coronary Artery Disease - hyperlipedemia, Hyperlipidemia, Hypertension-primary Pulmonary Medical History: Reports: Chronic Obstructive Pulmonary Disease (COPD), Pneumonia - 2006 Neurological Medical History: Reports: Ischemic CVA Renal/ Medical History: Reports: End Stage Renal Disease Hematology Medical History: Reports Anemia of Chronic Kidney Disease Past Surgical History Past Surgical History: Reports: Hysterectomy, Vascular Surgery - Central venous catheter placement for dialysis use Social History Information Source: Patient, [facility] Lives with: Family Smoking Status: Former Smoker Electronic Cigarette use?: No Frequency of Alcohol Use: None Hx Recreational Drug Use: No Drugs: None Hx Prescription Drug Abuse: No - Advance Directive Resuscitation Status: Full Code Family History Family History: Reviewed & Not Pertinent Parental Family History Reviewed: Yes Children Family History Reviewed: Yes Sibling(s) Family History Reviewed.: Yes Medication/Allergy Home Medications: Albuterol Sulfate [Proair HFA Inhalation Aerosol 8.5 gm MDI] 2 puff IH Q6HP PRN 04/26/20 Allopurinol [Zyloprim 100 mg Tablet] 100 mg PO DAILY 04/26/20 Alprazolam [Xanax 0.25 mg Tablet] 0.25 mg PO MOWEFR@1000 04/26/20 Cetirizine HCl [Zyrtec 10 mg Tablet] 10 mg PO DAILY 04/26/20 Fluticasone Propionate [Flonase Nasal [place] 50 Mcg/[place] 16 gm] 2 puff NASL DAILY 04/26/20 Levothyroxine Sodium [Synthroid] 175 mcg PO Q6AM 04/26/20 Midodrine HCl [Proamatine 5 mg Tablet] 5 mg PO TID 04/26/20 Simvastatin [Zocor 10 mg Tablet] 20 mg PO QHS 04/26/20 Allergies/Adverse Reactions: cephalexin [From Keflex] Allergy (Verified 11/05/18 18:06) codeine [Codeine] Allergy (Verified 02/13/15 12:25) Review of Systems All systems: reviewed and no additional remarkable complaints except as stated Review of Systems: Constitutional: ABSENT: chills, fatigue, fever(s), weight gain, weight loss; complains of headache Eyes: ABSENT: visual disturbances Ears: ABSENT: hearing changes Cardiovascular: ABSENT: chest pain, dyspnea on exertion, edema, orthropnea, p alpitations Respiratory: ABSENT: cough, dyspnea, hemoptysis Gastrointestinal: ABSENT: abdominal pain, constipation, diarrhea, hematemesis, hematochezia, nausea, vomiting Genitourinary: ABSENT: dysuria, hematuria Musculoskeletal: ABSENT: joint swelling Integumentary: ABSENT: rash, wounds Neurological: ABSENT: abnormal gait, abnormal speech, focal weakness, numbness, syncope; admits dizziness and some confusion yesterday Psychiatric: ABSENT: anxiety, depression Endocrine: ABSENT: cold intolerance, heat intolerance, polydipsia, polyuria Hematologic/Lymphatic: ABSENT: easy bleeding, easy bruising, lymphadenopathy Physical Exam Vital Signs: Temp Pulse Resp BP Pulse Ox 98.1 F 72 18 100/49 L 100 04/26/20 06:51 04/26/20 07:56 04/26/20 07:56 04/26/20 07:56 04/26/20 07:56 Intake & Output 04/25/20 04/26/20 04/27/20 06:59 06:59 06:59 Intake Total 360 Balance 360 Weight 91.9 kg Exam: General appearance: No acute distress, cooperative, well-developed, well-nou rished Head exam: PRESENT: atraumatic, normocephalic Eye exam: PRESENT: Conjunctiva pale, EOMI, PERRLA. ABSENT: conjunctival injection, scleral icterus Mouth exam: PRESENT: moist, neck supple, tongue midline Neck exam: PRESENT: full ROM. ABSENT: carotid bruit, JVD, lymphadenopathy, thyromegaly Respiratory exam: PRESENT: clear to auscultation bilaterally. PermCath in the right upper chest. ABSENT: rales, rhonchi, stridor, wheezes Cardiovascular exam: PRESENT: RRR, +S1, +S2. ABSENT: systolic murmur Pulses: PRESENT: normal radial pulses, normal dorsalis pedis pulses GI/Abdominal exam: PRESENT: normal bowel sounds, soft. ABSENT: guarding, mass, tenderness Rectal exam: Deferred Extremities exam: PRESENT: full ROM. ABSENT: calf tenderness, pedal edema Musculoskeletal: PRESENT: full ROM. ABSENT: deformity Neurological exam: PRESENT: alert, Awake, Oriented to person, Oriented to place, Oriented to time, reflexes normal, CN II-XII grossly intact. ABSENT: motor sensory deficit Psychiatric exam: PRESENT: appropriate affect, normal mood. ABSENT: homicidal ideation, suicidal ideation Skin exam: PRESENT: intact, dry, warm. ABSENT: rash Results Laboratory Results: 04/26/20 04:55 04/26/20 04:55 04/25/20 04/25/20 04/25/20 17:10 17:10 20:22 WBC 8.2 RBC 2.52 L Hgb 8.0 L Hct 23.9 L MCV 95 MCH 31.7 MCHC 33.5 RDW 14.9 H Plt Count 140 L Seg Neutrophils % 81.0 H Retic Count (auto) Carbonic Acid HCO3/H2CO3 Ratio ABG pH ABG pCO2 ABG pO2 ABG HCO3 ABG O2 Saturation ABG Base Excess FiO2 Sodium 135.2 L Potassium 2.8 L* Chloride 104 Carbon Dioxide 20 L Anion Gap 11 BUN 23 H Creatinine 3.21 H Est GFR ( Amer) 17 L Glucose 184 H Lactic Acid 0.8 Calcium 8.0 L Total Bilirubin 0.3 AST 12 L Alkaline Phosphatase 68 Total Protein 5.0 L Albumin 3.0 L Triglycerides Cholesterol LDL Cholesterol Direct VLDL Cholesterol HDL Cholesterol Urine Color Urine Appearance Urine pH Ur Specific [place] Urine Protein Urine Glucose (UA) Urine Ketones Urine Blood Urine Nitrite Ur Leukocyte Esterase Urine WBC (Auto) Urine RBC (Auto) 04/25/20 04/25/20 04/26/20 20:22 20:51 04:55 WBC 7.7 RBC 2.53 L Hgb 8.1 L Hct 23.8 L MCV 94 MCH 32.1 MCHC 34.2 RDW 15.4 H Plt Count 145 L Seg Neutrophils % 72.0 Retic Count (auto) Carbonic Acid 1.07 HCO3/H2CO3 Ratio 21:1 ABG pH 7.43 ABG pCO2 35.5 ABG pO2 80.6 ABG HCO3 22.9 ABG O2 Saturation 96.2 ABG Base Excess -1.3 FiO2 ROOM AIR Sodium Potassium Chloride Carbon Dioxide Anion Gap BUN Creatinine Est GFR ( Amer) Glucose Lactic Acid Calcium Total Bilirubin AST Alkaline Phosphatase Total Protein Albumin Triglycerides Cholesterol LDL Cholesterol Direct VLDL Cholesterol HDL Cholesterol Urine Color YELLOW Urine Appearance SLIGHTLY-CLOUDY Urine pH 6.0 Ur Specific [place] 1.006 Urine Protein 30 H Urine Glucose (UA) NEGATIVE Urine Ketones NEGATIVE Urine Blood SMALL H Urine Nitrite NEGATIVE Ur Leukocyte Esterase LARGE H Urine WBC (Auto) 37 Urine RBC (Auto) 17 04/26/20 04/26/20 04:55 04:55 WBC RBC Hgb Hct MCV MCH MCHC RDW Plt Count Seg Neutrophils % Retic Count (auto) 2.01 Carbonic Acid HCO3/H2CO3 Ratio ABG pH ABG pCO2 ABG pO2 ABG HCO3 ABG O2 Saturation ABG Base Excess FiO2 Sodium 138.4 Potassium 3.8 D Chloride 108 H Carbon Dioxide 23 Anion Gap 7 BUN 34 H Creatinine 4.33 H Est GFR ( Amer) 12 L Glucose 100 Lactic Acid Calcium 8.4 Total Bilirubin AST Alkaline Phosphatase Total Protein Albumin Triglycerides 72 Cholesterol 104.06 LDL Cholesterol Direct 59 VLDL Cholesterol 14.0 HDL Cholesterol 36 L Urine Color Urine Appearance Urine pH Ur Specific [place] Urine Protein Urine Glucose (UA) Urine Ketones Urine Blood Urine Nitrite Ur Leukocyte Esterase Urine WBC (Auto) Urine RBC (Auto) 04/25/20 04/25/20 17:10 17:10 Creatine Kinase 29 L CK-MB (CK-2) 0.82 Troponin I < 0.012 Impressions: Brain MRI with MRA 04/25/20 00:00 IMPRESSION: Occlusion of the left middle cerebral artery proximal M2 segment. Chest X-Ray 04/25/20 00:00 IMPRESSION: NO ACUTE RADIOGRAPHIC FINDING IN THE CHEST. Head CT 04/25/20 18:44 IMPRESSION: Microvascular ischemia with an old right parietal infarction. Findings as described. No acute findings. EVIDENCE OF ACUTE STROKE: NO. Assessment & Plan - Diagnosis (1) Altered mental status Qualifiers: Altered mental status type: unspecified Qualified Code(s): R41.82 - Altered mental status, unspecified Is this a current diagnosis for this admission?: Yes Plan: Unclear cause of alteration of mentation yesterday but currently the patient is in her baseline mental state. (2) End stage renal disease on dialysis Is this a current diagnosis for this admission?: Yes Plan: The patient has been on dialysis for a while but she has been very noncompliant and more recently during this COVID-19 pandemic the patient really comes to dialysis treatment as a stated above. Today there is no indication to do dialysis since she just had dialysis yesterday. I actually would like to determine if the patient can be taken off dialysis so I am going to get a 24- hour urine creatinine clearance while she is here in the hospital since it was very difficult for her to do this as an outpatient. Patient agreed to have a Heath catheter inserted and to have a 24-hour urine collected prior to discharge. We will follow-up with 24-hour urine creatinine clearance results and determine from there for the patient can be taken off dialysis as an outpa tient. Meanwhile if the patient remained stable and be discharged over the weekend I will just advised the patient to call come to [facility] [place] [facility] for her regular dialysis treatment schedule. I will follow-up the patient and proceed accordingly depending on the results of her creatinine clearance. I discussed this plan with Dr. Andrade today. (3) Anemia in chronic kidney disease (CKD) Is this a current diagnosis for this admission?: Yes Plan: The patient's iron is 83.6, T sat of 44 and ferritin of 439. I will give the patient Retacrit 20,000 units today. Adding the patient would require Retacrit at least every 1 to 2 weeks even though we are able to discontinue dialysis treatment. (4) Occlusion of left middle cerebral artery Is this a current diagnosis for this admission?: Yes Plan: This is likely to be old as it does not really correlate clinically. (5) Hypokalemia Is this a current diagnosis for this admission?: Yes Plan: Resolved with potassium replacement. (6) Hypotension Is this a current diagnosis for this admission?: Yes Plan: Currently improved. - Notes Notes: Thank you very much for this consultation. Discussed with Dr. Andrade. - Time Time Spent: 50 to 70 Minutes
--- NOTE | 2020-04-26 16:45 | RADIOLOGY REPORT (SQ) ---
EXAM DESCRIPTION: CAROTID DOPPLER IMAGES COMPLETED DATE/TIME: 04/26/2020 4:02 pm REASON FOR STUDY: cva COMPARISON: 2018 TECHNIQUE: Grayscale ultrasound, Doppler velocity and spectra, and color Doppler images acquired of the extra-cranial carotid and vertebral arteries. Images stored on PACS. LIMITATIONS: None. FINDINGS: RIGHT CAROTID CCA Velocities: Within normal limits. ICA Velocities Peak systolic 1.28 m/s. End diastolic 0.42 m/s. Proximal ICA/CCA peak systolic ratio 1.7. Spectra normal. No significant plaque. LEFT CAROTID CCA Velocities: Within normal limits. ICA Velocities Peak systolic 1.56 m/s. End diastolic 0.53 m/s. Proximal ICA/CCA peak systolic ratio 1.8. Spectra normal. No significant plaque. VERTEBRAL ARTERIES: Antegrade flow. Normal waveforms. SUBCLAVIAN ARTERIES: No finding. OTHER: No other significant finding. IMPRESSION: NO HEMODYNAMICALLY SIGNIFICANT STENOSIS. COMMENT: Quality ID #[id number]: Velocity criteria are extrapolated from the diameter data as defined by t he Society of Radiologists in Ultrasound Consensus Conference. Radiology 2003: 229; 340-346. TECHNICAL DOCUMENTATION: JOB ID: [id number] 2010 [employer]- All Rights Reserved Reading location - IP/workstation name: [email or web address]
--- NOTE | 2020-04-26 19:27 | XCELERA REPORT ---
[address] [address] Transthoracic Echocardiogram Report Name: ELIN JIMÉNEZ Age: 65 yrs Gender: Female : 1955 Patient Status: Inpatient Patient Location: [address] [place], [place] [address] Study Date: 04/26/2020 03:00 PM Height: 59 in Weight: 202 lb BSA: 1.9 m2 Procedure: A two-dimensional transthoracic echocardiogram with color flow and Doppler was performed. Study Quality: Fair. Reason For Study: cva History: CVA. Ordering Physician: MAU TORRES Performed By: Natalie Valle Interpretation Summary There is no obvious cardiac source of embolus noted on this transthoracic echocardiogram. Follow-up with a NIRMALA is suggested if cardiac source is still suspected. The left ventricle is normal in size. There is normal left ventricular wall thickness. LV EF is 65% Left ventricular systolic function is normal. Doppler measurements suggest impaired left ventricular relaxation, which is associated with grade I/IV or mild diastolic dysfunction The left ventricular wall motion is normal. There is no thrombus. No ASD,VSD , or PFO seen. The right ventricle is normal in size and function. The right ventricle is not well visualized secondary to technical limitations The right atrium is normal. The left atrial size is normal. There is mild mitral leaflet calcification. There is no evidence of mitral valve prolapse. There is no vegetation seen on the mitral valve. There is no mitral valve stenosis. There is a mild amount of mitral regurgitation There is no aortic valvular vegetation. There is aortic sclerosis without aortic stenosis. There is no LVOT obstruction. No aortic regurgitation is present. There is no tricuspid stenosis. There is a trace amount of tricuspid regurgitation Tricuspid regurgitation jet envelope not well defined to measure RV systolic pressure accurately. There is no pulmonic valvular stenosis. There is no pulmonic valvular regurgitation. There is no pericardial effusion. There is no obvious cardiac source of embolus noted on this transthoracic echocardiogram. Follow-up with a NIRMALA is suggested if cardiac source is still suspected MMode/2D Measurements & Calculations RVDd: 3.0 cm LVIDd: 5.1 cm FS: 39.4 % Ao root diam: 2.5 cm IVSd: 1.0 cm LVIDs: 3.1 cm EDV(Teich): 124.5 ml Ao root area: 5.0 cm2 LVPWd: 1.0 cm ESV(Teich): 37.8 ml LA dimension: 3.6 cm EF(Teich): 69.6 % Doppler Measurements & Calculations MV E max lance: MV P1/2t max lance: Ao V2 max: LV V1 max P.5 cm/sec 119.4 cm/sec 167.7 cm/sec 8.5 mmHg MV A max lance: MV P1/2t: 101.5 msec Ao max PG: LV V1 max: 121.9 cm/sec MVA(P1/2t): 2.2 cm2 11.3 mmHg 145.6 cm/sec MV E/A: 0.97 MV dec slope: 344.7 cm/sec2 MV dec time: 0.36 sec PA V2 max: MV P1/2t-pr_phl: 110.6 cm/sec 101.5 msec PA max P.9 mmHg Left Ventricle The left ventricle is normal in size. There is normal left ventricular wall thickness. LV EF is 65%. Left ventricular systolic function is normal. Doppler measurements suggest impaired left ventricular relaxation, which is associated with grade I/IV or mild diastolic dysfunction. The left ventricular wall motion is normal. There is no thrombus. No ASD,VSD , or PFO seen. Right Ventricle The right ventricle is normal in size and function. The right ventricle is not well visualized secondary to technical limitations. Atria The right atrium is normal. The left atrial size is normal. Mitral Valve There is mild mitral leaflet calcification. There is no evidence of mitral valve prolapse. There is no vegetation seen on the mitral valve. There is no mitral valve stenosis. There is a mild amount of mitral regurgitation. Aortic Valve There is no aortic valvular vegetation. There is aortic sclerosis without aortic stenosis. There is no LVOT obstruction. No aortic regurgitation is present. Tricuspid Valve There is no tricuspid stenosis. There is a trace amount of tricuspid regurgitation. Tricuspid regurgitation jet envelope not well defined to measure RV systolic pressure accurately. Pulmonic Valve There is no pulmonic valvular stenosis. There is no pulmonic valvular regurgitation. Effusions There is no pericardial effusion. : MAU TORRES Lakshmi
[2020-04-26] MEDS: ATORVASTATIN CALCIUM 40 MG TABLET PO SCH (21:56)
[2020-04-27] MEDS: HEPARIN SOD (PORCINE) 5,000 UNIT/ML 1 ML VIAL SUBCUT SCH ×3 (05:45→21:42)
[2020-04-27] MEDS: LEVOTHYROXINE SODIUM 0.075 MG TABLET PO SCH (05:50)
[2020-04-27] MEDS: LEVOTHYROXINE SODIUM 0.1 MG TABLET PO SCH (05:51)
[2020-04-27] MEDS ORDERED: (PENDING PHARMACY ID) (Levothyroxine Sodium [Synthroid] 175 MCG) PO SCH (06:00)
[2020-04-27 07:48] LABS: ABSOLUTE EOSINOPHILS # (AUTO) 0.1 10^3/uL (0.0-0.6); ABSOLUTE LYMPHOCYTES (AUTO) 2.2 10^3/uL (0.5-4.7); ABSOLUTE MONOCYTES (AUTO) 0.5 10^3/uL (0.1-1.4); ABSOLUTE NEUT (AUTO) 4.1 10^3/uL (1.7-8.2); BASOPHILS % (AUTO) 0.5 % (0-2); EOSINOPHILS % (AUTO) 2.1 % (0-6); HEMATOCRIT 24.5 % (36.0-47.0); HEMOGLOBIN 8.3 g/dL (12.0-15.5); LYMPHOCYTES % (AUTO) 31.2 % (13-45); MEAN CORPUSCULAR HGB CONC 33.7 g/dL (32.0-36.0); MEAN CORPUSCULAR VOLUME 95 fl (80-97); MONOCYTES % (AUTO) 7.7 % (3-13); PLATELET COUNT 149 10^3/uL (150-450); RED BLOOD COUNT 2.58 10^6/uL (3.72-5.28); RED CELL DISTRIBUTION WIDTH 15.5 % (11.5-14.0); SEGMENTED NEUTROPHILS % (AUTO) 58.5 % (42-78); TOTAL CELLS COUNTED % (AUTO) 100 %; WHITE BLOOD COUNT 6.9 10^3/uL (4.0-10.5)
[2020-04-27 08:04] LABS: ANION GAP 10 (5-19); BLOOD UREA NITROGEN 47 mg/dL (7-20); CALCIUM 9.1 mg/dL (8.4-10.2); CARBON DIOXIDE 20 mmol/L (22-30); CHLORIDE 107 mmol/L (98-107); GLUCOSE 82 mg/dL (75-110); POTASSIUM 4.4 mmol/L (3.6-5.0)
[2020-04-27] MEDS: MIDODRINE HCL 5 MG TABLET PO SCH ×3 (10:02→17:01)
[2020-04-27] MEDS: ASPIRIN 81 MG TABLET, CHEWABLE PO SCH (10:02)
[2020-04-27] MEDS: ALLOPURINOL 100 MG TABLET PO SCH (10:02)
[2020-04-27] MEDS: FLUTICASONE NASAL SPRAY 50 MCG/SPRY 120 SPRAY/16 GM NASL SCH (10:02)
[2020-04-27] MEDS: CLOPIDOGREL BISULFATE 75 MG TABLET PO SCH (10:02)
[2020-04-27] MEDS: CETIRIZINE 10 MG TABLET PO SCH (10:02)
[2020-04-27] MEDS: ACETAMINOPHEN 325 MG TABLET PO PRN (13:40)
--- NOTE | 2020-04-27 17:53 | PDOC PROGRESS REPORT ---
Subjective Progress Note for:: 04/27/20 Subjective:: Patient denied any chest pain or difficulty with her breathing. Reported headache and dizziness, the latter was related by the patient to getting up too fast. No nausea or vomiting. Tolerating oral feeding very well. No reported fever or chills. Her 24 hours urine collection in progress. Reason For Visit: ALTERED MENTAL STATUS Physical Exam Vital Signs: Temp Pulse Resp BP Pulse Ox 98.1 F 59 L 21 H 112/59 L 100 04/27/20 16:17 04/27/20 16:17 04/27/20 16:17 04/27/20 16:17 04/27/20 16:17 Intake & Output 04/26/20 04/27/20 04/28/20 06:59 06:59 06:59 Intake Total 360 1870 240 Output Total 1100 400 Balance 360 770 -160 Weight 91.9 kg 90.6 kg General appearance: PRESENT: no acute distress, morbidly obese Head exam: PRESENT: atraumatic, normocephalic Eye exam: PRESENT: conjunctiva pink. ABSENT: scleral icterus Mouth exam: PRESENT: moist Cardiovascular exam: PRESENT: RRR, +S1, +S2. ABSENT: diastolic murmur, rubs, systolic murmur Vascular exam: ABSENT: pallor GI/Abdominal exam: PRESENT: normal bowel sounds, soft. ABSENT: distended, guarding, mass, organolmegaly, rebound, tenderness Gentrourinary exam: PRESENT: indwelling catheter Extremities exam: ABSENT: pedal edema Musculoskeletal exam: PRESENT: ambulatory - with walker assistance Neurological exam: PRESENT: alert, awake Psychiatric exam: PRESENT: appropriate affect, normal mood. ABSENT: homicidal ideation, suicidal ideation Skin exam: PRESENT: dry, warm Results Laboratory Results: 04/27/20 06:47 04/27/20 06:47 04/26/20 04/27/20 04/27/20 10:04 06:47 06:47 WBC 6.9 RBC 2.58 L Hgb 8.3 L Hct 24.5 L MCV 95 MCH 32.0 MCHC 33.7 RDW 15.5 H Plt Count 149 L Seg Neutrophils % 58.5 Sodium 136.9 L Potassium 4.4 Chloride 107 Carbon Dioxide 20 L Anion Gap 10 BUN 47 H Creatinine 4.98 H Est GFR ( Amer) 11 L Glucose 82 Calcium 9.1 Ur 24 Hour Volume Cancelled 04/25/20 22:33 Blood Blood Culture (PCR) - Final Staphylococcus Species 04/25/20 20:22 Clean Catch Midstream Urine Culture - Final Mixed Urogenital Alisha 04/25/20 04/25/20 17:10 17:10 Creatine Kinase 29 L CK-MB (CK-2) 0.82 Troponin I < 0.012 Impressions: Brain MRI with MRA 04/25/20 00:00 IMPRESSION: Occlusion of the left middle cerebral artery proximal M2 segment. Chest X-Ray 04/25/20 00:00 IMPRESSION: NO ACUTE RADIOGRAPHIC FINDING IN THE CHEST. Head CT 04/25/20 18:44 IMPRESSION: Microvascular ischemia with an old right parietal infarction. Findings as described. No acute findings. EVIDENCE OF ACUTE STROKE: NO. Carotid Doppler Study 04/26/20 00:00 IMPRESSION: NO HEMODYNAMICALLY SIGNIFICANT STENOSIS. Head MRI 04/26/20 00:00 IMPRESSION: 1. Chronic changes in the brain. Small vessel disease and old infarcts. 2. No acute CVA appreciated. EVIDENCE OF ACUTE STROKE: NO. Assessment & Plan - Diagnosis (1) Stroke Qualifiers: CVA mechanism: unspecified Qualified Code(s): I63.9 - Cerebral infarction, unspecified Is this a current diagnosis for this admission?: Yes Plan: Patient will continue current GDMT with Aspirin, Clopedogrel, and statin therapy. 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 (3) Acute on chronic renal failure Qualifiers: Acute renal failure type: unspecified Chronic kidney disease stage: stage 5, not on chronic dialysis Qualified Code(s): N17.9 - Acute kidney failure, unspecified; N18.5 - Chronic kidney disease, stage 5; N18.5 - Chronic kidney disease, stage 5; N18.5 - Chronic kidney disease, stage 5; N18.5 - Chronic kidney disease, stage 5 Is this a current diagnosis for this admission?: Yes Plan: Patient has been noncompliant with hemodialysis sessions for one month! Undergoing further evaluation for continue need at this time. (4) Anemia in chronic kidney disease (CKD) Qualifiers: Chronic kidney disease stage: on chronic dialysis Qualified Code(s): N18.6 - End stage renal disease; D63.1 - Anemia in chronic kidney disease; Z99.2 - Dependence on renal dialysis Is this a current diagnosis for this admission?: Yes Plan: Continue current medication management. (5) End stage renal disease on dialysis Is this a current diagnosis for this admission?: Yes Plan: Patient has been noncompliant with hemodialysis sessions for one month! Undergoing further evaluation for continue need at this time. (6) Hypothyroidism Qualifiers: Hypothyroidism type: unspecified Qualified Code(s): E03.9 - Hypothyroidism, unspecified Is this a current diagnosis for this admission?: Yes Plan: Continue current medication management. - Time Time Spent with patient: 25-34 minutes Level of Care: IMCU Medications reviewed and adjusted accordingly: Yes Anticipated discharge: Home with Homehealth Within: Other - Inpatient Certification Based on my medical assessment, after consideration of the patient's comorbidities, presenting symptoms, or acuity I expect that the services needed warrant INPATIENT care.: Yes I certify that my determination is in accordance with my understanding of Medicare's requirements for reasonable and necessary INPATIENT services [42 CFR 412.3e].: Yes Medical Necessity: Significant Comorbidiites Make Outpatient Treatment Too Risky, Need Close Monitoring Due to Risk of Patient Decompensation, Need For Continuous Telemetry Monitoring, Risk of Complication if Not Cared For in Hospital, Risk of Diagnosis Which Will Require Inpatient Eval/Care/Monitoring 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 Follow up on her 24 hours urine collection findings regarding creatinine clearance
[2020-04-27] MEDS: ATORVASTATIN CALCIUM 40 MG TABLET PO SCH (21:41)
[2020-04-28] MEDS: HEPARIN SOD (PORCINE) 5,000 UNIT/ML 1 ML VIAL SUBCUT SCH ×3 (05:13→21:16)
[2020-04-28] MEDS: ACETAMINOPHEN 325 MG TABLET PO PRN (05:15)
[2020-04-28] MEDS: LEVOTHYROXINE SODIUM 0.1 MG TABLET PO SCH (05:16)
[2020-04-28] MEDS: LEVOTHYROXINE SODIUM 0.075 MG TABLET PO SCH (05:16)
[2020-04-28] MEDS: MIDODRINE HCL 5 MG TABLET PO SCH ×3 (09:13→17:07)
[2020-04-28] MEDS: CETIRIZINE 10 MG TABLET PO SCH (09:13)
[2020-04-28] MEDS: FLUTICASONE NASAL SPRAY 50 MCG/SPRY 120 SPRAY/16 GM NASL SCH (09:13)
[2020-04-28] MEDS: CLOPIDOGREL BISULFATE 75 MG TABLET PO SCH (09:13)
[2020-04-28] MEDS: ALLOPURINOL 100 MG TABLET PO SCH (09:14)
[2020-04-28] MEDS: ASPIRIN 81 MG TABLET, CHEWABLE PO SCH (09:14)
--- NOTE | 2020-04-28 11:41 | PDOC PROGRESS REPORT ---
Subjective Progress Note for:: 04/28/20 Subjective:: Patient denied any chest pain or difficulty with her breathing. No nausea or vomiting. No reported fever or chills. She completed her 24 hours urine collection. Reason For Visit: ALTERED MENTAL STATUS Physical Exam Vital Signs: Temp Pulse Resp BP Pulse Ox 98.1 F 61 19 118/52 L 99 04/28/20 07:59 04/28/20 07:59 04/28/20 07:59 04/28/20 07:59 04/28/20 07:59 Intake & Output 04/27/20 04/28/20 04/29/20 06:59 06:59 06:59 Intake Total 1870 1886 Output Total 1100 2400 Balance 770 -514 Weight 90.6 kg 91.6 kg Physical Exam: General appearance: PRESENT: no acute distress, morbidly obese Head exam: PRESENT: atraumatic, normocephalic Eye exam: PRESENT: conjunctiva pink. ABSENT: pallor, scleral icterus Mouth exam: PRESENT: moist Cardiovascular exam: PRESENT: RRR, +S1, +S2. ABSENT: diastolic murmur, rubs, systolic murmur GI/Abdominal exam: PRESENT: normal bowel sounds, soft. ABSENT: distended, guarding, mass, organomegaly, rebound, tenderness Genitourinary exam: PRESENT: indwelling catheter Extremities exam: ABSENT: pedal edema Musculoskeletal exam: PRESENT: ambulatory - with walker assistance Neurological exam: PRESENT: alert, awake Psychiatric exam: PRESENT: appropriate affect, normal mood. ABSENT: homicidal ideation, suicidal ideation Skin exam: PRESENT: dry, warm Results Laboratory Results: 04/27/20 06:47 04/27/20 06:47 04/25/20 22:33 Blood Blood Culture (PCR) - Final Staphylococcus Species 04/25/20 20:22 Clean Catch Midstream Urine Culture - Final Mixed Urogenital Alisha 04/25/20 04/25/20 17:10 17:10 Creatine Kinase 29 L CK-MB (CK-2) 0.82 Troponin I < 0.012 Impressions: Brain MRI with MRA 04/25/20 00:00 IMPRESSION: Occlusion of the left middle cerebral artery proximal M2 segment. Chest X-Ray 04/25/20 00:00 IMPRESSION: NO ACUTE RADIOGRAPHIC FINDING IN THE CHEST. Head CT 04/25/20 18:44 IMPRESSION: Microvascular ischemia with an old right parietal infarction. Findings as described. No acute findings. EVIDENCE OF ACUTE STROKE: NO. Carotid Doppler Study 04/26/20 00:00 IMPRESSION: NO HEMODYNAMICALLY SIGNIFICANT STENOSIS. Head MRI 04/26/20 00:00 IMPRESSION: 1. Chronic changes in the brain. Small vessel disease and old infarcts. 2. No acute CVA appreciated. EVIDENCE OF ACUTE STROKE: NO. 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 Is this a current diagnosis for this admission?: Yes (3) Acute on chronic renal failure Qualifiers: Acute renal failure type: unspecified Chronic kidney disease stage: stage 5, not on chronic dialysis Qualified Code(s): N17.9 - Acute kidney failure, unspecified; N18.5 - Chronic kidney disease, stage 5; N18.5 - Chronic kidney disease, stage 5; N18.5 - Chronic kidney disease, stage 5; N18.5 - Chronic kidney disease, stage 5 Is this a current diagnosis for this admission?: Yes (4) Anemia in chronic kidney disease (CKD) Qualifiers: Chronic kidney disease stage: on chronic dialysis Qualified Code(s): N18.6 - End stage renal disease; D63.1 - Anemia in chronic kidney disease; Z99.2 - Dependence on renal dialysis Is this a current diagnosis for this admission?: Yes (5) End stage renal disease on dialysis Is this a current diagnosis for this admission?: Yes (6) Hypothyroidism Qualifiers: Hypothyroidism type: unspecified Qualified Code(s): E03.9 - Hypothyroidism, unspecified Is this a current diagnosis for this admission?: Yes - Time Time Spent with patient: 25-34 minutes Level of Care: IMCU Medications reviewed and adjusted accordingly: Yes Anticipated discharge: Home with Homehealth Within: Other - Inpatient Certification Based on my medical assessment, after consideration of the patient's comorbidities, presenting symptoms, or acuity I expect that the services needed warrant INPATIENT care.: Yes I certify that my determination is in accordance with my understanding of Medicare's requirements for reasonable and necessary INPATIENT services [42 CFR 412.3e].: Yes Medical Necessity: Significant Comorbidiites Make Outpatient Treatment Too Risky, Need Close Monitoring Due to Risk of Patient Decompensation, Need For Continuous Telemetry Monitoring, Risk of Complication if Not Cared For in Hospital, Risk of Diagnosis Which Will Require Inpatient Eval/Care/Monitoring 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 D/C Hetah catheter.
[2020-04-28 11:52] LABS: CREATININE 4.98 mg/dL (0.52-1.25)
[2020-04-28] MEDS: ATORVASTATIN CALCIUM 40 MG TABLET PO SCH (21:16)
[2020-04-29] MEDS ORDERED: HEPARIN SOD (PORCINE) 1,000 UNIT/ML 10 ML VIAL IV PRN ×2 (05:00→16:45)
[2020-04-29] MEDS ORDERED: EPOETIN ALFA-EPBX 20,000 UNIT in SYRINGE, DISPOSABLE, 1 EACH IV PRN (05:00)
[2020-04-29] MEDS ORDERED: NORMAL SALINE 1000 ML 1,000 ML IV PRN (05:00)
[2020-04-29 05:32] LABS: HEMATOCRIT 23.4 % (36.0-47.0); MEAN CORPUSCULAR HGB CONC 33.5 g/dL (32.0-36.0); MEAN CORPUSCULAR VOLUME 96 fl (80-97); PLATELET COUNT 148 10^3/uL (150-450); RED BLOOD COUNT 2.45 10^6/uL (3.72-5.28); RED CELL DISTRIBUTION WIDTH 15.4 % (11.5-14.0); WHITE BLOOD COUNT 7.6 10^3/uL (4.0-10.5)
[2020-04-29] MEDS: LEVOTHYROXINE SODIUM 0.075 MG TABLET PO SCH (05:37)
[2020-04-29] MEDS: LEVOTHYROXINE SODIUM 0.1 MG TABLET PO SCH (05:38)
[2020-04-29] MEDS: HEPARIN SOD (PORCINE) 5,000 UNIT/ML 1 ML VIAL SUBCUT SCH ×2 (05:38→13:16)
[2020-04-29 05:48] LABS: ANION GAP 8 (5-19); BLOOD UREA NITROGEN 66 mg/dL (7-20); CALCIUM 9.3 mg/dL (8.4-10.2); CARBON DIOXIDE 21 mmol/L (22-30); CHLORIDE 107 mmol/L (98-107); GLUCOSE 76 mg/dL (75-110); POTASSIUM 5.1 mmol/L (3.6-5.0)
[2020-04-29 06:08] LABS: HEMOGLOBIN 7.9 g/dL (12.0-15.5)
[2020-04-29 06:10] LABS: ABSOLUTE LYMPHOCYTES# (MANUAL) 1.9 10^3/uL (0.5-4.7); ABSOLUTE MONOCYTES # (MANUAL) 0.5 10^3/uL (0.1-1.4); BAND NEUTROPHILS % (MANUAL) 1 % (3-5); BASOPHILS % (MANUAL) 0 % (0-2); EOSINOPHILS % (MANUAL) 2 % (0-6); LYMPHOCYTES % (MANUAL) 25 % (13-45); MONOCYTES % (MANUAL) 7 % (3-13); SEGMENTED NEUTROPHILS % (MAN) 65 % (42-78); TOTAL CELLS COUNTED 100
[2020-04-29 06:11] LABS: ANISOCYTOSIS 1+; PLATELET COMMENT ADEQUATE; POLYCHROMASIA 1+
[2020-04-29] MEDS ORDERED: ALTEPLASE INJ 2 MG VIAL (CATH CLEARANCE) INJ PRN (08:36)
[2020-04-29] MEDS: MIDODRINE HCL 5 MG TABLET PO SCH ×3 (10:35→17:56)
[2020-04-29] MEDS: CETIRIZINE 10 MG TABLET PO SCH (10:35)
[2020-04-29] MEDS: ALLOPURINOL 100 MG TABLET PO SCH (10:35)
[2020-04-29] MEDS: ASPIRIN 81 MG TABLET, CHEWABLE PO SCH (10:35)
[2020-04-29] MEDS: CLOPIDOGREL BISULFATE 75 MG TABLET PO SCH (10:35)
[2020-04-29] MEDS: FLUTICASONE NASAL SPRAY 50 MCG/SPRY 120 SPRAY/16 GM NASL SCH (10:36)
--- NOTE | 2020-04-29 10:38 | PDOC PROGRESS REPORT ---
Subjective Progress Note for:: 04/29/20 Subjective:: Patient is currently doing well Patient's denied any chest pain no short of breath No weakness She is currently on her dialysis according to the dialysis nurse's catheter this does not work and Dr. Gomez advised to use the TPA and if is not then canceled the surgery Patient is very noncompliance with the dialysis spell find out the patient was only taking once or twice a month dialysis Reason For Visit: ALTERED MENTAL STATUS Physical Exam Vital Signs: Temp Pulse Resp BP Pulse Ox 97.7 F 63 20 107/35 L 94 04/29/20 03:04 04/29/20 07:00 04/29/20 04:00 04/29/20 04:00 04/29/20 04:00 Intake & Output 04/28/20 04/29/20 04/30/20 06:59 06:59 06:59 Intake Total 1886 2290 1000 Output Total 2400 1600 400 Balance -514 690 600 Weight 91.6 kg 94.7 kg General appearance: PRESENT: no acute distress, well-developed, well-nourished Head exam: PRESENT: atraumatic, normocephalic Eye exam: PRESENT: conjunctiva pink, EOMI, PERRLA. ABSENT: scleral icterus Ear exam: PRESENT: normal external ear exam Mouth exam: PRESENT: moist, tongue midline Neck exam: PRESENT: full ROM. ABSENT: carotid bruit, JVD, lymphadenopathy, thyromegaly Respiratory exam: PRESENT: clear to auscultation nirmal Cardiovascular exam: PRESENT: RRR. ABSENT: diastolic murmur, rubs, systolic murmur Pulses: PRESENT: normal dorsalis pedis pul, +2 pedal pulses bilateral Vascular exam: PRESENT: normal capillary refill GI/Abdominal exam: PRESENT: normal bowel sounds, soft. ABSENT: distended, guar ding, mass, organolmegaly, rebound, tenderness Rectal exam: PRESENT: deferred Neurological exam: PRESENT: alert, awake, oriented to person, oriented to place, oriented to time, oriented to situation, CN II-XII grossly intact. ABSENT: motor sensory deficit Psychiatric exam: PRESENT: appropriate affect, normal mood. ABSENT: homicidal ideation, suicidal ideation Skin exam: PRESENT: dry, intact, warm. ABSENT: cyanosis, rash Results Laboratory Results: 04/29/20 05:00 04/29/20 05:00 04/28/20 04/29/20 04/29/20 11:30 05:00 05:00 WBC 7.6 RBC 2.45 L Hgb 7.9 L Hct 23.4 L MCV 96 MCH 32.0 MCHC 33.5 RDW 15.4 H Plt Count 148 L Seg Neutrophils % Not Reportable Sodium 135.9 L Potassium 5.1 H Chloride 107 Carbon Dioxide 21 L Anion Gap 8 BUN 66 H Creatinine 6.08 H Est GFR ( Amer) 8 L Glucose 76 Calcium 9.3 Ur 24 Hour Volume 1640 04/25/20 22:33 Blood Blood Culture (PCR) - Final Staphylococcus Species 04/25/20 22:33 Blood Blood Culture - Final Staphylococcus Epidermidis 04/25/20 04/25/20 17:10 17:10 Creatine Kinase 29 L CK-MB (CK-2) 0.82 Troponin I < 0.012 Impressions: Brain MRI with MRA 04/25/20 00:00 IMPRESSION: Occlusion of the left middle cerebral artery proximal M2 segment. Chest X-Ray 04/25/20 00:00 IMPRESSION: NO ACUTE RADIOGRAPHIC FINDING IN THE CHEST. Head CT 04/25/20 18:44 IMPRESSION: Microvascular ischemia with an old right parietal infarction. Findings as described. No acute findings. EVIDENCE OF ACUTE STROKE: NO. Carotid Doppler Study 04/26/20 00:00 IMPRESSION: NO HEMODYNAMICALLY SIGNIFICANT STENOSIS. Head MRI 04/26/20 00:00 IMPRESSION: 1. Chronic changes in the brain. Small vessel disease and old infarcts. 2. No acute CVA appreciated. EVIDENCE OF ACUTE STROKE: NO. Assessment & Plan - Diagnosis (1) Occlusion of left middle cerebral artery Is this a current diagnosis for this admission?: Yes Plan: As per discussed with the neurology at [facility] outpatients no need for any acute interventions (2) Altered mental status Qualifiers: Altered mental status type: unspecified Qualified Code(s): R41.82 - Altered mental status, unspecified Is this a current diagnosis for this admission?: Yes Plan: Currently all resolved (3) Anemia in chronic kidney disease (CKD) Qualifiers: Chronic kidney disease stage: on chronic dialysis Qualified Code(s): N18.6 - End stage renal disease; D63.1 - Anemia in chronic kidney disease; Z99.2 - Dependence on renal dialysis Is this a current diagnosis for this admission?: Yes Plan: Discussed with Dr. Gomez about possible iron transfusion and Procrit injections (4) End stage renal disease on dialysis Is this a current diagnosis for this admission?: Yes Plan: Currently on hemodialysis (5) Hypokalemia Is this a current diagnosis for this admission?: Yes (6) Stroke Qualifiers: CVA mechanism: unspecified Qualified Code(s): I63.9 - Cerebral infarction, unspecified Is this a current diagnosis for this admission?: Yes Plan: Patient MRI of the head is negative for any acute strokes - Time Time Spent with patient: 15-24 minutes Level of Care: IMCU Medications reviewed and adjusted accordingly: Yes Anticipated discharge: Home with Homehealth Within: within 24 hours - Plan Summary Plan Summary: Will continues to current medications follow-up with the nephrology
[2020-04-29] MEDS: ACETAMINOPHEN 325 MG TABLET PO PRN (11:27)
--- NOTE | 2020-04-29 12:45 | PDOC PROGRESS REPORT ---
Subjective Progress Note for:: 04/29/20 Reason For Visit: I am seeing the patient today on dialysis. Her background history is that of end-stage renal disease on maintenance hemodialysis, coronary artery disease, history of congestive heart failure, hyperlipidemia, hypertension, COPD and previous CVA was admitted with a history of altered mental status. Initial evaluations in the ER revealed that she was altered and she was hypotensive with a systolic in the 90s. No apparent history to indicate sepsis. Initial work-up showed a head CT showing microvascular ischemia and an old parietal infarct. A chest x-ray was negative for any acute cardiopulmonary changes. A brain MRI was started but was not completed with a brain MRA showing occlusion of the left MCA artery. There was an attempt to transfer the patient due to this MRA findings but she is just not deemed to be qualified for transfer. Patient also presented with hypokalemia . Currently the patient was undergoing dialysis but unfortunately the catheter was not working and therefore even after instillation of TPA, we had to abort her dialysis treatment today. She has been very noncompliant with her dialysis treatment. Note that prior to her dialysis yesterday her last dialysis was on March 23 and in February she only had 2 treatments on February 21 and March 19. Patient states that she is still makes urine. 24 urine creatinine clearance was done w joelle on this admission and came back at 6 cc/min. This morning she appears to be fine and does not appear to be short of breath. Again she appears to be at her baseline mental and clinical condition. Physical Exam Vital Signs: Temp Pulse Resp BP Pulse Ox 98.8 F 72 20 122/48 L 91 L 04/29/20 11:15 04/29/20 11:15 04/29/20 11:15 04/29/20 11:15 04/29/20 11:15 Intake & Output 04/28/20 04/29/20 04/30/20 06:59 06:59 06:59 Intake Total 1886 2290 1480 Output Total 2400 1600 700 Balance -514 690 780 Weight 91.6 kg 94.7 kg General appearance: PRESENT: no acute distress Respiratory exam: PRESENT: clear to auscultation nirmal, decreased breath sounds. ABSENT: crackles Cardiovascular exam: PRESENT: +S1, +S2 GI/Abdominal exam: PRESENT: normal bowel sounds, soft. ABSENT: organomegaly, tenderness Extremities exam: ABSENT: pedal edema Neurological exam: PRESENT: alert, awake, oriented to person, oriented to place Psychiatric exam: PRESENT: agitated, appropriate affect Results Laboratory Results: 04/29/20 05:00 04/29/20 05:00 04/29/20 04/29/20 05:00 05:00 WBC 7.6 RBC 2.45 L Hgb 7.9 L Hct 23.4 L MCV 96 MCH 32.0 MCHC 33.5 RDW 15.4 H Plt Count 148 L Seg Neutrophils % Not Reportable Sodium 135.9 L Potassium 5.1 H Chloride 107 Carbon Dioxide 21 L Anion Gap 8 BUN 66 H Creatinine 6.08 H Est GFR ( Amer) 8 L Glucose 76 Calcium 9.3 04/25/20 22:33 Blood Blood Culture (PCR) - Final Staphylococcus Species 04/25/20 22:33 Blood Blood Culture - Final Staphylococcus Epidermidis 04/25/20 04/25/20 17:10 17:10 Creatine Kinase 29 L CK-MB (CK-2) 0.82 Troponin I < 0.012 Impressions: Brain MRI with MRA 04/25/20 00:00 IMPRESSION: Occlusion of the left middle cerebral artery proximal M2 segment. Chest X-Ray 04/25/20 00:00 IMPRESSION: NO ACUTE RADIOGRAPHIC FINDING IN THE CHEST. Head CT 04/25/20 18:44 IMPRESSION: Microvascular ischemia with an old right parietal infarction. Findings as described. No acute findings. EVIDENCE OF ACUTE STROKE: NO. Carotid Doppler Study 04/26/20 00:00 IMPRESSION: NO HEMODYNAMICALLY SIGNIFICANT STENOSIS. Head MRI 04/26/20 00:00 IMPRESSION: 1. Chronic changes in the brain. Small vessel disease and old infarcts. 2. No acute CVA appreciated. EVIDENCE OF ACUTE STROKE: NO. Assessment & Plan - Diagnosis (1) Altered mental status Qualifiers: Altered mental status type: unspecified Qualified Code(s): R41.82 - Altered mental status, unspecified Is this a current diagnosis for this admission?: Yes Plan: Currently resolved and back at baseline. (2) Occlusion of left middle cerebral artery Is this a current diagnosis for this admission?: Yes Plan: As per primary care. Currently no evidences of any residual deficits. (3) Anemia in chronic kidney disease (CKD) Qualifiers: Chronic kidney disease stage: on chronic dialysis Qualified Code(s): N18.6 - End stage renal disease; D63.1 - Anemia in chronic kidney disease; Z99.2 - Dependence on renal dialysis Is this a current diagnosis for this admission?: Yes Plan: Currently hemoglobin 7.9. Iron indicis are adequate. Will have to adjust erythropoietin during her dialysis treatments. Unfortunately as she is missing a lot of her treatments and she is not getting erythropoietin which therefore makes her anemia even much worse and rather more intractable to get her back up to 10+. (4) End stage renal disease on dialysis Is this a current diagnosis for this admission?: Yes Plan: Patient today had a short run of dialysis when the lines were reversed but that also had to be stopped because of clotting of her dialysis catheter. I also had instill TPA but that did not resolve the issue. She needs to have a catheter exchange for a new catheter prior to her discharge as I do not see any evidences that she has got from a renal standpoint and she needs to be in the hospital. She needs to closely follow-up with outpatient dialysis. Residual creatinine clearance was 6 cc/min. Discussed with her about getting her erythropoietin shots if she is compliant with her treatment as an outpatient which will help her hemoglobin stayed steady.
[2020-04-29] MEDS ORDERED: HEPARIN SOD (PORCINE) 1,000 UNIT/ML 10 ML VIAL ONE (15:31)
[2020-04-29] MEDS ORDERED: HEPARIN SOD (PORCINE) 1,000 UNIT/ML 1 ML VIAL IV ONE (16:00)
[2020-04-29 18:15] VITALS: BP 110/50
--- NOTE | 2020-04-30 12:19 | PDOC DISCHARGE SUMMARY ---
Impression - Admit/DC Date/PCP Admission Date/Primary Care Provider: 04/25/20 21:37 MAU TORRES MD Discharge Date: 04/29/20 - Discharge Diagnosis (1) Occlusion of left middle cerebral artery Is this a current diagnosis for this admission?: Yes (2) Altered mental status Is this a current diagnosis for this admission?: Yes (3) Anemia in chronic kidney disease (CKD) Is this a current diagnosis for this admission?: Yes (4) End stage renal disease on dialysis Is this a current diagnosis for this admission?: Yes (5) Hypokalemia Is this a current diagnosis for this admission?: Yes (6) Stroke Is this a current diagnosis for this admission?: Yes - Additional Information Resuscitation Status: Full Code Discharge Diet: Other (Comments) Discharge Activity: Activity As Tolerated Referrals: NIDHI SIMMONS MD [NO LOCAL MD] - 05/07/20 1:30 pm (seeing Reyna Daniel---phone appointment) MAU TORRES MD [Primary Care Provider] - 05/06/20 11:45 am (coin) Prescriptions: Aspirin [Aspirin 81 mg Chewable Tablet] 81 mg PO DAILY #30 tab.chew Atorvastatin Calcium [Lipitor 40 mg Tablet] 40 mg PO QHS #30 tablet Clopidogrel Bisulfate [Plavix 75 mg Tablet] 75 mg PO DAILY #30 tablet Home Medications: Albuterol Sulfate [Proair HFA Inhalation Aerosol 8.5 gm MDI] 2 puff IH Q6HP PRN 04/26/20 Allopurinol [Zyloprim 100 mg Tablet] 100 mg PO DAILY 04/26/20 Alprazolam [Xanax 0.25 mg Tablet] 0.25 mg PO MOWEFR@1000 04/26/20 Cetirizine HCl [Zyrtec 10 mg Tablet] 10 mg PO DAILY 04/26/20 Fluticasone Propionate [Flonase Nasal [place] 50 Mcg/[place] 16 gm] 2 puff NASL DAILY 04/26/20 Levothyroxine Sodium [Synthroid] 175 mcg PO Q6AM 04/26/20 Midodrine HCl [Proamatine 5 mg Tablet] 5 mg PO TID 04/26/20 Aspirin [Aspirin 81 mg Chewable Tablet] 81 mg PO DAILY #30 tab.chew 04/29/20 Atorvastatin Calcium [Lipitor 40 mg Tablet] 40 mg PO QHS #30 tablet 04/29/20 Clopidogrel Bisulfate [Plavix 75 mg Tablet] 75 mg PO DAILY #30 tablet 04/29/20 History of Present Illiness History of Present Illness: ELIN JIMÉNEZ is a 65 year old female Is a 65-year-old female with a history of end-stage renal disease on hemodialysis history of hypertension history of the previous stroke history of the hyperlipidemia went to the dialysis around 11:00 today and finished the dialysis after 3 hours around 4:00 patient getting more confused brought to the emergency department In the ER patient have initial work-up including the blood work and also CT of the head chest x-ray all negative Patient's otherwise denied any other symptoms except little confusions per ER physician initially Patient's at this point also complained of some dizziness and slight headache but no weakness no chest pain no short of breath ER physicians call me around 8:00 to admit the patient's order the MRI and MRA of the head MRa of the head so the left MCA occlusion patient unfortunately not able to finish the MRI of the head When I saw the patient on the floor patient is alert awake oriented only complaining of a headache and dizziness Hospital Course Hospital Course: This is a 65-year-old female present in the emergency department with altered mental status from her dialysis and patient's admitting in the hospital for further evaluations Initial CT head was negative patient underwent for the MRI of the head with so some occlusion of the left MCA and called the neurology at [place] reviewed the patient's MRA and patient NIH scale was only 3 and suggest most [id number] MCA occlusion no need for any interventions and suggest to continues aspirin Plavix and statin and follow outpatient MRI of the head was negative for any stroke Patient's very noncompliance with the dialysis as per find out from the nephrology patient is only going for dialysis once a month instead of 3 times a week Patient's otherwise doing well as per discussed with the nephrology and suggest that patients can discharge home and he will schedule the dialysis as an outpatient and he will talk with the patient is really needed dialysis or not while the patient is of a super noncompliance Discussed with the patient is very extensively with a close follow-up patient is otherwise put on aspirin Plavix Patient having no blood in the stools no black stools patient hemoglobin is low due to the chronic kidney disease discussed with the Dr. Gomez he will start patient on Procrit and iron infusions Physical Exam Vital Signs: Temp Pulse Resp BP Pulse Ox 98.8 F 59 L 20 110/50 L 91 L 04/29/20 18:13 04/29/20 18:13 04/29/20 18:13 04/29/20 18:13 04/29/20 18:13 Intake & Output 04/29/20 04/30/20 05/01/20 06:59 06:59 06:59 Intake Total 2290 2190 Output Total 1600 1000 Balance 690 1190 Weight 94.7 kg General appearance: PRESENT: no acute distress, well-developed, well-nourished Head exam: PRESENT: atraumatic, normocephalic Eye exam: PRESENT: conjunctiva pink, EOMI, PERRLA. ABSENT: scleral icterus Ear exam: PRESENT: normal external ear exam Mouth exam: PRESENT: moist, tongue midline Neck exam: ABSENT: carotid bruit, JVD, lymphadenopathy, thyromegaly Respiratory exam: PRESENT: clear to auscultation nirmal. ABSENT: rales, rhonchi, wheezes Cardiovascular exam: PRESENT: RRR. ABSENT: diastolic murmur, rubs, systolic murmur Pulses: PRESENT: normal dorsalis pedis pul Vascular exam: PRESENT: normal capillary refill GI/Abdominal exam: PRESENT: normal bowel sounds, soft. ABSENT: distended, guarding, mass, organolmegaly, rebound, tenderness Rectal exam: PRESENT: deferred Extremities exam: PRESENT: full ROM. ABSENT: calf tenderness, clubbing, pedal edema Neurological exam: PRESENT: alert, awake, oriented to person, oriented to place, oriented to time, oriented to situation, CN II-XII grossly intact. ABSENT: motor sensory deficit Psychiatric exam: PRESENT: appropriate affect, normal mood. ABSENT: homicidal ideation, suicidal ideation Skin exam: PRESENT: dry, intact, warm. ABSENT: cyanosis, rash Results Laboratory Results: WBC 7.6 10^3/uL (4.0-10.5) 04/29/20 05:00 RBC 2.45 10^6/uL (3.72-5.28) L 04/29/20 05:00 Hgb 7.9 g/dL (12.0-15.5) L 04/29/20 05:00 Hct 23.4 % (36.0-47.0) L 04/29/20 05:00 MCV 96 fl (80-97) 04/29/20 05:00 MCH 32.0 pg (27.0-33.4) 04/29/20 05:00 MCHC 33.5 g/dL (32.0-36.0) 04/29/20 05:00 RDW 15.4 % (11.5-14.0) H 04/29/20 05:00 Plt Count 148 10^3/uL (150-450) L 04/29/20 05:00 Lymph % (Auto) Not Reportable 04/29/20 05:00 [place] % (Auto) Not Reportable 04/29/20 05:00 Eos % (Auto) Not Reportable 04/29/20 05:00 Baso % (Auto) Not Reportable 04/29/20 05:00 Reticulocyte # 0.052 10^6/uL (0.028-0.122) 04/26/20 04:55 Absolute Neuts (auto) Not Reportable 04/29/20 05:00 Absolute Lymphs (auto) Not Reportable 04/29/20 05:00 Absolute Monos (auto) Not Reportable 04/29/20 05:00 Absolute Eos (auto) Not Reportable 04/29/20 05:00 Absolute Basos (auto) Not Reportable 04/29/20 05:00 Total Counted 100 04/29/20 05:00 Seg Neutrophils % Not Reportable 04/29/20 05:00 Seg Neuts % (Manual) 65 % (42-78) 04/29/20 05:00 Band Neutrophils % 1 % (3-5) L 04/29/20 05:00 Lymphocytes % (Manual) 25 % (13-45) 04/29/20 05:00 Monocytes % (Manual) 7 % (3-13) 04/29/20 05:00 Eosinophils % (Manual) 2 % (0-6) 04/29/20 05:00 Basophils % (Manual) 0 % (0-2) 04/29/20 05:00 Abs Neuts (Manual) 5.0 10^3/uL (1.7-8.2) 04/29/20 05:00 Abs Lymphs (Manual) 1.9 10^3/uL (0.5-4.7) 04/29/20 05:00 Abs Monocytes (Manual) 0.5 10^3/uL (0.1-1.4) 04/29/20 05:00 Absolute Eos (Manual) 0.2 10^3/uL (0.0-0.6) 04/29/20 05:00 Abs Basophils (Manual) 0.0 10^3/uL (0.0-0.2) 04/29/20 05:00 Platelet Comment ADEQUATE 04/29/20 05:00 Polychromasia 1+ 04/29/20 05:00 Anisocytosis 1+ 04/29/20 05:00 Retic Count (auto) 2.01 % (0.66-2.85) 04/26/20 04:55 Carbonic Acid 1.07 mmol/L (1.05-1.35) 04/25/20 20:51 HCO3/H2CO3 Ratio 21:1 04/25/20 20:51 ABG pH 7.43 (7.35-7.45) 04/25/20 20:51 ABG pCO2 35.5 mmHg (35-45) 04/25/20 20:51 ABG pO2 80.6 mmHg (80-100) 04/25/20 20:51 ABG HCO3 22.9 mmol/L (20-24) 04/25/20 20:51 ABG Total CO2 24.0 mmol/L (21-25) 04/25/20 20:51 ABG O2 Saturation 96.2 % (94-98) 04/25/20 20:51 ABG Base Excess -1.3 mmol/L 04/25/20 20:51 FiO2 ROOM AIR 04/25/20 20:51 Sodium 135.9 mmol/L (137-145) L 04/29/20 05:00 Potassium 5.1 mmol/L (3.6-5.0) H 04/29/20 05:00 Chloride 107 mmol/L (98-107) 04/29/20 05:00 Carbon Dioxide 21 mmol/L (22-30) L 04/29/20 05:00 Anion Gap 8 (5-19) 04/29/20 05:00 BUN 66 mg/dL (7-20) H 04/29/20 05:00 Creatinine 6.08 mg/dL (0.52-1.25) H 04/29/20 05:00 Est GFR ( Amer) 8 (>60) L 04/29/20 05:00 Est GFR (MDRD) Non-Af 7 (>60) L 04/29/20 05:00 Glucose 76 mg/dL (75-110) 04/29/20 05:00 Lactic Acid 0.8 mmol/L (0.7-2.1) 04/25/20 20:22 Calcium 9.3 mg/dL (8.4-10.2) 04/29/20 05:00 Phosphorus 2.7 mg/dL (2.5-4.5) 04/26/20 11:15 Iron 83.6 ug/dL (37-170) 04/26/20 04:55 TIBC 191 ug/dL (250-450) L 04/26/20 04:55 % Saturation 44 % 04/26/20 04:55 Transferrin 124.42 mg/dL (206.00-381.00) L 04/26/20 04:55 Ferritin 439.00 ng/mL (11.1-264.0) H 04/26/20 04:55 Total Bilirubin 0.3 mg/dL (0.2-1.3) 04/25/20 17:10 Direct Bilirubin 0.0 mg/dL (0.0-0.4) 04/25/20 17:10 Neonat Total Bilirubin Not Reportable 04/25/20 17:10 Neonat Direct Bilirubin Not Reportable 04/25/20 17:10 Neonat Indirect Bili Not Reportable 04/25/20 17:10 AST 12 U/L (14-36) L 04/25/20 17:10 ALT 8 U/L (<35) 04/25/20 17:10 Alkaline Phosphatase 68 U/L (38-126) 04/25/20 17:10 Creatine Kinase 29 U/L (30-135) L 04/25/20 17:10 CK-MB (CK-2) 0.82 ng/mL (<4.55) 04/25/20 17:10 Troponin I < 0.012 ng/mL 04/25/20 17:10 Total Protein 5.0 g/dL (6.3-8.2) L 04/25/20 17:10 Albumin 3.0 g/dL (3.5-5.0) L 04/25/20 17:10 Triglycerides 72 mg/dL (<150) 04/26/20 04:55 Cholesterol 104.06 mg/dL (0-200) 04/26/20 04:55 LDL Cholesterol Direct 59 mg/dL (<100) 04/26/20 04:55 VLDL Cholesterol 14.0 mg/dL (10-31) 04/26/20 04:55 HDL Cholesterol 36 mg/dL (>40) L 04/26/20 04:55 Vitamin B12 266.0 pg/mL (239-931) 04/26/20 04:55 Folate 5.09 ng/mL (>2.76) 04/26/20 04:55 PTH Intact 518.5 pg/mL (10.0-65.0) H 04/26/20 11:15 Urine Color YELLOW 04/25/20 20:22 Urine Appearance SLIGHTLY-CLOUDY 04/25/20 20:22 Urine pH 6.0 (5.0-9.0) 04/25/20 20:22 Ur Specific [place] 1.006 04/25/20 20:22 Urine Protein 30 mg/dL (NEGATIVE) H 04/25/20 20:22 Urine Glucose (UA) NEGATIVE mg/dL (NEGATIVE) 04/25/20 20:22 Urine Ketones NEGATIVE mg/dL (NEGATIVE) 04/25/20 20:22 Urine Blood SMALL (NEGATIVE) H 04/25/20 20:22 Urine Nitrite NEGATIVE (NEGATIVE) 04/25/20 20:22 Urine Bilirubin NEGATIVE (NEGATIVE) 04/25/20 20:22 Urine Urobilinogen NEGATIVE mg/dL (<2.0) 04/25/20 20:22 Ur Leukocyte Esterase LARGE (NEGATIVE) H 04/25/20 20:22 Urine WBC (Auto) 37 /HPF 04/25/20 20:22 Urine RBC (Auto) 17 /HPF 04/25/20 20:22 Urine Bacteria (Auto) TRACE /HPF 04/25/20 20:22 Squamous Epi Cells Auto 10 /HPF 04/25/20 20:22 Amorphous Sediment Auto TRACE /HPF 04/25/20 20:22 Urine Mucus (Auto) RARE /LPF 04/25/20 20:22 Ur 24 Hour Volume 1640 mL 04/28/20 11:30 Urine Creatinine 26.0 mg/dL (15-278) 04/28/20 11:30 Serum Creatinine 4.98 mg/dL (0.52-1.25) H 04/28/20 11:30 Creatinine Clearance 6 mL/min (87-140) L 04/28/20 11:30 Urine Ascorbic Acid NEGATIVE (NEGATIVE) 04/25/20 20:22 04/25/20 17:10 CK-MB (CK-2) 0.82 Troponin I < 0.012 Impressions: Brain MRI with MRA 04/25/20 00:00 IMPRESSION: Occlusion of the left middle cerebral artery proximal M2 segment. Chest X-Ray 04/25/20 00:00 IMPRESSION: NO ACUTE RADIOGRAPHIC FINDING IN THE CHEST. Head CT 04/25/20 18:44 IMPRESSION: Microvascular ischemia with an old right parietal infarction. Findings as described. No acute findings. EVIDENCE OF ACUTE STROKE: NO. Carotid Doppler Study 04/26/20 00:00 IMPRESSION: NO HEMODYNAMICALLY SIGNIFICANT STENOSIS. Head MRI 04/26/20 00:00 IMPRESSION: 1. Chronic changes in the brain. Small vessel disease and old infarcts. 2. No acute CVA appreciated. EVIDENCE OF ACUTE STROKE: NO. Plan Time Spent: Greater than 30 Minutes - Follow-up with the outpatients neurology in [place] follow-up with the nephrology following office 1 week Stroke Is this a Stroke Patient?: No Acute Heart Failure - Is this a Heart Failure Patient?: No
== END 2020-04-29 21:51 | disposition home health service (06) | DRG 67 ==
LOC: ER 16:29 → EH 21:37 → 3W 22:58
PROVIDERS: ADMIT Family Medicine; ATTEND Family Medicine
PROC: 5A1D70Z Performance of Urinary Filtration, Intermittent, Less than 6 Hours Per Day (ICD-10-PCS; principal; 2020-04-29)
DX: I66.02 Occlusion and stenosis of left middle cerebral artery (principal); N18.6 End stage renal disease; I13.2 Hypertensive heart and chronic kidney disease with heart failure and with stage 5 chronic kidney disease, or end stage renal disease; I50.42 Chronic combined systolic (congestive) and diastolic (congestive) heart failure; N17.9 Acute kidney failure, unspecified; E87.6 Hypokalemia; R41.82 Altered mental status, unspecified; I95.9 Hypotension, unspecified; E03.9 Hypothyroidism, unspecified; J44.9 Chronic obstructive pulmonary disease, unspecified; D63.1 Anemia in chronic kidney disease; R40.2362 Coma scale, best motor response, obeys commands, at arrival to emergency department; R40.2132 Coma scale, eyes open, to sound, at arrival to emergency department; R40.2242 Coma scale, best verbal response, confused conversation, at arrival to emergency department; R40.2412 Glasgow coma scale score 13-15, at arrival to emergency department; Z86.73 Personal history of transient ischemic attack (TIA), and cerebral infarction without residual deficits; Z91.15 Patient's noncompliance with renal dialysis; Z79.01 Long term (current) use of anticoagulants; Z79.51 Long term (current) use of inhaled steroids; Z79.899 Other long term (current) drug therapy
CPT/HCPCS: 36415; 36600; 70450; 70544; 70551; 71045; 80048; 80053; 80061; 81001; 82550; 82553; 82575; 82607; 82728; 82746; 82803; 83540; 83550; 83605; 83970; 84100; 84466; 84484; 85025; 85045; 87040; 87077; 87086; 87150; 87186; 93005; 93010; 93306; 93880; 99285; J1644; J2060; J2997; J3490; Q5105

== ENCOUNTER 2020-06-10 23:41 | Emergency (ER) | payer MEDICARE, MEDICAID ==
--- NOTE | 2020-06-11 02:58 | RADIOLOGY REPORT (SQ) ---
EXAM DESCRIPTION: XR CHEST 1 VIEW COMPLETED DATE/TME: 06/11/2020 02:19 CLINICAL HISTORY: 65 years, Female, confirm R chest wall dialysis catheter COMPARISON: 04/25/2020 chest NUMBER OF VIEWS: 1 TECHNIQUE: Portable chest LIMITATIONS: None. FINDINGS: Heart size is stable. Stable postsurgical change. Lungs are clear. No pneumothorax. Osteopenia. Azygous fissure noted. Atheromatous change thoracic aorta IMPRESSION: No acute cardiopulmonary process copyright 2010 [employer]- All Rights Reserved
--- NOTE | 2020-06-11 04:02 | ER Document Report ---
HPI - HPI Time Seen by Provider: 06/11/20 01:51 Pain Level: 1 Notes: 65-year-old female patient presents emergency department concern for possible dislodged dialysis catheter. Patient has a dialysis catheter to her right chest wall. She states while she was in the shower she believes that she may have pulled it out a little. She also reports it was very hot in her house as her air conditioning is is broken so that is also part of why she decided to come to the emergency department tonight. She denies any pain or other symptoms. She is post to have dialysis this morning. - REPRODUCTIVE Reproductive: DENIES: : Past Medical History - General Information source: Patient - Social History Smoking Status: Former Smoker Frequency of alcohol use: None Drug Abuse: None Family History: Reviewed & Not Pertinent Patient has homicidal ideation: No - Past Medical History Cardiac Medical History: Reports: Hx Congestive Heart Failure, Hx Coronary Artery Disease - hyperlipedemia, Hx Hypercholesterolemia, Hx Hypertension Denies: Hx Heart Attack Pulmonary Medical History: Reports: Hx COPD, Hx Pneumonia - 2006 Denies: Hx Asthma, Hx Bronchitis Neurological Medical History: Reports: Hx Cerebrovascular Accident. Denies: Hx Seizures Renal/ Medical History: Reports: Hx End Stage Renal Disease. Denies: Hx Peritoneal Dialysis Musculoskeletal Medical History: Denies Hx Arthritis Psychiatric Medical History: Denies: Hx Depression Past Surgical History: Reports: Hx Hysterectomy, Hx Vascular Surgery - Central venous catheter placement for dialysis use - Immunizations Hx Diphtheria, Pertussis, Tetanus Vaccination: No Vertical Provider Document - CONSTITUTIONAL Notes: PHYSICAL EXAMINATION: GENERAL: Well-appearing, well-nourished and in no acute distress. HEAD: Atraumatic, normocephalic. EYES: Pupils equal round extraocular movements intact, conjunctiva are normal. ENT: Nares patent NECK: Normal range of motion LUNGS: No respiratory distress Musculoskeletal: Normal range of motion NEUROLOGICAL: Normal speech, normal gait. PSYCH: Normal mood, normal affect. SKIN: Dialysis catheter to right chest wall, appears to be out by 1 cm. Sutures were disrupted. - INFECTION CONTROL TRAVEL OUTSIDE OF THE [place] IN LAST 30 DAYS: No Course - Re-evaluation Re-evalutation: Called and spoke with Dr. Mcneal. He advises as long as the balloon is not out please suture the catheter back in place. We obtained a chest x-ray, the catheter does appear to be in place on the chest x-ray. New suture placed. Tegaderm placed to hold the catheter securely. Copy of chest x-ray was sent with patient's discharge paper so that patient can bring it to dialysis. Patient verbalized understanding and agreement with this plan. - Vital Signs Vital signs: Temp Pulse Resp BP Pulse Ox 97.9 F 66 124/56 L 100 06/10/20 23:42 06/10/20 23:42 06/10/20 23:42 06/10/20 23:42 Discharge - Discharge Clinical Impression: Encounter for dialysis catheter care Condition: Stable Disposition: HOME, SELF-CARE Additional Instructions: Please proceed to your dialysis appointment this morning. Let them know that your catheter was slightly pulled out. Let them know we did an x-ray and that they need to confirm placement prior to using it. Referrals: MAU TORRES MD [Primary Care Provider] - Follow up as needed
[2020-06-11 07:11] VITALS: BP 98/79
== END 2020-06-11 07:21 | disposition home or self-care (01) ==
LOC: ER 23:41
DX: Z49.01 Encounter for fitting and adjustment of extracorporeal dialysis catheter (principal); I12.0 Hypertensive chronic kidney disease with stage 5 chronic kidney disease or end stage renal disease; N18.6 End stage renal disease; I25.10 Atherosclerotic heart disease of native coronary artery without angina pectoris; J44.9 Chronic obstructive pulmonary disease, unspecified
CPT/HCPCS: 71045; 99284

== ENCOUNTER 2020-06-14 18:03 | Emergency (ER) | payer MEDICARE, MEDICAID ==
--- NOTE | 2020-06-14 19:03 | ER Document Report ---
ED Medical Screen (RME) - General Chief Complaint: Toe Injury Stated Complaint: THIRSTY Time Seen by Provider: 06/14/20 18:48 Primary Care Provider: MAU TORRES MD [Primary Care Provider] - Follow up as needed Mode of Arrival: Wheelchair Information source: Patient, Law Enforcement, [facility] Records Notes: Patient is a 65-year-old female brought into emergency room by EMS. EMS reports that when they arrived at patient's house that she was concerned about her right foot and stated that she felt like she had heard it yesterday. But and also the informed us that patient other reason for coming is because she "was thirsty". Patient states that she is a dialysis patient and if she does still make urine. Patient states she lives with her nephew. She is mostly concerned about her foot but does state that she is not eating or drinking a lot. Physical examination: Patient is a well-nourished well-developed obese 65-year-old female who appears much older than her stated age. Patient does not appear to be in any distress. Cardiac: Shows a regular rate and rhythm without any murmurs. Lungs: Bilateral breath sounds with breath sounds increased clear to ausc ultation bilaterally presently. Abdomen: Bowel sounds present all 4 quads nontender to palpation. Lower extremity. Primarily the right lower extremity patient has a complaint of right foot pain. Stated that she hit it when walking. Patient has a very bad deformed nail with discoloration and moderate tenderness. It appears that the thickened discolored toenail may have been hit against an object and made it loose and is painful to palpate. There does not appear to be any overt swelling to suggest a fracture at this point. Patient appears to have good cap refill in the great toe along the pad side since the nail is too discolored to see cap refill in the nail bed. Reviewing some of patient's history she is been seen a couple of times for altered mental status. 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 She does not appear to be having a stroke or TIA. She is answering questions appropriately although it is difficult with her processing of the information. We will still at this time order CT head just to be on the safe side. Further evaluation is going to need to be made with a urine and labs. I have greeted and performed a rapid initial assessment of this patient. A comprehensive ED assessment and evaluation of the patient, analysis of test results and completion of the medical decision making process will be conducted by additional ED providers. Dictation of this chart was performed using voice recognition software; therefore, there may be some unintended grammatical errors. TRAVEL OUTSIDE OF THE [place] IN LAST 30 DAYS: No - Related Data Allergies/Adverse Reactions: cephalexin [From Keflex] Allergy (Verified 06/11/20 00:35) codeine [Codeine] Allergy (Verified 06/11/20 00:35) Past Medical History - Social History Chew tobacco use (# tins/day): No Drug Abuse: None - Past Medical History Cardiac Medical History: Reports: Hx Congestive Heart Failure, Hx Coronary Artery Disease - hyperlipedemia, Hx Hypercholesterolemia, Hx Hypertension Denies: Hx Heart Attack Pulmonary Medical History: Reports: Hx COPD, Hx Pneumonia - 2006 Denies: Hx Asthma, Hx Bronchitis Neurological Medical History: Reports: Hx Cerebrovascular Accident. Denies: Hx Seizures Renal/ Medical History: Reports: Hx End Stage Renal Disease. Denies: Hx Peritoneal Dialysis Musculoskeltal Medical History: Denies Hx Arthritis Psychiatric Medical History: Denies: Hx Depression Past Surgical History: Reports: Hx Hysterectomy, Hx Vascular Surgery - Central venous catheter placement for dialysis use - Immunizations Hx Diphtheria, Pertussis, Tetanus Vaccination: No Physical Exam - Vital signs Vitals: Temp Pulse Resp BP Pulse Ox 99.0 F 66 18 119/60 98 06/14/20 18:39 06/14/20 18:39 06/14/20 18:39 06/14/20 18:39 06/14/20 18:39 Course - Vital Signs Vital signs: Temp Pulse Resp BP Pulse Ox 99.0 F 66 18 119/60 98 06/14/20 18:39 06/14/20 18:39 06/14/20 18:39 06/14/20 18:39 06/14/20 18:39 Doctor's Discharge - Discharge Referrals: MAU TORRES MD [Primary Care Provider] - Follow up as needed
--- NOTE | 2020-06-14 19:37 | RADIOLOGY REPORT (SQ) ---
EXAM DESCRIPTION: CT HEAD WITHOUT IMAGES COMPLETED DATE/TIME: 06/14/2020 6:19 pm REASON FOR STUDY: altered COMPARISON: None. TECHNIQUE: Axial images acquired through the brain without intravenous contrast. Images reviewed wi th bone, brain and subdural windows. Additional sagittal and coronal reconstructions were generated. Images stored on PACS. All CT scanners at this facility use dose modulation, iterative reconstruction, and/or weight based d osing when appropriate to reduce radiation dose to as low as reasonably achievable (ALARA). [facility]: Dose Right [facility]: CareDose [facility]: Dose Right [facility]: Teradose 4D [facility]: Smart StuffBuff RADIATION DOSE: CT Rad equipment meets quality standard of care and radiation dose reduction techniq ues were employed. CTDIvol: 53.2 mGy. DLP: 991 mGy-cm. mGy. LIMITATIONS: None. FINDINGS: VENTRICLES: Normal size and contour. CEREBRUM: No masses. No hemorrhage. No midline shift. No evidence for acute infarction. Normal gra y-white matter differentiation. Chronic encephalomalacia/gliosis in the right posterior parietal lob e and right high parietal lobe is stable. Mild patchy periventricular and deep white matter hypodens e attenuation consistent with mild chronic small vessel ischemic change, stable. No evidence of acut e territorial infarct. There is intracranial atherosclerosis. CEREBELLUM: No masses. No hemorrhage. No alteration of density. No evidence for acute infarction. EXTRAAXIAL SPACES: No fluid collections. No masses. ORBITS AND GLOBE: No intra- or extraconal masses. Normal contour of globe without masses. CALVARIUM: No fracture. PARANASAL SINUSES: No fluid or mucosal thickening. SOFT TISSUES: No mass or hematoma. OTHER: No other significant finding. IMPRESSION: 1. No acute intracranial hemorrhage, mass, or evidence of acute territorial infarct. 2. Mild chronic small vessel ischemic change and chronic encephalomalacia/gliosis, stable from prior. 3. Intracranial atherosclerosis. EVIDENCE OF ACUTE STROKE: NO. COMMENT: Quality ID # [id number]: Final reports with documentation of one or more dose reduction techniques (e.g., Automated exposure control, adjustment of the mA and/or kV according to patient size, use of iterative reconstruction technique) TECHNICAL DOCUMENTATION: JOB ID: [id number] 2010 [employer]- All Rights Reserved Reading location - IP/workstation name: [email or web address]
--- NOTE | 2020-06-14 19:57 | RADIOLOGY REPORT (SQ) ---
EXAM DESCRIPTION: FOOT RIGHT COMPLETE IMAGES COMPLETED DATE/TIME: 06/14/2020 7:28 pm REASON FOR STUDY: Dislodged toenail/fracture COMPARISON: None. NUMBER OF VIEWS: Three views. TECHNIQUE: AP, lateral and oblique radiographic images acquired of the right foot. LIMITATIONS: None. FINDINGS: MINERALIZATION: Normal. BONES: No acute fracture or dislocation. No worrisome bone lesions. JOINTS: No effusions. SOFT TISSUES: It appears that the toenail of the great toe has been partially avulsed. OTHER: No other significant finding. IMPRESSION: No fracture or other acute osseous finding. TECHNICAL DOCUMENTATION: JOB ID: [id number] 2010 [employer]- All Rights Reserved Reading location - IP/workstation name: [email or web address]
[2020-06-14 19:59] LABS: ABSOLUTE BASOPHILS # (AUTO) 0.1 10^3/uL (0.0-0.2); ABSOLUTE EOSINOPHILS # (AUTO) 0.2 10^3/uL (0.0-0.6); ABSOLUTE LYMPHOCYTES (AUTO) 1.8 10^3/uL (0.5-4.7); ABSOLUTE MONOCYTES (AUTO) 0.8 10^3/uL (0.1-1.4); ABSOLUTE NEUT (AUTO) 12.4 10^3/uL (1.7-8.2); BASOPHILS % (AUTO) 0.5 % (0-2); EOSINOPHILS % (AUTO) 1.4 % (0-6); HEMATOCRIT 32.4 % (36.0-47.0); HEMOGLOBIN 10.3 g/dL (12.0-15.5); LYMPHOCYTES % (AUTO) 11.7 % (13-45); MEAN CORPUSCULAR HEMOGLOBIN 31.7 pg (27.0-33.4); MEAN CORPUSCULAR HGB CONC 31.9 g/dL (32.0-36.0); MEAN CORPUSCULAR VOLUME 99 fl (80-97); MONOCYTES % (AUTO) 5.1 % (3-13); PLATELET COUNT 162 10^3/uL (150-450); RED BLOOD COUNT 3.27 10^6/uL (3.72-5.28); RED CELL DISTRIBUTION WIDTH 17.3 % (11.5-14.0); SEGMENTED NEUTROPHILS % (AUTO) 81.3 % (42-78); TOTAL CELLS COUNTED % (AUTO) 100 %; WHITE BLOOD COUNT 15.2 10^3/uL (4.0-10.5)
[2020-06-14 20:07] LABS: AMORPHOUS SEDIMENT,URINE TRACE /HPF; APPEARANCE,URINE SLIGHTLY-CLOUDY; BILIRUBIN,URINE NEGATIVE (NEGATIVE); COLOR,URINE YELLOW; GLUCOSE, URINE NEGATIVE (NEGATIVE); KETONES,URINE NEGATIVE (NEGATIVE); LEUKOCYTE ESTERASE,URINE LARGE (NEGATIVE); NITRITE,URINE NEGATIVE (NEGATIVE); PROTEIN,URINE 100 mg/dL (NEGATIVE); URINE SPECIFIC GRAVITY 1.016; UROBILINOGEN,URINE NEGATIVE mg/dL (<2.0)
[2020-06-14 20:21] LABS: ALBUMIN 4.7 g/dL (3.5-5.0); ALKALINE PHOSPHATASE 73 U/L (38-126); ANION GAP 14 (5-19); ASPARTATE AMINO TRANSFERASE 14 U/L (14-36); BILIRUBIN,DIRECT 0.2 mg/dL (0.0-0.4); BILIRUBIN,TOTAL 0.5 mg/dL (0.2-1.3); BLOOD UREA NITROGEN 61 mg/dL (7-20); CALCIUM 9.6 mg/dL (8.4-10.2); CARBON DIOXIDE 11 mmol/L (22-30); CHLORIDE 117 mmol/L (98-107); GLUCOSE 97 mg/dL (75-110); POTASSIUM 3.9 mmol/L (3.6-5.0); TOTAL PROTEIN 7.2 g/dL (6.3-8.2)
[2020-06-14] MEDS ORDERED: LEVOFLOXACIN 750 MG/D5W RTU 750 MG/150 ML RTUPB IV ONE (21:04)
[2020-06-14 22:38] LABS: VENOUS BLOOD BASE EXCESS -18.8 mmol/L; VENOUS BLOOD HCO3 10.1 mmol/L (20-32); VENOUS BLOOD PCO2 34.9 mmHg (35-63)
[2020-06-14 22:42] LABS: VENOUS BLOOD PH 7.08 (7.30-7.42)
[2020-06-14] MEDS ORDERED: NORMAL SALINE 1000 ML 1,000 ML IV ONE (23:39)
--- NOTE | 2020-06-14 23:41 | ER Document Report ---
Entered by LUCINDA SÁNCHEZ SCRIBE 06/14/202023 Acting as scribe for:GIL HOLLOWAY IV, MD ED General - General Mode of Arrival: Wheelchair Information source: Patient, Emergency Med Personnel TRAVEL OUTSIDE OF THE [place]. IN LAST 30 DAYS: No <GIL HOLLOWAY IV - Last Filed: 06/15/20 03:20> <JOHNSONLAMIN Mansi - Last Filed: 06/15/20 10:49> - General Chief Complaint: Toe Injury Stated Complaint: THIRSTY Time Seen by Provider: 06/14/20 18:48 Primary Care Provider: MAU TORRES MD [Primary Care Provider] - Follow up as needed Notes: This 65 year old female patient with a history of ESRD on HD (, , Wed) brought in by EMS presents to the ED today with complaints of a right great toe injury that occurred yesterday after a fall. Patient denies any pain to the toe. Patient also complains of an "upset stomach" with diarrhea since yesterday in addition to poor PO intake. (GIL HOLLOWAY IV) - Related Data Allergies/Adverse Reactions: cephalexin [From Keflex] Allergy (Verified 06/11/20 00:35) codeine [Codeine] Allergy (Verified 06/11/20 00:35) Past Medical History - General Information source: Patient, [facility] Records - Social History Smoking Status: Former Smoker Cigarette use (# per day): No Chew tobacco use (# tins/day): No Smoking Education Provided: No Drug Abuse: None Family History: Reviewed & Not Pertinent Patient has suicidal ideation: No Patient has homicidal ideation: No - Past Medical History Cardiac Medical History: Reports: Hx Congestive Heart Failure, Hx Coronary Artery Disease, Hx Hypercholesterolemia, Hx Hypertension Pulmonary Medical History: Reports: Hx COPD, Hx Pneumonia - 2006 Neurological Medical History: Reports: Hx Cerebrovascular Accident Renal/ Medical History: Reports: Hx End Stage Renal Disease, Hx Hemodialysis - , , Wed Past Surgical History: Reports: Hx Hysterectomy, Hx Vascular Surgery - Central venous catheter placement for dialysis use - Immunizations Hx Diphtheria, Pertussis, Tetanus Vaccination: No <GIL HOLLOWAY IV - Last Filed: 06/15/20 03:20> Review of Systems - Review of Systems Constitutional: No symptoms reported EENT: No symptoms reported Cardiovascular: No symptoms reported Respiratory: No symptoms reported Gastrointestinal: See HPI, Abdominal pain, Diarrhea, Poor appetite, Poor fluid intake Genitourinary: No symptoms reported Female Genitourinary: No symptoms reported Musculoskeletal: See HPI, Other - Right great toe injury Skin: No symptoms reported Hematologic/Lymphatic: No symptoms reported Neurological/Psychological: No symptoms reported -: Yes All other systems reviewed and negative <GIL HOLLOWAY IV - Last Filed: 06/15/20 03:20> Physical Exam - Vital signs Interpretation: Normal - General General appearance: Other - Somnolent, but easily aroused. Will answer questions. Able to request ice and a blanket. In distress: None - HEENT Head: Normocephalic, Atraumatic Eyes: Normal Pupils: PERRL - Respiratory Respiratory status: No respiratory distress Chest status: Other - Permacath noted to right chest wall Breath sounds: Normal Chest palpation: Normal - Cardiovascular Rhythm: Regular Heart sounds: Normal auscultation Murmur: No Friction rub: No Gallop: None auscultated - Abdominal Inspection: Normal Distension: No distension Bowel sounds: Normal Tenderness: Nontender - Abdomen soft Organomegaly: No organomegaly - Back Back: Normal, Nontender - Extremities General upper extremity: Normal inspection Foot: Nail injury - Right great toe nail appears to be avulsed from the nail bed some, Other - Right great toe appears to have a chronic deformity from a prior injury. Minimal erythema at the base of the nail bed, but no bleeding or crepi tus. Movement of the toe does not illicit any pain. All toes appear to have a fungal infection that exhibit malformed growth.. No: Ecchymosis, Edema - Neurological Neuro grossly intact: Yes - Psychological Associated symptoms: Normal affect, Normal mood - Skin Skin Temperature: Warm Skin Moisture: Dry Skin Color: Normal <GIL HOLLOWAY IV - Last Filed: 06/15/20 03:20> - Vital signs Vitals: Temp Pulse Resp BP Pulse Ox 99.0 F 66 18 119/60 98 06/14/20 18:39 06/14/20 18:39 06/14/20 18:39 06/14/20 18:39 06/14/20 18:39 Course - Laboratory Result Diagrams: 06/14/20 19:46 06/14/20 19:46 - Diagnostic Test Radiology reviewed: Reports reviewed - Consults DR. FERNÁNDEZ Time consulted: 03:19 - DR. FERNÁNDEZ ACCEPTED PT FOR TRANSFER, REQUESTED VANCOMYCIN BE GIVEN <GIL HOLLOWAY IV - Last Filed: 06/15/20 03:20> - Laboratory Result Diagrams: 06/14/20 19:46 06/14/20 19:46 - Diagnostic Test Radiology reviewed: Image reviewed, Reports reviewed <LAMIN JOHNSON - Last Filed: 06/15/20 10:49> - Re-evaluation Re-evalutation: 06/15/20 10:35 Signed out to me from Dr. vasquez regarding Blanca Barrera who is a patient who is a hemodialysis patient has been noncompliant with dialysis who presents stating she was and also had an injury to her right great toe. Patient was noted to be acidotic with a BUN and creatinine elevation. Also noted to be having a CO2 of 11. Patient has been given some IV bicarb is also was started on some antibiotics because there was little exudate coming from the portal site of her right permacath. Patient was in the ED 4 days ago and primary care had accidentally was pulled out for 1 cm. Patient's permacath was sutured back in place and on chest x-ray it appeared to be in the normal position without any complications. Currently there is no dialysis beds as well as dialysis in the hospital over this weekend and patient has been considered transfer to [address] [place] [address] vasquez prior to my arrival [facility] had place patient on a waiting list. Discussed again with Leandra Montero and as we discussed patient if we could do a local dialysis patient would benefit by getting dialysis on outpatient basis as opposed to having to be transferred. Patient is medically stable enough to to go to dialysis today and be checked dialyzed as an outpatient setting. I will place patient on antibiotics and treatment of her permacath that she has in place that has a small amount of exudate present. 06/15/20 10:40 06/15/20 10:41 Inasmuch as patient is hemodynamically stable and is in need of dialysis. Patient has a chair time today at the [facility] and patient's chair time is 12:00. Patient will be transported by EMS service to dialysis today. Patient will be placed on antibiotic coverage by mouth. Patient is already received received IV Levaquin levofloxacin and vancomycin. (LAMIN JOHNSON) - Vital Signs Vital signs: Temp Pulse Resp BP Pulse Ox 97.6 F 66 16 105/65 100 06/15/20 09:12 06/15/20 09:12 06/15/20 09:12 06/15/20 09:12 06/15/20 09:12 - Laboratory Laboratory results interpreted by me: 06/14/20 06/14/20 06/14/20 19:40 19:46 19:46 WBC 15.2 H RBC 3.27 L Hgb 10.3 L Hct 32.4 L MCV 99 H MCHC 31.9 L RDW 17.3 H Lymph % (Auto) 11.7 L Absolute Neuts (auto) 12.4 H Seg Neutrophils % 81.3 H Carbonic Acid ABG pH ABG pCO2 ABG pO2 ABG HCO3 ABG Total CO2 VBG pH VBG pCO2 VBG HCO3 Chloride 117 H Carbon Dioxide 11 L BUN 61 H Creatinine 10.95 H Est GFR ( Amer) 4 L Est GFR (MDRD) Non-Af 4 L Urine Protein 100 H Urine Blood MODERATE H Ur Leukocyte Esterase LARGE H 06/14/20 06/15/20 22:25 02:30 WBC RBC Hgb Hct MCV MCHC RDW Lymph % (Auto) Absolute Neuts (auto) Seg Neutrophils % Carbonic Acid 0.73 L ABG pH 7.13 L* ABG pCO2 24.2 L ABG pO2 103.5 H ABG HCO3 7.9 L ABG Total CO2 8.6 L VBG pH 7.08 L* VBG pCO2 34.9 L VBG HCO3 10.1 L Chloride Carbon Dioxide BUN Creatinine Est GFR ( Amer) Est GFR (MDRD) Non-Af Urine Protein Urine Blood Ur Leukocyte Esterase 06/15/20 10:38 Laboratories showed patient has a acidosis with a CO2 of 11 also noted is a urinary tract infection with moderate amount of blood and large white cells present. Culture will be obtained of the urine. Patient has a white blood cell count of 15.2. (LAMIN JOHNSON) - Diagnostic Test Radiology results interpreted by me: 06/15/20 10:40 CT of the head shows chronic ischemic changes with chronic encephalomalacia from prior events. No acute stroke or hemorrhage noted at this time. Chest x-ray shows a normal-appearing chest with a permacath in place no infil trate mild cardiomegaly. Plain film x-ray of right foot shows there is no fractures noted toenail a vulsion noted on the right great toe. (LAMIN JOHNSON) - Consults DR. FERNÁNDEZ Reason for consultation: 06/15/20 03:21 AMS, UTI, LEUKOCYTOSIS, ACIDOSIS, DIALYSIS PATIENT (GIL HOLLOWAY IV) Discharge <GIL HOLLOWAY IV - Last Filed: 06/15/20 03:20> <LAMIN JOHNSON - Last Filed: 06/15/20 10:49> - Discharge Clinical Impression: Metabolic acidosis, Dialysis patient, End stage renal disease on dialysis, Acute on chronic respiratory acidosis, Non-compliance with renal dialysis Urinary tract infection Qualifiers: Urinary tract infection type: site unspecified Hematuria presence: with hematuria Qualified Code(s): N39.0 - Urinary tract infection, site not specified Leukocytosis, unspecified Qualifiers: Leukocytosis type: unspecified Qualified Code(s): D72.829 - Elevated white blood cell count, unspecified Condition: Stable Disposition: HOME, SELF-CARE Prescriptions: Ciprofloxacin HCl [Cipro 500 mg Tablet] 500 mg PO ASDIR #10 tablet Referrals: MAU TORRES MD [Primary Care Provider] - Follow up as needed Caren JOSE MD [ACTIVE STAFF] - Follow up in 3-5 days I personally performed the services described in the documentation, reviewed and edited the documentation which was dictated to the scribe in my presence, and it accurately records my words and actions.
[2020-06-15 02:51] LABS: ARTERIAL BLOOD BASE EXCESS -19.6 mmol/L; ARTERIAL BLOOD H2CO3 0.73 mmol/L (1.05-1.35); ARTERIAL BLOOD HCO3 7.9 mmol/L (20-24); ARTERIAL BLOOD PCO2 24.2 mmHg (35-45); ARTERIAL BLOOD PO2 103.5 mmHg (80-100); ARTERIAL BLOOD TOTAL CO2 8.6 mmol/L (21-25)
[2020-06-15 02:57] LABS: ARTERIAL BLOOD PH 7.13 (7.35-7.45)
[2020-06-15] MEDS ORDERED: SODIUM BICARBONATE 8.4% INJ 50 MEQ/50 ML DISP.SYRIN IV ONE (03:11)
[2020-06-15 03:19] LABS: ARTERIAL BLOOD FIO2 ROOM AIR
[2020-06-15] MEDS ORDERED: VANCOMYCIN HCL INJ 1000 MG VIAL IV ONE ×2 (03:20→09:13)
--- NOTE | 2020-06-15 08:34 | RADIOLOGY REPORT (SQ) ---
EXAM DESCRIPTION: CHEST SINGLE VIEW IMAGES COMPLETED DATE/TIME: 06/15/2020 8:09 am REASON FOR STUDY: dialysis patient/right permacath COMPARISON: 06/11/2020 FINDINGS: One-view chest AP portable upright. No change. Lungs remain clear. Dialysis catheter in place. Stable cardiomediastinal silhouette. TECHNICAL DOCUMENTATION: JOB ID: [id number] Reading location - IP/workstation name: [email or web address]
[2020-06-15] MEDS ORDERED: NORMAL SALINE 1000 ML 1,000 ML IV PRN (09:11)
[2020-06-15] MEDS ORDERED: LEVOFLOXACIN 750 MG/D5W RTU 750 MG/150 ML RTUPB IV ONE (09:12)
[2020-06-15] MEDS ORDERED: DEXTROSE 5%-WATER 250 ML with NOREPINEPHRINE BITARTRATE 4 MG IV PRN ×2 (09:13)
[2020-06-15 11:22] VITALS: BP 85/55
== END 2020-06-15 11:25 | disposition home or self-care (01) ==
LOC: ER 18:03
DX: N39.0 Urinary tract infection, site not specified (principal); E87.2 Acidosis; I13.2 Hypertensive heart and chronic kidney disease with heart failure and with stage 5 chronic kidney disease, or end stage renal disease; N18.6 End stage renal disease; I50.9 Heart failure, unspecified; R10.9 Unspecified abdominal pain; R19.7 Diarrhea, unspecified; R63.0 Anorexia; R63.1 Polydipsia; D72.829 Elevated white blood cell count, unspecified; Z91.15 Patient's noncompliance with renal dialysis; Z99.2 Dependence on renal dialysis; Z88.1 Allergy status to other antibiotic agents; Z88.8 Allergy status to other drugs, medicaments and biological substances; Z87.891 Personal history of nicotine dependence; I25.10 Atherosclerotic heart disease of native coronary artery without angina pectoris; J44.9 Chronic obstructive pulmonary disease, unspecified
CPT/HCPCS: 99285; 96361; 96375; 96365; 96366; 36415; 87040; 87086; 87070; 87205; 82803 ×2; 83605; 85025; 87077; 80053; 81001; 87150 ×26; 71045; 73630; 70450; J3490; J7030; J3370; J1956; 87088; 87186

== ENCOUNTER 2020-06-24 02:32 | Inpatient (IN) | payer MEDICARE, MEDICAID ==
--- NOTE | 2020-06-24 03:31 | ER Document Report ---
Entered by LUCINDA SÁNCHEZ SCRIBE 06/24/20 0324 Acting as scribe for:GIL HOLLOWAY IV, MD ED General - General Chief Complaint: Weakness Stated Complaint: GENERAL WEAKNESS Time Seen by Provider: 06/24/20 03:06 Primary Care Provider: MAU ANDRADE MD [Primary Care Provider] - Follow up as needed Mode of Arrival: Medic Information source: Patient, Emergency Med Personnel Notes: This 65 year old female patient with a history of ESRD on HD (, , Wed) brought in by EMS presents to the ED today with complaints of generalized weakness. Per ED nurse, EMS was called by the patient's nephew because he found the patient on the floor. Upon EMS arrival, patiently reportedly stated "I was tired so I went to sleep on the floor." Patient apparently has not had any air conditioning in the home for weeks. Patient was seen here on 06/15/2020 with the same complaint; however, there were no dialysis beds in the hospital at that time, so the patient was going to be transferred to another facility with dialysis capabilities. Review of the last visit reveals that the patient was actually sent to a local dialysis facility for treatment. TRAVEL OUTSIDE OF THE [place] IN LAST 30 DAYS: No - Related Data Allergies/Adverse Reactions: cephalexin [From Keflex] Allergy (Verified 06/11/20 00:35) codeine [Codeine] Allergy (Verified 06/11/20 00:35) Past Medical History - General Information source: [facility] Records - Social History Smoking Status: Unknown if Ever Smoked Smoking Education Provided: No Family History: Reviewed & Not Pertinent - Past Medical History Cardiac Medical History: Reports: Hx Congestive Heart Failure, Hx Coronary Artery Disease, Hx Hypercholesterolemia, Hx Hypertension Pulmonary Medical History: Reports: Hx COPD, Hx Pneumonia - 2006 Neurological Medical History: Reports: Hx Cerebrovascular Accident Renal/ Medical History: Reports: Hx End Stage Renal Disease, Hx Hemodialysis - , , Wed Past Surgical History: Reports: Hx Hysterectomy, Hx Vascular Surgery - Central venous catheter placement for dialysis use - Immunizations Hx Diphtheria, Pertussis, Tetanus Vaccination: No Review of Systems - Review of Systems Constitutional: See HPI, Weakness, Other - Thirsty EENT: No symptoms reported Cardiovascular: No symptoms reported Respiratory: No symptoms reported Gastrointestinal: No symptoms reported Genitourinary: No symptoms reported Female Genitourinary: No symptoms reported Musculoskeletal: No symptoms reported Skin: No symptoms reported Hematologic/Lymphatic: No symptoms reported Neurological/Psychological: No symptoms reported -: Yes All other systems reviewed and negative Physical Exam - Vital signs Vitals: Resp 15 06/24/20 02:47 Interpretation: Normal - General General appearance: Alert In distress: None - HEENT Head: Normocephalic, Atraumatic Eyes: Normal Pupils: PERRL - Respiratory Respiratory status: No respiratory distress Chest status: Nontender Breath sounds: Normal Chest palpation: Normal - Cardiovascular Rhythm: Regular Heart sounds: Normal auscultation Murmur: No Friction rub: No Gallop: None auscultated - Abdominal Inspection: Normal Distension: No distension Bowel sounds: Normal Tenderness: Nontender - Abdomen soft Organomegaly: No organomegaly - Back Back: Normal, Nontender - Extremities General upper extremity: Normal inspection General lower extremity: Normal inspection - Neurological Neuro grossly intact: Yes Orientation: AAOx4 [place] Coma Scale Eye Opening: Spontaneous [place] Coma Scale Verbal: Oriented [place] Coma Scale Motor: Obeys Commands [place]wood Coma Scale Total: 15 - Psychological Associated symptoms: Flat affect - Skin Skin Temperature: Warm Skin Moisture: Dry Skin Color: Normal Course - Vital Signs Vital signs: Temp Pulse Resp BP Pulse Ox 22 H 120/57 L 96 06/24/20 04:01 06/24/20 04:01 06/24/20 04:01 - Laboratory Result Diagrams: 06/24/20 03:52 06/24/20 03:52 Laboratory results interpreted by me: 06/24/20 06/24/20 03:52 03:52 WBC 19.0 H RBC 3.44 L Hgb 10.7 L Hct 34.3 L MCV 100 H MCHC 31.2 L RDW 17.4 H Seg Neuts % (Manual) 83 H Lymphocytes % (Manual) 12 L Abs Neuts (Manual) 15.8 H Sodium 146.4 H Chloride 120 H Carbon Dioxide 14 L BUN 84 H Creatinine 12.24 H Est GFR ( Amer) 4 L Est GFR (MDRD) Non-Af 3 L Glucose 123 H Calcium 10.4 H - Diagnostic Test Radiology reviewed: Reports reviewed - Consults Dr. Murray Time consulted: 05:50 - Dr. Murray agreed to admit patient for Dr. Andrade Reason for consultation: 06/24/20 05:57 Leukocytosis, acidosis Discharge - Discharge Clinical Impression: Acidosis Leukocytosis Qualifiers: Leukocytosis type: unspecified Qualified Code(s): D72.829 - Elevated white blood cell count, unspecified Condition: Stable Disposition: ADMITTED OBSERVATION Admitting Provider: Raymond Unit Admitted: IMCU Referrals: MAU ANDRADE MD [Primary Care Provider] - Follow up as needed I personally performed the services described in the documentation, reviewed and edited the documentation which was dictated to the scribe in my presence, and it accurately records my words and actions.
[2020-06-24 04:26] LABS: ALBUMIN 4.8 g/dL (3.5-5.0); ALKALINE PHOSPHATASE 49 U/L (38-126); ANION GAP 12 (5-19); ASPARTATE AMINO TRANSFERASE 16 U/L (14-36); BILIRUBIN,DIRECT 0.3 mg/dL (0.0-0.4); BILIRUBIN,TOTAL 0.7 mg/dL (0.2-1.3); BLOOD UREA NITROGEN 84 mg/dL (7-20); CALCIUM 10.4 mg/dL (8.4-10.2); CARBON DIOXIDE 14 mmol/L (22-30); CHLORIDE 120 mmol/L (98-107); GLUCOSE 123 mg/dL (75-110); POTASSIUM 3.9 mmol/L (3.6-5.0); TOTAL PROTEIN 7.5 g/dL (6.3-8.2)
[2020-06-24 04:35] LABS: HEMATOCRIT 34.3 % (36.0-47.0); HEMOGLOBIN 10.7 g/dL (12.0-15.5); MEAN CORPUSCULAR HEMOGLOBIN 31.2 pg (27.0-33.4); MEAN CORPUSCULAR HGB CONC 31.2 g/dL (32.0-36.0); MEAN CORPUSCULAR VOLUME 100 fl (80-97); PLATELET COUNT 161 10^3/uL (150-450); RED BLOOD COUNT 3.44 10^6/uL (3.72-5.28); RED CELL DISTRIBUTION WIDTH 17.4 % (11.5-14.0)
[2020-06-24 04:54] LABS: ABSOLUTE LYMPHOCYTES# (MANUAL) 2.3 10^3/uL (0.5-4.7); ABSOLUTE MONOCYTES # (MANUAL) 0.8 10^3/uL (0.1-1.4); BASOPHILS % (MANUAL) 1 % (0-2); EOSINOPHILS % (MANUAL) 0 % (0-6); LYMPHOCYTES % (MANUAL) 12 % (13-45); MONOCYTES % (MANUAL) 4 % (3-13); SEGMENTED NEUTROPHILS % (MAN) 83 % (42-78); TOTAL CELLS COUNTED 100
[2020-06-24 04:55] LABS: ANISOCYTOSIS 1+; POIKILOCYTOSIS 1+; TOXIC GRANULATION SLIGHT
[2020-06-24 04:56] LABS: OVALOCYTES 1+; PLATELET COMMENT ADEQUATE; TEAR DROP CELLS SLIGHT
[2020-06-24] MEDS ORDERED: SODIUM BICARBONATE 8.4% INJ 50 MEQ/50 ML DISP.SYRIN IV ONE (05:14)
--- NOTE | 2020-06-24 05:47 | RADIOLOGY REPORT (SQ) ---
CLINICAL HISTORY: weakness COMPARISON: 06/15/2020. TECHNIQUE: XR CHEST 1 VIEW 06/24/2020 5:15 AM CDT FINDINGS: Cardiac silhouette is normal in size. Lungs are clear without consolidation, atelectasis, mass or edema. There is a small left pleural effusion. There is no pneumothorax. There are no acute osseous findings. Right central line is unchanged. Left axillary vascular stent is unchanged. IMPRESSION: No change.
[2020-06-24] MEDS ORDERED: IPRATROPIUM/ALBUTEROL 0.5-2.5 MG/3 ML AMPUL NEB PRN (09:17)
[2020-06-24] MEDS ORDERED: NORMAL SALINE 1000 ML 1,000 ML IV PRN (09:53)
[2020-06-24] MEDS ORDERED: HEPARIN SOD (PORCINE) 1,000 UNIT/ML 10 ML VIAL IV PRN (09:53)
--- NOTE | 2020-06-24 09:57 | PDOC H&P ---
History of Present Illness Admission Date/PCP: 06/24/20 06:25 MAU TORRES MD Patient complains of: Generalized weakness and altered mental status History of Present Illness: ELIN JIMÉNEZ is a 65 year old female This is a 65-year-old female's with a history of the end-stage renal disease hypertension hyperlipidemia very noncomplianceIn the last dialysis was done on 06/15 This patient always have a problem with the not going for the dialysis given the last time admitted for almost a month did not go for dialysis Patient is even though Dr. Hand nephrology is tried to call the patient's for the dialysis she never answer Today's patient was brought by the EMS because of generalized weakness and patient is try to more sleepy And feeling very weak Patient does not have any other conditions and I think as usual with a very noncompliance not going for the dialysis patient is classic uremic symptoms Also have elevated white count patient is currently denied any chest pain no short of breath no fever no chills Past Medical History Cardiac Medical History: Reports: Congestive Heart Failure, Coronary Artery Dise ase, Hyperlipidema, Hypertension Denies: Myocardial Infarction Pulmonary Medical History: Reports: Chronic Obstructive Pulmonary Disease (COPD), Pneumonia - 2006 Denies: Asthma, Bronchitis Neurological Medical History: Denies: Seizures Renal/ Medical History: Reports: End Stage Renal Disease Musculoskeltal Medical History: Denies: Arthritis Psychiatric Medical History: Denies: Depression Hematology: Denies: Anemia Past Surgical History Past Surgical History: Reports: Hysterectomy, Vascular Surgery - Central venous catheter placement for dialysis use Social History Information Source: Patient Smoking Status: Unknown if Ever Smoked Frequency of Alcohol Use: None Hx Recreational Drug Use: No Drugs: None Hx Prescription Drug Abuse: No Family History Family History: Reviewed & Not Pertinent Parental Family History Reviewed: Yes Children Family History Reviewed: Yes Sibling(s) Family History Reviewed.: Yes Medication/Allergy Home Medications: Albuterol Sulfate [Proair HFA Inhalation Aerosol 8.5 gm MDI] 2 puff IH Q6HP PRN 04/26/20 Allopurinol [Zyloprim 100 mg Tablet] 100 mg PO DAILY 04/26/20 Alprazolam [Xanax 0.25 mg Tablet] 0.25 mg PO MOWEFR@1000 04/26/20 Cetirizine HCl [Zyrtec 10 mg Tablet] 10 mg PO DAILY 04/26/20 Fluticasone Propionate [Flonase Nasal [place] 50 Mcg/[place] 16 gm] 2 puff NASL DAILY 04/26/20 Levothyroxine Sodium [Synthroid] 175 mcg PO Q6AM 04/26/20 Midodrine HCl [Proamatine 5 mg Tablet] 5 mg PO TID 04/26/20 Aspirin [Aspirin 81 mg Chewable Tablet] 81 mg PO DAILY #30 tab.chew 04/29/20 Atorvastatin Calcium [Lipitor 40 mg Tablet] 40 mg PO QHS #30 tablet 04/29/20 Clopidogrel Bisulfate [Plavix 75 mg Tablet] 75 mg PO DAILY #30 tablet 04/29/20 Ciprofloxacin HCl [Cipro 500 mg Tablet] 500 mg PO ASDIR #10 tablet 06/15/20 Allergies/Adverse Reactions: cephalexin [From Keflex] Allergy (Verified 06/11/20 00:35) codeine [Codeine] Allergy (Verified 06/11/20 00:35) Review of Systems Constitutional: PRESENT: anorexia, fatigue, weakness. ABSENT: chills, fever(s), headache(s), weight gain, weight loss Eyes: ABSENT: visual disturbances Ears: ABSENT: hearing changes Cardiovascular: ABSENT: chest pain, dyspnea on exertion, edema, orthropnea, palpitations Respiratory: ABSENT: cough, hemoptysis Gastrointestinal: ABSENT: abdominal pain, constipation, diarrhea, hematemesis, hematochezia, nausea, vomiting Genitourinary: ABSENT: dysuria, hematuria Musculoskeletal: ABSENT: joint swelling Integumentary: ABSENT: rash, wounds Neurological: ABSENT: abnormal gait, abnormal speech, confusion, dizziness, focal weakness, syncope Psychiatric: ABSENT: anxiety, depression, homidical ideation, suicidal ideation Endocrine: ABSENT: cold intolerance, heat intolerance, menstrual abnormalities, polydipsia, polyuria Hematologic/Lymphatic: ABSENT: easy bleeding, easy bruising, lymphadenopathy Physical Exam Vital Signs: Temp Pulse Resp BP Pulse Ox 97.4 F 19 111/52 L 95 06/24/20 07:47 06/24/20 07:01 06/24/20 07:01 06/24/20 07:01 Intake & Output 06/23/20 06/24/20 06/25/20 06:59 06:59 06:59 Weight 82.4 kg General appearance: PRESENT: no acute distress, well-developed, well-nourished Head exam: PRESENT: atraumatic, normocephalic Eye exam: PRESENT: conjunctiva pink, EOMI, PERRLA. ABSENT: scleral icterus Ear exam: PRESENT: normal external ear exam Mouth exam: PRESENT: moist, tongue midline Neck exam: PRESENT: full ROM. ABSENT: carotid bruit, JVD, lymphadenopathy, thyromegaly Respiratory exam: PRESENT: clear to auscultation nirmal Cardiovascular exam: PRESENT: RRR. ABSENT: diastolic murmur, rubs, systolic murmur Vascular exam: PRESENT: normal capillary refill GI/Abdominal exam: PRESENT: normal bowel sounds, soft. ABSENT: distended, guarding, mass, organolmegaly, rebound, tenderness Rectal exam: PRESENT: deferred Neurological exam: PRESENT: alert, awake, oriented to person, oriented to place. ABSENT: motor sensory deficit Psychiatric exam: PRESENT: appropriate affect, normal mood. ABSENT: homicidal ideation, suicidal ideation Skin exam: PRESENT: dry, intact, warm. ABSENT: cyanosis, rash Results Laboratory Results: 06/24/20 03:52 06/24/20 03:52 06/24/20 06/24/20 03:52 03:52 WBC 19.0 H RBC 3.44 L Hgb 10.7 L Hct 34.3 L MCV 100 H MCH 31.2 MCHC 31.2 L RDW 17.4 H Plt Count 161 Seg Neutrophils % Not Reportable Sodium 146.4 H Potassium 3.9 Chloride 120 H Carbon Dioxide 14 L Anion Gap 12 BUN 84 H Creatinine 12.24 H Est GFR ( Amer) 4 L Glucose 123 H Calcium 10.4 H Magnesium 2.0 Total Bilirubin 0.7 AST 16 Alkaline Phosphatase 49 Total Protein 7.5 Albumin 4.8 Impressions: Chest X-Ray 06/24/20 05:15 IMPRESSION: No change. Assessment & Plan - Diagnosis (1) Uremia Is this a current diagnosis for this admission?: Yes Plan: Due to the noncompliance of the missing the dialysis consult the nephrology (2) End stage renal disease Is this a current diagnosis for this admission?: Yes Plan: Continues to follow with the nephrology (3) CHF (congestive heart failure) Qualifiers: Heart failure type: diastolic Heart failure chronicity: chronic Qualified Code(s): I50.32 - Chronic diastolic (congestive) heart failure Is this a current diagnosis for this admission?: Yes (4) Metabolic acidosis Is this a current diagnosis for this admission?: Yes Plan: Due to the missing several dialysis patient is going for the dialysis well according to the nephrology the dialysis catheter is not working we will consult the surgery to put the temporary dialysis catheter (5) Anemia in chronic kidney disease (CKD) Qualifiers: Is this a current diagnosis for this admission?: Yes (6) Occlusion of left middle cerebral artery Is this a current diagnosis for this admission?: Yes Plan: The patient him last time discussed with the neurology and vascular surgery and supposed to follow not acute patient is very noncompliance (7) Leukocytosis Qualifiers: Leukocytosis type: unspecified Qualified Code(s): D72.829 - Elevated white blood cell count, unspecified Is this a current diagnosis for this admission?: Yes Plan: We will get the urine culture blood culture will repeat the CBC if indicated we will start the patient on antibiotic patient have a some loose stool we will get the stool culture (8) Weakness Is this a current diagnosis for this admission?: Yes - Time Time Spent: 50 to 70 Minutes Medications reviewed and adjusted accordingly: Yes Anticipated Discharge Disposition: Home with Home Health Anticipated Discharge Timeframe: within 72 hours - Inpatient Certification Based on my medical assessment, after consideration of the patient's comorbidities, presenting symptoms, or acuity I expect that the services needed warrant INPATIENT care.: Yes I certify that my determination is in accordance with my understanding of Medicare's requirements for reasonable and necessary INPATIENT services [42 CFR 412.3e].: Yes Medical Necessity: Significant Comorbidiites Make Outpatient Treatment Too Risky, Need For Continuous Telemetry Monitoring Post Hospital Care: D/C Inventory Taker Documentation - Plan Summary Plan Summary: Continues the current medications consult the nephrology and surgery Consult the community planner about the super noncompliance patient I think overall patient's prognosis is poor because of the super noncompliance
[2020-06-24 10:20] LABS: ANION GAP 15 (5-19); BLOOD UREA NITROGEN 84 mg/dL (7-20); CALCIUM 9.4 mg/dL (8.4-10.2); CARBON DIOXIDE 14 mmol/L (22-30); CHLORIDE 116 mmol/L (98-107); GLUCOSE 118 mg/dL (75-110); POTASSIUM 3.5 mmol/L (3.6-5.0)
--- NOTE | 2020-06-24 10:30 | Operative Report ---
Operative Report DATE OF SURGERY: 06/24/20 PREOPERATIVE DIAGNOSIS: 1. End-stage renal failure. 2. Acute uremia with men josie status changes POSTOPERATIVE DIAGNOSIS: Same OPERATION: 1. Ultrasound directed insertion of right common femoral vein trialaysisralysis catheter SURGEON: SILVIO DUMONT ANESTHESIA: Local TISSUE REMOVED OR ALTERED: None COMPLICATIONS: None ESTIMATED BLOOD LOSS: Scant INTRAOPERATIVE FINDINGS: See below PROCEDURE: The patient was seen in the emergency department, room 20. Right groin was exposed, clipped of hair. Surgical plan surgical timeout were conducted. The right groin was prepped and draped in sterile fashion. Using real-time ultrasonography as a guide, the right common femoral vein was visualized. The adjacent skin was anesthetized 1% plain lidocaine. Using 18-gauge needle and the 0.030 guidewire, the right common femoral vein was cannulated and wire inserted into position. The tract was now dilated up with a small and medium size dilators. The triple-lumen dialysis catheter was threaded over the wire, wire removed. There was excellent aspiration of blood flow through all 3 lm. Lumens were flushed with heparinized saline, 3. Catheter required withdrawal of about 3 cm from hub to optimize blood flow. Catheter was secured to the skin at 3 sites with 3-0 Ethilon suture, Biopatch and OpSite dressing applied. Patient tolerated procedure well; Plan: 1. May use temporary right groin dialysis catheter today for dialysis 2. Discussed with primary care team, steak tenderizer machine plan for the right sided permacatheter.
[2020-06-24] MEDS: DOCUSATE SODIUM 100 MG CAPSULE PO SCH (10:37)
[2020-06-24] MEDS: HEPARIN SOD (PORCINE) 5,000 UNIT/ML 1 ML VIAL SUBCUT SCH ×2 (14:56→21:14)
--- NOTE | 2020-06-24 15:39 | PDOC CONSULTATION ---
Consultation Consult Date: 06/24/20 Provider Consulted: YOVANI FRY Consult reason:: Uremia, ESRD History of Present Illness Admission Date/PCP: 06/24/20 06:25 MAU ANDRADE MD History of Present Illness: ELIN JIMÉNEZ is a 65 year old female known to me with history of end-stage renal disease on maintenance hemodialysis but is severely nonadherent to treatment, coronary artery disease, congestive heart failure, hyperlipidemia, hypertension, COPD, and previous CVA who was brought into the emergency room via EMS because the patient was found on the floor and the nephew notices change in mental status and generalized weakness. In the emergency room initial evaluation showed a BUN of 84, creatinine of 12.24, bicarbonate of 14 and WBC of 19. When I asked the patient why she was brought to the emergency room she said she has been having loose stools of unknown duration. She is not a very good historian and her mental status is not quite there. She said she was sleeping on the floor because she could not get up because she was so weak. She complains of feeling cold. She also admits poor appetite. However she denies any nausea, vomiting, chest pains, shortness of breath, cough nor fever. Patient has been very noncompliant with her hemodialysis treatment. She was in the emergency room on June 15 and she was sent directly to dialysis at [facility] for treatment but unfortunately she only went for 1-1/2 hours because her PermCath was not working properly. We tried to call her subsequent to that to arrange a PermCath exchange but it was very difficult to get hold of her and nobody is answering their phone. Prior to June 15 patient was admitted here and also [facility] from April 25 to April 29 for altered mental status for which she was the last time she has been dialyzed while here in the hospital. I did a 24-hour urine creatinine clearance during that admission to see if she can get off dialysis since she has not been showing up and that resulted to a creatinine clearance of 6 mL/min with a volume of 1640 mL. She never showed up at [facility] after that until last week as a stated above. So today I asked the patient if she wanted to continue with dialysis or just be under hospice care. Patient could not really give me an answer so we will do hemodialysis for now. I am seeing the patient during dialysis treatment this afternoon. She is comfortably lying down in bed receiving dialysis. Since her permacath is not working we have ask her surgeon, Dr. Mcneal to place a temporary right inguinal dialysis catheter which we are now currently using during dialysis. She will be monitored throughout dialysis treatment. Past Medical History Cardiac Medical History: Reports: CHF-Diastolic, CHF-Systolic, Coronary Artery Disease, Hyperlipidemia, Hypertension-primary Pulmonary Medical History: Reports: Chronic Obstructive Pulmonary Disease (COPD), Pneumonia - 2006 Renal/ Medical History: Reports: End Stage Renal Disease Hematology Medical History: Reports Anemia of Chronic Kidney Disease Past Surgical History Past Surgical History: Reports: Hysterectomy, Vascular Surgery - Central venous catheter placement for dialysis use Social History Information Source: [facility] Records Lives with: Family - With nephew Smoking Status: Unknown if Ever Smoked Electronic Cigarette use?: No Frequency of Alcohol Use: None Hx Recreational Drug Use: No Drugs: None Hx Prescription Drug Abuse: No Family History Family History: Reviewed & Not Pertinent Parental Family History Reviewed: Yes Children Family History Reviewed: Yes Sibling(s) Family History Reviewed.: Yes Medication/Allergy Home Medications: Albuterol Sulfate [Proair HFA Inhalation Aerosol 8.5 gm MDI] 2 puff IH Q6HP PRN 04/26/20 Allopurinol [Zyloprim 100 mg Tablet] 100 mg PO DAILY 04/26/20 Alprazolam [Xanax 0.25 mg Tablet] 0.25 mg PO MOWEFR@1000 04/26/20 Cetirizine HCl [Zyrtec 10 mg Tablet] 10 mg PO DAILY 04/26/20 Fluticasone Propionate [Flonase Nasal [place] 50 Mcg/[place] 16 gm] 2 puff NASL DAILY 04/26/20 Levothyroxine Sodium [Synthroid] 175 mcg PO Q6AM 04/26/20 Midodrine HCl [Proamatine 5 mg Tablet] 5 mg PO TID 04/26/20 Aspirin [Aspirin 81 mg Chewable Tablet] 81 mg PO DAILY #30 tab.chew 04/29/20 Atorvastatin Calcium [Lipitor 40 mg Tablet] 40 mg PO QHS #30 tablet 04/29/20 Clopidogrel Bisulfate [Plavix 75 mg Tablet] 75 mg PO DAILY #30 tablet 04/29/20 Ciprofloxacin HCl [Cipro 500 mg Tablet] 500 mg PO ASDIR #10 tablet 06/15/20 Allergies/Adverse Reactions: cephalexin [From Keflex] Allergy (Verified 06/11/20 00:35) codeine [Codeine] Allergy (Verified 06/11/20 00:35) Review of Systems All systems: reviewed and no additional remarkable complaints except as stated Review of Systems: Constitutional: ABSENT: chills, fever(s), headache(s), weight gain, weight loss; admits fatigue, feeling cold and poor appetite Eyes: ABSENT: visual disturbances Ears: ABSENT: hearing changes Cardiovascular: ABSENT: chest pain, dyspnea on exertion, edema, orthropnea, palpitations Respiratory: ABSENT: cough, dyspnea, hemoptysis Gastrointestinal: ABSENT: abdominal pain, constipation, hematemesis, hematochezia, nausea, vomiting; admits diarrhea Genitourinary: ABSENT: dysuria, hematuria Musculoskeletal: ABSENT: joint swelling Integumentary: ABSENT: rash, wounds Neurological: ABSENT: abnormal gait, abnormal speech, confusion, dizziness, focal weakness, numbness, syncope; observed to be confused Psychiatric: ABSENT: anxiety, depression Endocrine: ABSENT: cold intolerance, heat intolerance, polydipsia, polyuria Hematologic/Lymphatic: ABSENT: easy bleeding, easy bruising, lymphadenopathy Physical Exam Vital Signs: Temp Pulse Resp BP Pulse Ox 97.7 F 114 H 18 114/63 96 06/24/20 10:43 06/24/20 10:51 06/24/20 10:51 06/24/20 10:43 06/24/20 10:51 Intake & Output 06/23/20 06/24/20 06/25/20 06:59 06:59 06:59 Weight 82.4 kg 80.6 kg Vitals during dialysis: Blood pressure 124/56, heart rate of 52, blood flow rate of 350 mL/min and dialysate flow rate of 800 mL/min. Exam: General appearance: No acute distress, cooperative, well-developed, well- nourished Head exam: PRESENT: atraumatic, normocephalic Eye exam: PRESENT: Conjunctiva pale, EOMI, PERRLA. ABSENT: conjunctival injection, scleral icterus Mouth exam: PRESENT: moist, neck supple, tongue midline Neck exam: PRESENT: full ROM. ABSENT: carotid bruit, JVD, lymphadenopathy, thyromegaly Respiratory exam: PRESENT: clear to auscultation bilaterally. ABSENT: rales, rhonchi, stridor, wheezes Cardiovascular exam: PRESENT: RRR, +S1, +S2. ABSENT: systolic murmur Pulses: PRESENT: normal radial pulses, normal dorsalis pedis pulses GI/Abdominal exam: PRESENT: normal bowel sounds, soft. ABSENT: guarding, mass, tenderness Rectal exam: Deferred Extremities exam: PRESENT: full ROM. ABSENT: calf tenderness, pedal edema Musculoskeletal: PRESENT: full ROM. ABSENT: deformity Neurological exam: PRESENT: alert, Awake, Oriented to person, Oriented to place, but not oriented to time, reflexes normal, CN II-XII grossly intact. ABSENT: motor sensory deficit Psychiatric exam: PRESENT: appropriate affect, normal mood. ABSENT: homicidal ideation, suicidal ideation Skin exam: PRESENT: intact, dry, warm, pallor ABSENT: rash Results Laboratory Results: 06/24/20 03:52 06/24/20 09:39 06/24/20 06/24/20 06/24/20 03:52 03:52 09:39 WBC 19.0 H RBC 3.44 L Hgb 10.7 L Hct 34.3 L MCV 100 H MCH 31.2 MCHC 31.2 L RDW 17.4 H Plt Count 161 Seg Neutrophils % Not Reportable Sodium 146.4 H 144.7 Potassium 3.9 3.5 L Chloride 120 H 116 H Carbon Dioxide 14 L 14 L Anion Gap 12 15 BUN 84 H 84 H Creatinine 12.24 H 11.18 H Est GFR ( Amer) 4 L 4 L Glucose 123 H 118 H Calcium 10.4 H 9.4 Magnesium 2.0 Total Bilirubin 0.7 AST 16 Alkaline Phosphatase 49 Total Protein 7.5 Albumin 4.8 Impressions: Chest X-Ray 06/24/20 05:15 IMPRESSION: No change. Assessment & Plan - Diagnosis (1) Uremia Is this a current diagnosis for this admission?: Yes Plan: Patient's presenting symptoms is consistent with uremia to include acute encephalopathy, generalized weakness, fatigue and poor appetite. I have spoken to the patient regarding importance of compliance on her dialysis treatment in the past repeatedly and our dialysis staff has done the same but the patient continues to be very noncompliant to her treatment. I briefly told the patient today that she has to decide if she wants to continue with dialysis treatment or just be in hospice. Since the patient is quite encephalopathic today I will give her time to decide. I have arranged for her dialysis treatment today. (2) End stage renal disease Is this a current diagnosis for this admission?: Yes Plan: Patient's PermCath is not working so a dialysis catheter has been placed by our surgeon. We will do dialysis today for 3 hours, using the patient's temporary dialysis catheter, with 3 potassium bath, blood flow rate of 350 mL per minute, dialysate flow rate of 800 mL per minute, ultrafiltration 2 L as tolerated, no heparin and no Procrit. Patient is closely being monitored throughout dialysis treatment today. I will check the patient's PTH, phosphorus level and urinalysis with reflex culture. In the next few days when the patient's mental status improves hopefully, I will revisit dialysis with the patient again before asking her surgeon to replace her PermCath. We will use her temporary dialysis catheter in the meanwhile. (3) Metabolic acidosis Is this a current diagnosis for this admission?: Yes Plan: Severe due to uremia. Dialysis today. (4) Leukocytosis Qualifiers: Leukocytosis type: unspecified Qualified Code(s): D72.829 - Elevated white blood cell count, unspecified Is this a current diagnosis for this admission?: Yes Plan: Unknown etiology yet. Patient is afebrile. Blood cultures pending. Check urinalysis. (5) Anemia in chronic kidney disease (CKD) Qualifiers: Is this a current diagnosis for this admission?: Yes Plan: We will check iron panel. No need of Retacrit today. - Notes Notes: Thank you very much for this consultation. Discussed with Dr. Andrade. - Time Time Spent: 50 to 70 Minutes
[2020-06-24 20:06] LABS: ABSOLUTE RETICS # 0.061 10^6/uL (0.028-0.122); RETICULOCYTE COUNT (AUTO) 1.89 % (0.66-2.85)
[2020-06-24 20:17] LABS: IRON(TIBC) 109.5 ug/dL (37-170); PHOSPHORUS 2.7 mg/dL (2.5-4.5)
[2020-06-24] MEDS: FAMOTIDINE 20 MG TABLET PO SCH (21:14)
[2020-06-24 21:25] LABS: FOLATE 6.25 ng/mL (>2.76)
[2020-06-25 02:03] LABS: APPEARANCE,URINE CLOUDY; BILIRUBIN,URINE NEGATIVE (NEGATIVE); COLOR,URINE YELLOW; GLUCOSE, URINE NEGATIVE (NEGATIVE); KETONES,URINE NEGATIVE (NEGATIVE); LEUKOCYTE ESTERASE,URINE SMALL (NEGATIVE); NITRITE,URINE NEGATIVE (NEGATIVE); PROTEIN,URINE 100 mg/dL (NEGATIVE); URINE SPECIFIC GRAVITY 1.016; UROBILINOGEN,URINE NEGATIVE mg/dL (<2.0)
[2020-06-25] MEDS: HEPARIN SOD (PORCINE) 5,000 UNIT/ML 1 ML VIAL SUBCUT SCH ×3 (05:03→21:54)
[2020-06-25 05:32] LABS: CALCIUM 8.4 mg/dL (8.4-10.2); CHLORIDE 102 mmol/L (98-107); GLUCOSE 94 mg/dL (75-110)
[2020-06-25 05:46] LABS: ANION GAP 14 (5-19)
[2020-06-25 05:48] LABS: BLOOD UREA NITROGEN 38 mg/dL (7-20); CARBON DIOXIDE 24 mmol/L (22-30)
[2020-06-25 05:50] LABS: POTASSIUM 2.9 mmol/L (3.6-5.0)
[2020-06-25] MEDS ORDERED: POTASSIUM CHLORIDE 10 MEQ TABLET.ER PO ONE ×2 (07:00→17:00)
[2020-06-25] MEDS: DOCUSATE SODIUM 100 MG CAPSULE PO SCH (09:21)
--- NOTE | 2020-06-25 09:28 | PDOC PROGRESS REPORT ---
Subjective Progress Note for:: 06/25/20 Subjective:: Patient is feeling better Denied any chest pain no short of breath Patient underwent full hemodialysis yesterday Very noncompliance Reason For Visit: AMS,ESRD Physical Exam Vital Signs: Temp Pulse Resp BP Pulse Ox 97.6 F 62 16 92/52 L 96 06/25/20 07:22 06/25/20 08:07 06/25/20 08:07 06/25/20 07:22 06/25/20 08:07 Intake & Output 06/24/20 06/25/20 06/26/20 06:59 06:59 06:59 Output Total 1000 Balance -1000 Weight 82.4 kg 80.6 kg General appearance: PRESENT: no acute distress, well-developed, well-nourished Head exam: PRESENT: atraumatic, normocephalic Eye exam: PRESENT: conjunctiva pink, EOMI, PERRLA. ABSENT: scleral icterus Ear exam: PRESENT: normal external ear exam Mouth exam: PRESENT: moist, tongue midline Neck exam: PRESENT: full ROM. ABSENT: carotid bruit, JVD, lymphadenopathy, thyromegaly Respiratory exam: PRESENT: clear to auscultation nirmal Cardiovascular exam: PRESENT: RRR. ABSENT: diastolic murmur, rubs, systolic murmur Pulses: PRESENT: normal dorsalis pedis pul, +2 pedal pulses bilateral Vascular exam: PRESENT: normal capillary refill GI/Abdominal exam: PRESENT: normal bowel sounds, soft. ABSENT: distended, guarding, mass, organolmegaly, rebound, tenderness Rectal exam: PRESENT: deferred Neurological exam: PRESENT: alert, awake, oriented to person, oriented to place, oriented to time, oriented to situation, CN II-XII grossly intact. ABSENT: motor sensory deficit Psychiatric exam: PRESENT: appropriate affect, normal mood. ABSENT: homicidal ideation, suicidal ideation Skin exam: PRESENT: dry, intact, warm. ABSENT: cyanosis, rash Results Laboratory Results: 06/25/20 04:55 06/24/20 06/24/20 06/24/20 09:39 19:49 19:49 WBC RBC Hgb Hct MCV MCH MCHC RDW Plt Count Seg Neutrophils % Retic Count (auto) 1.89 Sodium 144.7 Potassium 3.5 L Chloride 116 H Carbon Dioxide 14 L Anion Gap 15 BUN 84 H Creatinine 11.18 H Est GFR ( Amer) 4 L Glucose 118 H Calcium 9.4 Phosphorus 2.7 Iron 109.5 TIBC 175 L % Saturation 63 Ferritin 710.00 H Vitamin B12 261.0 Folate 6.25 PTH Intact Urine Color Urine Appearance Urine pH Ur Specific [place] Urine Protein Urine Glucose (UA) Urine Ketones Urine Blood Urine Nitrite Ur Leukocyte Esterase Urine WBC (Auto) Urine RBC (Auto) 06/24/20 06/25/20 06/25/20 19:49 01:40 04:55 WBC Cancelled RBC Cancelled Hgb Cancelled Hct Cancelled MCV Cancelled MCH Cancelled MCHC Cancelled RDW Cancelled Plt Count Cancelled Seg Neutrophils % Cancelled Retic Count (auto) Sodium Potassium Chloride Carbon Dioxide Anion Gap BUN Creatinine Est GFR ( Amer) Glucose Calcium Phosphorus Iron TIBC % Saturation Ferritin Vitamin B12 Folate PTH Intact 688.5 H Urine Color YELLOW Urine Appearance CLOUDY Urine pH 5.0 Ur Specific [place] 1.016 Urine Protein 100 H Urine Glucose (UA) NEGATIVE Urine Ketones NEGATIVE Urine Blood SMALL H Urine Nitrite NEGATIVE Ur Leukocyte Esterase SMALL H Urine WBC (Auto) 6 Urine RBC (Auto) 4 06/25/20 04:55 WBC RBC Hgb Hct MCV MCH MCHC RDW Plt Count Seg Neutrophils % Retic Count (auto) Sodium 139.8 Potassium 2.9 L* Chloride 102 Carbon Dioxide 24 D Anion Gap 14 BUN 38 H D Creatinine 5.98 H Est GFR ( Amer) 9 L Glucose 94 Calcium 8.4 Phosphorus Iron TIBC % Saturation Ferritin Vitamin B12 Folate PTH Intact Urine Color Urine Appearance Urine pH Ur Specific [place] Urine Protein Urine Glucose (UA) Urine Ketones Urine Blood Urine Nitrite Ur Leukocyte Esterase Urine WBC (Auto) Urine RBC (Auto) Impressions: Chest X-Ray 06/24/20 05:15 IMPRESSION: No change. 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
[2020-06-25] MEDS ORDERED: (PENDING PHARMACY ID) (Fluticasone/Salmeterol 1 PUFF) IH SCH (10:00)
[2020-06-25] MEDS: ACETAMINOPHEN 325 MG TABLET PO PRN (10:05)
[2020-06-25 10:20] LABS: ABSOLUTE BASOPHILS # (AUTO) 0.1 10^3/uL (0.0-0.2); ABSOLUTE EOSINOPHILS # (AUTO) 0.1 10^3/uL (0.0-0.6); ABSOLUTE LYMPHOCYTES (AUTO) 1.8 10^3/uL (0.5-4.7); ABSOLUTE MONOCYTES (AUTO) 0.8 10^3/uL (0.1-1.4); ABSOLUTE NEUT (AUTO) 13.9 10^3/uL (1.7-8.2); BASOPHILS % (AUTO) 0.4 % (0-2); EOSINOPHILS % (AUTO) 0.6 % (0-6); HEMATOCRIT 31.2 % (36.0-47.0); LYMPHOCYTES % (AUTO) 10.6 % (13-45); MEAN CORPUSCULAR HEMOGLOBIN 31.1 pg (27.0-33.4); MEAN CORPUSCULAR HGB CONC 32.1 g/dL (32.0-36.0); MEAN CORPUSCULAR VOLUME 97 fl (80-97); MONOCYTES % (AUTO) 4.5 % (3-13); RED BLOOD COUNT 3.22 10^6/uL (3.72-5.28); RED CELL DISTRIBUTION WIDTH 16.7 % (11.5-14.0); SEGMENTED NEUTROPHILS % (AUTO) 83.9 % (42-78); TOTAL CELLS COUNTED % (AUTO) 100 %; WHITE BLOOD COUNT 16.6 10^3/uL (4.0-10.5)
[2020-06-25 10:44] LABS: PLATELET COUNT 101 10^3/uL (150-450)
--- NOTE | 2020-06-25 10:49 | RADIOLOGY REPORT (SQ) ---
EXAM DESCRIPTION: CT HEAD WITHOUT IMAGES COMPLETED DATE/TIME: 06/25/2020 10:32 am REASON FOR STUDY: headache I12.0 HYP CHR KIDNEY DISEASE W STAGE 5 CHR KIDNEY DISEASE OR COMPARISON: None. TECHNIQUE: Axial images acquired through the brain without intravenous contrast. Images reviewed wi th bone, brain and subdural windows. 06/14/2020 Images stored on PACS. All CT scanners at this facility use dose modulation, iterative reconstruction, and/or weight based d osing when appropriate to reduce radiation dose to as low as reasonably achievable (ALARA). [facility]: Dose Right [facility]: CareDose [facility]: Dose Right [facility]: Teradose 4D [facility]: Smart InfoAssure RADIATION DOSE: CT Rad equipment meets quality standard of care and radiation dose reduction techniq ues were employed. CTDIvol: 48.6 mGy. DLP: 881 mGy-cm. mGy. LIMITATIONS: None. FINDINGS: VENTRICLES: Normal size and contour. CEREBRUM: No masses. No hemorrhage. No midline shift. No evidence of acute large vascular territor y infarct. Mild nonspecific subcortical periventricular hypoattenuation, likely sequelae of microang iopathic disease. Stable high right frontal cortical lacunar infarct. CEREBELLUM: No masses. No hemorrhage. No alteration of density. No evidence for acute infarction. EXTRAAXIAL SPACES: No fluid collections. No masses. ORBITS AND GLOBE: No intra- or extraconal masses. Normal contour of globe without masses. CALVARIUM: No fracture. PARANASAL SINUSES: No fluid or mucosal thickening. SOFT TISSUES: No mass or hematoma. OTHER: No other significant finding. IMPRESSION: 1. No evidence of acute intracranial process. 2. Chronic prior lacunar infarcts and evidence of small vessel ischemic change, stable. EVIDENCE OF ACUTE STROKE: NO. COMMENT: Quality ID # [id number]: Final reports with documentation of one or more dose reduction techniques (e.g., Automated exposure control, adjustment of the mA and/or kV according to patient size, use of iterative reconstruction technique) TECHNICAL DOCUMENTATION: JOB ID: [id number] 2010 [employer]- All Rights Reserved Reading location - IP/workstation name: [email or web address]
--- NOTE | 2020-06-25 10:56 | RADIOLOGY REPORT (SQ) ---
EXAM DESCRIPTION: CT ABD/PELVIS NO ORAL OR IV IMAGES COMPLETED DATE/TIME: 06/25/2020 10:32 am REASON FOR STUDY: abd pain I12.0 HYP CHR KIDNEY DISEASE W STAGE 5 CHR KIDNEY DISEASE OR COMPARISON: 12/23/2015 TECHNIQUE: CT scan of the abdomen and pelvis performed without intravenous or oral contrast. Images reviewed with lung, soft tissue, and bone windows. Reconstructed coronal and sagittal MPR images revi ewed. All images stored on PACS. All CT scanners at this facility use dose modulation, iterative reconstruction, and/or weight based d osing when appropriate to reduce radiation dose to as low as reasonably achievable (ALARA). [facility]: Dose Right [facility]: CareDose [facility]: Dose Right [facility]: Teradose 4D [facility]: Smart in2nite RADIATION DOSE: CT Rad equipment meets quality standard of care and radiation dose reduction techniq ues were employed. CTDIvol: 22.1 mGy. DLP: 1056 mGy-cm.mGy. LIMITATIONS: None. FINDINGS: LOWER CHEST: No acute findings. Coronary atherosclerosis. NON-CONTRASTED LIVER, SPLEEN, ADRENALS: Evaluation limited by lack of IV contrast. Unchanged low-den sity nodular thickening of the adrenal glands, likely hyperplasia or small adenomas. No other identi fied significant masses. PANCREAS: No masses. No peripancreatic inflammatory changes. GALLBLADDER: No identified stones by CT criteria. No inflammatory changes to suggest cholecystitis. RIGHT KIDNEY AND URETER: Atrophic. No suspicious masses. Assessment limited by lack of IV contrast. Exophytic lower pole cyst. No significant calcifications. No hydronephrosis or hydroureter. LEFT KIDNEY AND URETER: Atrophic. No suspicious masses. Assessment limited by lack of IV contrast. Small exophytic cyst. No significant calcifications. No hydronephrosis or hydroureter. AORTA AND RETROPERITONEUM: No aneurysm. No retroperitoneal masses or adenopathy. BOWEL AND PERITONEAL CAVITY: No obvious masses or inflammatory changes. No free fluid. APPENDIX: Normal. PELVIS, BLADDER, AND ABDOMINAL WALL:Decompressed urinary bladder. No pelvic free fluid or adenopathy . BONES: No acute bony abnormality. No suspicious lytic or blastic osseous lesions. Lower lumbar face t arthropathy and spondylosis. OTHER: Right femoral vein catheter with tip at infrarenal IVC. IMPRESSION: 1. No evidence of acute intra-abdominal/pelvic process. 2. Atrophic kidneys. Additional incidental findings as above. COMMENT: Quality ID # [id number]: Final reports with documentation of one or more dose reduction techniques (e.g., Automated exposure control, adjustment of the mA and/or kV according to patient size, use of iterative reconstruction technique) TECHNICAL DOCUMENTATION: JOB ID: [id number] 2010 [employer]- All Rights Reserved Reading location - IP/workstation name: [email or web address]
[2020-06-25] MEDS: ASPIRIN 81 MG TABLET, CHEWABLE PO SCH (11:19)
[2020-06-25] MEDS: UMECLIDINIUM BROMIDE 62.5 MCG/DOSE IH SCH (11:22)
--- NOTE | 2020-06-25 12:55 | PDOC PROGRESS REPORT ---
Subjective Progress Note for:: 06/25/20 Subjective:: Patient states that she is still is not feeling good. She continues to have diarrhea. Otherwise she denies any nausea, vomiting, chest pains nor shortness of breath. I talked to her again regarding her dialysis treatment. She states that she would like to continue with dialysis. I discussed with her the importance of compliance and told her that if she continues to not show up on dialysis treatment then we do not have a choice but to discharge her from dialysis. She understood. Reason For Visit: AMS,ESRD Physical Exam Vital Signs: Temp Pulse Resp BP Pulse Ox 97.6 F 62 16 92/52 L 96 06/25/20 07:22 06/25/20 08:07 06/25/20 08:07 06/25/20 07:22 06/25/20 08:07 Intake & Output 06/24/20 06/25/20 06/26/20 06:59 06:59 06:59 Output Total 1000 Balance -1000 Weight 82.4 kg 80.6 kg Exam: General appearance: PRESENT: no acute distress, cooperative, well-developed, well-nourished Head exam: PRESENT: atraumatic, normocephalic Eye exam: PRESENT: conjunctiva pale, PERRLA. ABSENT: scleral icterus Neck exam: ABSENT: JVD Respiratory exam: PRESENT: Normal breath sounds. ABSENT: crackles, rales, rhon chi, unlabored, wheezes Cardiovascular exam: PRESENT: Regular rate rhythm -+S1, +S2. ABSENT: diastolic murmur, systolic murmur GI/Abdominal exam: PRESENT: normal bowel sounds, soft. Sore abdomen ABSENT: guarding, mass, tenderness Extremities exam: ABSENT: No edema Neurological exam: PRESENT: alert, awake, oriented to person, place and time. Skin exam: PRESENT: dry, warm, Results Laboratory Results: 06/25/20 08:24 06/25/20 04:55 06/24/20 06/24/20 06/24/20 19:49 19:49 19:49 WBC RBC Hgb Hct MCV MCH MCHC RDW Plt Count Seg Neutrophils % Retic Count (auto) 1.89 Sodium Potassium Chloride Carbon Dioxide Anion Gap BUN Creatinine Est GFR ( Amer) Glucose Calcium Phosphorus 2.7 Iron 109.5 TIBC 175 L % Saturation 63 Ferritin 710.00 H Vitamin B12 261.0 Folate 6.25 PTH Intact 688.5 H Urine Color Urine Appearance Urine pH Ur Specific [place] Urine Protein Urine Glucose (UA) Urine Ketones Urine Blood Urine Nitrite Ur Leukocyte Esterase Urine WBC (Auto) Urine RBC (Auto) 06/25/20 06/25/20 06/25/20 01:40 04:55 04:55 WBC Cancelled RBC Cancelled Hgb Cancelled Hct Cancelled MCV Cancelled MCH Cancelled MCHC Cancelled RDW Cancelled Plt Count Cancelled Seg Neutrophils % Cancelled Retic Count (auto) Sodium 139.8 Potassium 2.9 L* Chloride 102 Carbon Dioxide 24 D Anion Gap 14 BUN 38 H D Creatinine 5.98 H Est GFR ( Amer) 9 L Glucose 94 Calcium 8.4 Phosphorus Iron TIBC % Saturation Ferritin Vitamin B12 Folate PTH Intact Urine Color YELLOW Urine Appearance CLOUDY Urine pH 5.0 Ur Specific [place] 1.016 Urine Protein 100 H Urine Glucose (UA) NEGATIVE Urine Ketones NEGATIVE Urine Blood SMALL H Urine Nitrite NEGATIVE Ur Leukocyte Esterase SMALL H Urine WBC (Auto) 6 Urine RBC (Auto) 4 06/25/20 08:24 WBC 16.6 H RBC 3.22 L Hgb 10.0 L Hct 31.2 L MCV 97 MCH 31.1 MCHC 32.1 RDW 16.7 H Plt Count 101 L Seg Neutrophils % 83.9 H Retic Count (auto) Sodium Potassium Chloride Carbon Dioxide Anion Gap BUN Creatinine Est GFR ( Amer) Glucose Calcium Phosphorus Iron TIBC % Saturation Ferritin Vitamin B12 Folate PTH Intact Urine Color Urine Appearance Urine pH Ur Specific [place] Urine Protein Urine Glucose (UA) Urine Ketones Urine Blood Urine Nitrite Ur Leukocyte Esterase Urine WBC (Auto) Urine RBC (Auto) Impressions: Chest X-Ray 06/24/20 05:15 IMPRESSION: No change. Abdomen/Pelvis CT 06/25/20 00:00 IMPRESSION: 1. No evidence of acute intra-abdominal/pelvic process. 2. Atrophic kidneys. Additional incidental findings as above. Head CT 06/25/20 00:00 IMPRESSION: 1. No evidence of acute intracranial process. 2. Chronic prior lacunar infarcts and evidence of small vessel ischemic change, stable. EVIDENCE OF ACUTE STROKE: NO. Assessment & Plan - Diagnosis (1) Uremia Is this a current diagnosis for this admission?: Yes Plan: Improving we did with reinitiation of dialysis. (2) End stage renal disease Is this a current diagnosis for this admission?: Yes Plan: Patient would like to continue dialysis. As discussed above emphasized the importance of compliance and inform her that if she does not show up on her dialysis treatment she will be discharged from my practice and [facility]. She understood. Next dialysis will be tomorrow. (3) Metabolic acidosis Is this a current diagnosis for this admission?: Yes Plan: Resolved with dialysis. (4) Leukocytosis Qualifiers: Leukocytosis type: unspecified Qualified Code(s): D72.829 - Elevated white blood cell count, unspecified Is this a current diagnosis for this admission?: Yes Plan: Decreasing. (5) Anemia in chronic kidney disease (CKD) Qualifiers: Is this a current diagnosis for this admission?: Yes Plan: We will give Retacrit on dialysis as needed. (6) Hypokalemia Is this a current diagnosis for this admission?: Yes Plan: Likely due to diarrhea. Will start potassium supplements. (7) Chronic diarrhea Is this a current diagnosis for this admission?: Yes Plan: Defer to Dr. Andrade. - Time Time with patient: 15-25 minutes
[2020-06-25] MEDS: POTASSIUM CHLORIDE 10 MEQ TABLET.ER PO SCH ×2 (14:00→22:02)
[2020-06-25 18:58] LABS: C DIFFICILE GDH NEGATIVE (NEGATIVE)
[2020-06-25] MEDS: METRONIDAZOLE 500 MG/NS RTU 500 MG/100 ML RTUPB IV SCH (22:02)
[2020-06-25] MEDS: FAMOTIDINE 20 MG TABLET PO SCH (22:08)
[2020-06-25] MEDS: CIPROFLOXACIN 200 MG/D5W RTU 200 MG/100 ML RTUPB IV SCH (23:12)
[2020-06-26] MEDS: ACETAMINOPHEN 325 MG TABLET PO PRN ×2 (04:56→23:03)
[2020-06-26] MEDS ORDERED: NORMAL SALINE 1000 ML 1,000 ML IV PRN (05:00)
[2020-06-26] MEDS ORDERED: HEPARIN SOD (PORCINE) 1,000 UNIT/ML 10 ML VIAL IV PRN (05:00)
[2020-06-26] MEDS: HEPARIN SOD (PORCINE) 5,000 UNIT/ML 1 ML VIAL SUBCUT SCH (05:31)
[2020-06-26] MEDS: LEVOTHYROXINE SODIUM 0.075 MG TABLET PO SCH (05:41)
[2020-06-26] MEDS: LEVOTHYROXINE SODIUM 0.1 MG TABLET PO SCH (05:41)
[2020-06-26] MEDS ORDERED: (PENDING PHARMACY ID) (Levothyroxine Sodium [Synthroid] 175 MCG) PO SCH (06:00)
[2020-06-26 06:04] LABS: ANION GAP 13 (5-19); BLOOD UREA NITROGEN 41 mg/dL (7-20); CALCIUM 8.6 mg/dL (8.4-10.2); CARBON DIOXIDE 20 mmol/L (22-30); CHLORIDE 101 mmol/L (98-107); GLUCOSE 89 mg/dL (75-110)
[2020-06-26 06:15] LABS: POTASSIUM 4.3 mmol/L (3.6-5.0)
--- NOTE | 2020-06-26 06:15 | PDOC CONSULTATION ---
Consultation Consult Date: 06/26/20 Attending physician:: YOVANI FRY Provider Consulted: RADHA WALTERS Consult reason:: dialysis access History of Present Illness Admission Date/PCP: 06/24/20 06:25 MAU TORRES MD History of Present Illness: ELIN JIMÉNEZ is a 65 year old female This is a 65-year-old female's with a history of the end-stage renal disease hypertension hyperlipidemia very noncomplianceIn the last dialysis was done on 06/15 This patient always have a problem with the not going for the dialysis given the last time admitted for almost a month did not go for dialysis Patient is even though Dr. Hand nephrology is tried to call the patient's for the dialysis she never answer Today's patient was brought by the EMS because of generalized weakness and patient is try to more sleepy And feeling very weak Patient does not have any other conditions and I think as usual with a very noncompliance not going for the dialysis patient is classic uremic symptoms Also have elevated white count patient is currently denied any chest pain no short of breath no fever no chills Past Medical History Cardiac Medical History: Reports: Congestive Heart Failure, Coronary Artery Disease, Hyperlipidema, Hypertension Denies: Myocardial Infarction Pulmonary Medical History: Reports: Chronic Obstructive Pulmonary Disease (COPD), Pneumonia - 2006 Denies: Asthma, Bronchitis Neurological Medical History: Denies: Seizures Renal/ Medical History: Reports: End Stage Renal Disease Musculoskeltal Medical History: Denies: Arthritis Psychiatric Medical History: Denies: Depression Hematology: Denies: Anemia Past Surgical History Past Surgical History: Reports: Hysterectomy, Vascular Surgery - Central venous catheter placement for dialysis use Social History Lives with: Family - With nephew Smoking Status: Unknown if Ever Smoked Electronic Cigarette use?: No Frequency of Alcohol Use: None Hx Recreational Drug Use: No Drugs: None Hx Prescription Drug Abuse: No Family History Family History: Reviewed & Not Pertinent Parental Family History Reviewed: No Children Family History Reviewed: NA Sibling(s) Family History Reviewed.: NA Medication/Allergy Home Medications: Levothyroxine Sodium [Synthroid] 175 mcg PO Q6AM 04/26/20 Aspirin [Aspirin 81 mg Chewable Tablet] 81 mg PO DAILY #30 tab.chew 04/29/20 Fluticasone/Salmeterol [Advair 500-50 Diskus 14 Dose/Diskus] 1 puff IH BID 06/24/20 Umeclidinium [place] [Incruse Ellipta] 1 puff IH DAILY 06/24/20 Allergies/Adverse Reactions: cephalexin [From Keflex] Allergy (Verified 06/11/20 00:35) codeine [Codeine] Allergy (Verified 06/11/20 00:35) Review of Systems Constitutional: PRESENT: anorexia, fatigue Eyes: ABSENT: as per HPI, visual disturbances, other Ears: ABSENT: as per HPI, hearing changes, other Nose, Mouth, and Throat: ABSENT: as per HPI, headache(s), mouth pain, sore throat, vertigo, other Breasts: ABSENT: as per HPI, other Cardiovascular: ABSENT: as per HPI, chest pain, dyspnea on exertion, edema, or thropnea, palpitations, other Respiratory: ABSENT: as per HPI, cough, dyspnea, hemoptysis, sputum, other Gastrointestinal: ABSENT: as per HPI, abdominal pain, bloating, coffee ground emesis, constipation, diarrhea, dysphagia, heartburn, hematemesis, hematochezia, melena, nausea, vomiting, other Genitourinary: ABSENT: as per HPI, difficulty urinating, dysuria, hematuria, nocturia, other Musculoskeletal: ABSENT: as per HPI, back pain, deformity, joint swelling, muscle weakness, other Integumentary: ABSENT: as per HPI, diaphoresis, erythema, lesions, pruritus, rash, wounds, other Neurological: ABSENT: as per HPI, abnormal gait, abnormal movements, abnormal speech, confusion, convulsions, dizziness, focal weakness, frequent falls, lack of coordination, memory loss, numbness, paresthesias, restless legs, syncope, tingling, tremor(s), vertigo, weakness, other Psychiatric: ABSENT: as per HPI, anxiety, depression, hallucinations, homidical ideation, suicidal ideation, other Endocrine: ABSENT: as per HPI, cold intolerance, flushing, heat intolerance, menstrual abnormalities, polydipsia, polyphagia, polyuria, other Hematologic/Lymphatic: ABSENT: as per HPI, easy bleeding, easy bruising, lymphadenopathy, other Allergic/Immunologic: ABSENT: as per HPI, seasonal rhinorrhea, other Physical Exam Vital Signs: Temp Pulse Resp BP Pulse Ox 97.4 F 50 L 17 75/38 L 100 06/25/20 22:59 06/26/20 02:00 06/25/20 22:59 06/25/20 22:59 06/25/20 22:59 Intake & Output 06/24/20 06/25/20 06/26/20 06:59 06:59 06:59 Intake Total 1538 Output Total 1000 Balance -1000 1538 Weight 82.4 kg 80.6 kg 80.6 kg General appearance: PRESENT: no acute distress Head exam: PRESENT: normocephalic Eye exam: PRESENT: EOMI Ear exam: PRESENT: normal external ear exam Mouth exam: PRESENT: dry mucosa Teeth exam: PRESENT: poor dentation Neck exam: PRESENT: other - permcath right neck Respiratory exam: PRESENT: clear to auscultation nirmal Cardiovascular exam: PRESENT: RRR Pulses: PRESENT: +1 pedal pulses bilateral, +2 pedal pulses bilateral Breast: PRESENT: Normal GI/Abdominal exam: PRESENT: soft Rectal exam: PRESENT: deferred Extremities exam: PRESENT: full ROM Musculoskeletal exam: PRESENT: full ROM Neurological exam: PRESENT: alert, awake, oriented to person, oriented to place Psychiatric exam: PRESENT: appropriate affect Skin exam: PRESENT: dry Results Laboratory Results: 06/25/20 06/25/20 08:24 15:11 WBC 16.6 H RBC 3.22 L Hgb 10.0 L Hct 31.2 L MCV 97 MCH 31.1 MCHC 32.1 RDW 16.7 H Plt Count 101 L Seg Neutrophils % 83.9 H Potassium 3.0 L* Impressions: Chest X-Ray 06/24/20 05:15 IMPRESSION: No change. Abdomen/Pelvis CT 06/25/20 00:00 IMPRESSION: 1. No evidence of acute intra-abdominal/pelvic process. 2. Atrophic kidneys. Additional incidental findings as above. Head CT 06/25/20 00:00 IMPRESSION: 1. No evidence of acute intracranial process. 2. Chronic prior lacunar infarcts and evidence of small vessel ischemic change, stable. EVIDENCE OF ACUTE STROKE: NO. Assessment & Plan - Plan Summary Plan Summary: malfunctioning dialysis catheter plan will plan revision
[2020-06-26 06:37] LABS: HEPATITS B SURFACE ANTIGEN Negative (Negative)
[2020-06-26 07:07] LABS: HEPATITIS B CORE AB TOT Negative (Negative)
[2020-06-26 08:09] LABS: ABSOLUTE EOSINOPHILS # (AUTO) 0.1 10^3/uL (0.0-0.6); ABSOLUTE LYMPHOCYTES (AUTO) 1.7 10^3/uL (0.5-4.7); ABSOLUTE MONOCYTES (AUTO) 0.6 10^3/uL (0.1-1.4); ABSOLUTE NEUT (AUTO) 13.6 10^3/uL (1.7-8.2); BASOPHILS % (AUTO) 0.2 % (0-2); EOSINOPHILS % (AUTO) 0.6 % (0-6); HEMATOCRIT 31.8 % (36.0-47.0); HEMOGLOBIN 10.1 g/dL (12.0-15.5); LYMPHOCYTES % (AUTO) 10.5 % (13-45); MEAN CORPUSCULAR HEMOGLOBIN 31.1 pg (27.0-33.4); MEAN CORPUSCULAR HGB CONC 31.6 g/dL (32.0-36.0); MEAN CORPUSCULAR VOLUME 98 fl (80-97); MONOCYTES % (AUTO) 3.8 % (3-13); RED BLOOD COUNT 3.23 10^6/uL (3.72-5.28); RED CELL DISTRIBUTION WIDTH 17.2 % (11.5-14.0); SEGMENTED NEUTROPHILS % (AUTO) 84.9 % (42-78); TOTAL CELLS COUNTED % (AUTO) 100 %
[2020-06-26 08:34] LABS: PLATELET COUNT 83 10^3/uL (150-450)
[2020-06-26] MEDS ORDERED: EPOETIN ALFA-EPBX 2,000 UNIT/ML VIAL (RENAL) IV ONE (09:20)
[2020-06-26] MEDS ORDERED: EPOETIN ALFA-EPBX 3,000 UNIT/ML VIAL (RENAL) IV ONE (09:20)
--- NOTE | 2020-06-26 09:25 | PDOC PROGRESS REPORT ---
Subjective Progress Note for:: 06/26/20 Subjective:: Patient is currently doing fair Patient still having some diarrhea but is getting better White count is still elevated with the low platelet count Patient's denied any chest pain no short of breath Reason For Visit: AMS,ESRD Physical Exam Vital Signs: Temp Pulse Resp BP Pulse Ox 97.4 F 50 L 17 75/38 L 100 06/25/20 22:59 06/26/20 07:00 06/25/20 22:59 06/25/20 22:59 06/25/20 22:59 Intake & Output 06/25/20 06/26/20 06/27/20 06:59 06:59 06:59 Intake Total 1538 Output Total 1000 Balance -1000 1538 Weight 80.6 kg 80.6 kg General appearance: PRESENT: no acute distress, well-developed, well-nourished Head exam: PRESENT: atraumatic, normocephalic Eye exam: PRESENT: conjunctiva pink, EOMI, PERRLA. ABSENT: scleral icterus Ear exam: PRESENT: normal external ear exam Mouth exam: PRESENT: moist, tongue midline Neck exam: PRESENT: full ROM. ABSENT: carotid bruit, JVD, lymphadenopathy, thyromegaly Respiratory exam: PRESENT: clear to auscultation nirmal Cardiovascular exam: PRESENT: RRR. ABSENT: diastolic murmur, rubs, systolic murmur Pulses: PRESENT: normal dorsalis pedis pul, +2 pedal pulses bilateral Vascular exam: PRESENT: normal capillary refill GI/Abdominal exam: PRESENT: normal bowel sounds, soft. ABSENT: distended, guarding, mass, organolmegaly, rebound, tenderness Rectal exam: PRESENT: deferred Neurological exam: PRESENT: alert, awake, oriented to person, oriented to place, oriented to time, oriented to situation, CN II-XII grossly intact. ABSENT: motor sensory deficit Psychiatric exam: PRESENT: appropriate affect, normal mood. ABSENT: homicidal ideation, suicidal ideation Skin exam: PRESENT: dry, intact, warm. ABSENT: cyanosis, rash Results Laboratory Results: 06/26/20 07:40 06/26/20 05:05 06/25/20 06/25/20 06/26/20 08:24 15:11 05:05 WBC 16.6 H Cancelled RBC 3.22 L Cancelled Hgb 10.0 L Cancelled Hct 31.2 L Cancelled MCV 97 Cancelled MCH 31.1 Cancelled MCHC 32.1 Cancelled RDW 16.7 H Cancelled Plt Count 101 L Cancelled Seg Neutrophils % 83.9 H Cancelled Sodium Potassium 3.0 L* Chloride Carbon Dioxide Anion Gap BUN Creatinine Est GFR ( Amer) Glucose Calcium TSH 06/26/20 06/26/20 06/26/20 05:05 05:05 07:40 WBC 16.0 H RBC 3.23 L Hgb 10.1 L Hct 31.8 L MCV 98 H MCH 31.1 MCHC 31.6 L RDW 17.2 H Plt Count 83 L Seg Neutrophils % 84.9 H Sodium 133.8 L Potassium 4.3 D Chloride 101 Carbon Dioxide 20 L Anion Gap 13 BUN 41 H Creatinine 6.28 H Est GFR ( Amer) 8 L Glucose 89 Calcium 8.6 TSH 109.00 H Impressions: Chest X-Ray 06/24/20 05:15 IMPRESSION: No change. Abdomen/Pelvis CT 06/25/20 00:00 IMPRESSION: 1. No evidence of acute intra-abdominal/pelvic process. 2. Atrophic kidneys. Additional incidental findings as above. Head CT 06/25/20 00:00 IMPRESSION: 1. No evidence of acute intracranial process. 2. Chronic prior lacunar infarcts and evidence of small vessel ischemic change, stable. EVIDENCE OF ACUTE STROKE: NO. Assessment & Plan - Diagnosis (1) Uremia Is this a current diagnosis for this admission?: Yes Plan: Currently on hemodialysis improving (2) End stage renal disease Is this a current diagnosis for this admission?: Yes Plan: Follow-up with the nephrology (3) CHF (congestive heart failure) Qualifiers: Heart failure type: diastolic Heart failure chronicity: chronic Qualified Code(s): I50.32 - Chronic diastolic (congestive) heart failure Is this a current diagnosis for this admission?: Yes Plan: Currently on hemodialysis (4) Metabolic acidosis Is this a current diagnosis for this admission?: Yes Plan: Currently all resolving (5) Anemia in chronic kidney disease (CKD) Qualifiers: Is this a current diagnosis for this admission?: Yes (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 difficile is all negative we will add the probiotics - Time Time Spent with patient: 15-24 minutes Level of Care: TELE Medications reviewed and adjusted accordingly: Yes Anticipated discharge: Home with Homehealth Anticipated DC Timeframe: within 72 hours, Other - Plan Summary Plan Summary: Will hold the heparins when the platelet count goes down continues to monitor get the physical therapy evaluations
[2020-06-26] MEDS ORDERED: EPOETIN ALFA-EPBX 5,000 UNITS (ESRD) in SYRINGE IV PRN ×3 (09:32)
[2020-06-26] MEDS: DOCUSATE SODIUM 100 MG CAPSULE PO SCH (10:22)
[2020-06-26] MEDS: METRONIDAZOLE 500 MG/NS RTU 500 MG/100 ML RTUPB IV SCH ×2 (10:25→23:03)
[2020-06-26] MEDS: POTASSIUM CHLORIDE 10 MEQ TABLET.ER PO SCH ×2 (10:29→23:08)
[2020-06-26] MEDS: ASPIRIN 81 MG TABLET, CHEWABLE PO SCH (10:30)
[2020-06-26] MEDS: UMECLIDINIUM BROMIDE 62.5 MCG/DOSE IH SCH (10:30)
[2020-06-26] MEDS: CIPROFLOXACIN 200 MG/D5W RTU 200 MG/100 ML RTUPB IV SCH (11:34)
[2020-06-26] MEDS: FLUTICASONE/VILANTEROL 200-25 MCG/DOSE IH SCH (11:36)
--- NOTE | 2020-06-26 14:54 | Progress Note ---
Provider Note Provider Note: I received a call from Dr Andrade he is requesting a colonoscopy for the patient Dr Traore has seen the patient and needs a revision of her dialysis catheter I have put in a call to the OR to see when she is scheduled patient has an abnormal CT scan, ? possible colitis she is Covid 19 testing negative will plan on colonoscopy at some point during her current hospitalization.
--- NOTE | 2020-06-26 15:14 | Progress Note ---
Provider Note Provider Note: I have spoken tot OR scheduling and patient is on the schedule late in the pm for dialysis revision with Dr Traore, she has elevated BUN and creat , I will discuss with Dr Andrade but may be able to start prepping tomorrow for anticipated procedure on Wednesday ?? will confirm that with Dr Andrade
[2020-06-26] MEDS ORDERED: PEG 3350/NA SULF,BICARB,CL/KCL 4000 ML PO PRN (16:03)
[2020-06-26 16:08] LABS: INTERNATIONAL RATION (INR) 1.07; PARTIAL THROMBOPLASTIN TIME 30.4 SEC (23.5-35.8); PROTHROMBIN TIME 14.1 SEC (11.4-15.4)
[2020-06-26 16:17] LABS: FIBRINOGEN 139 mg/dL (209-497)
[2020-06-26] MEDS ORDERED: LEVOFLOXACIN 500 MG/D5W RTU 500 MG/100 ML RTUPB IV ONE (18:00)
--- NOTE | 2020-06-26 18:25 | Operative Report ---
Nonrecallable Operative Report DATE OF SURGERY: 06/26/20 PREOPERATIVE DIAGNOSIS: Dysfunctional semipermanent right IJ tunneled dialysis catheter POSTOPERATIVE DIAGNOSIS: Same as above OPERATION: Removal of right IJ tunneled central venous dialysis catheter SURGEON: YONY AZUL ANESTHESIA: Other - None TISSUE REMOVED OR ALTERED: Catheter tip for culture COMPLICATIONS: None apparent ESTIMATED BLOOD LOSS: Minimal PROCEDURE: Procedure in detail: After informed consent was obtained from the patient verbally, the sutures were removed from the permacath dialysis catheter. Pressure was applied to the skin of the right neck and chest. Using firm pressure, the catheter was removed as 1 continuous piece. The catheter tip was divided with suture scissors and sent for culture. Pressure was held, and hemostasis was achieved. A dressing was placed, and the procedure was concluded. All sponge, instrument, needle counts were correct. Condition: Fair.
--- NOTE | 2020-06-26 18:27 | Progress Note ---
Provider Note Provider Note: 65-year-old female with a dysfunctional right IJ permacath. The permacath has been removed at the bedside. She has a temporary dialysis catheter. Dr. Starr has requested removal of the catheter, with interim intravenous antibiotics. She will decide when the new permacath needs to be placed. Surgery will sign off for now. Please renotify once the patient is ready for a new permacath.
--- NOTE | 2020-06-26 22:33 | PDOC PROGRESS REPORT ---
Subjective Progress Note for:: 06/26/20 Subjective:: I am seeing the patient during dialysis this morning. She tells me that she is still does not feel good and continues to have diarrhea. Her C. difficile is negative. Dialysis is going once mostly without any ultrafiltration since she is getting volume depleted with her constant diarrhea. She is tolerating dialysis. The patient continues to have white count. Review of her visit in the emergency room on June 14 revealed that she had several cultures done including an exit site wound culture positive for staph aureus, 1 set of blood culture positive for Corynebacterium species deemed to be possibly contaminant, 2 sets of blood culture positive again for staph hominis and urine culture positive for staph epidermidis. Reason For Visit: AMS,ESRD Physical Exam Vital Signs: Temp Pulse Resp BP Pulse Ox 97.4 F 50 L 17 75/38 L 100 06/25/20 22:59 06/26/20 07:00 06/25/20 22:59 06/25/20 22:59 06/25/20 22:59 Intake & Output 06/25/20 06/26/20 06/27/20 06:59 06:59 06:59 Intake Total 1538 Output Total 1000 Balance -1000 1538 Weight 80.6 kg 80.6 kg Vitals on dialysis: Blood pressure 105/61, heart rate of 65, blood flow rate of 250 mL/min and dialysate flow rate of 800 mL/min. Exam: General appearance: PRESENT: no acute distress, cooperative, well-developed, well-nourished Head exam: PRESENT: atraumatic, normocephalic Eye exam: PRESENT: conjunctiva pale, PERRLA. ABSENT: scleral icterus Neck exam: ABSENT: JVD Respiratory exam: PRESENT: Normal breath sounds. ABSENT: crackles, rales, rhonchi, unlabored, wheezes Cardiovascular exam: PRESENT: Regular rate rhythm -+S1, +S2. ABSENT: diastolic murmur, systolic murmur GI/Abdominal exam: PRESENT: normal bowel sounds, soft. ABSENT: guarding, mass, tenderness Extremities exam: ABSENT: No edema Neurological exam: PRESENT: alert, awake, oriented to person, place and time. Skin exam: PRESENT: dry, warm, Results Laboratory Results: 06/26/20 07:40 06/26/20 05:05 06/25/20 06/25/20 06/26/20 08:24 15:11 05:05 WBC 16.6 H Cancelled RBC 3.22 L Cancelled Hgb 10.0 L Cancelled Hct 31.2 L Cancelled MCV 97 Cancelled MCH 31.1 Cancelled MCHC 32.1 Cancelled RDW 16.7 H Cancelled Plt Count 101 L Cancelled Seg Neutrophils % 83.9 H Cancelled Sodium Potassium 3.0 L* Chloride Carbon Dioxide Anion Gap BUN Creatinine Est GFR ( Amer) Glucose Calcium TSH 06/26/20 06/26/20 06/26/20 05:05 05:05 07:40 WBC 16.0 H RBC 3.23 L Hgb 10.1 L Hct 31.8 L MCV 98 H MCH 31.1 MCHC 31.6 L RDW 17.2 H Plt Count 83 L Seg Neutrophils % 84.9 H Sodium 133.8 L Potassium 4.3 D Chloride 101 Carbon Dioxide 20 L Anion Gap 13 BUN 41 H Creatinine 6.28 H Est GFR ( Amer) 8 L Glucose 89 Calcium 8.6 TSH 109.00 H Impressions: Chest X-Ray 06/24/20 05:15 IMPRESSION: No change. Abdomen/Pelvis CT 06/25/20 00:00 IMPRESSION: 1. No evidence of acute intra-abdominal/pelvic process. 2. Atrophic kidneys. Additional incidental findings as above. Head CT 06/25/20 00:00 IMPRESSION: 1. No evidence of acute intracranial process. 2. Chronic prior lacunar infarcts and evidence of small vessel ischemic change, stable. EVIDENCE OF ACUTE STROKE: NO. Assessment & Plan - Diagnosis (1) Uremia Is this a current diagnosis for this admission?: Yes Plan: Improving with reinitiation of dialysis. (2) End stage renal disease Is this a current diagnosis for this admission?: Yes Plan: Patient would like to continue dialysis. I emphasized the importance of compliance and inform her that if she does not show up on her dialysis treatment she will be discharged from my practice and [facility]. She understood. We will do dialysis today for 3 hours, using the patient's dialysis catheter, with 3 potassium bath, blood flow rate of 350 mL per minute, dialysate flow rate of 800 mL per minute, ultrafiltration none, no heparin and Procrit with 5000 units during dialysis intravenously. Patient being monitored on dialysis. Patient is postop PermCath exchange today but the patient ate. On one hand I would like to delay PermCath placement due to the patient's leukocytosis. I asked Dr. Palomino to remove the malfunctioning PermCath since we have the trialysis give the patient a catheter holiday he has leukocytosis. Will pr obably have PermCath placed sometime next week. (3) Metabolic acidosis Is this a current diagnosis for this admission?: Yes Plan: Improved. (4) Leukocytosis Qualifiers: Leukocytosis type: unspecified Qualified Code(s): D72.829 - Elevated white blood cell count, unspecified Is this a current diagnosis for this admission?: Yes Plan: Review of above blood, urine and exit site cultures from June 14 reveals positive results for staph aureus and staph hominis. Discussed with Dr. Andrade. I will have the old nonfunctioning PermCath removed by Dr. Palomino. We will change antibiotics from ciprofloxacin to Levaquin. We will culture old PermCath tip. (5) Anemia in chronic kidney disease (CKD) Qualifiers: Is this a current diagnosis for this admission?: Yes Plan: We will give Retacrit on dialysis as needed. (6) Hypokalemia Is this a current diagnosis for this admission?: Yes Plan: Likely due to diarrhea. On potassium supplements. (7) Chronic diarrhea Is this a current diagnosis for this admission?: Yes Plan: Defer to Dr. Andrade. Supervisor Education, Dr. Ward consulted. (8) Chronic kidney disease-mineral and bone disorder Is this a current diagnosis for this admission?: Yes Plan: PTH is elevated at 688.5. Phosphorus normal at 2.7. I will start calcitriol 0.5 mcg daily. - Notes Notes: Discussed with Dr. Andrade and Dr. Palomino today. - Time Time with patient: 15-25 minutes
[2020-06-26 22:36] LABS: HEPATITIS C QUANTITATION HCV Not Detected IU/mL (.)
[2020-06-26] MEDS: FAMOTIDINE 20 MG TABLET PO SCH (23:16)
[2020-06-27] MEDS: LEVOTHYROXINE SODIUM 0.075 MG TABLET PO SCH (05:13)
[2020-06-27] MEDS: LEVOTHYROXINE SODIUM 0.1 MG TABLET PO SCH (05:14)
[2020-06-27 06:38] LABS: ANION GAP 9 (5-19); BLOOD UREA NITROGEN 25 mg/dL (7-20); CALCIUM 8.4 mg/dL (8.4-10.2); CARBON DIOXIDE 23 mmol/L (22-30); CHLORIDE 99 mmol/L (98-107); GLUCOSE 73 mg/dL (75-110); POTASSIUM 4.8 mmol/L (3.6-5.0)
[2020-06-27 07:01] LABS: HEMATOCRIT 29.2 % (36.0-47.0); HEMOGLOBIN 9.3 g/dL (12.0-15.5); MEAN CORPUSCULAR HEMOGLOBIN 30.8 pg (27.0-33.4); MEAN CORPUSCULAR HGB CONC 31.7 g/dL (32.0-36.0); MEAN CORPUSCULAR VOLUME 97 fl (80-97); RED BLOOD COUNT 3.01 10^6/uL (3.72-5.28); RED CELL DISTRIBUTION WIDTH 16.7 % (11.5-14.0); WHITE BLOOD COUNT 15.3 10^3/uL (4.0-10.5)
[2020-06-27 07:02] LABS: PLATELET COUNT 65 10^3/uL (150-450)
[2020-06-27 07:05] LABS: ABSOLUTE LYMPHOCYTES# (MANUAL) 3.1 10^3/uL (0.5-4.7); ABSOLUTE MONOCYTES # (MANUAL) 0.6 10^3/uL (0.1-1.4); BAND NEUTROPHILS % (MANUAL) 2 % (3-5); BASOPHILS % (MANUAL) 0 % (0-2); EOSINOPHILS % (MANUAL) 1 % (0-6); LYMPHOCYTES % (MANUAL) 20 % (13-45); MONOCYTES % (MANUAL) 4 % (3-13); SEGMENTED NEUTROPHILS % (MAN) 73 % (42-78); TOTAL CELLS COUNTED 100
[2020-06-27 07:06] LABS: ANISOCYTOSIS 1+; HYPERSEGMENTED NEUTROPHILS PRESENT; OVALOCYTES SLIGHT; PLATELET COMMENT DECREASED; PLATELET LARGE PRESENT; POIKILOCYTOSIS SLIGHT; POLYCHROMASIA SLIGHT
--- NOTE | 2020-06-27 08:43 | PDOC CONSULTATION ---
Consultation Consult Date: 06/27/20 Attending physician:: MAU TORRES Provider Consulted: PRINCESS CASTRO Consult reason:: Thrombocytopenia History of Present Illness Admission Date/PCP: 06/24/20 06:25 MAU TORRES MD Patient complains of: Thrombocytopenia History of Present Illness: ELIN JIMÉNEZ is a 65 year old female with multiple medical problems, end- stage renal disease on hemodialysis and has been noncompliant with medical care. She presents with leukocytosis, weakness, mild anemia, upon presentation her platelet count was 163. But through the hospitalization her platelet count is dropped to 80 antedate 65. She is not actively bleeding. She had been receiving heparin. This is been discontinued. We sent coagulation studies and her fibrinogen is low. Past Medical History Cardiac Medical History: Reports: Congestive Heart Failure, Coronary Artery Disease, Hyperlipidema, Hypertension Denies: Myocardial Infarction Pulmonary Medical History: Reports: Chronic Obstructive Pulmonary Disease (COPD), Pneumonia - 2006 Denies: Asthma, Bronchitis Neurological Medical History: Denies: Seizures Renal/ Medical History: Reports: End Stage Renal Disease Musculoskeltal Medical History: Denies: Arthritis Psychiatric Medical History: Denies: Depression Hematology: Denies: Anemia Past Surgical History Past Surgical History: Reports: Hysterectomy, Vascular Surgery - Central venous catheter placement for dialysis use Social History Information Source: Patient Lives with: Family - With nephew Smoking Status: Unknown if Ever Smoked Electronic Cigarette use?: No Frequency of Alcohol Use: None Hx Recreational Drug Use: No Drugs: None Hx Prescription Drug Abuse: No - Advance Directive Resuscitation Status: Full Code Family History Family History: Reviewed & Not Pertinent Parental Family History Reviewed: Yes Children Family History Reviewed: Yes Sibling(s) Family History Reviewed.: Yes Medication/Allergy Home Medications: Levothyroxine Sodium [Synthroid] 175 mcg PO Q6AM 04/26/20 Aspirin [Aspirin 81 mg Chewable Tablet] 81 mg PO DAILY #30 tab.chew 04/29/20 Fluticasone/Salmeterol [Advair 500-50 Diskus 14 Dose/Diskus] 1 puff IH BID 06/24/20 Umeclidinium Buena [Incruse Ellipta] 1 puff IH DAILY 06/24/20 Allergies/Adverse Reactions: cephalexin [From Keflex] Allergy (Verified 06/11/20 00:35) codeine [Codeine] Allergy (Verified 06/11/20 00:35) Review of Systems Constitutional: ABSENT: chills, fever(s), headache(s), weight gain, weight loss Eyes: ABSENT: visual disturbances Ears: ABSENT: hearing changes Cardiovascular: ABSENT: chest pain, dyspnea on exertion, edema, orthropnea, palpitations Respiratory: ABSENT: cough, hemoptysis Gastrointestinal: ABSENT: abdominal pain, constipation, diarrhea, hematemesis, hematochezia, nausea, vomiting Genitourinary: ABSENT: dysuria, hematuria Musculoskeletal: ABSENT: joint swelling Integumentary: ABSENT: rash, wounds Neurological: ABSENT: abnormal gait, abnormal speech, confusion, dizziness, focal weakness, syncope Psychiatric: ABSENT: anxiety, depression, homidical ideation, suicidal ideation Endocrine: ABSENT: cold intolerance, heat intolerance, polydipsia, polyuria Hematologic/Lymphatic: ABSENT: easy bleeding, easy bruising Physical Exam Vital Signs: Temp Pulse Resp BP Pulse Ox 96 F L 60 22 H 100/40 L 100 06/27/20 07:34 06/27/20 07:34 06/27/20 07:34 06/27/20 07:34 06/27/20 07:34 Intake & Output 06/26/20 06/27/20 06/28/20 06:59 06:59 06:59 Intake Total 1538 2060 Output Total 0 Balance 1538 2060 Weight 80.6 kg 80.6 kg General appearance: PRESENT: no acute distress, well-developed, well-nourished Head exam: PRESENT: atraumatic, normocephalic Eye exam: PRESENT: conjunctiva pink, EOMI, PERRLA. ABSENT: scleral icterus Ear exam: PRESENT: normal external ear exam Mouth exam: PRESENT: moist, tongue midline Neck exam: ABSENT: carotid bruit, JVD, lymphadenopathy, thyromegaly Respiratory exam: PRESENT: clear to auscultation nirmal. ABSENT: rales, rhonchi, wheezes Cardiovascular exam: PRESENT: RRR. ABSENT: diastolic murmur, rubs, systolic murmur Pulses: PRESENT: normal dorsalis pedis pul Vascular exam: PRESENT: normal capillary refill GI/Abdominal exam: PRESENT: normal bowel sounds, soft. ABSENT: distended, guarding, mass, organolmegaly, rebound, tenderness Rectal exam: PRESENT: deferred Extremities exam: PRESENT: full ROM. ABSENT: calf tenderness, clubbing, pedal edema Neurological exam: PRESENT: alert, awake, oriented to person, oriented to place, oriented to time, oriented to situation, CN II-XII grossly intact. ABSENT: motor sensory deficit Psychiatric exam: PRESENT: appropriate affect, normal mood. ABSENT: homicidal ideation, suicidal ideation Skin exam: PRESENT: dry, intact, warm. ABSENT: cyanosis, rash Results Laboratory Results: 06/27/20 05:59 06/27/20 05:59 06/26/20 06/27/20 06/27/20 15:49 05:59 05:59 WBC 15.3 H RBC 3.01 L Hgb 9.3 L Hct 29.2 L MCV 97 MCH 30.8 MCHC 31.7 L RDW 16.7 H Plt Count 65 L Seg Neutrophils % Not Reportable Sodium 130.6 L Potassium 4.8 Chloride 99 Carbon Dioxide 23 Anion Gap 9 BUN 25 H Creatinine 4.10 H Est GFR ( Amer) 13 L Glucose 73 L Lactic Acid 4.5 H Calcium 8.4 Impressions: Chest X-Ray 06/24/20 05:15 IMPRESSION: No change. Abdomen/Pelvis CT 06/25/20 00:00 IMPRESSION: 1. No evidence of acute intra-abdominal/pelvic process. 2. Atrophic kidneys. Additional incidental findings as above. Head CT 06/25/20 00:00 IMPRESSION: 1. No evidence of acute intracranial process. 2. Chronic prior lacunar infarcts and evidence of small vessel ischemic change, stable. EVIDENCE OF ACUTE STROKE: NO. Assessment & Plan - Diagnosis (1) Thrombocytopenia Is this a current diagnosis for this admission?: Yes Plan: Probably related to DIC as fibrinogen is low. Less likely related to something like HIT although antibody is pending. DIC is likely caused from a catheter infection as the catheter tip was infected. She is on appropriate antibiotics now. Hopefully this should improve her condition. Patient will need platelet transfusion if patient is bleeding or if platelet gets under 10. (2) Anemia Qualifiers: Anemia type: due to chronic kidney disease Chronic kidney disease stage: on chronic dialysis Qualified Code(s): N18.6 - End stage renal disease; D63.1 - Anemia in chronic kidney disease; Z99.2 - Dependence on renal dialysis Is this a current diagnosis for this admission?: Yes Plan: Anemia of chronic disease, ferritin is 700, patient would benefit from NHI. - Time Time Spent: Greater than 70 Minutes
[2020-06-27] MEDS: DOCUSATE SODIUM 100 MG CAPSULE PO SCH (09:56)
[2020-06-27] MEDS: ASPIRIN 81 MG TABLET, CHEWABLE PO SCH (09:56)
[2020-06-27] MEDS: CALCITRIOL 0.25 MCG CAPSULE PO SCH (09:56)
[2020-06-27] MEDS: FLUTICASONE/VILANTEROL 200-25 MCG/DOSE IH SCH (09:56)
[2020-06-27] MEDS: UMECLIDINIUM BROMIDE 62.5 MCG/DOSE IH SCH (09:57)
[2020-06-27] MEDS: METRONIDAZOLE 500 MG/NS RTU 500 MG/100 ML RTUPB IV SCH ×2 (09:57→22:05)
[2020-06-27] MEDS ORDERED: POTASSIUM CHLORIDE 10 MEQ TABLET.ER PO SCH (10:00)
--- NOTE | 2020-06-27 12:24 | PDOC PROGRESS REPORT ---
Subjective Progress Note for:: 06/27/20 Subjective:: Patient is currently doing fair Patient is catheter was removed because of possible infected as per review the last ER visit with T-piece consider the Staphylococcus aureus contaminated could be a reason patient on persistent elevated white count with the possible sepsis and thrombocytopenia As per discussed with the nephrology change the Cipro to the Levaquin which cover the gram-positive and gram-negative organism Patient is also have a some mild DIC per hematology is currently continues to monitor we will discontinues the aspirin and discontinues the heparin Patient's denied any blood in the stools no black stools His diarrhea is getting better As per discussed with the cigar bander hand will wait for colonoscopy procedure until the patient's sepsis is getting better Patient's denied any chest pain no short of breath Reason For Visit: AMS,ESRD Physical Exam Vital Signs: Temp Pulse Resp BP Pulse Ox 96 F L 60 22 H 100/40 L 100 06/27/20 07:34 06/27/20 07:34 06/27/20 07:34 06/27/20 07:34 06/27/20 07:34 Intake & Output 06/26/20 06/27/20 06/28/20 06:59 06:59 06:59 Intake Total 1538 2060 Output Total 0 Balance 1538 2060 Weight 80.6 kg 80.6 kg General appearance: PRESENT: no acute distress, well-developed, well-nourished Head exam: PRESENT: atraumatic, normocephalic Eye exam: PRESENT: conjunctiva pink, EOMI, PERRLA. ABSENT: scleral icterus Ear exam: PRESENT: normal external ear exam Mouth exam: PRESENT: moist, tongue midline Neck exam: PRESENT: full ROM. ABSENT: carotid bruit, JVD, lymphadenopathy, thyromegaly Respiratory exam: PRESENT: clear to auscultation nirmal Cardiovascular exam: PRESENT: RRR. ABSENT: diastolic murmur, rubs, systolic murmur Pulses: PRESENT: normal dorsalis pedis pul, +2 pedal pulses bilateral Vascular exam: PRESENT: normal capillary refill GI/Abdominal exam: PRESENT: normal bowel sounds, soft. ABSENT: distended, guarding, mass, organolmegaly, rebound, tenderness Rectal exam: PRESENT: deferred Musculoskeletal exam: PRESENT: ambulatory Neurological exam: PRESENT: alert, awake, oriented to person, oriented to place, oriented to time, oriented to situation, CN II-XII grossly intact. ABSENT: motor sensory deficit Psychiatric exam: PRESENT: appropriate affect, normal mood. ABSENT: homicidal ideation, suicidal ideation Skin exam: PRESENT: dry, intact, warm. ABSENT: cyanosis, rash Results Laboratory Results: 06/27/20 05:59 06/27/20 05:59 06/26/20 06/27/20 06/27/20 15:49 05:59 05:59 WBC 15.3 H RBC 3.01 L Hgb 9.3 L Hct 29.2 L MCV 97 MCH 30.8 MCHC 31.7 L RDW 16.7 H Plt Count 65 L Seg Neutrophils % Not Reportable Sodium 130.6 L Potassium 4.8 Chloride 99 Carbon Dioxide 23 Anion Gap 9 BUN 25 H Creatinine 4.10 H Est GFR ( Amer) 13 L Glucose 73 L Lactic Acid 4.5 H Calcium 8.4 Impressions: Chest X-Ray 06/24/20 05:15 IMPRESSION: No change. Abdomen/Pelvis CT 06/25/20 00:00 IMPRESSION: 1. No evidence of acute intra-abdominal/pelvic process. 2. Atrophic kidneys. Additional incidental findings as above. Head CT 06/25/20 00:00 IMPRESSION: 1. No evidence of acute intracranial process. 2. Chronic prior lacunar infarcts and evidence of small vessel ischemic change, stable. EVIDENCE OF ACUTE STROKE: NO. 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 Is this a current diagnosis for this admission?: Yes (7) Leukocytosis Qualifiers: Leukocytosis type: unspecified Qualified Code(s): D72.829 - Elevated white blood cell count, unspecified Is this a current diagnosis for this admission?: Yes Plan: Possible Staphylococcus aureus catheter was removed Use IV Levaquin (8) Weakness Is this a current diagnosis for this admission?: Yes (9) Chronic diarrhea Is this a current diagnosis for this admission?: Yes (10) Sepsis Qualifiers: Sepsis acute organ dysfunction status: unspecified Is this a current diagnosis for this admission?: Yes Plan: Catheter related most likely Staphylococcus will continues IV Levaquin patient's blood culture is so far negative (11) Thrombocytopenia Is this a current diagnosis for this admission?: Yes Plan: Is likely due to the sepsis and DIC follow-up with the thermometer production worker - Time Time Spent with patient: 25-34 minutes Level of Care: TELE Medications reviewed and adjusted accordingly: Yes Anticipated discharge: Home with Homehealth Anticipated DC Timeframe: within 72 hours - Plan Summary Plan Summary: Patient is a very super noncompliance as per very extensive discussion with the nephrology she tried to contact the patient's and the family several times patient's no show up in the dialysis unable to reach the patient and the family by phone even I try myself to Reach the patient's nephew unable to contact I spoke with the patient's daughter who came to see me in the office is a patient and talk about the patient's mother see pretty much said that all depends on the mother with that she wants to continues the dialysis or not nothing she can do Patient is very noncompliance on the follow-up with the dialysis and patient is a noncompliance to taking the medications I believe patient have a not a good prognosis due to the all this noncompliance with the multiple comorbidity
--- NOTE | 2020-06-27 12:43 | PDOC CONSULTATION ---
Consultation Consult Date: 06/27/20 Provider Consulted: BERNARDO DAVIS Consult reason:: change in bowel habits, abnormal CT scan History of Present Illness Admission Date/PCP: 06/24/20 06:25 MAU ANDRADE MD History of Present Illness: ELIN JIMÉNEZ is a 65 year old female I was asked to see this patient patient has a perm cath infection and and has that removed I have spoken to Dr Andrade on a number of occasions on this patient patient has a history of non compliance Dr Andrade would like for her to have a colonoscopy done she has had a change in her bowel habits CT scan does show some non specific thickening she had to have dialysis Dr Traore had seen her and schedule for possible vascular access having spoken with Dr Andrade, it has been decided that we should defer her procedure until next week Past Medical History Cardiac Medical History: Reports: Congestive Heart Failure, Coronary Artery Disease, Hyperlipidema, Hypertension Denies: Myocardial Infarction Pulmonary Medical History: Reports: Chronic Obstructive Pulmonary Disease (COPD), Pneumonia - 2006 Denies: Asthma, Bronchitis Neurological Medical History: Denies: Seizures Renal/ Medical History: Reports: End Stage Renal Disease Musculoskeltal Medical History: Denies: Arthritis Psychiatric Medical History: Denies: Depression Hematology: Denies: Anemia Past Surgical History Past Surgical History: Reports: Hysterectomy, Vascular Surgery - Central venous catheter placement for dialysis use Social History Lives with: Family - With nephew Smoking Status: Unknown if Ever Smoked Electronic Cigarette use?: No Frequency of Alcohol Use: None Hx Recreational Drug Use: No Drugs: None Hx Prescription Drug Abuse: No - Advance Directive Resuscitation Status: Full Code Family History Family History: Reviewed & Not Pertinent Parental Family History Reviewed: Yes Children Family History Reviewed: Unknown Sibling(s) Family History Reviewed.: Unknown Medication/Allergy Home Medications: Levothyroxine Sodium [Synthroid] 175 mcg PO Q6AM 04/26/20 Aspirin [Aspirin 81 mg Chewable Tablet] 81 mg PO DAILY #30 tab.chew 04/29/20 Fluticasone/Salmeterol [Advair 500-50 Diskus 14 Dose/Diskus] 1 puff IH BID 02/08 Umeclidinium [place] [Incruse Ellipta] 1 puff IH DAILY 06/24/20 Allergies/Adverse Reactions: cephalexin [From Keflex] Allergy (Verified 06/11/20 00:35) codeine [Codeine] Allergy (Verified 06/11/20 00:35) Review of Systems Constitutional: ABSENT: fever(s), headache(s) Eyes: ABSENT: visual disturbances Ears: ABSENT: hearing changes Nose, Mouth, and Throat: ABSENT: mouth pain, sore throat Respiratory: ABSENT: dyspnea, hemoptysis Gastrointestinal: ABSENT: hematemesis, hematochezia, nausea, vomiting Genitourinary: ABSENT: dysuria, hematuria Musculoskeletal: ABSENT: deformity, joint swelling Neurological: ABSENT: syncope, tingling, tremor(s), vertigo Endocrine: ABSENT: polydipsia, polyphagia, polyuria Hematologic/Lymphatic: ABSENT: easy bruising Physical Exam Vital Signs: Temp Pulse Resp BP Pulse Ox 96 F L 60 22 H 100/40 L 100 06/27/20 07:34 06/27/20 07:34 06/27/20 07:34 06/27/20 07:34 06/27/20 07:34 Intake & Output 06/26/20 06/27/20 06/28/20 06:59 06:59 06:59 Intake Total 1538 2060 100 Output Total 0 Balance 1538 2060 100 Weight 80.6 kg 80.6 kg General appearance: PRESENT: mild distress, well-developed, well-nourished Head exam: PRESENT: atraumatic, normocephalic Eye exam: PRESENT: EOMI, PERRLA. ABSENT: nystagmus, scleral icterus Mouth exam: PRESENT: moist, neck supple Neck exam: ABSENT: meningismus, tenderness, thyromegaly Respiratory exam: PRESENT: clear to auscultation nirmal, symmetrical. ABSENT: stridor Cardiovascular exam: PRESENT: RRR, +S1, +S2 GI/Abdominal exam: PRESENT: Lang's sign, normal bowel sounds. ABSENT: rebound, rigid Extremities exam: ABSENT: joint swelling Musculoskeletal exam: PRESENT: full ROM Neurological exam: PRESENT: alert, awake, oriented to person, CN II-XII grossly intact Skin exam: PRESENT: normal color, urticaria. ABSENT: mottled, pallor, vesicles Results Laboratory Results: 06/27/20 05:59 06/27/20 05:59 06/26/20 06/27/20 06/27/20 15:49 05:59 05:59 WBC 15.3 H RBC 3.01 L Hgb 9.3 L Hct 29.2 L MCV 97 MCH 30.8 MCHC 31.7 L RDW 16.7 H Plt Count 65 L Seg Neutrophils % Not Reportable Sodium 130.6 L Potassium 4.8 Chloride 99 Carbon Dioxide 23 Anion Gap 9 BUN 25 H Creatinine 4.10 H Est GFR ( Amer) 13 L Glucose 73 L Lactic Acid 4.5 H Calcium 8.4 Impressions: Chest X-Ray 06/24/20 05:15 IMPRESSION: No change. Abdomen/Pelvis CT 06/25/20 00:00 IMPRESSION: 1. No evidence of acute intra-abdominal/pelvic process. 2. Atrophic kidneys. Additional incidental findings as above. Head CT 06/25/20 00:00 IMPRESSION: 1. No evidence of acute intracranial process. 2. Chronic prior lacunar infarcts and evidence of small vessel ischemic change, stable. EVIDENCE OF ACUTE STROKE: NO. Assessment & Plan - Diagnosis (1) Chronic diarrhea Is this a current diagnosis for this admission?: Yes Plan: due to patient's history of outpatient non compliance , in patient colonoscopy is recommended however issues with permanent vascular access along with dialysis should take precedence will schedule patient for colonoscopy next week Dr Andrade is in agreement I will put in orders over this weekend if all issues with vascular access hopefully have been addressed and resolved by then - Time Time Spent: 50 to 70 Minutes
[2020-06-27] MEDS ORDERED: LEVOFLOXACIN 250 MG/D5W RTU 250 MG/50 ML RTUPB IV SCH (18:00)
[2020-06-27] MEDS: FAMOTIDINE 20 MG TABLET PO SCH (22:04)
[2020-06-28] MEDS ORDERED: HEPARIN SOD (PORCINE) 1,000 UNIT/ML 10 ML VIAL IV PRN (05:00)
[2020-06-28] MEDS ORDERED: NORMAL SALINE 1000 ML 1,000 ML IV PRN (05:00)
[2020-06-28] MEDS ORDERED: EPOETIN ALFA-EPBX 10,000 UNIT in SYRINGE, DISPOSABLE, 1 EACH IV PRN (05:00)
[2020-06-28 05:38] LABS: HEMATOCRIT 29.1 % (36.0-47.0); HEMOGLOBIN 9.1 g/dL (12.0-15.5); MEAN CORPUSCULAR HEMOGLOBIN 30.8 pg (27.0-33.4); MEAN CORPUSCULAR HGB CONC 31.4 g/dL (32.0-36.0); MEAN CORPUSCULAR VOLUME 98 fl (80-97); RED BLOOD COUNT 2.97 10^6/uL (3.72-5.28); RED CELL DISTRIBUTION WIDTH 16.7 % (11.5-14.0); WHITE BLOOD COUNT 15.1 10^3/uL (4.0-10.5)
[2020-06-28 05:40] LABS: PLATELET COUNT 81 10^3/uL (150-450)
[2020-06-28 05:47] LABS: ANION GAP 11 (5-19); BLOOD UREA NITROGEN 30 mg/dL (7-20); CALCIUM 8.5 mg/dL (8.4-10.2); CARBON DIOXIDE 21 mmol/L (22-30); CHLORIDE 97 mmol/L (98-107); GLUCOSE 82 mg/dL (75-110); POTASSIUM 4.7 mmol/L (3.6-5.0)
[2020-06-28 05:56] LABS: ABSOLUTE LYMPHOCYTES# (MANUAL) 1.8 10^3/uL (0.5-4.7); ABSOLUTE MONOCYTES # (MANUAL) 0.8 10^3/uL (0.1-1.4); BAND NEUTROPHILS % (MANUAL) 2 % (3-5); BASOPHILS % (MANUAL) 0 % (0-2); EOSINOPHILS % (MANUAL) 1 % (0-6); LYMPHOCYTES % (MANUAL) 12 % (13-45); MONOCYTES % (MANUAL) 5 % (3-13); SEGMENTED NEUTROPHILS % (MAN) 80 % (42-78); TOTAL CELLS COUNTED 100
[2020-06-28 05:58] LABS: ANISOCYTOSIS 2+; PLATELET COMMENT DECREASED; TOXIC VACUOLATION PRESENT
[2020-06-28] MEDS: LEVOTHYROXINE SODIUM 0.075 MG TABLET PO SCH (06:14)
[2020-06-28] MEDS: LEVOTHYROXINE SODIUM 0.1 MG TABLET PO SCH (06:14)
--- NOTE | 2020-06-28 08:24 | PDOC PROGRESS REPORT ---
Subjective Progress Note for:: 06/28/20 Subjective:: No acute events overnight, platelet count is higher Reason For Visit: AMS,ESRD Physical Exam Vital Signs: Temp Pulse Resp BP Pulse Ox 98.4 F 65 20 106/52 L 99 06/28/20 07:43 06/28/20 07:43 06/28/20 07:43 06/28/20 07:43 06/28/20 07:43 Intake & Output 06/27/20 06/28/20 06/29/20 06:59 06:59 06:59 Intake Total 2059 2029 100 Output Total 0 Balance 2059 2029 100 Weight 80.6 kg 80.5 kg General appearance: PRESENT: no acute distress, well-developed, well-nourished Head exam: PRESENT: atraumatic, normocephalic Eye exam: PRESENT: conjunctiva pink, EOMI, PERRLA. ABSENT: scleral icterus Ear exam: PRESENT: normal external ear exam Mouth exam: PRESENT: moist, tongue midline Neck exam: ABSENT: carotid bruit, JVD, lymphadenopathy, thyromegaly Respiratory exam: PRESENT: clear to auscultation nirmal. ABSENT: rales, rhonchi, wheezes Cardiovascular exam: PRESENT: RRR. ABSENT: diastolic murmur, rubs, systolic murmur Pulses: PRESENT: normal dorsalis pedis pul Vascular exam: PRESENT: normal capillary refill GI/Abdominal exam: PRESENT: normal bowel sounds, soft. ABSENT: distended, guarding, mass, organolmegaly, rebound, tenderness Rectal exam: PRESENT: deferred Extremities exam: PRESENT: full ROM. ABSENT: calf tenderness, clubbing, pedal edema Neurological exam: PRESENT: alert, awake, oriented to person, oriented to place, oriented to time, oriented to situation, CN II-XII grossly intact. ABSENT: motor sensory deficit Psychiatric exam: PRESENT: appropriate affect, normal mood. ABSENT: homicidal ideation, suicidal ideation Skin exam: PRESENT: dry, intact, warm. ABSENT: cyanosis, rash Results Laboratory Results: 06/28/20 05:17 06/28/20 05:17 06/28/20 06/28/20 05:17 05:17 WBC 15.1 H RBC 2.97 L Hgb 9.1 L Hct 29.1 L MCV 98 H MCH 30.8 MCHC 31.4 L RDW 16.7 H Plt Count 81 L Seg Neutrophils % Not Reportable Sodium 128.6 L Potassium 4.7 Chloride 97 L Carbon Dioxide 21 L Anion Gap 11 BUN 30 H Creatinine 4.78 H Est GFR ( Amer) 11 L Glucose 82 Calcium 8.5 06/25/20 09:47 Stool - Stool - Final 06/25/20 09:47 Stool - Stool Stool Culture - Final Impressions: Chest X-Ray 06/24/20 05:15 IMPRESSION: No change. Abdomen/Pelvis CT 06/25/20 00:00 IMPRESSION: 1. No evidence of acute intra-abdominal/pelvic process. 2. Atrophic kidneys. Additional incidental findings as above. Head CT 06/25/20 00:00 IMPRESSION: 1. No evidence of acute intracranial process. 2. Chronic prior lacunar infarcts and evidence of small vessel ischemic change, stable. EVIDENCE OF ACUTE STROKE: NO. Assessment & Plan - Diagnosis (1) Thrombocytopenia Is this a current diagnosis for this admission?: Yes Plan: Improving, probably is DIC, not actively bleeding so should hopefully recover to a normal level in the next 2 to 5 days. (2) Anemia Qualifiers: Anemia type: due to chronic kidney disease Chronic kidney disease stage: on chronic dialysis Qualified Code(s): N18.6 - End stage renal disease; D63.1 - Anemia in chronic kidney disease; Z99.2 - Dependence on renal dialysis Is this a current diagnosis for this admission?: Yes Plan: Hemoglobin stable, transfuse if needed continue EPO - Time Time Spent with patient: 15-24 minutes
[2020-06-28] MEDS: ONDANSETRON HCL INJ/PF 4 MG/2 ML SDV IV PRN (10:58)
[2020-06-28] MEDS: FLUTICASONE/VILANTEROL 200-25 MCG/DOSE IH SCH (11:37)
[2020-06-28] MEDS: DOCUSATE SODIUM 100 MG CAPSULE PO SCH (11:37)
[2020-06-28] MEDS: ASPIRIN 81 MG TABLET, CHEWABLE PO SCH (11:37)
[2020-06-28] MEDS: METRONIDAZOLE 500 MG/NS RTU 500 MG/100 ML RTUPB IV SCH ×2 (11:37→21:20)
[2020-06-28] MEDS: CALCITRIOL 0.25 MCG CAPSULE PO SCH (11:38)
[2020-06-28] MEDS: UMECLIDINIUM BROMIDE 62.5 MCG/DOSE IH SCH (11:38)
--- NOTE | 2020-06-28 11:53 | PDOC PROGRESS REPORT ---
Subjective Progress Note for:: 06/28/20 Subjective:: Patient is currently doing fair Patient's denied any chest pain no short of breath Patient's denied any other symptoms Patient is having no fever no chills Platelet count is all improving No active bleeding Reason For Visit: AMS,ESRD Physical Exam Vital Signs: Temp Pulse Resp BP Pulse Ox 98.4 F 65 20 106/52 L 99 06/28/20 07:43 06/28/20 07:43 06/28/20 07:43 06/28/20 07:43 06/28/20 07:43 Intake & Output 06/27/20 06/28/20 06/29/20 06:59 06:59 06:59 Intake Total 2059 2029 100 Output Total 0 Balance 2059 2029 100 Weight 80.6 kg 80.5 kg General appearance: PRESENT: no acute distress, well-developed, well-nourished Head exam: PRESENT: atraumatic, normocephalic Eye exam: PRESENT: conjunctiva pink, EOMI, PERRLA. ABSENT: scleral icterus Ear exam: PRESENT: normal external ear exam Mouth exam: PRESENT: moist, tongue midline Neck exam: PRESENT: full ROM. ABSENT: carotid bruit, JVD, lymphadenopathy, thyromegaly Respiratory exam: PRESENT: clear to auscultation nirmal Cardiovascular exam: PRESENT: RRR. ABSENT: diastolic murmur, rubs, systolic murmur Pulses: PRESENT: normal dorsalis pedis pul, +2 pedal pulses bilateral Vascular exam: PRESENT: normal capillary refill GI/Abdominal exam: PRESENT: normal bowel sounds, soft. ABSENT: distended, guarding, mass, organolmegaly, rebound, tenderness Rectal exam: PRESENT: deferred Musculoskeletal exam: PRESENT: ambulatory Neurological exam: PRESENT: alert, awake, oriented to person, oriented to place, oriented to time, oriented to situation, CN II-XII grossly intact. ABSENT: motor sensory deficit Psychiatric exam: PRESENT: appropriate affect, normal mood. ABSENT: homicidal ideation, suicidal ideation Skin exam: PRESENT: dry, intact, warm. ABSENT: cyanosis, rash Results Laboratory Results: 06/28/20 05:17 06/28/20 05:17 06/28/20 06/28/20 05:17 05:17 WBC 15.1 H RBC 2.97 L Hgb 9.1 L Hct 29.1 L MCV 98 H MCH 30.8 MCHC 31.4 L RDW 16.7 H Plt Count 81 L Seg Neutrophils % Not Reportable Sodium 128.6 L Potassium 4.7 Chloride 97 L Carbon Dioxide 21 L Anion Gap 11 BUN 30 H Creatinine 4.78 H Est GFR ( Amer) 11 L Glucose 82 Calcium 8.5 06/25/20 09:47 Stool - Stool - Final 06/25/20 09:47 Stool - Stool Stool Culture - Final Impressions: Chest X-Ray 06/24/20 05:15 IMPRESSION: No change. Abdomen/Pelvis CT 06/25/20 00:00 IMPRESSION: 1. No evidence of acute intra-abdominal/pelvic process. 2. Atrophic kidneys. Additional incidental findings as above. Head CT 06/25/20 00:00 IMPRESSION: 1. No evidence of acute intracranial process. 2. Chronic prior lacunar infarcts and evidence of small vessel ischemic change, stable. EVIDENCE OF ACUTE STROKE: NO. 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 Is this a current diagnosis for this admission?: Yes (7) Leukocytosis Qualifiers: Leukocytosis type: unspecified Qualified Code(s): D72.829 - Elevated white blood cell count, unspecified Is this a current diagnosis for this admission?: Yes (8) Weakness Is this a current diagnosis for this admission?: Yes (9) Chronic diarrhea Is this a current diagnosis for this admission?: Yes (10) Sepsis Qualifiers: Sepsis acute organ dysfunction status: unspecified Is this a current diagnosis for this admission?: Yes (11) Thrombocytopenia Is this a current diagnosis for this admission?: Yes - Time Time Spent with patient: 15-24 minutes Level of Care: IMCU Medications reviewed and adjusted accordingly: Yes Anticipated discharge: Other Anticipated DC Timeframe: Other - Plan Summary Plan Summary: Patient is scheduled for dialysis today continues IV antibiotics
[2020-06-28] MEDS: LEVOFLOXACIN 250 MG TABLET PO SCH (17:05)
[2020-06-28] MEDS: FAMOTIDINE 20 MG TABLET PO SCH (21:21)
--- NOTE | 2020-06-28 22:07 | PDOC PROGRESS REPORT ---
Subjective Progress Note for:: 06/28/20 Subjective:: I am seeing the patient during dialysis this morning. He states that she is a still not feeling better. Ports that her diarrhea seems to be slowing down and yesterday she only went twice. He still has some slight nausea and vomiting but she is eating better. So far she is tolerating dialysis at this time. PermCath has been removed by Dr. Palomino yesterday due to possible infection. Reason For Visit: AMS,ESRD Physical Exam Vital Signs: Temp Pulse Resp BP Pulse Ox 98.4 F 65 20 106/52 L 99 06/28/20 07:43 06/28/20 07:43 06/28/20 07:43 06/28/20 07:43 06/28/20 07:43 Intake & Output 06/27/20 06/28/20 06/29/20 06:59 06:59 06:59 Intake Total 2059 2029 100 Output Total 0 Balance 2059 2029 100 Weight 80.6 kg 80.5 kg Vitals during dialysis: Blood pressure 109/50, heart rate of 52, blood flow rate of 350 mL/min dialysate flow rate of 800 mL/min. Exam: General appearance: PRESENT: no acute distress, cooperative, well-developed, well-nourished Head exam: PRESENT: atraumatic, normocephalic Eye exam: PRESENT: conjunctiva pink, PERRLA. ABSENT: scleral icterus Neck exam: ABSENT: JVD Respiratory exam: PRESENT: Normal breath sounds. ABSENT: crackles, rales, rhonchi, unlabored, wheezes Cardiovascular exam: PRESENT: Regular rate rhythm -+S1, +S2. ABSENT: diastolic murmur, systolic murmur GI/Abdominal exam: PRESENT: normal bowel sounds, soft. ABSENT: guarding, mass, tenderness Extremities exam: ABSENT: No edema Neurological exam: PRESENT: alert, awake, oriented to person, place and time. Skin exam: PRESENT: dry, warm, Results Laboratory Results: 06/28/20 05:17 06/28/20 05:17 06/28/20 06/28/20 05:17 05:17 WBC 15.1 H RBC 2.97 L Hgb 9.1 L Hct 29.1 L MCV 98 H MCH 30.8 MCHC 31.4 L RDW 16.7 H Plt Count 81 L Seg Neutrophils % Not Reportable Sodium 128.6 L Potassium 4.7 Chloride 97 L Carbon Dioxide 21 L Anion Gap 11 BUN 30 H Creatinine 4.78 H Est GFR ( Amer) 11 L Glucose 82 Calcium 8.5 06/25/20 09:47 Stool - Stool - Final 06/25/20 09:47 Stool - Stool Stool Culture - Final Impressions: Chest X-Ray 06/24/20 05:15 IMPRESSION: No change. Abdomen/Pelvis CT 06/25/20 00:00 IMPRESSION: 1. No evidence of acute intra-abdominal/pelvic process. 2. Atrophic kidneys. Additional incidental findings as above. Head CT 06/25/20 00:00 IMPRESSION: 1. No evidence of acute intracranial process. 2. Chronic prior lacunar infarcts and evidence of small vessel ischemic change, stable. EVIDENCE OF ACUTE STROKE: NO. Assessment & Plan - Diagnosis (1) End stage renal disease Is this a current diagnosis for this admission?: Yes Plan: Patient would like to continue dialysis. I emphasized the importance of compliance and inform her that if she does not show up on her dialysis treatment she will be discharged from my practice and [facility]. She understood. We will do dialysis today for 2.5 hours, using the patient's trialysis catheter, with 2 potassium bath, blood flow rate of 350 mL per minute, dialysate flow rate of 800 mL per minute, ultrafiltration of 0.5-1L UF, no [place] [address] units during dialysis intravenously. Patient being monitored on dialysis. Patient's white count continues to improve, will have another early next week. Meanwhile we will use her trialysis catheter for dialysis. (2) Uremia Is this a current diagnosis for this admission?: Yes Plan: Improving with reinitiation of dialysis. (3) Metabolic acidosis Is this a current diagnosis for this admission?: Yes Plan: Improved. (4) Leukocytosis Qualifiers: Leukocytosis type: unspecified Qualified Code(s): D72.829 - Elevated white blood cell count, unspecified Is this a current diagnosis for this admission?: Yes Plan: Review of blood, urine and exit site cultures from June 14 reveals positive results for staph aureus and staph hominis. Discussed with Dr. Andrade. Old PermCath removed by Dr. Palomino, 06/27. Changed antibiotics from ciprofloxacin to Levaquin, 06/27. Catheter tip culture so far negative. (5) Anemia in chronic kidney disease (CKD) Qualifiers: Is this a current diagnosis for this admission?: Yes Plan: We will give Retacrit on dialysis as needed. (6) Hypokalemia Is this a current diagnosis for this admission?: Yes Plan: Resolved. Discontinue potassium supplements. (7) Chronic diarrhea Is this a current diagnosis for this admission?: Yes Plan: Defer to Dr. Andrade. Group Home Manager, Dr. Ward consulted. (8) Chronic kidney disease-mineral and bone disorder Is this a current diagnosis for this admission?: Yes Plan: PTH is elevated at 688.5. Phosphorus normal at 2.7. I started calcitriol 0.5 mcg daily. (9) Thrombocytopenia Is this a current diagnosis for this admission?: Yes Plan: Per Dr. Westbrook with decreased fibrinogen possibly due to DIC. - Time Time with patient: 15-25 minutes
[2020-06-29] MEDS: ACETAMINOPHEN 325 MG TABLET PO PRN (00:06)
[2020-06-29 06:02] LABS: ANION GAP 9 (5-19); BLOOD UREA NITROGEN 22 mg/dL (7-20); CALCIUM 7.9 mg/dL (8.4-10.2); CARBON DIOXIDE 25 mmol/L (22-30); CHLORIDE 97 mmol/L (98-107); GLUCOSE 93 mg/dL (75-110); POTASSIUM 4.1 mmol/L (3.6-5.0)
[2020-06-29] MEDS: LEVOTHYROXINE SODIUM 0.1 MG TABLET PO SCH (06:36)
[2020-06-29] MEDS: LEVOTHYROXINE SODIUM 0.075 MG TABLET PO SCH (06:36)
[2020-06-29] MEDS: METRONIDAZOLE 500 MG/NS RTU 500 MG/100 ML RTUPB IV SCH (09:28)
[2020-06-29] MEDS: DOCUSATE SODIUM 100 MG CAPSULE PO SCH (09:29)
[2020-06-29] MEDS: ASPIRIN 81 MG TABLET, CHEWABLE PO SCH (09:29)
[2020-06-29] MEDS: CALCITRIOL 0.25 MCG CAPSULE PO SCH (09:29)
[2020-06-29] MEDS: UMECLIDINIUM BROMIDE 62.5 MCG/DOSE IH SCH (09:30)
[2020-06-29] MEDS: FLUTICASONE/VILANTEROL 200-25 MCG/DOSE IH SCH (09:30)
[2020-06-29] MEDS: DOXYCYCLINE HYCLATE 100 MG TABLET PO SCH ×2 (11:29→22:02)
--- NOTE | 2020-06-29 12:00 | PDOC PROGRESS REPORT ---
Subjective Progress Note for:: 06/29/20 Subjective:: Patient is currently doing same No abdominal pain no nausea no vomiting Patient's urine culture is positive from the sensitivity of the doxycycline Reason For Visit: AMS,ESRD Physical Exam Vital Signs: Temp Pulse Resp BP Pulse Ox 98.4 F 66 18 86/46 L 100 06/29/20 07:39 06/29/20 07:39 06/29/20 07:39 06/29/20 07:39 06/29/20 07:39 Intake & Output 06/28/20 06/29/20 06/30/20 06:59 06:59 06:59 Intake Total 2029 1140 100 Output Total 695 Balance 2029 445 100 Weight 80.5 kg 81.2 kg General appearance: PRESENT: no acute distress, well-developed, well-nourished Head exam: PRESENT: atraumatic, normocephalic Eye exam: PRESENT: conjunctiva pink, EOMI, PERRLA. ABSENT: scleral icterus Ear exam: PRESENT: normal external ear exam Mouth exam: PRESENT: moist, tongue midline Neck exam: PRESENT: full ROM. ABSENT: carotid bruit, JVD, lymphadenopathy, thyromegaly Respiratory exam: PRESENT: clear to auscultation nirmal Cardiovascular exam: PRESENT: RRR. ABSENT: diastolic murmur, rubs, systolic murmur Pulses: PRESENT: normal dorsalis pedis pul, +2 pedal pulses bilateral Vascular exam: PRESENT: normal capillary refill GI/Abdominal exam: PRESENT: normal bowel sounds, soft. ABSENT: distended, guarding, mass, organolmegaly, rebound, tenderness Rectal exam: PRESENT: deferred Musculoskeletal exam: PRESENT: ambulatory Neurological exam: PRESENT: alert, awake, oriented to person, oriented to place, oriented to time, oriented to situation, CN II-XII grossly intact. ABSENT: motor sensory deficit Psychiatric exam: PRESENT: appropriate affect, normal mood. ABSENT: homicidal ideation, suicidal ideation Skin exam: PRESENT: dry, intact, warm. ABSENT: cyanosis, rash Results Laboratory Results: 06/28/20 05:17 06/29/20 05:06 06/29/20 05:06 Sodium 130.6 L Potassium 4.1 Chloride 97 L Carbon Dioxide 25 Anion Gap 9 BUN 22 H Creatinine 3.82 H Est GFR ( Amer) 14 L Glucose 93 Calcium 7.9 L 06/26/20 17:59 Catheter Tip - Not Specified Catheter Tip Culture - Final NO GROWTH 3 DAYS 06/24/20 09:39 Blood Blood Culture - Final NO GROWTH IN 5 DAYS 06/25/20 01:40 Clean Catch Midstream Urine Culture - Final Staphylococcus Epidermidis Coag Neg Staph Group Impressions: Chest X-Ray 06/24/20 05:15 IMPRESSION: No change. Abdomen/Pelvis CT 06/25/20 00:00 IMPRESSION: 1. No evidence of acute intra-abdominal/pelvic process. 2. Atrophic kidneys. Additional incidental findings as above. Head CT 06/25/20 00:00 IMPRESSION: 1. No evidence of acute intracranial process. 2. Chronic prior lacunar infarcts and evidence of small vessel ischemic change, stable. EVIDENCE OF ACUTE STROKE: NO. 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 Is this a current diagnosis for this admission?: Yes (7) Leukocytosis Qualifiers: Leukocytosis type: unspecified Qualified Code(s): D72.829 - Elevated white blood cell count, unspecified Is this a current diagnosis for this admission?: Yes (8) Weakness Is this a current diagnosis for this admission?: Yes (9) Chronic diarrhea Is this a current diagnosis for this admission?: Yes (10) Sepsis Qualifiers: Sepsis acute organ dysfunction status: unspecified Is this a current diagnosis for this admission?: Yes (11) Thrombocytopenia Is this a current diagnosis for this admission?: Yes - Time Time Spent with patient: 15-24 minutes Level of Care: IMCU Medications reviewed and adjusted accordingly: Yes Anticipated discharge: Home with Homehealth Anticipated DC Timeframe: Other - Plan Summary Plan Summary: Start the patient on doxycycline discussed with the nursing staff to sit for 30 minutes after take the medication and drink more water continues the other medications
[2020-06-29] MEDS: LEVOFLOXACIN 250 MG TABLET PO SCH (17:24)
[2020-06-29] MEDS: FAMOTIDINE 20 MG TABLET PO SCH (22:02)
[2020-06-30] MEDS: LEVOTHYROXINE SODIUM 0.075 MG TABLET PO SCH (06:08)
[2020-06-30] MEDS: LEVOTHYROXINE SODIUM 0.1 MG TABLET PO SCH (06:08)
[2020-06-30 06:39] LABS: HEMATOCRIT 26.2 % (36.0-47.0); HEMOGLOBIN 8.5 g/dL (12.0-15.5); MEAN CORPUSCULAR HEMOGLOBIN 31.7 pg (27.0-33.4); MEAN CORPUSCULAR HGB CONC 32.5 g/dL (32.0-36.0); MEAN CORPUSCULAR VOLUME 98 fl (80-97); PLATELET COUNT 112 10^3/uL (150-450); RED BLOOD COUNT 2.69 10^6/uL (3.72-5.28); RED CELL DISTRIBUTION WIDTH 16.9 % (11.5-14.0); WHITE BLOOD COUNT 11.8 10^3/uL (4.0-10.5)
[2020-06-30 07:32] LABS: ABSOLUTE LYMPHOCYTES# (MANUAL) 2.1 10^3/uL (0.5-4.7); ABSOLUTE MONOCYTES # (MANUAL) 0.8 10^3/uL (0.1-1.4); BASOPHILS % (MANUAL) 0 % (0-2); EOSINOPHILS % (MANUAL) 0 % (0-6); LYMPHOCYTES % (MANUAL) 18 % (13-45); MONOCYTES % (MANUAL) 7 % (3-13); NUCLEATED RED BLOOD CELLS 1 /100 WBC (0); SEGMENTED NEUTROPHILS % (MAN) 75 % (42-78); TOTAL CELLS COUNTED 100
[2020-06-30 07:33] LABS: ANION GAP 14 (5-19); BLOOD UREA NITROGEN 30 mg/dL (7-20); CALCIUM 8.1 mg/dL (8.4-10.2); CARBON DIOXIDE 22 mmol/L (22-30); CHLORIDE 95 mmol/L (98-107); GLUCOSE 80 mg/dL (75-110); POTASSIUM 4.3 mmol/L (3.6-5.0)
[2020-06-30 07:34] LABS: ANISOCYTOSIS 1+; OVALOCYTES 1+; PLATELET COMMENT DECREASED; TARGET CELLS SLIGHT; TOXIC VACUOLATION PRESENT
[2020-06-30] MEDS: CALCITRIOL 0.25 MCG CAPSULE PO SCH (09:26)
[2020-06-30] MEDS: DOXYCYCLINE HYCLATE 100 MG TABLET PO SCH ×2 (09:26→22:04)
[2020-06-30] MEDS: UMECLIDINIUM BROMIDE 62.5 MCG/DOSE IH SCH (09:27)
[2020-06-30] MEDS: FLUTICASONE/VILANTEROL 200-25 MCG/DOSE IH SCH (09:27)
[2020-06-30] MEDS: ASPIRIN 81 MG TABLET, CHEWABLE PO SCH (09:28)
[2020-06-30] MEDS: DOCUSATE SODIUM 100 MG CAPSULE PO SCH (09:28)
--- NOTE | 2020-06-30 10:56 | PDOC PROGRESS REPORT ---
Subjective Progress Note for:: 06/30/20 Subjective:: Patient is currently doing same No abdominal pain no nausea no vomiting Patient's urine culture is positive from the sensitivity of the doxycycline Reason For Visit: AMS,ESRD Physical Exam Vital Signs: Temp Pulse Resp BP Pulse Ox 97.6 F 71 17 94/52 L 100 06/30/20 07:37 06/30/20 07:37 06/30/20 07:37 06/30/20 08:00 06/30/20 07:37 Intake & Output 06/29/20 06/30/20 07/01/20 06:59 06:59 06:59 Intake Total 1140 1340 Output Total 695 Balance 445 1340 Weight 81.2 kg 91.6 kg General appearance: PRESENT: no acute distress, well-developed, well-nourished Head exam: PRESENT: atraumatic, normocephalic Eye exam: PRESENT: conjunctiva pink, EOMI, PERRLA. ABSENT: scleral icterus Ear exam: PRESENT: normal external ear exam Mouth exam: PRESENT: moist, tongue midline Neck exam: PRESENT: full ROM. ABSENT: carotid bruit, JVD, lymphadenopathy, thyromegaly Respiratory exam: PRESENT: clear to auscultation nirmal Cardiovascular exam: PRESENT: RRR. ABSENT: diastolic murmur, rubs, systolic murmur Pulses: PRESENT: normal dorsalis pedis pul, +2 pedal pulses bilateral Vascular exam: PRESENT: normal capillary refill GI/Abdominal exam: PRESENT: normal bowel sounds, soft. ABSENT: distended, guarding, mass, organolmegaly, rebound, tenderness Rectal exam: PRESENT: deferred Neurological exam: PRESENT: alert, awake, oriented to person, oriented to place, oriented to time, oriented to situation, CN II-XII grossly intact. ABSENT: motor sensory deficit Psychiatric exam: PRESENT: appropriate affect, normal mood. ABSENT: homicidal ideation, suicidal ideation Skin exam: PRESENT: dry, intact, warm. ABSENT: cyanosis, rash Results Laboratory Results: 06/30/20 05:59 06/30/20 05:59 06/30/20 06/30/20 05:59 05:59 WBC 11.8 H RBC 2.69 L Hgb 8.5 L Hct 26.2 L MCV 98 H MCH 31.7 MCHC 32.5 RDW 16.9 H Plt Count 112 L Seg Neutrophils % Not Reportable Sodium 130.5 L Potassium 4.3 Chloride 95 L Carbon Dioxide 22 Anion Gap 14 BUN 30 H Creatinine 4.58 H Est GFR ( Amer) 12 L Glucose 80 Calcium 8.1 L 06/24/20 16:59 Blood Blood Culture - Final NO GROWTH IN 5 DAYS 06/26/20 17:59 Catheter Tip - Not Specified Catheter Tip Culture - Final NO GROWTH 3 DAYS 06/24/20 09:39 Blood Blood Culture - Final NO GROWTH IN 5 DAYS Impressions: Chest X-Ray 06/24/20 05:15 IMPRESSION: No change. Abdomen/Pelvis CT 06/25/20 00:00 IMPRESSION: 1. No evidence of acute intra-abdominal/pelvic process. 2. Atrophic kidneys. Additional incidental findings as above. Head CT 06/25/20 00:00 IMPRESSION: 1. No evidence of acute intracranial process. 2. Chronic prior lacunar infarcts and evidence of small vessel ischemic change, stable. EVIDENCE OF ACUTE STROKE: NO. 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 Is this a current diagnosis for this admission?: Yes (7) Leukocytosis Qualifiers: Leukocytosis type: unspecified Qualified Code(s): D72.829 - Elevated white blood cell count, unspecified Is this a current diagnosis for this admission?: Yes (8) Weakness Is this a current diagnosis for this admission?: Yes (9) Chronic diarrhea Is this a current diagnosis for this admission?: Yes (10) Sepsis Qualifiers: Sepsis acute organ dysfunction status: unspecified Is this a current diagnosis for this admission?: Yes (11) Thrombocytopenia Is this a current diagnosis for this admission?: Yes - Time Time Spent with patient: 15-24 minutes Level of Care: TELE Medications reviewed and adjusted accordingly: Yes Anticipated discharge: SNF Anticipated DC Timeframe: Other - Plan Summary Plan Summary: Continues to current medications
[2020-06-30] MEDS: LEVOFLOXACIN 250 MG TABLET PO SCH (17:16)
[2020-06-30] MEDS: FAMOTIDINE 20 MG TABLET PO SCH (22:04)
[2020-07-01] MEDS ORDERED: EPOETIN ALFA-EPBX 20,000 UNIT in SYRINGE, DISPOSABLE, 1 EACH IV PRN (05:00)
[2020-07-01] MEDS ORDERED: NORMAL SALINE 1000 ML 1,000 ML IV PRN (05:00)
[2020-07-01] MEDS ORDERED: HEPARIN SOD (PORCINE) 1,000 UNIT/ML 10 ML VIAL IV PRN (05:00)
[2020-07-01 05:10] LABS: MEAN CORPUSCULAR HEMOGLOBIN 31.2 pg (27.0-33.4); MEAN CORPUSCULAR HGB CONC 31.8 g/dL (32.0-36.0); MEAN CORPUSCULAR VOLUME 98 fl (80-97); PLATELET COUNT 123 10^3/uL (150-450); RED BLOOD COUNT 2.55 10^6/uL (3.72-5.28); RED CELL DISTRIBUTION WIDTH 16.7 % (11.5-14.0); WHITE BLOOD COUNT 11.1 10^3/uL (4.0-10.5)
[2020-07-01 05:25] LABS: ANION GAP 13 (5-19); BLOOD UREA NITROGEN 36 mg/dL (7-20); CALCIUM 7.7 mg/dL (8.4-10.2); CARBON DIOXIDE 21 mmol/L (22-30); CHLORIDE 96 mmol/L (98-107); GLUCOSE 89 mg/dL (75-110)
[2020-07-01 05:30] LABS: POTASSIUM 4.5 mmol/L (3.6-5.0)
[2020-07-01] MEDS: LEVOTHYROXINE SODIUM 0.1 MG TABLET PO SCH (05:44)
[2020-07-01] MEDS: LEVOTHYROXINE SODIUM 0.075 MG TABLET PO SCH (05:44)
[2020-07-01 05:57] LABS: ABSOLUTE LYMPHOCYTES# (MANUAL) 1.1 10^3/uL (0.5-4.7); ABSOLUTE MONOCYTES # (MANUAL) 0.7 10^3/uL (0.1-1.4); BASOPHILS % (MANUAL) 0 % (0-2); EOSINOPHILS % (MANUAL) 0 % (0-6); LYMPHOCYTES % (MANUAL) 10 % (13-45); MONOCYTES % (MANUAL) 6 % (3-13); SEGMENTED NEUTROPHILS % (MAN) 84 % (42-78); TOTAL CELLS COUNTED 100
[2020-07-01 06:02] LABS: ANISOCYTOSIS 1+; OVALOCYTES SLIGHT; TEAR DROP CELLS SLIGHT; TOXIC VACUOLATION PRESENT
[2020-07-01 06:03] LABS: PLATELET CLUMPS PRESENT; PLATELET COMMENT DECREASED
[2020-07-01] MEDS: ACETAMINOPHEN 325 MG TABLET PO PRN (08:16)
[2020-07-01] MEDS ORDERED: EPOETIN ALFA-EPBX 20,000 UNIT in SYRINGE, DISPOSABLE, 1 EACH SUBCUT PRN (09:42)
[2020-07-01] MEDS: DOCUSATE SODIUM 100 MG CAPSULE PO SCH (09:46)
--- NOTE | 2020-07-01 09:48 | PDOC PROGRESS REPORT ---
Subjective Progress Note for:: 07/01/20 Subjective:: Patient is currently doing fair Patient's denied any chest pain no short of breath Patient is pretty much same feeling weak Patient platelet count is better white count is all improving Reason For Visit: AMS,ESRD Physical Exam Vital Signs: Temp Pulse Resp BP Pulse Ox 97.2 F 66 18 114/47 L 100 07/01/20 06:56 07/01/20 06:56 07/01/20 06:56 07/01/20 06:56 07/01/20 06:56 Intake & Output 06/30/20 07/01/20 07/02/20 06:59 06:59 06:59 Intake Total 1340 380 Balance 1340 380 Weight 91.6 kg 91.6 kg General appearance: PRESENT: no acute distress, well-developed, well-nourished Head exam: PRESENT: atraumatic, normocephalic Eye exam: PRESENT: conjunctiva pink, EOMI, PERRLA. ABSENT: scleral icterus Ear exam: PRESENT: normal external ear exam Mouth exam: PRESENT: moist, tongue midline Neck exam: PRESENT: full ROM. ABSENT: carotid bruit, JVD, lymphadenopathy, thyromegaly Respiratory exam: PRESENT: clear to auscultation nirmal Cardiovascular exam: PRESENT: RRR. ABSENT: diastolic murmur, rubs, systolic murmur Pulses: PRESENT: normal dorsalis pedis pul, +2 pedal pulses bilateral Vascular exam: PRESENT: normal capillary refill GI/Abdominal exam: PRESENT: normal bowel sounds, soft. ABSENT: distended, guarding, mass, organolmegaly, rebound, tenderness Rectal exam: PRESENT: deferred Musculoskeletal exam: PRESENT: ambulatory Neurological exam: PRESENT: alert, awake, oriented to person, oriented to place, oriented to time, oriented to situation, CN II-XII grossly intact. ABSENT: m otor sensory deficit Psychiatric exam: PRESENT: appropriate affect, normal mood. ABSENT: homicidal ideation, suicidal ideation Skin exam: PRESENT: dry, intact, warm. ABSENT: cyanosis, rash Results Laboratory Results: 07/01/20 04:57 07/01/20 04:57 07/01/20 07/01/20 04:57 04:57 WBC 11.1 H RBC 2.55 L Hgb 8.0 L Hct 25.0 L MCV 98 H MCH 31.2 MCHC 31.8 L RDW 16.7 H Plt Count 123 L Seg Neutrophils % Not Reportable Sodium 129.8 L Potassium 4.5 Chloride 96 L Carbon Dioxide 21 L Anion Gap 13 BUN 36 H Creatinine 5.15 H Est GFR ( Amer) 10 L Glucose 89 Calcium 7.7 L Impressions: Chest X-Ray 06/24/20 05:15 IMPRESSION: No change. Abdomen/Pelvis CT 06/25/20 00:00 IMPRESSION: 1. No evidence of acute intra-abdominal/pelvic process. 2. Atrophic kidneys. Additional incidental findings as above. Head CT 06/25/20 00:00 IMPRESSION: 1. No evidence of acute intracranial process. 2. Chronic prior lacunar infarcts and evidence of small vessel ischemic change, stable. EVIDENCE OF ACUTE STROKE: NO. 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 Is this a current diagnosis for this admission?: Yes (7) Leukocytosis Qualifiers: Leukocytosis type: unspecified Qualified Code(s): D72.829 - Elevated white blood cell count, unspecified Is this a current diagnosis for this admission?: Yes (8) Weakness Is this a current diagnosis for this admission?: Yes (9) Chronic diarrhea Is this a current diagnosis for this admission?: Yes (10) Sepsis Qualifiers: Sepsis acute organ dysfunction status: unspecified Is this a current diagnosis for this admission?: Yes (11) Thrombocytopenia Is this a current diagnosis for this admission?: Yes - Time Time Spent with patient: 15-24 minutes Level of Care: IMCU Medications reviewed and adjusted accordingly: Yes Anticipated discharge: SNF Anticipated DC Timeframe: Other - Plan Summary Plan Summary: Continues the current medications
[2020-07-01] MEDS: DOXYCYCLINE HYCLATE 100 MG TABLET PO SCH ×2 (09:56→21:13)
[2020-07-01] MEDS: UMECLIDINIUM BROMIDE 62.5 MCG/DOSE IH SCH (09:56)
[2020-07-01] MEDS: CALCITRIOL 0.25 MCG CAPSULE PO SCH (09:56)
[2020-07-01] MEDS: FLUTICASONE/VILANTEROL 200-25 MCG/DOSE IH SCH (09:56)
[2020-07-01] MEDS: ASPIRIN 81 MG TABLET, CHEWABLE PO SCH (10:02)
[2020-07-01] MEDS: ONDANSETRON HCL INJ/PF 4 MG/2 ML SDV IV PRN (11:19)
[2020-07-01] MEDS ORDERED: PEG 3350/NA SULF,BICARB,CL/KCL 4000 ML PO ONE (13:00)
[2020-07-01] MEDS ORDERED: MIDAZOLAM 2 MG/2 ML INJ ONE (13:19)
[2020-07-01] MEDS ORDERED: PROPOFOL INJ 200 MG/20 ML VIAL IV ONE (13:19)
[2020-07-01] MEDS ORDERED: FENTANYL CITRATE INJ/PF 100 MCG/2 ML AMPUL ONE (13:19)
[2020-07-01] MEDS ORDERED: LIDOCAINE 1%/EPINEPHRINE INJ 20 ML VIAL ONE (13:25)
[2020-07-01] MEDS ORDERED: DIPHENHYDRAMINE HCL 50 MG/ML VIAL IV PRN (14:04)
[2020-07-01] MEDS ORDERED: PROMETHAZINE HCL INJ 25 MG/1 ML VIAL IV PRN (14:04)
[2020-07-01] MEDS ORDERED: ONDANSETRON HCL INJ/PF 4 MG/2 ML SDV IV PRN (14:04)
[2020-07-01] MEDS ORDERED: FENTANYL CITRATE INJ/PF 100 MCG/2 ML AMPUL IV PRN ×3 (14:04)
[2020-07-01] MEDS ORDERED: MEPERIDINE HCL/PF INJ 25 MG/1 ML DISP.SYRIN IV PRN (14:04)
[2020-07-01] MEDS ORDERED: HEPARIN SOD (PORCINE) 5,000 UNIT/ML 1 ML VIAL ONE (14:27)
--- NOTE | 2020-07-01 14:29 | Operative Report ---
Operative Report DATE OF SURGERY: 07/01/20 PREOPERATIVE DIAGNOSIS: 1. Sepsis. 2. End-stage renal failure POSTOPERATIVE DIAGNOSIS: Same OPERATION: 1. Focused ultrasound of the neck with directed the left internal jugular vein venous access. 2. Placement of dual-lumen Duramax 32 cm tip to cuff perm catheter. 3. Interpretation of intraoperative fluoroscopy SURGEON: SILVIO DUMONT ANESTHESIA: LMAC TISSUE REMOVED OR ALTERED: None COMPLICATIONS: None ESTIMATED BLOOD LOSS: 15 cc INTRAOPERATIVE FINDINGS: See below PROCEDURE: The patient was taken to the preop holding her to the main operating room where LMAC anesthesia was induced. Arms were tucked, and both sides of the neck and c hest wall prepped and draped in sterile fashion Surgical plan and surgical timeout were conducted. Ultrasound was used to identify the left internal jugular vein. Patient placed in Trendelenburg position, skin overlying the vein anesthetized 1% plain lidocaine. Micro needle and wire were threaded into the left internal jugular vein. 32 cm tip to cuff DURAMAX hemodialysis catheter was then tunneled between the 2 incisions with a second incision placed several centimeters distal to the left clavicle. Under fluoroscopic guidance, the microneedle was switched over to a conventional 0.030 inch guidewire. We then dilated up the tract with a small and then medium dilators all under fluoroscopic guidance. We then advanced the strip away sheath and largest dilator, removed the wire and dilator, and threaded the free catheter fragment into the left internal jugular vein. With some manipulation, we got the tip of the catheter into the right atrium. There was no evidence of kinking of the catheter at the level of the neck. We aspirated and flushed the lumens easily. We are satisfied with the position of the catheter. There is no ectopy. Wounds closed with 3-0 Vicryl, catheter secured to the skin at multiple sites with 2-0 Prolene suture, and Biopatch applied. Patient tolerated procedure well, taken to recovery in stable condition. Catheter will be loaded with concentrated heparin.
--- NOTE | 2020-07-01 16:14 | RADIOLOGY REPORT (SQ) ---
EXAM DESCRIPTION: FLUORO/CV PLACEMENT IMAGES COMPLETED DATE/TIME: 07/01/2020 3:52 pm REASON FOR STUDY: PERMCATH PLCMT LEFT SIDE ASSISTED WITH FLUORO IN OR I12.0 HYP CHR KIDNEY DISEASE W STAGE 5 CHR KIDNEY DISEASE OR COMPARISON: None. FLUOROSCOPY TIME: 1.2 minutes 5 images saved to PACS. TECHNIQUE: Intra-operative images acquired during surgical procedure to evaluate progress. NUMBER OF IMAGES: 5 LIMITATIONS: None. FINDINGS: Limited intraoperative fluoroscopic images demonstrate evidence of left internal jugular h emodialysis catheter placement. Please see operative report for detailed description. IMPRESSION: IMAGE(S) OBTAINED DURING PROCEDURE. COMMENT: Quality ID [id number]: Final reports for procedures using fluoroscopy that document radiation exp osure indices, or exposure time and number of fluorographic images (if radiation exposure indices are not available) Please consult full operative report of the attending physician for description of the procedure. TECHNICAL DOCUMENTATION: JOB ID: [id number] 2010 [employer]- All Rights Reserved Reading location - IP/workstation name: [email or web address]
[2020-07-01] MEDS: LEVOFLOXACIN 250 MG TABLET PO SCH (17:06)
--- NOTE | 2020-07-01 19:30 | PDOC PROGRESS REPORT ---
Subjective Progress Note for:: 07/01/20 Subjective:: I am seeing the patient during dialysis this morning. After 1 hour in dialysis the patient's dialysis catheter unfortunately clotted so we need to discontinue dialysis. Patient says she is slightly dizzy this morning. He said she has 2 bowel movement yesterday which are still loose. She did have 1 bowel movement while she is on dialysis. She has been afebrile so far. Reason For Visit: AMS,ESRD Physical Exam Vital Signs: Temp Pulse Resp BP Pulse Ox 97.2 F 66 18 114/47 L 100 07/01/20 06:56 07/01/20 06:56 07/01/20 06:56 07/01/20 06:56 07/01/20 06:56 Intake & Output 06/30/20 07/01/20 07/02/20 06:59 06:59 06:59 Intake Total 1340 380 Balance 1340 380 Weight 91.6 kg 91.6 kg End of dialysis vitals: Blood pressure 104/52, heart rate of 70, blood flow rate of 350 mL/min and dialysate flow rate of 800 mL/min. Exam: General appearance: PRESENT: no acute distress, cooperative, well-developed, well-nourished Head exam: PRESENT: atraumatic, normocephalic Eye exam: PRESENT: conjunctiva pale, PERRLA. ABSENT: scleral icterus Neck exam: ABSENT: JVD Respiratory exam: PRESENT: Diminished breath sounds. ABSENT: crackles, rales, rhonchi, unlabored, wheezes Cardiovascular exam: PRESENT: Regular rate rhythm -+S1, +S2. ABSENT: diastolic murmur, systolic murmur GI/Abdominal exam: PRESENT: normal bowel sounds, soft. ABSENT: guarding, mass, tenderness Extremities exam: Trace edema Neurological exam: PRESENT: alert, awake, oriented to person, place and time. Skin exam: PRESENT: dry, warm, Results Laboratory Results: 07/01/20 04:57 07/01/20 04:57 07/01/20 07/01/20 04:57 04:57 WBC 11.1 H RBC 2.55 L Hgb 8.0 L Hct 25.0 L MCV 98 H MCH 31.2 MCHC 31.8 L RDW 16.7 H Plt Count 123 L Seg Neutrophils % Not Reportable Sodium 129.8 L Potassium 4.5 Chloride 96 L Carbon Dioxide 21 L Anion Gap 13 BUN 36 H Creatinine 5.15 H Est GFR ( Amer) 10 L Glucose 89 Calcium 7.7 L Impressions: Chest X-Ray 06/24/20 05:15 IMPRESSION: No change. Abdomen/Pelvis CT 06/25/20 00:00 IMPRESSION: 1. No evidence of acute intra-abdominal/pelvic process. 2. Atrophic kidneys. Additional incidental findings as above. Head CT 06/25/20 00:00 IMPRESSION: 1. No evidence of acute intracranial process. 2. Chronic prior lacunar infarcts and evidence of small vessel ischemic change, stable. EVIDENCE OF ACUTE STROKE: NO. Assessment & Plan - Diagnosis (1) End stage renal disease Is this a current diagnosis for this admission?: Yes Plan: Patient would like to continue dialysis. I emphasized the importance of compliance and inform her that if she does not show up on her dialysis treatment she will be discharged from my practice and [facility]. She understood. We planned to do dialysis today for 2.5 hours but only did 1 hour, using the patient's trialysis catheter, with 2 potassium bath, blood flow rate of 350 mL per minute, dialysate flow rate of 800 mL per minute, ultrafiltration none obtained, no heparin and no Procrit given since we had to discontinue dialysis. Since patient's white count has now improved I have called our vascular surgeon, Dr. Mcnael to place PermCath since her dialysis catheter is now no longer working. (2) Uremia Is this a current diagnosis for this admission?: Yes Plan: Resolved. Patient is in her baseline mental state. (3) Metabolic acidosis Is this a current diagnosis for this admission?: Yes Plan: Resolved. (4) Leukocytosis Qualifiers: Leukocytosis type: unspecified Qualified Code(s): D72.829 - Elevated white blood cell count, unspecified Is this a current diagnosis for this admission?: Yes Plan: Review of blood, urine and exit site cultures from June 14 reveals positive results for staph aureus and staph hominis. Discussed with Dr. Andrade. [place] rmCath removed by Dr. Palomino, 06/27. Changed antibiotics from ciprofloxacin to Levaquin, 06/27. Catheter tip culture so far negative. WBC has come down and improved. (5) Anemia in chronic kidney disease (CKD) Qualifiers: Is this a current diagnosis for this admission?: Yes Plan: We will give Retacrit subcutaneously, 20,000 units today since unable to be given during dialysis due to short treatment. Patient's hemoglobin is also significantly decreased to 8.0 so I will check stool for occult blood. (6) Hypokalemia Is this a current diagnosis for this admission?: Yes Plan: Resolved. Discontinue potassium supplements. (7) Chronic diarrhea Is this a current diagnosis for this admission?: Yes Plan: Defer to Dr. Andrade. [facility] [employer] [facility] [employer], Dr. Ward consulted. I spoke to Dr. Leong today and told him he can now do EGD and or colonoscopy as he deem necessary. (8) Chronic kidney disease-mineral and bone disorder Is this a current diagnosis for this admission?: Yes Plan: PTH is elevated at 688.5. Phosphorus normal at 2.7. I started calcitriol 0.5 mcg daily. (9) Thrombocytopenia Is this a current diagnosis for this admission?: Yes Plan: Per Dr. Westbrook with decreased fibrinogen possibly due to DIC. Slowly improving with treatment of infection. - Notes Notes: Discussed with Dr. Andrade this morning. - Time Time with patient: 15-25 minutes
[2020-07-01] MEDS: FAMOTIDINE 20 MG TABLET PO SCH (21:12)
[2020-07-02] MEDS: LEVOTHYROXINE SODIUM 0.1 MG TABLET PO SCH (06:04)
[2020-07-02] MEDS: LEVOTHYROXINE SODIUM 0.075 MG TABLET PO SCH (06:05)
[2020-07-02 08:41] LABS: ANION GAP 13 (5-19); BLOOD UREA NITROGEN 35 mg/dL (7-20); CARBON DIOXIDE 24 mmol/L (22-30); CHLORIDE 96 mmol/L (98-107); GLUCOSE 80 mg/dL (75-110); POTASSIUM 4.4 mmol/L (3.6-5.0)
[2020-07-02] MEDS: DOXYCYCLINE HYCLATE 100 MG TABLET PO SCH ×2 (09:33→21:15)
[2020-07-02] MEDS: DOCUSATE SODIUM 100 MG CAPSULE PO SCH (09:33)
[2020-07-02] MEDS: FLUTICASONE/VILANTEROL 200-25 MCG/DOSE IH SCH (09:33)
[2020-07-02] MEDS: UMECLIDINIUM BROMIDE 62.5 MCG/DOSE IH SCH (09:33)
[2020-07-02] MEDS: ASPIRIN 81 MG TABLET, CHEWABLE PO SCH (09:33)
[2020-07-02] MEDS: CALCITRIOL 0.25 MCG CAPSULE PO SCH (09:33)
--- NOTE | 2020-07-02 09:55 | Progress Note ---
Provider Note Provider Note: patient refused procedure sent patient back to her room has been refusing labs today as well please call if patient changes her mind and attitude and if she desires to proceed will sign off
--- NOTE | 2020-07-02 10:34 | PDOC PROGRESS REPORT ---
Subjective Progress Note for:: 07/02/20 Subjective:: Patient is feeling better Is refused for colonoscopy Discussed with the patient about that patient did not want to do it Patient's denied any chest pain no short of breath Reason For Visit: AMS,ESRD Physical Exam Vital Signs: Temp Pulse Resp BP Pulse Ox 98.6 F 85 16 94/57 L 92 07/02/20 07:29 07/02/20 07:29 07/02/20 07:29 07/02/20 07:29 07/02/20 07:29 Intake & Output 07/01/20 07/02/20 07/03/20 06:59 06:59 06:59 Intake Total 380 1880 Output Total 631 Balance 380 1249 Weight 91.6 kg 91.6 kg General appearance: PRESENT: no acute distress, well-developed, well-nourished Head exam: PRESENT: atraumatic, normocephalic Eye exam: PRESENT: conjunctiva pink, EOMI, PERRLA. ABSENT: scleral icterus Ear exam: PRESENT: normal external ear exam Mouth exam: PRESENT: moist, tongue midline Neck exam: PRESENT: full ROM. ABSENT: carotid bruit, JVD, lymphadenopathy, thyromegaly Respiratory exam: PRESENT: clear to auscultation nirmal Cardiovascular exam: PRESENT: RRR. ABSENT: diastolic murmur, rubs, systolic murmur Pulses: PRESENT: normal dorsalis pedis pul, +2 pedal pulses bilateral Vascular exam: PRESENT: normal capillary refill GI/Abdominal exam: PRESENT: normal bowel sounds, soft. ABSENT: distended, guarding, mass, organolmegaly, rebound, tenderness Rectal exam: PRESENT: deferred Neurological exam: PRESENT: alert, awake, oriented to person, oriented to place, oriented to time, oriented to situation, CN II-XII grossly intact. ABSENT: motor sensory deficit Psychiatric exam: PRESENT: appropriate affect, normal mood. ABSENT: homicidal ideation, suicidal ideation Skin exam: PRESENT: dry, intact, warm. ABSENT: cyanosis, rash Results Laboratory Results: 07/01/20 04:57 07/02/20 07:50 07/02/20 07:50 Sodium 132.7 L Potassium 4.4 Chloride 96 L Carbon Dioxide 24 Anion Gap 13 BUN 35 H Creatinine 5.49 H Est GFR ( Amer) 9 L Glucose 80 Calcium 8.0 L Impressions: Chest X-Ray 06/24/20 05:15 IMPRESSION: No change. Abdomen/Pelvis CT 06/25/20 00:00 IMPRESSION: 1. No evidence of acute intra-abdominal/pelvic process. 2. Atrophic kidneys. Additional incidental findings as above. Head CT 06/25/20 00:00 IMPRESSION: 1. No evidence of acute intracranial process. 2. Chronic prior lacunar infarcts and evidence of small vessel ischemic change, stable. EVIDENCE OF ACUTE STROKE: NO. Guidance Fluoroscopy 07/01/20 00:00 IMPRESSION: IMAGE(S) OBTAINED DURING PROCEDURE. 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 Is this a current diagnosis for this admission?: Yes (7) Leukocytosis Qualifiers: Leukocytosis type: unspecified Qualified Code(s): D72.829 - Elevated white blood cell count, unspecified Is this a current diagnosis for this admission?: Yes (8) Weakness Is this a current diagnosis for this admission?: Yes (9) Chronic diarrhea Is this a current diagnosis for this admission?: Yes (10) Sepsis Qualifiers: Sepsis acute organ dysfunction status: unspecified Is this a current diagnosis for this admission?: Yes (11) Thrombocytopenia Is this a current diagnosis for this admission?: Yes - Time Time Spent with patient: 15-24 minutes Level of Care: IMCU Medications reviewed and adjusted accordingly: Yes Anticipated discharge: Home with Homehealth Anticipated DC Timeframe: Other - Plan Summary Plan Summary: Discussed with the patient about going to the rehab facilities patients do not want to go discussed with the patient about the compliance refusing the procedure patient understand very well discuss with the patient's daughter Leslie regarding the patient's current conditions
[2020-07-02] MEDS: LEVOFLOXACIN 250 MG TABLET PO SCH (17:02)
[2020-07-02] MEDS: FAMOTIDINE 20 MG TABLET PO SCH (21:15)
[2020-07-03] MEDS ORDERED: EPOETIN ALFA-EPBX 20,000 UNIT in SYRINGE, DISPOSABLE, 1 EACH IV PRN (05:00)
[2020-07-03] MEDS ORDERED: HEPARIN SOD (PORCINE) 1,000 UNIT/ML 10 ML VIAL IV PRN (05:00)
[2020-07-03] MEDS ORDERED: NORMAL SALINE 1000 ML 1,000 ML IV PRN (05:00)
[2020-07-03 05:41] LABS: HEMATOCRIT 21.3 % (36.0-47.0); MEAN CORPUSCULAR HEMOGLOBIN 31.8 pg (27.0-33.4); MEAN CORPUSCULAR HGB CONC 32.5 g/dL (32.0-36.0); MEAN CORPUSCULAR VOLUME 98 fl (80-97); PLATELET COUNT 123 10^3/uL (150-450); RED BLOOD COUNT 2.18 10^6/uL (3.72-5.28); RED CELL DISTRIBUTION WIDTH 16.5 % (11.5-14.0); WHITE BLOOD COUNT 4.4 10^3/uL (4.0-10.5)
[2020-07-03 05:58] LABS: HEMOGLOBIN 6.9 g/dL (12.0-15.5)
[2020-07-03 05:59] LABS: ANION GAP 13 (5-19); BLOOD UREA NITROGEN 38 mg/dL (7-20); CALCIUM 7.7 mg/dL (8.4-10.2); CARBON DIOXIDE 21 mmol/L (22-30); CHLORIDE 97 mmol/L (98-107); GLUCOSE 75 mg/dL (75-110); PHOSPHORUS 5.9 mg/dL (2.5-4.5); POTASSIUM 4.4 mmol/L (3.6-5.0)
[2020-07-03 06:00] LABS: ABSOLUTE LYMPHOCYTES# (MANUAL) 0.9 10^3/uL (0.5-4.7); ABSOLUTE MONOCYTES # (MANUAL) 0.2 10^3/uL (0.1-1.4); BAND NEUTROPHILS % (MANUAL) 3 % (3-5); BASOPHILS % (MANUAL) 0 % (0-2); EOSINOPHILS % (MANUAL) 0 % (0-6); LYMPHOCYTES % (MANUAL) 21 % (13-45); METAMYELOCYTES % (MANUAL) 2 % (0-1); MONOCYTES % (MANUAL) 5 % (3-13); SEGMENTED NEUTROPHILS % (MAN) 69 % (42-78); TOTAL CELLS COUNTED 100
[2020-07-03 06:01] LABS: ANISOCYTOSIS 1+; HYPOCHROMASIA SLIGHT; OVALOCYTES SLIGHT; POIKILOCYTOSIS SLIGHT
[2020-07-03 06:02] LABS: PLATELET COMMENT DECREASED; SCHISTOCYTES SLIGHT
[2020-07-03] MEDS: LEVOTHYROXINE SODIUM 0.1 MG TABLET PO SCH (06:31)
[2020-07-03] MEDS: LEVOTHYROXINE SODIUM 0.075 MG TABLET PO SCH (06:32)
[2020-07-03] MEDS: ASPIRIN 81 MG TABLET, CHEWABLE PO SCH (09:01)
[2020-07-03] MEDS: DOCUSATE SODIUM 100 MG CAPSULE PO SCH (09:01)
[2020-07-03] MEDS: DOXYCYCLINE HYCLATE 100 MG TABLET PO SCH ×2 (09:02→21:14)
[2020-07-03] MEDS: UMECLIDINIUM BROMIDE 62.5 MCG/DOSE IH SCH (09:02)
[2020-07-03] MEDS: FLUTICASONE/VILANTEROL 200-25 MCG/DOSE IH SCH (09:02)
[2020-07-03] MEDS: CALCITRIOL 0.25 MCG CAPSULE PO SCH (09:02)
[2020-07-03] MEDS: MAGNESIUM SULFATE 1 GM/D5W 100 ML IV SCH ×2 (09:06→10:14)
--- NOTE | 2020-07-03 09:38 | PDOC PROGRESS REPORT ---
Subjective Progress Note for:: 07/03/20 Subjective:: Patient is currently doing fair His white count is all normal Patient hemoglobin is 6.9 Is denied any blood in the stools no black stools Patient is refused for any endoscopy and colonoscopy already do not want to do it again No chest pain no short of breath no fever Reason For Visit: AMS,ESRD Physical Exam Vital Signs: Temp Pulse Resp BP Pulse Ox 98.5 F 73 16 105/52 L 100 07/03/20 07:37 07/03/20 07:37 07/03/20 07:37 07/03/20 07:37 07/03/20 07:37 Intake & Output 07/02/20 07/03/20 07/04/20 06:59 06:59 06:59 Intake Total 1880 1730 Output Total 631 Balance 1249 1730 Weight 91.6 kg 91.5 kg General appearance: PRESENT: no acute distress, well-developed, well-nourished Head exam: PRESENT: atraumatic, normocephalic Eye exam: PRESENT: conjunctiva pink, EOMI, PERRLA. ABSENT: scleral icterus Ear exam: PRESENT: normal external ear exam Mouth exam: PRESENT: moist, tongue midline Neck exam: PRESENT: full ROM. ABSENT: carotid bruit, JVD, lymphadenopathy, thyromegaly Respiratory exam: PRESENT: clear to auscultation nirmal Cardiovascular exam: PRESENT: RRR. ABSENT: diastolic murmur, rubs, systolic murmur Pulses: PRESENT: normal dorsalis pedis pul, +2 pedal pulses bilateral Vascular exam: PRESENT: normal capillary refill GI/Abdominal exam: PRESENT: normal bowel sounds, soft. ABSENT: distended, guarding, mass, organolmegaly, rebound, tenderness Rectal exam: PRESENT: deferred Neurological exam: PRESENT: alert, awake, oriented to person, oriented to place, oriented to time, oriented to situation, CN II-XII grossly intact. ABSENT: motor sensory deficit Psychiatric exam: PRESENT: appropriate affect, normal mood. ABSENT: homicidal ideation, suicidal ideation Skin exam: PRESENT: dry, intact, warm. ABSENT: cyanosis, rash Results Laboratory Results: 07/03/20 04:42 07/03/20 04:42 07/03/20 07/03/20 07/03/20 04:42 04:42 07:10 WBC 4.4 RBC 2.18 L Hgb 6.9 L Hct 21.3 L MCV 98 H MCH 31.8 MCHC 32.5 RDW 16.5 H Plt Count 123 L Seg Neutrophils % Not Reportable Sodium 130.7 L Potassium 4.4 Chloride 97 L Carbon Dioxide 21 L Anion Gap 13 BUN 38 H Creatinine 5.41 H Est GFR ( Amer) 10 L Glucose 75 Calcium 7.7 L Phosphorus 5.9 H Magnesium 1.1 L* Blood Type B NEGATIVE Antibody Screen NEGATIVE Impressions: Chest X-Ray 06/24/20 05:15 IMPRESSION: No change. Abdomen/Pelvis CT 06/25/20 00:00 IMPRESSION: 1. No evidence of acute intra-abdominal/pelvic process. 2. Atrophic kidneys. Additional incidental findings as above. Head CT 06/25/20 00:00 IMPRESSION: 1. No evidence of acute intracranial process. 2. Chronic prior lacunar infarcts and evidence of small vessel ischemic change, stable. EVIDENCE OF ACUTE STROKE: NO. Guidance Fluoroscopy 07/01/20 00:00 IMPRESSION: IMAGE(S) OBTAINED DURING PROCEDURE. 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 Is this a current diagnosis for this admission?: Yes (7) Leukocytosis Qualifiers: Leukocytosis type: unspecified Qualified Code(s): D72.829 - Elevated white blood cell count, unspecified Is this a current diagnosis for this admission?: Yes (8) Weakness Is this a current diagnosis for this admission?: Yes (9) Chronic diarrhea Is this a current diagnosis for this admission?: Yes (10) Sepsis Qualifiers: Sepsis acute organ dysfunction status: unspecified Is this a current diagnosis for this admission?: Yes (11) Thrombocytopenia Is this a current diagnosis for this admission?: Yes - Time Time Spent with patient: 15-24 minutes Level of Care: TELE Anticipated discharge: Home with Homehealth Anticipated DC Timeframe: Other - Plan Summary Plan Summary: Transfuse the 2 units of the blood cells per discussed with hematology Continues the Procrit injections per the nephrology Is refused for any kind of GI work-up Patient initially refused for blood but after agreed to take the blood\Is a very noncompliance
[2020-07-03] MEDS: LEVOFLOXACIN 250 MG TABLET PO SCH (17:17)
[2020-07-03] MEDS: ACETAMINOPHEN 325 MG TABLET PO PRN (20:42)
[2020-07-03] MEDS: FAMOTIDINE 20 MG TABLET PO SCH (21:14)
--- NOTE | 2020-07-03 22:10 | PDOC PROGRESS REPORT ---
Subjective Progress Note for:: 07/03/20 Subjective:: I am seeing the patient during dialysis this afternoon. She now have a new PermCath on the left IJ. She has refused colonoscopy unfortunately. Her hemoglobin is surprisingly low at 6.9 without any evidence of active bleeding. She will be transfused a unit of packed RBC during dialysis. Patient states that she has loose stools still. No other new complaints otherwise. Reason For Visit: AMS,ESRD Physical Exam Vital Signs: Temp Pulse Resp BP Pulse Ox 98.0 F 78 18 102/61 100 07/03/20 12:00 07/03/20 12:00 07/03/20 12:00 07/03/20 12:00 07/03/20 12:00 Intake & Output 07/02/20 07/03/20 07/04/20 06:59 06:59 06:59 Intake Total 1880 1730 200 Output Total 631 Balance 1249 1730 200 Weight 91.6 kg 91.5 kg Vitals during dialysis: Blood pressure 102/51, heart rate of 91, blood flow rate of 350 mL/min and dialysate flow rate of 800 mL/min. Exam: General appearance: PRESENT: no acute distress, cooperative, well-developed, well-nourished Head exam: PRESENT: atraumatic, normocephalic Eye exam: PRESENT: conjunctiva pale, PERRLA. ABSENT: scleral icterus Neck exam: ABSENT: JVD Respiratory exam: PRESENT: Normal breath sounds. ABSENT: crackles, rales, rhonchi, unlabored, wheezes Cardiovascular exam: PRESENT: Regular rate rhythm -+S1, +S2. ABSENT: diastolic murmur, systolic murmur GI/Abdominal exam: PRESENT: normal bowel sounds, soft. ABSENT: guarding, mass, tenderness Extremities exam: Grade 1 bilateral lower extremity pitting edema Neurological exam: PRESENT: alert, awake, oriented to person, place and time. Skin exam: PRESENT: dry, warm, Results Laboratory Results: 07/03/20 04:42 07/03/20 04:42 07/03/20 07/03/20 07/03/20 04:42 04:42 07:10 WBC 4.4 RBC 2.18 L Hgb 6.9 L Hct 21.3 L MCV 98 H MCH 31.8 MCHC 32.5 RDW 16.5 H Plt Count 123 L Seg Neutrophils % Not Reportable Sodium 130.7 L Potassium 4.4 Chloride 97 L Carbon Dioxide 21 L Anion Gap 13 BUN 38 H Creatinine 5.41 H Est GFR ( Amer) 10 L Glucose 75 Calcium 7.7 L Phosphorus 5.9 H Magnesium 1.1 L* Stool Occult Blood Blood Type B NEGATIVE Antibody Screen NEGATIVE 07/03/20 11:07 WBC RBC Hgb Hct MCV MCH MCHC RDW Plt Count Seg Neutrophils % Sodium Potassium Chloride Carbon Dioxide Anion Gap BUN Creatinine Est GFR ( Amer) Glucose Calcium Phosphorus Magnesium Stool Occult Blood NEGATIVE Blood Type Antibody Screen Impressions: Chest X-Ray 06/24/20 05:15 IMPRESSION: No change. Abdomen/Pelvis CT 06/25/20 00:00 IMPRESSION: 1. No evidence of acute intra-abdominal/pelvic process. 2. Atrophic kidneys. Additional incidental findings as above. Head CT 06/25/20 00:00 IMPRESSION: 1. No evidence of acute intracranial process. 2. Chronic prior lacunar infarcts and evidence of small vessel ischemic change, stable. EVIDENCE OF ACUTE STROKE: NO. Guidance Fluoroscopy 07/01/20 00:00 IMPRESSION: IMAGE(S) OBTAINED DURING PROCEDURE. Assessment & Plan - Diagnosis (1) End stage renal disease Is this a current diagnosis for this admission?: Yes Plan: Patient would like to continue dialysis. I emphasized the importance of compliance and inform her that if she does not show up on her dialysis treatment she will be discharged from my practice and [facility]. She understood. We planned to do dialysis today for 2.5 hours, using the patient's new PermCath, with 2 potassium bath, blood flow rate of 350 mL per minute, dialysate flow rate of 800 mL per minute, ultrafiltration to 2.5 L as tolerated, no heparin and Retacrit 20,000 units intravenously during dialysis. Patient is currently monitored closely especially with blood transfusion during dialysis. (2) Uremia Is this a current diagnosis for this admission?: Yes Plan: Resolved. Patient is in her baseline mental state. (3) Metabolic acidosis Is this a current diagnosis for this admission?: Yes Plan: Resolved. (4) Leukocytosis Qualifiers: Leukocytosis type: unspecified Qualified Code(s): D72.829 - Elevated white blood cell count, unspecified Is this a current diagnosis for this admission?: Yes Plan: Review of blood, urine and exit site cultures from [facility] reveals positive results for staph aureus and staph hominis. Discussed with Dr. Andrade. Old PermCath removed by Dr. Palomino, 06/27. Changed antibiotics from ciprofloxacin to Levaquin, 06/27. Catheter tip culture so far negative. WBC has come down and improved. Now patient was started on oral doxycycline. (5) Anemia in chronic kidney disease (CKD) Qualifiers: Is this a current diagnosis for this admission?: Yes Plan: We will give Retacrit during dialysis today. Her hemoglobin went down to 6.9 without any obvious active bleeding. Patient will be transfused 1 unit of PRBC during dialysis today. Unfortunately the patient has refused colonoscopy. (6) Hypokalemia Is this a current diagnosis for this admission?: Yes Plan: Resolved. Discontinue potassium supplements. (7) Chronic diarrhea Is this a current diagnosis for this admission?: Yes Plan: Defer to Dr. Andrade. Control Manager, Dr. Ward consulted. Patient refused colonoscopy. (8) Chronic kidney disease-mineral and bone disorder Is this a current diagnosis for this admission?: Yes Plan: PTH is elevated at 688.5. Phosphorus now 5.9. On calcitriol 0.5 mcg daily. (9) Thrombocytopenia Is this a current diagnosis for this admission?: Yes Plan: Per Dr. Westbrook with decreased fibrinogen possibly due to DIC. Slowly improving with treatment of infection. (10) Hypomagnesemia Is this a current diagnosis for this admission?: Yes Plan: Replace. - Notes Notes: Dr. Gomez will follow the patient starting tomorrow. - Time Time with patient: 15-25 minutes
[2020-07-03] MEDS: ONDANSETRON HCL INJ/PF 4 MG/2 ML SDV IV PRN (22:16)
[2020-07-04] MEDS: LEVOTHYROXINE SODIUM 0.075 MG TABLET PO SCH (06:02)
[2020-07-04] MEDS: LEVOTHYROXINE SODIUM 0.1 MG TABLET PO SCH (06:02)
[2020-07-04] MEDS: DOXYCYCLINE HYCLATE 100 MG TABLET PO SCH ×2 (09:22→21:30)
[2020-07-04] MEDS: ASPIRIN 81 MG TABLET, CHEWABLE PO SCH (09:22)
[2020-07-04] MEDS: CALCITRIOL 0.25 MCG CAPSULE PO SCH (09:22)
[2020-07-04] MEDS: FLUTICASONE/VILANTEROL 200-25 MCG/DOSE IH SCH (09:22)
[2020-07-04] MEDS: DOCUSATE SODIUM 100 MG CAPSULE PO SCH (09:23)
[2020-07-04] MEDS: UMECLIDINIUM BROMIDE 62.5 MCG/DOSE IH SCH (09:23)
--- NOTE | 2020-07-04 11:54 | PDOC PROGRESS REPORT ---
Subjective Progress Note for:: 07/04/20 Subjective:: Currently doing fair Denied any chest pain no short of breath Is received 1 unit of the blood yesterday through the dialysis Reason For Visit: AMS,ESRD Physical Exam Vital Signs: Temp Pulse Resp BP Pulse Ox 98.7 F 75 17 100/48 L 100 07/04/20 07:32 07/04/20 07:32 07/04/20 07:32 07/04/20 07:32 07/04/20 07:32 Intake & Output 07/03/20 07/04/20 07/05/20 06:59 06:59 06:59 Intake Total 1730 1400 Output Total 3300 Balance 1730 -1900 Weight 91.5 kg 91 kg General appearance: PRESENT: no acute distress, well-developed, well-nourished Head exam: PRESENT: atraumatic, normocephalic Eye exam: PRESENT: conjunctiva pink, EOMI, PERRLA. ABSENT: scleral icterus Ear exam: PRESENT: normal external ear exam Mouth exam: PRESENT: moist, tongue midline Neck exam: PRESENT: full ROM. ABSENT: carotid bruit, JVD, lymphadenopathy, thyromegaly Respiratory exam: PRESENT: clear to auscultation nirmal Cardiovascular exam: PRESENT: RRR. ABSENT: diastolic murmur, rubs, systolic murmur Pulses: PRESENT: normal dorsalis pedis pul, +2 pedal pulses bilateral Vascular exam: PRESENT: normal capillary refill GI/Abdominal exam: PRESENT: normal bowel sounds, soft. ABSENT: distended, guarding, mass, organolmegaly, rebound, tenderness Rectal exam: PRESENT: deferred Neurological exam: PRESENT: alert, awake, oriented to person, oriented to place, oriented to time, oriented to situation, CN II-XII grossly intact. ABSENT: motor sensory deficit Psychiatric exam: PRESENT: appropriate affect, normal mood. ABSENT: homicidal ideation, suicidal ideation Skin exam: PRESENT: dry, intact, warm. ABSENT: cyanosis, rash Results Laboratory Results: 07/03/20 04:42 07/03/20 04:42 07/03/20 07:10 Blood Type B NEGATIVE Antibody Screen NEGATIVE Impressions: Chest X-Ray 06/24/20 05:15 IMPRESSION: No change. Abdomen/Pelvis CT 06/25/20 00:00 IMPRESSION: 1. No evidence of acute intra-abdominal/pelvic process. 2. Atrophic kidneys. Additional incidental findings as above. Head CT 06/25/20 00:00 IMPRESSION: 1. No evidence of acute intracranial process. 2. Chronic prior lacunar infarcts and evidence of small vessel ischemic change, stable. EVIDENCE OF ACUTE STROKE: NO. Guidance Fluoroscopy 07/01/20 00:00 IMPRESSION: IMAGE(S) OBTAINED DURING PROCEDURE. 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 Is this a current diagnosis for this admission?: Yes (7) Leukocytosis Qualifiers: Leukocytosis type: unspecified Qualified Code(s): D72.829 - Elevated white blood cell count, unspecified Is this a current diagnosis for this admission?: Yes (8) Weakness Is this a current diagnosis for this admission?: Yes (9) Chronic diarrhea Is this a current diagnosis for this admission?: Yes (10) Sepsis Qualifiers: Sepsis acute organ dysfunction status: unspecified Is this a current diagnosis for this admission?: Yes (11) Thrombocytopenia Is this a current diagnosis for this admission?: Yes - Time Time Spent with patient: 15-24 minutes Level of Care: IMCU Medications reviewed and adjusted accordingly: Yes Anticipated discharge: Home with Homehealth Anticipated DC Timeframe: within 24 hours - Plan Summary Plan Summary: Hopefully if the patient is remained stable will discharge tomorrow
[2020-07-04] MEDS: LEVOFLOXACIN 250 MG TABLET PO SCH (17:14)
[2020-07-04] MEDS: FAMOTIDINE 20 MG TABLET PO SCH (21:30)
[2020-07-05 04:48] LABS: ABSOLUTE LYMPHOCYTES (AUTO) 0.5 10^3/uL (0.5-4.7); ABSOLUTE MONOCYTES (AUTO) 0.4 10^3/uL (0.1-1.4); ABSOLUTE NEUT (AUTO) 3.2 10^3/uL (1.7-8.2); BASOPHILS % (AUTO) 0.5 % (0-2); EOSINOPHILS % (AUTO) 0.6 % (0-6); HEMATOCRIT 26.6 % (36.0-47.0); HEMOGLOBIN 8.6 g/dL (12.0-15.5); LYMPHOCYTES % (AUTO) 11.6 % (13-45); MEAN CORPUSCULAR HEMOGLOBIN 30.9 pg (27.0-33.4); MEAN CORPUSCULAR HGB CONC 32.4 g/dL (32.0-36.0); MEAN CORPUSCULAR VOLUME 95 fl (80-97); PLATELET COUNT 118 10^3/uL (150-450); RED BLOOD COUNT 2.79 10^6/uL (3.72-5.28); SEGMENTED NEUTROPHILS % (AUTO) 78.3 % (42-78); TOTAL CELLS COUNTED % (AUTO) 100 %; WHITE BLOOD COUNT 4.1 10^3/uL (4.0-10.5)
[2020-07-05 04:59] LABS: ANION GAP 13 (5-19); BLOOD UREA NITROGEN 23 mg/dL (7-20); CALCIUM 8.5 mg/dL (8.4-10.2); CARBON DIOXIDE 22 mmol/L (22-30); CHLORIDE 96 mmol/L (98-107); GLUCOSE 84 mg/dL (75-110); POTASSIUM 3.7 mmol/L (3.6-5.0)
[2020-07-05] MEDS ORDERED: EPOETIN ALFA-EPBX 30,000 UNIT in SYRINGE, DISPOSABLE, 1 EACH IV PRN (05:00)
[2020-07-05] MEDS: LEVOTHYROXINE SODIUM 0.075 MG TABLET PO SCH (05:51)
[2020-07-05] MEDS: LEVOTHYROXINE SODIUM 0.1 MG TABLET PO SCH (05:51)
[2020-07-05] MEDS ORDERED: HEPARIN SOD (PORCINE) 1,000 UNIT/ML 10 ML VIAL IV PRN (09:44)
[2020-07-05] MEDS: ASPIRIN 81 MG TABLET, CHEWABLE PO SCH (10:44)
[2020-07-05] MEDS: DOCUSATE SODIUM 100 MG CAPSULE PO SCH (10:44)
[2020-07-05] MEDS: UMECLIDINIUM BROMIDE 62.5 MCG/DOSE IH SCH (10:44)
[2020-07-05] MEDS: CALCITRIOL 0.25 MCG CAPSULE PO SCH (10:45)
[2020-07-05] MEDS: DOXYCYCLINE HYCLATE 100 MG TABLET PO SCH (10:45)
[2020-07-05] MEDS: FLUTICASONE/VILANTEROL 200-25 MCG/DOSE IH SCH (10:46)
--- NOTE | 2020-07-05 11:04 | PDOC PROGRESS REPORT ---
Subjective Progress Note for:: 07/05/20 Reason For Visit: Patient seen today on dialysis. Undergoing dialysis without any issues. She denies any history of chest pain, shortness of breath, abdominal pains. She is eager to go home. She denies focal weakness. Labs and medications were reviewed. Dialysis orders were reviewed with the treating dialysis nurse. Hemoglobin is stable at 8.6.Discussed again about noncompliance with hemodialysis treatments as an outpatient which has led to her present admissions. We also discussed the severe complications of missing hemodialysis treatments including sudden . Physical Exam Vital Signs: Temp Pulse Resp BP Pulse Ox 97.4 F 99 20 127/64 H 99 07/05/20 08:00 07/05/20 08:00 07/05/20 08:00 07/05/20 08:00 07/05/20 08:00 Intake & Output 07/04/20 07/05/20 07/06/20 06:59 06:59 06:59 Intake Total 1400 720 Output Total 3300 Balance -1900 720 Weight 91 kg 91 kg General appearance: PRESENT: no acute distress Respiratory exam: PRESENT: clear to auscultation nirmal, decreased breath sounds. ABSENT: crackles Extremities exam: PRESENT: pedal edema Neurological exam: PRESENT: alert, awake, oriented to person, oriented to place, oriented to time Psychiatric exam: PRESENT: depressed Results Laboratory Results: 07/05/20 04:18 07/05/20 04:18 07/03/20 07/05/20 07/05/20 07:10 04:18 04:18 WBC 4.1 RBC 2.79 L Hgb 8.6 L Hct 26.6 L MCV 95 MCH 30.9 MCHC 32.4 RDW 18.0 H Plt Count 118 L Seg Neutrophils % 78.3 H Sodium 131.0 L Potassium 3.7 Chloride 96 L Carbon Dioxide 22 Anion Gap 13 BUN 23 H Creatinine 4.38 H Est GFR ( Amer) 12 L Glucose 84 Calcium 8.5 Magnesium 1.4 L Blood Type B NEGATIVE Antibody Screen NEGATIVE Impressions: Chest X-Ray 06/24/20 05:15 IMPRESSION: No change. Abdomen/Pelvis CT 06/25/20 00:00 IMPRESSION: 1. No evidence of acute intra-abdominal/pelvic process. 2. Atrophic kidneys. Additional incidental findings as above. Head CT 06/25/20 00:00 IMPRESSION: 1. No evidence of acute intracranial process. 2. Chronic prior lacunar infarcts and evidence of small vessel ischemic change, stable. EVIDENCE OF ACUTE STROKE: NO. Guidance Fluoroscopy 07/01/20 00:00 IMPRESSION: IMAGE(S) OBTAINED DURING PROCEDURE. Assessment & Plan - Diagnosis (1) End stage renal disease on dialysis Plan: Patient currently undergoing dialysis without any issues. Vital signs are stable. Dialysis orders reviewed with the treating dialysis nurse. Plan to remove approximately 2 L of fluid as tolerated. Discussed with patient again about compliance with hemodialysis as patient was admitted with uremia from missing multiple hemodialysis treatments. However patient seems rather nonchalant about coming for dialysis as an outpatient. (2) Uremia Is this a current diagnosis for this admission?: Yes Plan: Currently resolved since admission and getting regular dialysis treatments. We will see her whether she will be compliant for future treatments as an outpati ent. (3) Renal osteodystrophy Plan: Very high PTH because of noncompliance with her medications. Patient currently back on calcitriol and phosphorus is better advised patient to take medications correctly. Will monitor as an outpatient at [facility] if she comes for her treatments. (4) Thrombocytopenia Is this a current diagnosis for this admission?: Yes Plan: Improving. Likely from sepsis/mild DIC. Seen by heme oncologist. (5) Anemia in chronic kidney disease (CKD) Qualifiers: Is this a current diagnosis for this admission?: Yes Plan: No apparent evidences of GI bleed. Patient has chronic diarrhea. Refused c olonoscopy. Continue on Procrit as she is getting now as well as as outpatient if she comes for treatment. (6) Hypomagnesemia Is this a current diagnosis for this admission?: Yes Plan: Replacement done intravenously. Continue on p.o. replacements as well. (7) CHF (congestive heart failure) Qualifiers: Heart failure type: diastolic Heart failure chronicity: chronic Qualified Code(s): I50.32 - Chronic diastolic (congestive) heart failure Is this a current diagnosis for this admission?: Yes Plan: Chronic diastolic. Presently compensated especially with getting her regular dialysis treatments. Discussed with patient about getting regular dialysis treatments to prevent decompensation of heart failure. (8) Non compliance with medical treatment Plan: Unfortunate. Spent a good amount of time trying to make her understand the i mportance of going through this hemodialysis treatments regularly to prevent multiple complications and including sudden cardiac arrest and . (9) Chronic diarrhea Is this a current diagnosis for this admission?: Yes Plan: Ongoing. Refused colonoscopy/GI evaluations which is unfortunate. C. difficile was negative. Stool occult blood was negative as well. Could be a cause of her hypomagnesemia. P.o. magnesium replacement unfortunately could also worsen the diarrhea and therefore can be a vicious cycle. Discussed with her about low magnesium and of cardiac issues including cardiac arrest.
--- NOTE | 2020-07-05 12:00 | PDOC DISCHARGE SUMMARY ---
Impression - Admit/DC Date/PCP Admission Date/Primary Care Provider: 06/24/20 06:25 MAU TORRES MD Discharge Date: 07/05/20 - Discharge Diagnosis (1) Uremia Is this a current diagnosis for this admission?: Yes (2) End stage renal disease Is this a current diagnosis for this admission?: Yes (3) CHF (congestive heart failure) Is this a current diagnosis for this admission?: Yes (4) Metabolic acidosis Is this a current diagnosis for this admission?: Yes (5) Anemia in chronic kidney disease (CKD) Is this a current diagnosis for this admission?: Yes (6) Occlusion of left middle cerebral artery Is this a current diagnosis for this admission?: Yes (7) Leukocytosis Is this a current diagnosis for this admission?: Yes (8) Weakness Is this a current diagnosis for this admission?: Yes (9) Chronic diarrhea Is this a current diagnosis for this admission?: Yes (10) Sepsis Is this a current diagnosis for this admission?: Yes (11) Thrombocytopenia Is this a current diagnosis for this admission?: Yes - Additional Information Resuscitation Status: Full Code Discharge Diet: Cardiac Discharge Activity: Activity As Tolerated Referrals: MAU TORRES MD [Primary Care Provider] - 07/12/20 11:45 am (pt is suppose to be on dialysis -W- but nonadherent ) Prescriptions: Famotidine [Pepcid 20 mg Tablet] 20 mg PO QHS #30 tablet Levothyroxine Sodium [Synthroid 0.075 mg Tablet] 0.075 mg PO Q6AM #30 tablet Doxycycline Hyclate [Vibramycin 100 mg Tablet] 100 mg PO Q12 #10 tablet Home Medications: Levothyroxine Sodium [Synthroid] 175 mcg PO Q6AM 04/26/20 Aspirin [Aspirin 81 mg Chewable Tablet] 81 mg PO DAILY #30 tab.chew 04/29/20 Fluticasone/Salmeterol [Advair 500-50 Diskus 14 Dose/Diskus] 1 puff IH BID 06/24/20 Umeclidinium Warren [Incruse Ellipta] 1 puff IH DAILY 06/24/20 Doxycycline Hyclate [Vibramycin 100 mg Tablet] 100 mg PO Q12 #10 tablet 07/05/20 Famotidine [Pepcid 20 mg Tablet] 20 mg PO QHS #30 tablet 07/05/20 Levothyroxine Sodium [Synthroid 0.075 mg Tablet] 0.075 mg PO Q6AM #30 tablet 07/05/20 History of Present Illiness History of Present Illness: ELIN JIMÉNEZ is a 65 year old female This is a 65-year-old female's with a history of the end-stage renal disease hypertension hyperlipidemia very noncomplianceIn the last dialysis was done on 06/15 This patient always have a problem with the not going for the dialysis given the last time admitted for almost a month did not go for dialysis Patient is even though Dr. Hand nephrology is tried to call the patient's for the dialysis she never answer Today's patient was brought by the EMS because of generalized weakness and patient is try to more sleepy And feeling very weak Patient does not have any other conditions and I think as usual with a very noncompliance not going for the dialysis patient is classic uremic symptoms Also have elevated white count patient is currently denied any chest pain no short of breath no fever no chills Hospital Course Hospital Course: There is a 65-year-old female very noncompliance not going for dialysis and nephrology almost discharged the patient from the practice because of the not following recommendations and not going for the dialysis came to the emergency department with the altered mental status and patient was fine to uremia Patient underwent further dialysis patient also have a infections in the urine and infection in the catheter site Patient is dialysis catheter was change and patient was giving the Levaquin for the Staphylococcus aureus and also started on doxycycline for the UTI Also have a mild DIC seen by hematology and getting better She is denied any blood in the stools no black stool patient is refused for colonoscopy Patient's otherwise back to the baseline patient is do not want to go to the nursing facilities Discussed with the patient's daughter Leslie regarding the patient's current conditions several times and pretty much she told that her mom decisions to go for dialysis or not Discussed with the patient about dialysis issues and also not going for endoscopy and colonoscopy patient understand very well We arranged home health and airport planner If the patient is continues to be noncompliance we probably need to discharge the patient from my practice to nothing I can offer at this point discussed with the patient's daughter also Physical Exam Vital Signs: Temp Pulse Resp BP Pulse Ox 97.4 F 99 20 127/64 H 99 07/05/20 08:00 07/05/20 08:00 07/05/20 08:00 07/05/20 08:00 07/05/20 08:00 Intake & Output 07/04/20 07/05/20 07/06/20 06:59 06:59 06:59 Intake Total 1400 720 Output Total 3300 Balance -1900 720 Weight 91 kg 91 kg General appearance: PRESENT: no acute distress, well-developed, well-nourished Head exam: PRESENT: atraumatic, normocephalic Eye exam: PRESENT: conjunctiva pink, EOMI, PERRLA. ABSENT: scleral icterus Ear exam: PRESENT: normal external ear exam Mouth exam: PRESENT: moist, tongue midline Neck exam: ABSENT: carotid bruit, JVD, lymphadenopathy, thyromegaly Respiratory exam: PRESENT: clear to auscultation nirmal. ABSENT: rales, rhonchi, wheezes Cardiovascular exam: PRESENT: RRR. ABSENT: diastolic murmur, rubs, systolic murmur Pulses: PRESENT: normal dorsalis pedis pul Vascular exam: PRESENT: normal capillary refill GI/Abdominal exam: PRESENT: normal bowel sounds, soft. ABSENT: distended, guarding, mass, organolmegaly, rebound, tenderness Rectal exam: PRESENT: deferred Extremities exam: PRESENT: full ROM. ABSENT: calf tenderness, clubbing, pedal edema Neurological exam: PRESENT: alert, awake, oriented to person, oriented to place, oriented to time, oriented to situation, CN II-XII grossly intact. ABSENT: motor sensory deficit Psychiatric exam: PRESENT: appropriate affect, normal mood. ABSENT: homicidal ideation, suicidal ideation Skin exam: PRESENT: dry, intact, warm. ABSENT: cyanosis, rash Results Laboratory Results: WBC 4.1 10^3/uL (4.0-10.5) 07/05/20 04:18 RBC 2.79 10^6/uL (3.72-5.28) L 07/05/20 04:18 Hgb 8.6 g/dL (12.0-15.5) L 07/05/20 04:18 Hct 26.6 % (36.0-47.0) L 07/05/20 04:18 MCV 95 fl (80-97) 07/05/20 04:18 MCH 30.9 pg (27.0-33.4) 07/05/20 04:18 MCHC 32.4 g/dL (32.0-36.0) 07/05/20 04:18 RDW 18.0 % (11.5-14.0) H 07/05/20 04:18 Plt Count 118 10^3/uL (150-450) L 07/05/20 04:18 Lymph % (Auto) 11.6 % (13-45) L 07/05/20 04:18 Winkler % (Auto) 9.0 % (3-13) 07/05/20 04:18 Eos % (Auto) 0.6 % (0-6) 07/05/20 04:18 Baso % (Auto) 0.5 % (0-2) 07/05/20 04:18 Reticulocyte # 0.061 10^6/uL (0.028-0.122) 06/24/20 19:49 Absolute Neuts (auto) 3.2 10^3/uL (1.7-8.2) 07/05/20 04:18 Absolute Lymphs (auto) 0.5 10^3/uL (0.5-4.7) 07/05/20 04:18 Absolute Monos (auto) 0.4 10^3/uL (0.1-1.4) 07/05/20 04:18 Absolute Eos (auto) 0.0 10^3/uL (0.0-0.6) 07/05/20 04:18 Absolute Basos (auto) 0.0 10^3/uL (0.0-0.2) 07/05/20 04:18 Total Counted 100 07/03/20 04:42 Seg Neutrophils % 78.3 % (42-78) H 07/05/20 04:18 Seg Neuts % (Manual) 69 % (42-78) 07/03/20 04:42 Band Neutrophils % 3 % (3-5) 07/03/20 04:42 Lymphocytes % (Manual) 21 % (13-45) 07/03/20 04:42 Monocytes % (Manual) 5 % (3-13) 07/03/20 04:42 Eosinophils % (Manual) 0 % (0-6) 07/03/20 04:42 Basophils % (Manual) 0 % (0-2) 07/03/20 04:42 Metamyelocytes % 2 % (0-1) H 07/03/20 04:42 Abs Neuts (Manual) 3.3 10^3/uL (1.7-8.2) 07/03/20 04:42 Abs Lymphs (Manual) 0.9 10^3/uL (0.5-4.7) 07/03/20 04:42 Abs Monocytes (Manual) 0.2 10^3/uL (0.1-1.4) 07/03/20 04:42 Absolute Eos (Manual) 0.0 10^3/uL (0.0-0.6) 07/03/20 04:42 Abs Basophils (Manual) 0.0 10^3/uL (0.0-0.2) 07/03/20 04:42 Nucleated RBCs 1 /100 WBC (0) 06/30/20 05:59 Hypersegmented Neuts PRESENT 06/27/20 05:59 Toxic Granulation SLIGHT 06/24/20 03:52 Toxic Vacuolation PRESENT 07/01/20 04:57 Platelet Estimate Cancelled 06/26/20 05:05 Clumped Platelets PRESENT 07/01/20 04:57 Large Platelets PRESENT 06/27/20 05:59 Platelet Comment DECREASED 07/03/20 04:42 Polychromasia SLIGHT 06/27/20 05:59 Hypochromasia SLIGHT 07/03/20 04:42 Poikilocytosis SLIGHT 07/03/20 04:42 Basophilic Stippling PRESENT 07/01/20 04:57 Anisocytosis 1+ 07/03/20 04:42 Target Cells SLIGHT 06/30/20 05:59 Tear Drop Cells SLIGHT 07/01/20 04:57 Ovalocytes SLIGHT 07/03/20 04:42 Schistocytes SLIGHT 07/03/20 04:42 Retic Count (auto) 1.89 % (0.66-2.85) 06/24/20 19:49 PT 14.1 SEC (11.4-15.4) 06/26/20 15:49 INR 1.07 06/26/20 15:49 APTT 30.4 SEC (23.5-35.8) 06/26/20 15:49 Fibrinogen 139 mg/dL (209-497) L 06/26/20 15:49 Sodium 131.0 mmol/L (137-145) L 07/05/20 04:18 Potassium 3.7 mmol/L (3.6-5.0) 07/05/20 04:18 Chloride 96 mmol/L (98-107) L 07/05/20 04:18 Carbon Dioxide 22 mmol/L (22-30) 07/05/20 04:18 Anion Gap 13 (5-19) 07/05/20 04:18 BUN 23 mg/dL (7-20) H 07/05/20 04:18 Creatinine 4.38 mg/dL (0.52-1.25) H 07/05/20 04:18 Est GFR ( Amer) 12 (>60) L 07/05/20 04:18 Est GFR (MDRD) Non-Af 10 (>60) L 07/05/20 04:18 Glucose 84 mg/dL (75-110) 07/05/20 04:18 Lactic Acid 4.5 mmol/L (0.7-2.1) H 06/26/20 15:49 Calcium 8.5 mg/dL (8.4-10.2) 07/05/20 04:18 Phosphorus 5.9 mg/dL (2.5-4.5) H 07/03/20 04:42 Magnesium 1.4 mg/dL (1.6-2.3) L 07/05/20 04:18 Iron 109.5 ug/dL (37-170) 06/24/20 19:49 TIBC 175 ug/dL (250-450) L 06/24/20 19:49 % Saturation 63 % 06/24/20 19:49 Ferritin 710.00 ng/mL (11.1-264.0) H 06/24/20 19:49 Total Bilirubin 0.7 mg/dL (0.2-1.3) 06/24/20 03:52 Direct Bilirubin 0.3 mg/dL (0.0-0.4) 06/24/20 03:52 Neonat Total Bilirubin Not Reportable 06/24/20 03:52 Neonat Direct Bilirubin Not Reportable 06/24/20 03:52 Neonat Indirect Bili Not Reportable 06/24/20 03:52 AST 16 U/L (14-36) 06/24/20 03:52 ALT 10 U/L (<35) 06/24/20 03:52 Alkaline Phosphatase 49 U/L (38-126) 06/24/20 03:52 Total Protein 7.5 g/dL (6.3-8.2) 06/24/20 03:52 Albumin 4.8 g/dL (3.5-5.0) 06/24/20 03:52 Vitamin B12 261.0 pg/mL (239-931) 06/24/20 19:49 Folate 6.25 ng/mL (>2.76) 06/24/20 19:49 TSH 109.00 uIU/mL (0.47-4.68) H 06/26/20 05:05 PTH Intact 688.5 pg/mL (10.0-65.0) H 06/24/20 19:49 Urine Color YELLOW 06/25/20 01:40 Urine Appearance CLOUDY 06/25/20 01:40 Urine pH 5.0 (5.0-9.0) 06/25/20 01:40 Ur Specific [place] 1.016 06/25/20 01:40 Urine Protein 100 mg/dL (NEGATIVE) H 06/25/20 01:40 Urine Glucose (UA) NEGATIVE mg/dL (NEGATIVE) 06/25/20 01:40 Urine Ketones NEGATIVE mg/dL (NEGATIVE) 06/25/20 01:40 Urine Blood SMALL (NEGATIVE) H 06/25/20 01:40 Urine Nitrite NEGATIVE (NEGATIVE) 06/25/20 01:40 Urine Bilirubin NEGATIVE (NEGATIVE) 06/25/20 01:40 Urine Urobilinogen NEGATIVE mg/dL (<2.0) 06/25/20 01:40 Ur Leukocyte Esterase SMALL (NEGATIVE) H 06/25/20 01:40 Urine WBC (Auto) 6 /HPF 06/25/20 01:40 Urine RBC (Auto) 4 /HPF 06/25/20 01:40 U Hyaline Cast (Auto) 2 /LPF 06/25/20 01:40 Urine Bacteria (Auto) TRACE /HPF 06/25/20 01:40 Squamous Epi Cells Auto 36 /HPF 06/25/20 01:40 Urine Mucus (Auto) OCC /LPF 06/25/20 01:40 Urine Ascorbic Acid NEGATIVE (NEGATIVE) 06/25/20 01:40 Stool Occult Blood NEGATIVE (NEGATIVE) 07/03/20 11:07 Stl C. Difficile GDH Ag NEGATIVE (NEGATIVE) 06/25/20 09:47 Stl C.difficile Tox A&B NEGATIVE (NEGATIVE) 06/25/20 09:47 Heparin-induced Plt Ab 0.091 OD (0.000-0.40) 06/26/20 15:49 Hep Bs Antigen Negative (Negative) 06/24/20 09:39 Hep Bs Antibody, Quant <3.1 mIU/mL (Immunity>9) L 06/24/20 09:39 Hep B Core Total Ab Negative (Negative) 06/24/20 09:39 HCV Quantitation HCV Not Detected IU/mL (.) 06/24/20 09:39 HCV RNA PCR Test Info Comment (.) 06/24/20 09:39 SARS-CoV-2 (PCR) NEGATIVE (NEGATIVE) 06/26/20 09:09 Slides for Path Review Cancelled 06/26/20 05:05 Blood Type B NEGATIVE 07/03/20 07:10 Blood Type Confirm B NEGATIVE 07/03/20 07:18 Antibody Screen NEGATIVE 07/03/20 07:10 Crossmatch See Detail 07/03/20 07:10 Impressions: Chest X-Ray 06/24/20 05:15 IMPRESSION: No change. Abdomen/Pelvis CT 06/25/20 00:00 IMPRESSION: 1. No evidence of acute intra-abdominal/pelvic process. 2. Atrophic kidneys. Additional incidental findings as above. Head CT 06/25/20 00:00 IMPRESSION: 1. No evidence of acute intracranial process. 2. Chronic prior lacunar infarcts and evidence of small vessel ischemic change, stable. EVIDENCE OF ACUTE STROKE: NO. Guidance Fluoroscopy 07/01/20 00:00 IMPRESSION: IMAGE(S) OBTAINED DURING PROCEDURE. Plan Time Spent: Greater than 30 Minutes - Follow in office 1 week follow-up with the dialysis as per schedule Stroke Is this a Stroke Patient?: No Acute Heart Failure - Is this a Heart Failure Patient?: No
[2020-07-05 12:58] VITALS: BP 98/45
== END 2020-07-05 14:45 | disposition home or self-care (01) | DRG 291 ==
LOC: ER 02:32 → OBSVTOIN 06:25 → EH 06:25 → 4W 10:42 → 4S 06-27 18:24
PROVIDERS: ADMIT Family Medicine; ATTEND Family Medicine
PROC: 0JPTXXZ Removal of Tunneled Vascular Access Device from Trunk Subcutaneous Tissue and Fascia, External Approach (ICD-10-PCS; 2020-06-26)
PROC: 06HM33Z Insertion of Infusion Device into Right Femoral Vein, Percutaneous Approach (ICD-10-PCS; 2020-06-29)
PROC: B54BZZA Ultrasonography of Right Lower Extremity Veins, Guidance (ICD-10-PCS; 2020-06-29)
PROC: B548ZZA Ultrasonography of Superior Vena Cava, Guidance (ICD-10-PCS; 2020-07-01)
PROC: 02H633Z Insertion of Infusion Device into Right Atrium, Percutaneous Approach (ICD-10-PCS; 2020-07-01)
PROC: B518ZZA Fluoroscopy of Superior Vena Cava, Guidance (ICD-10-PCS; 2020-07-01)
PROC: 0JH63XZ Insertion of Tunneled Vascular Access Device into Chest Subcutaneous Tissue and Fascia, Percutaneous Approach (ICD-10-PCS; principal; 2020-07-01 14:30)
PROC: 30233N1 Transfusion of Nonautologous Red Blood Cells into Peripheral Vein, Percutaneous Approach (ICD-10-PCS; 2020-07-03)
DX: I13.2 Hypertensive heart and chronic kidney disease with heart failure and with stage 5 chronic kidney disease, or end stage renal disease (principal); N18.6 End stage renal disease; D65 Disseminated intravascular coagulation [defibrination syndrome]; E87.2 Acidosis; I50.32 Chronic diastolic (congestive) heart failure; T82.898A Other specified complication of vascular prosthetic devices, implants and grafts, initial encounter; T82.49XA Other complication of vascular dialysis catheter, initial encounter; G93.40 Encephalopathy, unspecified; N39.0 Urinary tract infection, site not specified; D63.1 Anemia in chronic kidney disease; E78.5 Hyperlipidemia, unspecified; I25.10 Atherosclerotic heart disease of native coronary artery without angina pectoris; K52.9 Noninfective gastroenteritis and colitis, unspecified; I66.02 Occlusion and stenosis of left middle cerebral artery; E87.6 Hypokalemia; D72.829 Elevated white blood cell count, unspecified; E83.9 Disorder of mineral metabolism, unspecified; E83.42 Hypomagnesemia; Y83.2 Surgical operation with anastomosis, bypass or graft as the cause of abnormal reaction of the patient, or of later complication, without mention of misadventure at the time of the procedure; Z20.828 Contact with and (suspected) exposure to other viral communicable diseases; Z99.2 Dependence on renal dialysis; Z79.51 Long term (current) use of inhaled steroids; Z91.15 Patient's noncompliance with renal dialysis; Z79.82 Long term (current) use of aspirin; Z79.899 Other long term (current) drug therapy; Z88.1 Allergy status to other antibiotic agents; Z88.5 Allergy status to narcotic agent; Z79.890 Hormone replacement therapy; Z86.73 Personal history of transient ischemic attack (TIA), and cerebral infarction without residual deficits
CPT/HCPCS: 00532; 36415; 36430; 70450; 71045; 74176; 77001; 80048; 80053; 81001; 82272; 82607; 82728; 82746; 83540; 83550; 83605; 83735; 83970; 84100; 84132; 84443; 85025; 85045; 85384; 85610; 85730; 86022; 86317; 86704; 86850; 86900; 86901; 86920; 87040; 87045; 87070; 87086; 87088; 87186; 87205; 87324; 87340; 87449; 87522; 87635; 96372; 99140; 99285; C1713; C9803; J0744; J1642; J1644; J1956; J2250; J2405; J2704; J3010; J3475; J3490; P9016; Q5105

== ENCOUNTER 2020-07-14 19:35 | Emergency (ER) | payer MEDICARE, MEDICAID ==
--- NOTE | 2020-07-14 20:20 | EKG REPORT ---
SEVERITY:- ABNORMAL ECG - SINUS RHYTHM LEFT ANTERIOR FASCICULAR BLOCK ABNRM R PROG, CONSIDER ASMI OR LEAD PLACEMENT BORDERLINE T WAVE ABNORMALITIES : Confirmed by: Wu Valdez 14-Jul-2020 20:19:27
[2020-07-14 20:34] LABS: HEMATOCRIT 29.1 % (36.0-47.0); HEMOGLOBIN 9.1 g/dL (12.0-15.5); MEAN CORPUSCULAR HEMOGLOBIN 29.8 pg (27.0-33.4); MEAN CORPUSCULAR HGB CONC 31.4 g/dL (32.0-36.0); MEAN CORPUSCULAR VOLUME 95 fl (80-97); PLATELET COUNT 188 10^3/uL (150-450); RED BLOOD COUNT 3.06 10^6/uL (3.72-5.28); RED CELL DISTRIBUTION WIDTH 18.7 % (11.5-14.0); WHITE BLOOD COUNT 5.1 10^3/uL (4.0-10.5)
[2020-07-14 20:38] LABS: ALBUMIN 3.3 g/dL (3.5-5.0); ALKALINE PHOSPHATASE 49 U/L (38-126); ANION GAP 13 (5-19); ASPARTATE AMINO TRANSFERASE 24 U/L (14-36); BILIRUBIN,DIRECT 0.4 mg/dL (0.0-0.4); BILIRUBIN,TOTAL 0.6 mg/dL (0.2-1.3); BLOOD UREA NITROGEN 41 mg/dL (7-20); CALCIUM 8.3 mg/dL (8.4-10.2); CARBON DIOXIDE 21 mmol/L (22-30); CHLORIDE 103 mmol/L (98-107); GLUCOSE 80 mg/dL (75-110); POTASSIUM 3.8 mmol/L (3.6-5.0); TOTAL PROTEIN 5.7 g/dL (6.3-8.2)
[2020-07-14 20:55] LABS: ABSOLUTE MONOCYTES # (MANUAL) 0.3 10^3/uL (0.1-1.4); ANISOCYTOSIS 1+; BAND NEUTROPHILS % (MANUAL) 1 % (3-5); BASOPHILS % (MANUAL) 0 % (0-2); EOSINOPHILS % (MANUAL) 0 % (0-6); LYMPHOCYTES % (MANUAL) 19 % (13-45); MONOCYTES % (MANUAL) 6 % (3-13); PLATELET COMMENT ADEQUATE; POLYCHROMASIA 1+; SEGMENTED NEUTROPHILS % (MAN) 74 % (42-78); TOTAL CELLS COUNTED 100
--- NOTE | 2020-07-14 21:05 | RADIOLOGY REPORT (SQ) ---
EXAM DESCRIPTION: CHEST SINGLE VIEW IMAGES COMPLETED DATE/TIME: 07/14/2020 8:33 pm REASON FOR STUDY: shortness of breath COMPARISON: None. NUMBER OF VIEWS: One view. TECHNIQUE: Single frontal radiographic view of the chest acquired. LIMITATIONS: None. FINDINGS: LUNGS AND PLEURA: Minimal basilar opacities. Possible effusions. MEDIASTINUM AND HILAR STRUCTURES: No masses. Contour normal. HEART AND VASCULAR STRUCTURES: Heart enlarged. No overt failure. BONES: No acute findings. HARDWARE: Exchange of venous access catheter now via left subclavian approach. OTHER: No other significant finding. IMPRESSION: Cardiac enlargement. Minimal basilar opacities and possible effusions. TECHNICAL DOCUMENTATION: JOB ID: [id number] 2010 [employer]- All Rights Reserved Reading location - IP/workstation name: [email or web address]
--- NOTE | 2020-07-14 21:58 | ER Document Report ---
ED General - General Chief Complaint: Fall Injury Stated Complaint: RIGHT LEG PAIN Time Seen by Provider: 07/14/20 21:58 Primary Care Provider: MAU TORRES MD [Primary Care Provider] - Follow up as needed TRAVEL OUTSIDE OF THE [place] IN LAST 30 DAYS: No - HPI Notes: 65-year-old female arrives from home via EMS. Patient states that she is in the emergency department today because she fell and hit her head, states she hit the back of her head. She does not give details of the fall or what she hit her head on. Per EMS/nursing report, patient fell from a rolling walker and hit her head on a coffee table. There is no reported loss of consciousness. She was found to have a right leg injury. Additionally per report patient has not been to dialysis in over 1 week. Patient appears to be very limited historian. She denies chest pain or shortness of breath. She denies abdominal pain, nausea vomiting or diarrhea. She states she does still make urine. She denies pain anywhere. - Related Data Allergies/Adverse Reactions: cephalexin [From Keflex] Allergy (Verified 06/11/20 00:35) codeine [Codeine] Allergy (Verified 06/11/20 00:35) Past Medical History - Social History Smoking Status: Current Every Day Smoker Family History: Reviewed & Not Pertinent Patient has homicidal ideation: No - Past Medical History Cardiac Medical History: Reports: Hx Congestive Heart Failure, Hx Coronary Artery Disease, Hx Hypercholesterolemia, Hx Hypertension Denies: Hx Heart Attack Pulmonary Medical History: Reports: Hx COPD, Hx Pneumonia - 2006 Denies: Hx Asthma, Hx Bronchitis Neurological Medical History: Reports: Hx Cerebrovascular Accident. Denies: Hx Seizures Renal/ Medical History: Reports: Hx End Stage Renal Disease, Hx Hemodialysis - , , Wed. Denies: Hx Peritoneal Dialysis Musculoskeletal Medical History: Denies Hx Arthritis Psychiatric Medical History: Denies: Hx Depression Past Surgical History: Reports: Hx Hysterectomy, Hx Vascular Surgery - Central venous catheter placement for dialysis use - Immunizations Hx Diphtheria, Pertussis, Tetanus Vaccination: No Review of Systems - Review of Systems Notes: Patient is limited historian, currently at this time she is denying all complaints. Constitutional: No symptoms reported EENT: No symptoms reported Cardiovascular: denies: Chest pain Respiratory: denies: Short of breath Gastrointestinal: denies: Abdominal pain, Nausea, Vomiting Genitourinary: No symptoms reported Female Genitourinary: No symptoms reported Musculoskeletal: No symptoms reported Skin: No symptoms reported Neurological/Psychological: No symptoms reported Physical Exam - Vital signs Vitals: Pulse Ox 95 07/14/20 19:35 - General General appearance: Other - Unkempt, per nursing was covered in aunts both and alive, had dried feces on her In distress: None - HEENT Head: Normocephalic, Atraumatic Eyes: No: Scleral icterus Extraocular movements intact: Yes Pupils: PERRL - Respiratory Respiratory status: No respiratory distress Chest status: Nontender Breath sounds: Nonproductive cough. No: Rales - Cardiovascular Rhythm: Regular Heart sounds: Normal auscultation Normal capillary refill: Yes - Abdominal Inspection: Obese Bowel sounds: Normal Tenderness: Nontender - Genitourinary Notes: Fungal appearing rash to intertriginous areas - Extremities General lower extremity: Edema Hip: Tender - Bilateral lateral hip Notes: Right calf has superficial skin tear, no surrounding erythema or drainage. She has scattered ecchymosis to her legs - Neurological Neuro grossly intact: Yes Orientation: Disoriented to place [place] Coma Scale Eye Opening: Spontaneous [place] Coma Scale Verbal: Oriented [place] Coma Scale Motor: Obeys Commands [place] Coma Scale Total: 15 Notes: Patient is A&O x2. She grossly has no focal deficits. Her face is symmetric and speech is clear. Strength is symmetric between upper extremities. Strength is symmetric between lower extremities. Sensation is grossly intact. - Psychological Associated symptoms: Flat affect - Skin Skin Temperature: Warm Course - Re-evaluation Re-evalutation: 65-year-old female arrives from home after a fall. There are various details of what happened, patient is limited historian but does admit to falling and hitting the back of her head. She is alert and oriented x2, possible this is her baseline, question her full participation exam. No obvious signs of trauma to her head, no midline C-spine tenderness. She does have a cough, however lungs are generally without rales, currently does not appear to be in any respiratory distress. She does have some lower extremity edema. Most concerning his that she has not had dialysis in a week. EKG does not exhibit peaked T waves. Laboratory evaluation has been ordered. Will obtain x-rays to assure that no fractures present, CTs to rule out intracranial and C-spine trauma. APS report has been initiated by nursing given the condition that the patient arrived in - covered in ants and soiled 07/15/20 01:04 Into reassess patient. She seems more alert and able to converse a little bit better. She states that she is taking her medications. TSH has resulted which is high, T4 is pending. 07/15/20 01:13 Imaging and reports reviewed. Chest x-ray does not have massive edema. CT C- spine is negative for fracture. CT head is negative for acute bleed. Pelvis x- ray is negative for fracture. Tib-fib x-ray is negative for fracture. 07/15/20 01:16 No leukocytosis or left shift suggestive of infection. Anemia present, hemoglobin however is higher than previous recorded values. Platelets are w ithin normal limits. Potassium is within normal limits at 3.8. Creatinine elevated as expected given her ESRD status. Lactic is not elevated. LFTs and T bili are within normal limits. She does have an elevation of BNP, however this is commonly seen in ESRD patients. 07/15/20 02:13 T4 mild low at 0.6. Do not feel that this is reflective of myxedema at this time. We will start her on her home dose. Per external pharmacy report, she last filled Synthroid 75 mcg earlier this month. 07/15/20 02:31 Currently at this time do not have solid admission criteria. Given that the APS case is active, will keep patient here in ED as a social hold. Have put a nephrology consult to see if dialysis will need tomorrow. - Vital Signs Vital signs: Temp Pulse Resp BP Pulse Ox 98.7 F 17 103/63 95 07/14/20 20:04 07/15/20 02:00 07/15/20 02:01 07/15/20 02:01 - Laboratory Result Diagrams: 07/14/20 19:50 07/14/20 19:50 Laboratory results interpreted by me: 07/14/20 07/14/20 07/14/20 19:50 19:50 19:50 RBC 3.06 L Hgb 9.1 L Hct 29.1 L MCHC 31.4 L RDW 18.7 H Band Neutrophils % 1 L Carbon Dioxide 21 L BUN 41 H Creatinine 7.19 H Est GFR ( Amer) 7 L Est GFR (MDRD) Non-Af 6 L Calcium 8.3 L NT-Pro-B Natriuret Pep 1380 H Total Protein 5.7 L Albumin 3.3 L TSH Free T4 07/14/20 07/14/20 19:50 19:50 RBC Hgb Hct MCHC RDW Band Neutrophils % Carbon Dioxide BUN Creatinine Est GFR ( Amer) Est GFR (MDRD) Non-Af Calcium NT-Pro-B Natriuret Pep Total Protein Albumin TSH 34.30 H Free T4 0.60 L - EKG Interpretation by Me Additional EKG results interpreted by me: 07/15/20 01:14 EKG as interpreted by me. Sinus rhythm with rate 77. Narrow QRS, QTC within normal limits. No peaked T waves. There are some nonspecific ST changes. Discharge - Discharge Clinical Impression: ESRD (end stage renal disease) on dialysis, Non compliance with medical treatment Fall Qualifiers: Encounter type: initial encounter Qualified Code(s): W19.XXXA - Unspecified fall, initial encounter Disposition: OTHER Referrals: MAU TORRES MD [Primary Care Provider] - Follow up as needed
--- NOTE | 2020-07-14 23:12 | RADIOLOGY REPORT (SQ) ---
EXAM DESCRIPTION: CT HEAD WITHOUT IV CONTRAST COMPLETED DATE/TME: 07/14/2020 22:22 EXAM DESCRIPTION: CT of the head without contrast CLINICAL HISTORY: fall, head injury COMPARISON: 06/25/2020 TECHNIQUE: Axial CT of the head obtained from the skull apex to the skull base without contrast. FINDINGS: No acute intracranial hemorrhage identified. No mass, mass effect, shift of the midline, abnormal extra-axial fluid collection or CT evidence of acute ischemic change identified. The ventricular system and sulcal spaces are mildly enlarged compatible with mild cerebral atrophy. Scattered areas of hypodensity throughout the supratentorial white matter are nonspecific and may be related to chronic small vessel ischemic change. Focal encephalomalacia in the right parietal region compatible with remote infarction. The visualized paranasal sinuses and the mastoids are clear. No skull fracture identified. Visualized orbits and globes are unremarkable. Atherosclerotic calcification of the intracranial internal carotid arteries. IMPRESSION: 1. No acute intracranial abnormality by CT criteria. This exam was performed according to our departmental dose-optimization program, which includes automated exposure control, adjustment of the mA and/or kV according to patient size and/or use of iterative reconstruction technique.
--- NOTE | 2020-07-14 23:16 | RADIOLOGY REPORT (SQ) ---
Right tibia/fibular radiographs: 07/14/2020 10:25 PM CDT COMPARISON: None available TECHNIQUE: AP and lateral images of the right tibia and fibula were obtained. HISTORY: 65-year-old patient with right lower extremity pain . FINDINGS: There are no findings to suggest an acute fracture or subluxation within the right tibia or fibula. The visualized soft tissues appear grossly unremarkable. There is reticulation within the subcutaneous soft tissues suggesting underlying edema or cellulitis. IMPRESSION: There are no findings to suggest an acute fracture or subluxation within the right tibia or fibula.
--- NOTE | 2020-07-14 23:16 | RADIOLOGY REPORT (SQ) ---
AP view of the pelvis: 07/14/2020 10:14 PM CDT COMPARISON: None available CLINICAL INDICATION: 65-year-old patient with pelvic pain, fall. FINDINGS: The sacroiliac joints appear unremarkable. Both hip joints demonstrate no evidence of an acute fracture. There are no findings to suggest an acute fracture. The visualized soft tissues appear grossly unremarkable. IMPRESSION: There are no findings to suggest an acute fracture within the pelvis.
--- NOTE | 2020-07-14 23:17 | RADIOLOGY REPORT (SQ) ---
EXAM DESCRIPTION: CT CERVICAL SPINE WITHOUT IV CONTRAST COMPLETED DATE/TME: 07/14/2020 22:22 EXAM DESCRIPTION: CT of the cervical spine without contrast. CLINICAL HISTORY: fall, head injury COMPARISON: None available TECHNIQUE: Axial CT of the cervical spine obtained without contrast. FINDINGS: Straightening of the cervical lordosis may be secondary to patient positioning altered muscle tone. The atlantoaxial, atlantodental, and occipitoatlantal intervals are preserved. No fracture identified. Vertebral body height preserved. Prevertebral soft tissues are unremarkable. Degenerative change of the atlantodental articulation. Mild endplate spondylosis of the visualized spine. Intervertebral disc height relatively well-preserved. Mild facet arthropathy. Findings suggest renal osteodystrophy. Visualized skull base is intact. No fracture of the visualized facial bones. Visualized mastoid air cells and paranasal sinuses are well aerated. Visualized thyroid is unremarkable. Carotid artery atherosclerosis. No cervical lymphadenopathy. No pneumothorax in the visualized lung apices. Tunneled left IJ hemodialysis catheter partially visualized. IMPRESSION: 1. No acute fracture or subluxation of the cervical spine. 2. Multilevel degenerative change of the cervical spine. This exam was performed according to our departmental dose-optimization program, which includes automated exposure control, adjustment of the mA and/or kV according to patient size and/or use of iterative reconstruction technique.
[2020-07-14] MEDS ORDERED: FUROSEMIDE INJ/PF 20 MG/2 ML SDV IV ONE (23:41)
[2020-07-15] MEDS ORDERED: LEVOTHYROXINE SODIUM 0.075 MG TABLET PO SCH (06:00)
[2020-07-15] MEDS: LEVOTHYROXINE SODIUM 0.075 MG TABLET PO SCH (09:39)
[2020-07-15 10:46] LABS: ANION GAP 12 (5-19); BLOOD UREA NITROGEN 40 mg/dL (7-20); CALCIUM 7.8 mg/dL (8.4-10.2); CARBON DIOXIDE 21 mmol/L (22-30); CHLORIDE 105 mmol/L (98-107); GLUCOSE 83 mg/dL (75-110)
[2020-07-15] MEDS ORDERED: CALAMINE/ZINC OXIDE LOTION 177 ML/BOTTLE TP PRN (11:57)
[2020-07-15 12:45] LABS: APPEARANCE,URINE CLEAR; BILIRUBIN,URINE NEGATIVE (NEGATIVE); COLOR,URINE YELLOW; GLUCOSE, URINE NEGATIVE (NEGATIVE); KETONES,URINE NEGATIVE (NEGATIVE); LEUKOCYTE ESTERASE,URINE NEGATIVE (NEGATIVE); NITRITE,URINE NEGATIVE (NEGATIVE); PROTEIN,URINE 100 mg/dL (NEGATIVE); UROBILINOGEN,URINE NEGATIVE mg/dL (<2.0)
--- NOTE | 2020-07-15 12:49 | RADIOLOGY REPORT (SQ) ---
EXAM DESCRIPTION: CHEST SINGLE VIEW IMAGES COMPLETED DATE/TIME: 07/15/2020 12:36 pm REASON FOR STUDY: sob COMPARISON: None. EXAM PARAMETERS: NUMBER OF VIEWS: One view. TECHNIQUE: Single frontal radiographic view of the chest acquired. RADIATION DOSE: NA LIMITATIONS: None. FINDINGS: LUNGS AND PLEURA: Low lung volumes with chronic interstitial changes. No focal consolidat ion. No overt edema. MEDIASTINUM AND HILAR STRUCTURES: Stable widening of the paratracheal stripe, likely vascular. HEART AND VASCULAR STRUCTURES: Enlarged, stable. Vascular calcifications. BONES: No acute findings. HARDWARE: Left internal jugular approach central venous catheter tip at right atrium. Vascular stent overlies left axilla. OTHER: No other significant finding. IMPRESSION: Stable enlarged cardiac silhouette without overt edema. TECHNICAL DOCUMENTATION: JOB ID: [id number] 2010 [employer]- All Rights Reserved Reading location - IP/workstation name: [email or web address]
--- NOTE | 2020-07-15 16:49 | ER Document Report ---
Doctor's Note Notes: 07/15/20 16:46 Teddy arrives and I advised him of Dr. Cramer report at 1635. Dr. Gomez advises no dialysis today but may get dialysis tomorrow morning.
[2020-07-16] MEDS ORDERED: EPOETIN ALFA-EPBX 20,000 UNIT in SYRINGE, DISPOSABLE, 1 EACH IV PRN (05:00)
[2020-07-16] MEDS ORDERED: HEPARIN SOD (PORCINE) 1,000 UNIT/ML 10 ML VIAL IV PRN (05:00)
[2020-07-16 08:14] LABS: HEMATOCRIT 25.7 % (36.0-47.0); HEMOGLOBIN 8.2 g/dL (12.0-15.5); MEAN CORPUSCULAR HEMOGLOBIN 29.8 pg (27.0-33.4); MEAN CORPUSCULAR HGB CONC 31.9 g/dL (32.0-36.0); MEAN CORPUSCULAR VOLUME 93 fl (80-97); PLATELET COUNT 220 10^3/uL (150-450); RED BLOOD COUNT 2.76 10^6/uL (3.72-5.28); RED CELL DISTRIBUTION WIDTH 18.6 % (11.5-14.0); WHITE BLOOD COUNT 4.9 10^3/uL (4.0-10.5)
[2020-07-16 08:40] LABS: ANION GAP 9 (5-19); BLOOD UREA NITROGEN 39 mg/dL (7-20); CALCIUM 7.5 mg/dL (8.4-10.2); CARBON DIOXIDE 23 mmol/L (22-30); CHLORIDE 105 mmol/L (98-107); POTASSIUM 3.8 mmol/L (3.6-5.0)
[2020-07-16 08:45] LABS: GLUCOSE 64 mg/dL (75-110)
--- NOTE | 2020-07-16 09:20 | ER Document Report ---
Doctor's Note Notes: 07/16/20 09:11 65-year-old female with ESRD very noncompliance not going for dialysis and nephrology almost discharged the patient from the practice because of the not following recommendations and not going for the dialysis came to the emergency department with altered mental status. Subsequently dialyzed and remains here on social hold. Being dialyzed again this AM. Also has infection in the urine and infection in the catheter site. The dialysis catheter was change and patient was giving the Levaquin for the Staphylococcus aureus and also started on doxycycline for the UTI. Patient is otherwise back to the baseline patient is do not want to go to the nursing facility. Her daughter Leslie advises that her mom makes her own decisions to go for dialysis or not. 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 AM labs reviewed with no critical values. Pt. currently in dialysis. 07/16/20 09:12
[2020-07-16] MEDS: LEVOTHYROXINE SODIUM 0.075 MG TABLET PO SCH (10:18)
--- NOTE | 2020-07-16 13:57 | PDOC PROGRESS REPORT ---
Subjective Progress Note for:: 07/16/20 Subjective:: ESRD for HD Reason For Visit: Mrs. Barrera is ESRD patient extremely noncompliant was not had any dialysis for the last couple of weeks came to the ER with complaints of pain of right leg. She was found to be pleasantly confused at times suggestive of possible uremia. She denies any history of chest pain shortness of breath. Continues to make urine. Labs and medications were reviewed. She was then taken for hemodialysis and I am seeing her while on dialysis. Dialysis going well and she has no complaints at the moment. Vital signs are stable. Labs and medications were reviewed. Dialysis orders were reviewed with the treating dialysis nurse. Physical Exam Vital Signs: Temp Pulse Resp BP Pulse Ox 98.2 F 20 109/59 L 93 07/16/20 10:24 07/16/20 13:00 07/16/20 13:00 07/16/20 12:01 Intake & Output 07/15/20 07/16/20 07/17/20 06:59 06:59 06:59 Output Total 1000 Balance -1000 Weight 89.7 kg 89.7 kg General appearance: PRESENT: no acute distress Respiratory exam: PRESENT: clear to auscultation nirmal, decreased breath sounds. ABSENT: crackles Cardiovascular exam: PRESENT: +S1, +S2 GI/Abdominal exam: PRESENT: normal bowel sounds, soft. ABSENT: organomegaly, tenderness Extremities exam: PRESENT: pedal edema Neurological exam: PRESENT: alert, awake, oriented to person Psychiatric exam: PRESENT: anxious Results Laboratory Results: 07/16/20 06:35 07/16/20 06:35 07/16/20 07/16/20 06:35 06:35 WBC 4.9 RBC 2.76 L Hgb 8.2 L Hct 25.7 L MCV 93 MCH 29.8 MCHC 31.9 L RDW 18.6 H Plt Count 220 Sodium 136.6 L Potassium 3.8 Chloride 105 Carbon Dioxide 23 Anion Gap 9 BUN 39 H Creatinine 6.14 H Est GFR ( Amer) 8 L Glucose 64 L Calcium 7.5 L 07/14/20 19:50 NT-Pro-B Natriuret Pep 1380 H Impressions: Cervical Spine CT 07/14/20 22:22 IMPRESSION: 1. No acute fracture or subluxation of the cervical spine. 2. Multilevel degenerative change of the cervical spine. This exam was performed according to our departmental dose-optimization program, which includes automated exposure control, adjustment of the mA and/or kV according to patient size and/or use of iterative reconstruction technique. Head CT 07/14/20 22:22 IMPRESSION: 1. No acute intracranial abnormality by CT criteria. This exam was performed according to our departmental dose-optimization program, which includes automated exposure control, adjustment of the mA and/or kV according to patient size and/or use of iterative reconstruction technique. Pelvis X-Ray 07/14/20 22:25 IMPRESSION: There are no findings to suggest an acute fracture within the pelvis. Tibia/Fibula X-Ray 07/14/20 22:25 IMPRESSION: There are no findings to suggest an acute fracture or subluxation within the right tibia or fibula. Chest X-Ray 07/15/20 11:45 IMPRESSION: Stable enlarged cardiac silhouette without overt edema. Assessment & Plan - Diagnosis (1) End stage renal disease on dialysis Plan: Patient currently being seen while undergoing dialysis. Unfortunately very noncompliant because she does not have a proper grasp of the consequences of not undergoing regular dialysis. However currently she is undergoing dialysis without any issues. Vital signs are stable. Plan to remove approximately 1-2 L as tolerated. Dialysis orders were reviewed with the treating dialysis nurse. (2) Non compliance with medical treatment Plan: Discussed about the serious consequences of uremia, hyperkalemia, congestive heart failure with the patient. Doubtful that she still understands the implications. Advised to be compliant as an outpatient dialysis treatment at [facility]. (3) Anemia Qualifiers: Plan: Chronic kidney disease. Adjust erythropoietin on dialysis.
[2020-07-17] MEDS: LEVOTHYROXINE SODIUM 0.075 MG TABLET PO SCH (05:48)
--- NOTE | 2020-07-17 17:58 | ER Document Report ---
Doctor's Note Notes: 07/17/20 17:31 No new problems noted. FL-2 form completed for placement.
[2020-07-17] MEDS ORDERED: IPRATROPIUM/ALBUTEROL 0.5-2.5 MG/3 ML AMPUL NEB ONE (22:11)
--- NOTE | 2020-07-17 22:50 | RADIOLOGY REPORT (SQ) ---
XR CHEST 1 VIEW HISTORY: Cough. COMPARISON: 07/15/2020 FINDINGS: The heart size is enlarged with mild central pulmonary vascular congestion. No consolidation, pleural effusion, or pneumothorax is seen. No acute bony findings are seen. Stable left central venous line. IMPRESSION: Mild pulmonary edema pattern, without pleural effusions or focal consolidation.
[2020-07-18] MEDS: LEVOTHYROXINE SODIUM 0.075 MG TABLET PO SCH (08:06)
[2020-07-18 12:06] VITALS: BP 126/68
== END 2020-07-18 12:03 | disposition other institution (70) ==
LOC: ER 19:35
DX: I13.2 Hypertensive heart and chronic kidney disease with heart failure and with stage 5 chronic kidney disease, or end stage renal disease (principal); N18.6 End stage renal disease; I50.9 Heart failure, unspecified; Z91.15 Patient's noncompliance with renal dialysis; Z99.2 Dependence on renal dialysis; A41.9 Sepsis, unspecified organism; R41.0 Disorientation, unspecified; N39.0 Urinary tract infection, site not specified; A49.01 Methicillin susceptible Staphylococcus aureus infection, unspecified site; D63.1 Anemia in chronic kidney disease; I66.02 Occlusion and stenosis of left middle cerebral artery; K52.9 Noninfective gastroenteritis and colitis, unspecified; R63.0 Anorexia; D69.6 Thrombocytopenia, unspecified; S70.01XA Contusion of right hip, initial encounter; S30.0XXA Contusion of lower back and pelvis, initial encounter; S81.811A Laceration without foreign body, right lower leg, initial encounter; W19.XXXA Unspecified fall, initial encounter; W22.03XA Walked into furniture, initial encounter; R05 Cough; R21 Rash and other nonspecific skin eruption; F17.200 Nicotine dependence, unspecified, uncomplicated; I25.10 Atherosclerotic heart disease of native coronary artery without angina pectoris; J44.9 Chronic obstructive pulmonary disease, unspecified; Z79.82 Long term (current) use of aspirin; Z79.51 Long term (current) use of inhaled steroids; Z79.899 Other long term (current) drug therapy; Z88.1 Allergy status to other antibiotic agents; Z88.6 Allergy status to analgesic agent; Z88.5 Allergy status to narcotic agent
CPT/HCPCS: 93005; 99285; 96374; 36415; 84439; 82962; 83605; 84443; 85025; 85027; 80048; 80053; 81001; 83880; 71045; 72170; 73590; 70450; 72125; 93010; A9270 ×3; J1940; J1644; J3490; Q5105; G0257